=== PATIENT | female | born 1955 | race Caucasian/White ===

== ENCOUNTER 2020-06-20 12:43 | Observation (INO) | payer BC, MEDICAID, MEDICARE ==
[~2020-06-20] VITALS: Ht 162.6 cm; Wt 79.3 kg
[2020-06-20 14:36] VITALS: BP 147/70
[2020-06-20] MEDS ORDERED: ALBU1.25 NEB (15:26)
[2020-06-20] MEDS ORDERED: NYST15CR2 TP (15:41)
[2020-06-20] MEDS ORDERED: PHEN200C3 PO (15:41)
[2020-06-20] MEDS ORDERED: HYDR28.480 RC (15:41)
[2020-06-20] MEDS ORDERED: PANT40TA6 PO (15:41)
[2020-06-20] MEDS ORDERED: MULT-245 PO (15:41)
[2020-06-20] MEDS ORDERED: FURO20TA3 PO (15:41)
[2020-06-20] MEDS ORDERED: CALC500T54 PO (15:41)
[2020-06-20] MEDS ORDERED: GABA-586 PO (15:41)
[2020-06-20] MEDS ORDERED: LORA5SOL49 PO (15:41)
[2020-06-20] MEDS ORDERED: INSU100V13 SQ (15:41)
[2020-06-20] MEDS ORDERED: GLUC1KIT IJ (15:41)
[2020-06-20] MEDS ORDERED: glucocil PO (16:25)
--- NOTE | 2020-06-20 16:50 | NUR ---
Pt admitted to ICU 5 at 1450 For SBHU hold
[2020-06-20] MEDS ORDERED: ALBUTEROL SULFATE 8GM INHALER. INH PRN (17:15)
--- NOTE | 2020-06-20 18:14 | EKG ---
[address] [address] Test Date: 2020-06-20 Test Time: 17:50:49 Pat Name: JAIMIE LOPEZ Department: Room: [place] [address] Gender: F Edge Finisher: : [id number] Requested By: CARLOS SILVA Order Number: [id number] Reading MD: Measurements Intervals Peerless Rate: 75 P: 54 RI: 156 QRS: -22 QRSD: 90 T: 52 QT: 370 QTc: 416 Interpretive Statements SINUS RHYTHM LEFTWARD AXIS NO SPECIFIC ECG ABNORMALITIES RI6.01 No previous ECG available for comparison
[2020-06-20 19:17] LABS: BASO % 1 % (0-3); EOS # 0.1 x10^3/uL (0.0-0.7); EOS % 2 % (0-3); HEMOGLOBIN 11.6 g/dL (12.0-15.5); LYMPH # 1.8 x10^3/uL (1.0-4.8); LYMPH % 27 % (24-48); MEAN CORPUSCULAR HEMOGLOBIN 31 pg (25-35); MEAN CORPUSCULAR HGB CONC 33 g/dL (31-37); MEAN CORPUSCULAR VOLUME 94 fL (79-100); MONO # 0.6 x10^3/uL (0.0-1.1); MONO % 9 % (0-9); NEUT % 62 % (31-73); PLATELET COUNT 213 x10^3/uL (140-400); RED BLOOD COUNT 3.74 x10^6/uL (3.50-5.40); RED CELL DISTRIBUTION WIDTH 13.3 % (11.5-14.5); WHITE BLOOD COUNT 6.5 x10^3/uL (4.0-11.0)
[2020-06-20 19:30] VITALS: BP 161/74
[2020-06-20 19:41] LABS: ALBUMIN 3.4 g/dL (3.4-5.0); ALBUMIN/GLOBULIN RATIO 0.9 (1.0-1.7); CALCIUM 8.9 mg/dL (8.5-10.1); CREATININE 0.9 mg/dL (0.6-1.0); MAGNESIUM 1.6 mg/dL (1.8-2.4); POTASSIUM 3.8 mmol/L (3.5-5.1); TOTAL BILIRUBIN 0.1 mg/dL (0.2-1.0); TOTAL PROTEIN 7.3 g/dL (6.4-8.2)
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
[2020-06-20 20:49] LABS: BACTERIA,URINE MANY /HPF (0-FEW); BILIRUBIN,URINE NEG (NEG); CLARITY,URINE CLOUDY; COLOR,URINE YELLOW; GLUCOSE,URINE NEG (NEG); NITRITE,URINE NEG (NEG); SQUAMOUS EPITHELIAL CELL,UR FEW /LPF; UROBILINOGEN,URINE 0.2 mg/dL (0.2 mg/dL)
[2020-06-20] MEDS: PHENYTOIN 50 MG TAB.CHEW PO SCH (20:55)
[2020-06-20] MEDS: PHENYTOIN SODIUM EXTENDED 100 MG CAPSULE PO SCH (20:56)
[2020-06-20] MEDS: GABAPENTIN 300 MG CAPSULE. PO SCH (20:56)
[2020-06-20] MEDS ORDERED: PHENYTOIN SODIUM EXTENDED 100 MG CAPSULE PO ONE (21:00)
[2020-06-21 07:15] VITALS: BP 115/62
[2020-06-21] MEDS ORDERED: CETIRIZINE HCL 10 MG TABLET PO SCH (08:00)
[2020-06-21] MEDS ORDERED: CALCIUM CARBONATE 500 MG TAB.CHEW PO SCH (08:00)
[2020-06-21] MEDS ORDERED: INSULIN GLARGINE SYRINGE. SQ SCH (08:00)
[2020-06-21] MEDS: PHENYTOIN SODIUM EXTENDED 100 MG CAPSULE PO SCH ×2 (08:28→21:16)
[2020-06-21] MEDS: PHENYTOIN 50 MG TAB.CHEW PO SCH ×2 (08:28→21:16)
[2020-06-21] MEDS: GABAPENTIN 300 MG CAPSULE. PO SCH ×3 (08:28→21:16)
[2020-06-21] MEDS ORDERED: FUROSEMIDE 20 MG TABLET PO SCH (09:00)
[2020-06-21] MEDS ORDERED: PHENYTOIN SODIUM EXTENDED 100 MG CAPSULE PO ONE ×2 (09:00)
[2020-06-21] MEDS ORDERED: MULTIVITAMIN with MINERAL TABLET. PO SCH (09:00)
[2020-06-21 11:52] VITALS: BP 118/70
[2020-06-21 18:07] VITALS: BP 166/75
[2020-06-21] MEDS ORDERED: GLUCOCIL PO SCH (21:00)
--- NOTE | 2020-06-21 21:28 | NUR ---
Pt irritable this evening. Pt wishes to see the neurologist regarding her Dilantin and Neurontin dosing. Pt informed Dr. Thomas has been consulted and will be in to see her likely in the AM. Pt reports she has been in contact with [facility] and was advised to cooperative with plan to admit to [facility] once medically cleared. Pt highly labile, took medications without issue but then began shouting "I'm being overdosed! I need my stomach pumped!" Pt informed of Dilantin level and that she is below therapeutic range. Unable to reason with pt. Pt calmed and laid down immediately after interaction.
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
--- NOTE | 2020-06-22 00:25 | NUR ---
DISCHARGE: PT'S COVID PCR TEST HAS RESULTED: NOT DETECTED. ROOM ASSIGNMENT RECEIVED FROM NURSING SUP. REPORT GIVEN TO AUGIE CHILDRESS [facility]. DC PACKET AND MED REC GIVEN TO RECEIVING RN. PT LEFT UNIT VIA WC, ACCOMPANIED BY STAFF. ALL BELONGINGS, INCLUDING LAPTOP AND CELLPHONE, SENT UP TO [facility] WITH PT.
[2020-06-22] MEDS ORDERED: LORA10TA3 PO (02:16)
[2020-06-22] MEDS ORDERED: HYDR30CR61 RC (02:16)
[2020-06-22 10:40] LABS: THYROID STIM HORMONE (TSH) 1.179 uIU/mL (0.358-3.740)
--- NOTE | 2020-06-22 16:35 | PN ---
DATE: 06/21/2020 SUBJECTIVE: The patient is a 65-year-old female patient a resident at [facility] in [place] who was transferred to [facility]. The patient apparently has been refusing her medication, threatening to call the government, belligerent, shouting at staff, cursing, name calling, unable to focus things, the staff is trying to kill her, thinks also that her money is being stolen. She has failed outpatient psychiatric stabilization and therefore, she was transferred to [facility] for screening for coronavirus and if this came back negative, she would be admitted to senior behavioral unit for inpatient psychiatric stabilization. On questioning her today, she obviously has continued to have some complaint of dizziness and unsteady gait. Apparently, she was told that her phenytoin level was elevated and this had a manifestation of toxic effect of phenytoin, but otherwise denied any other complaint. Nursing staff did not voice any concerns. OBJECTIVE: GENERAL: When I examined her, she looked well and was clearly in no apparent respiratory distress. VITAL SIGNS: Stable as well as her clinical exam. LABORATORY DATA: She has had lab work done, which showed a white cell count of 6500, hemoglobin 11.6, hematocrit 35, MCV 94 and platelet count 113,000. D-dimer was only 0.37. Her chemistry showed a serum sodium 139, potassium 3.8, chloride 101, bicarbonate 27, anion gap of 11, BUN 23, creatinine 0.9. Estimated GFR was 63 mL per minute. Her glucose was 253, calcium was 8.9, magnesium was 1.6. Total bilirubin, AST, ALT, alkaline phosphatase were normal. Her total protein was 7.3, albumin was 3.4. Her urinalysis showed that urine was yellow, cloudy with a pH of 6, specific gravity of 1.020. There was a large amount of protein. The urine was negative for glucose, ketones, trace of blood, negative for nitrite, small amount of leukocyte esterase, 1-2 rbc's and 5-10 wbc's and many bacteria. Her phenytoin level was 9 mcg/mL with normal range of 10-20 and her coronavirus rapid testing was so far negative. ASSESSMENT AND PLAN: In summary, this is a 65-year-old patient, a resident at [facility] in [place] being admitted to be screened for coronavirus, and if it is negative, she will be admitted to [facility]. The rapid testing was so far negative. We are waiting for a PCR and once that becomes available, the patient can be transferred to [facility] for inpatient psychiatric stabilization. Her phenytoin probably is somewhat subtherapeutic, I will correct that for the serum albumin and decide whether we need to adjust the phenytoin further. MAXWELL/ELY DR: David TID: [id number]
--- NOTE | 2020-06-22 16:46 | HP ---
ADMIT DATE: 06/20/2020 HISTORY OF PRESENT ILLNESS: The patient is a 65-year-old female patient, resident at [facility] in [place], who apparently has had intermittently refused medication and threatens to call government, cursing them calling, unable to focus. Thinks staff is trying to kill her. Thinks her money is being stolen. She is belligerent, shouting at staff. Apparently, an attempt at outpatient psychiatric intervention has failed by her primary psychiatrist, and therefore, she was transferred to [facility] to be screened for COVID-19. Before she is ultimately admitted to [facility] for inpatient psychiatric stabilization. Apparently, the patient has not had COVID and declined COVID vaccination. PAST MEDICAL HISTORY: Significant for schizophrenia, gastrointestinal hemorrhage, rectal prolapse, iron deficiency anemia, malignant neoplasm of the colon. She is also known to have chronic constipation, urinary tract infection, type 2 diabetes mellitus, epilepsy, hyperlipidemia, chronic sinusitis, peripheral vascular disease, wheezing, acquired abscess of the left leg. PAST SURGICAL HISTORY: Significant for 4 C-sections, sinus surgery and right below-knee amputation. ALLERGIES: SHE IS ALLERGIC TO CIPROFLOXACIN. MEDICATIONS: She is currently on the following medication: She is on loratadine 5 mg at 5 mL. She actually takes 10 mg daily, albuterol sulfate 1.25 mg 3 mL by nebulizer every 6 hours, phenytoin sodium extended release 250 mg twice a day, gabapentin 300 mg 3 times a day, calcium carbonate 500 mg daily, furosemide 20 mg once a day, Protonix 40 mg daily, detemir insulin 10 units with breakfast, multivitamin one tablet once a day. FAMILY HISTORY: She has one sister still alive at the age of 61. One sister at the age of 60 because of cancer. She has 2 brothers, one is still alive and one , but does not know the age or the cause of his . Her father in his 70s, because of lung cancer. Mother in her late 60s, but she does not know the cause of her . SOCIAL HISTORY: She is . Has 2 daughters and 2 sons. She never smoked. Does not drink alcohol and recreational drugs. 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 She apparently has been at [facility] in [place] since 2015. REVIEW OF SYSTEMS: As per history of present illness. PHYSICAL EXAMINATION: GENERAL: When I examined her, she looked well and was clearly in no apparent respiratory distress. There is no pallor, jaundice, cyanosis or thyromegaly. No jugular venous distention or edema. VITAL SIGNS: Her heart rate was 82. Her blood pressure was 147/70, temperature was 97.9, respiratory rate 20, and oxygen saturation 100% on room air. HEENT: Normocephalic, atraumatic. NECK: Supple. HEART: Showed normal first and second sounds. No gallop or murmur. CHEST: Clear to auscultation, occasional rhonchi. ABDOMEN: Distended, soft, nontender. NEUROLOGIC: She was awake, alert, responding appropriately. Cranial nerves intact. She moves all her extremities without difficulty. She has right below-knee amputation. She is able to walk with her prosthesis without assistance. PLAN: The patient was admitted to [facility] and was basically swabbed for COVID-19 and we have drawn all the labs as per protocol. Her medications were continued. Also, once we have the coronavirus by PCR available, she will be transferred to [facility] for inpatient psychiatric stabilization. WILLEM/NAOMI/LORENZO DR: WILLEM/gurpreet TID: [id number]
== END 2020-06-22 00:25 ==
LOC: ICU 14:21
PROVIDERS: ADMIT Hospitalist; ATTEND Hospitalist
DX: R41.82 Altered mental status, unspecified (principal); Z20.822 Contact with and (suspected) exposure to COVID-19; R42 Dizziness and giddiness; R26.81 Unsteadiness on feet; F20.9 Schizophrenia, unspecified; D50.0 Iron deficiency anemia secondary to blood loss (chronic); E11.9 Type 2 diabetes mellitus without complications; E78.5 Hyperlipidemia, unspecified; G40.909 Epilepsy, unspecified, not intractable, without status epilepticus; I73.9 Peripheral vascular disease, unspecified; J32.9 Chronic sinusitis, unspecified; K59.00 Constipation, unspecified; N39.0 Urinary tract infection, site not specified; Z85.038 Personal history of other malignant neoplasm of large intestine; Z89.511 Acquired absence of right leg below knee; Z98.891 History of uterine scar from previous surgery; Z79.4 Long term (current) use of insulin; Z79.899 Other long term (current) drug therapy; Z98.890 Other specified postprocedural states
CPT/HCPCS: 36415; 80053; 80061; 80185; 81001; 82306; 82607; 82947; 83735; 84443; 85025; 85379; 86592; 87086; 87426; 93005; G0378; G0379; J1815; U0003; U0005; 87077; 87186

== ENCOUNTER 2020-06-22 00:45 | Inpatient (IN) | payer MEDICARE ==
[~2020-06-22] VITALS: Ht 162.6 cm; Wt 80.0 kg
[2020-06-22 00:45] VITALS: BP 149/83
[~2020-06-22 00:45] MED LIST: ALBU1.25 NEB; CALC500T54 PO; FURO20TA3 PO; GABA-586 PO; GLUC1KIT IJ; HYDR28.480 RC; INSU100V13 SQ; LORA5SOL49 PO; MULT-245 PO; NYST15CR2 TP; PANT40TA6 PO; PHEN200C3 PO; glucocil PO
[2020-06-22] MEDS ORDERED: ACETAMINOPHEN 325 MG TABLET PO PRN (02:00)
[2020-06-22] MEDS ORDERED: MAG HYDROX/AL HYDROX/SIMETH 30 ML ORAL.SUSP PO PRN (02:00)
[2020-06-22] MEDS ORDERED: METHYL SALICYLATE/MENTHOL TOPICAL OINTMENT 57GM TUBE. TP PRN (02:00)
[2020-06-22] MEDS ORDERED: MAGNESIUM HYDROXIDE 2,400 MG/30 ML ORAL.SUSP. PO PRN (02:00)
[2020-06-22] MEDS ORDERED: LORA10TA3 PO (02:16)
[2020-06-22] MEDS ORDERED: HYDR30CR61 RC (02:16)
[2020-06-22] MEDS ORDERED: HYDROCORTISONE 2.5% RECTAL CREAM 30GM TUBE. RC PRN (02:30)
[2020-06-22] MEDS ORDERED: PANTOPRAZOLE 40 MG TABLET. PO PRN (02:30)
[2020-06-22] MEDS ORDERED: ALBUTEROL SULFATE 2.5 MG/3 ML NEBU. NEB PRN (03:00)
--- NOTE | 2020-06-22 03:55 | NUR ---
Admission Note with Justification for Admission to [facility] Patient admitted to [facility] for protective oversight for emergency stabilization of acute psychiatric crisis. Pt admitted from: 1s Mode of arrival: WC Accompanied By: Stacy CHILDRESS Precipitating behaviors that initiated intake and admission: refusing meds, threatening to call government, belligerent, shouting at satff, thinks staff is trying to kill her Description of failure of out patient attempts at stabilization in previous setting list behavior and medication trials: education, out patient psychiatry Behaviors and assessment findings upon admission: Alert oriented, hyperverbal, reported being overdosed on hjer meds Plan: Admit for protective oversight for adjustment and stabilization of medications, behaviors and mood. Intense treatment regimen including groups, medication adjustments, therapy, consistent regimen for ADL's, self care, and sleep hygiene. Daily monitoring by Inpatient staff, Psychiatry, and Medical Physician.
[2020-06-22 06:00] VITALS: BP 150/82
[2020-06-22] MEDS: INSULIN GLARGINE SYRINGE. SQ SCH (08:00)
[2020-06-22] MEDS: MULTIVITAMIN with MINERAL TABLET. PO SCH (08:18)
[2020-06-22] MEDS: CALCIUM CARBONATE 500 MG TAB.CHEW PO SCH (08:18)
[2020-06-22] MEDS: GABAPENTIN 300 MG CAPSULE. PO SCH ×3 (08:18→21:40)
[2020-06-22] MEDS: CETIRIZINE HCL 10 MG TABLET PO SCH (08:18)
[2020-06-22] MEDS: FUROSEMIDE 20 MG TABLET PO SCH (08:18)
[2020-06-22] MEDS ORDERED: PHENYTOIN 50 MG TAB.CHEW PO ONE (12:30)
--- NOTE | 2020-06-22 12:52 | NUR ---
WEEKLY ACTIVITY THERAPY NOTE Date of Admission:06/22/20 Date of AT Assessment: TBD Precipitating behaviors that initiated intake and admission:refusing meds, threatening to call government, belligerent, shouting at staff, thinks staff is trying to kill her Goal aimed: TBD Initial Goal: TBD Weekly progress towards goal: NA Group participation level: NA Weekly highlights: arrived on [facility] Behaviors observed: Plan: meet/asses pt Beneficial adaptations:
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
[2020-06-22 16:21] VITALS: BP 148/85
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
--- NOTE | 2020-06-22 17:59 | TX PLAN ---
Interdisciplinary Tx Plan Admission Information Jun 22, 2020 at 00:45 Legal Status (on Admission): Voluntary DPOA/Guardian Name: Dtr/Medina Larios [phone] and Strategy Consultant Luis M Hernández [phone] Other Contact Name: MONROE Grace/ DANDRE Corcoran/ DONAL Mora Other Contact Verified Code Status: Full Code Allergies: Coded Allergies: ciprofloxacin (Verified Allergy, Unknown, 06/20/20) Diagnoses Primary Diagnosis: Schizophrenia, Anemia, DMII, HLD, Epilepsy, right leg amputation Reasons for Admission: Delusions, Relation/conflict, Agitated, Angry, Suspicious/paranoid Problem in Patient's Words: Pt has a long history of paranoia and being suspicious of family, facility staff, and doctors. She has burnt relationships with family members and friends from years ago. She tries to call or email the state to make accusations about the medical staff drugging her. She is Jehovah Witness and has refused blood transfusions that has created some medical complications. 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 Additional Admission Comments: Per intake pt intermittently refuses medication, threatens to call govt/state, belligerent, shouting at staff, cussing, name calling, unable to focus, thinks staff is trying to kill her, thinks money is being stolen. Problems Active Problems: Delusional, paranoia, suspicious of everyone, agitation, poor insight/judgement. Inactive Problems: None noted at this time. Pt Strengths/Limitations Ability for Rena Lara: Poor Cognitive Functioning/Ability: Poor Communication Skills/Ability: Fair Financial Resources: Poor Insight/Judgement: Poor Intellectual Ability: Fair Physical Health: Poor Social Skills: Poor Stability in Family: Poor Stability in School/Work: Poor Verbal Skills: Poor Discharge Criteria Discharge Criteria: Able to meet health needs, Adequate arrangements @DC, Adequate self-care, Verbal commit med comply, Improved behavior, Improved mood/thought Other Discharge Comments: None noted at this time. Preliminary Discharge Plan Preliminary DC Plan: Current Living Arrange. Special Precautions Special Precautions: Agitation/Assault Fall Risk: Moderate Initial D/C Plan Pt plan is to return to [facility] Identified Discharge Needs: None noted at this time. Currently Utilized Resources Currently Utilized Resources/P: PCP-Dr. Aguayo Psychiatrist-Dr. Champion [facility] Ic-ysinbolct-Xlc/Medina, and Strategy Consultant/Luis M Referrals Community Resources: None noted at this time. Additional Information Pt should not be allowed to use the phone unless SW or guardian's are aware and approved by. Identified Problems/Hx/Goals Objectives/Short-Term Goals Short Term Goals: Control abnormal behavior, Dec. Hallucination/Delus, Improved Social Skills, Medication Stabilization, Monitor Med Effects, Promote Coping Skill Short Term Goals in Patient's: Compliant with medications and improved paranoia/suspicions Interventions/Frequency Staff Interventions/Frequency&: Psychiatry to assess pt three times per week for medication management. Nursing to assess behaviors, monitor medications, and complete 15 minute checks daily. Social Work to see pt at least two times weekly to aid in return to placement. Activities to encourage pt to participate in group activities daily. 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 Education: Pt completed high school and secretarial schooling. Community Follow-up PCP Psychiatry Community Provider/Family Inpu: Guardians are aware that pt is at [facility]. They are available for further input if needed. Pt should not be allowed to make phone calls without consulting SW or guardians first. Treatment Plan Explained Patient/Curtain Stitcher had this treatment plan explained to him/her as indicated by the signature below and has been given the opportunity to ask questions and make suggestions: Date: Patient/Curtain Stitcher Signature: NAKIA AVERY Jun 22, 2020 17:59
[2020-06-22] MEDS ORDERED: GLUCOCIL PO SCH (21:00)
[2020-06-22] MEDS: PHENYTOIN 50 MG TAB.CHEW PO SCH (21:40)
--- NOTE | 2020-06-22 22:01 | PDOC ---
Exam Note: Ryan Note: Please also refer to the separate dictated note~for this date of service dictated separately.~Patient seen individually. Discussed the patient with Nursing staff reviewed the chart.~Reviewed interim history and current functioning. Reviewed vital signs,~Labs/ Radiology~and current medications noted below. Continue current treatment with the changes noted in the dictated addendum note Assessment: Vital Signs/I&O: Vital Signs Date Time Temp Pulse Resp B/P (MAP) Pulse Ox O2 Delivery O2 Flow Rate FiO2 06/22/20 16:21 97.1 84 18 148/85 (106) 96 Labs: Laboratory Tests Test 06/22/20 08:19 06/22/20 12:12 06/22/20 17:11 06/22/20 19:15 Glucose (Fingerstick) 110 mg/dL (70-99) H 181 mg/dL (70-99) H 99 mg/dL (70-99) 134 mg/dL (70-99) H Current Medications: Meds: Current Medications Medications (Trade) Dose Ordered Sig/Sydney Route PRN Reason Start Time Stop Time Status Last Admin Dose Admin Furosemide (Lasix) 20 mg DAILY PO 06/22/20 09:00 06/22/20 08:18 Gabapentin (Neurontin) 300 mg TID PO 06/22/20 09:00 06/22/20 21:40 Calcium Carbonate/ Glycine (Tums) 500 mg DAILY08 PO 06/22/20 08:00 06/22/20 08:18 Insulin Glargine (Lantus Syringe) 10 unit DAILYWBKFT SQ 06/22/20 08:00 06/22/20 08:00 Cetirizine HCl (ZyrTEC) 10 mg DAILY PO 06/22/20 09:00 06/22/20 08:18 Multivitamins/ Calcium (Thera-M Plus) 1 tab DAILY PO 06/22/20 09:00 06/22/20 08:18 Phenytoin Sodium (Dilantin) 250 mg BID PO 06/22/20 21:00 06/22/20 21:40 Phenytoin Sodium (Dilantin) 150 mg 1X ONCE PO 06/22/20 12:30 06/22/20 12:31 DC 06/22/20 15:31 Non-Formulary Medication (Non Formulary Item (Glucocil)) 1 ea BID PO 06/22/20 21:00 06/22/20 21:41 I have reviewed the current psychotropics carefully including drug interactions. Risk benefit ratio favors no change other than as noted in my dictated progress note. Diagnosis: Problems: (1) Schizoaffective disorder, bipolar type (2) Bipolar disorder with psychotic features ELIAS WASHINGTON MD Jun 22, 2020 22:01
--- NOTE | 2020-06-22 22:21 | HP ---
ADMIT DATE: 06/21/2020 ADMISSION HISTORY/EVALUATION This note covers elements not covered in my initial note 06/22/2020. I met with the patient evening of 06/22/2020 for this evaluation. IDENTIFYING DATA: The patient is a 65-year-old female referred to us from [facility] where she has resided for the past several years. She is being admitted by her legal guardian, her daughter, Medina on account of an acute exacerbation of her schizoaffective disorder, bipolar type, with psychotic features. The patient has been refusing medications, resistive to cares, putting herself on the floor, shouting at staff, belligerent, cursing, name calling, unable to focus. She thinks staff is trying to kill her. She thinks her money is being stolen. She has failed outpatient psychiatric care and interventions by Dr. Raymundo Champion, her psychiatrist. Therefore, referred for inpatient psychiatric stabilization. CHIEF COMPLAINT: "I came here just to have my seizure medications adjusted." HISTORY OF PRESENT ILLNESS: Reportedly, the patient has a long history of schizoaffective disorder, bipolar type. She has been living at the above facility for some time, recently getting more paranoid, psychotic, agitated, refusing cares and medications, putting herself on the floor. At times, she is hyperverbal. She has had sleep and appetite changes. No active suicidal or homicidal ideation. PAST PSYCHIATRIC HISTORY: As above. MEDICAL HISTORY: Type 2 diabetes mellitus, hyperlipidemia, seizure disorder, rectal prolapse, status post right leg amputation. ACCU-CHEKS: Before meals and at bedtime. ALLERGIES: CIPRO. CODE STATUS: Full code. DIET: Regular. Takes medications whole. culture is pending. CURRENT PSYCHOTROPICS: She is on Dilantin 250 mg b.i.d. for seizures, level is subtherapeutic at 9. We will consult Dr. Thomas, Neurology to follow her for her seizures. She is also on Neurontin 300 mg t.i.d. FAMILY HISTORY: Noncontributory. SOCIAL HISTORY: No alcohol, drug abuse, physical, sexual or elder abuse. She is not known to be a perpetrator. REACTION TO HOSPITALIZATION: The patient accepting of it. ASSETS: Supportive, guardian and living arrangements at the above facility. REVIEW OF SYSTEMS: No CV, , pulmonary, eye, ENT system symptoms on review. MENTAL STATUS EXAMINATION: The patient is reasonably oriented. Speech is coherent, has some latency. Abstraction fair, computation impaired, language function intact, attention span short. Mood and affect somewhat anxious, labile. She is distractable, paranoid, suspicious. No suicidal or homicidal ideation. LABORATORY DATA: Reviewed. IMPRESSION: Schizoaffective disorder, bipolar type, mixed with psychotic features; anxiety disorder, unspecified; impulse control disorder, unspecified. Rest diagnoses as above. PLAN: Admit to Geropsychiatry Unit at [facility]. I will see the patient daily individually from a psychiatric standpoint. Medical followup with Dr. Jorge/Dr. Wei. Continue current psychotropics. Consult Dr. Thomas for seizure management. Consider adding Depakote as a mood stabilizer. Using Risperdal or Seroquel as an atypical antipsychotic. She was staffed at a treatment team meeting with the entire team today including Zohreh Esteban and Kacie, social welfare research worker staff; Deondre, activity therapy and MONROE Beaulieu. She has been paranoid, suspicious, talking about doctors overmedicating her in the past and she has an open case with the state against different providers. She has been putting herself on the floor, hyperverbal at times, refuses to give up her rings and watches for safekeeping. Discussed diagnosis, treatment plan, prognosis, discharge plans. We will make further adjustments in psychotropics post baseline assessment. ESTIMATED LENGTH OF STAY: 10-12 days. DISPOSITION: Plans back to assisted when stable. ELIAS WASHINGTON MD DR: JEFFREY/gurpreet JOB#: [id number] / [id number]
--- NOTE | 2020-06-22 23:59 | NUR ---
Patient is located in her room on assumption of care, awake in bed. She is pleasant, cooperative. Compliant with assessments and medications whole. She has voiced no delusions so far this shift. She has asked several times about her Glucocil pills. When HS meds were administered, she informed this nurse that she takes 2 capsules at 0800 and 1700, not one BID as pharmacy label states. This nurse told her that I would get clarification in the morning and that I could only give her one at this time. She was agreeable. No agitation. Patient denies any pain or discomfort. Denies SI. She appears to be sleeping comfortably at present time. Will continue to monitor.
[2020-06-23 06:04] VITALS: BP 125/78
[2020-06-23] MEDS: INSULIN GLARGINE SYRINGE. SQ SCH (08:00)
[2020-06-23] MEDS: GLUCOCIL PO SCH ×2 (08:00→17:00)
[2020-06-23] MEDS: MULTIVITAMIN with MINERAL TABLET. PO SCH (08:19)
[2020-06-23] MEDS: PHENYTOIN 50 MG TAB.CHEW PO SCH ×2 (08:19→21:18)
[2020-06-23] MEDS: CALCIUM CARBONATE 500 MG TAB.CHEW PO SCH (08:19)
[2020-06-23] MEDS: GABAPENTIN 300 MG CAPSULE. PO SCH ×3 (08:19→21:17)
[2020-06-23] MEDS: CETIRIZINE HCL 10 MG TABLET PO SCH (08:19)
[2020-06-23] MEDS: FUROSEMIDE 20 MG TABLET PO SCH (08:20)
[2020-06-23 15:36] VITALS: BP 134/83
[2020-06-23] MEDS: CHOLECALCIFEROL (VITAMIN D3) 50,000 UNIT CAPSULE PO SCH (17:27)
[2020-06-23] MEDS: AMOXICILLIN/K CLAV 875/125MG TABLET. PO SCH (21:16)
[2020-06-23] MEDS: LACTOBACILLUS RHAMNOSUS GG 1 CAPSULE. PO SCH (21:16)
[2020-06-23] MEDS: MAGNESIUM OXIDE 400 MG TABLET PO SCH (21:17)
--- NOTE | 2020-06-23 22:11 | PDOC ---
Exam Note: Ryan Note: Please also refer to the separate dictated note~for this date of service dictated separately.~Patient seen individually. Discussed the patient with Nursing staff reviewed the chart.~Reviewed interim history and current functioning. Reviewed vital signs,~Labs/ Radiology~and current medications noted below. Continue current treatment with the changes noted in the dictated addendum note Assessment: Vital Signs/I&O: Vital Signs Date Time Temp Pulse Resp B/P (MAP) Pulse Ox O2 Delivery O2 Flow Rate FiO2 06/23/20 15:36 97.4 81 16 134/83 (100) 96 Room Air I & O 06/22/20 06/22/20 06/23/20 15:00 23:00 07:00 Intake Total 480 ml 480 ml Balance 480 ml 480 ml Labs: Laboratory Tests Test 06/23/20 07:48 06/23/20 12:19 06/23/20 17:10 06/23/20 19:20 Glucose (Fingerstick) 90 mg/dL (70-99) 143 mg/dL (70-99) H 143 mg/dL (70-99) H 160 mg/dL (70-99) H Current Medications: Meds: Current Medications Medications (Trade) Dose Ordered Sig/Sydney Route PRN Reason Start Time Stop Time Status Last Admin Dose Admin Non-Formulary Medication (Non Formulary Item (Glucocil)) 2 ea BIDWMEALS PO 06/23/20 08:00 06/23/20 17:00 Amoxicillin/ Clavulanate Potassium (Augmentin 875/ 125mg) 1 tab BID PO 06/23/20 21:00 07/03/20 22:00 06/23/20 21:16 Vitamin D (Vitamin D3) 50,000 unit WEEKLY PO 06/23/20 15:45 06/23/20 17:27 Magnesium Oxide (Magnesium Oxide) 400 mg BID PO 06/23/20 21:00 06/23/20 21:17 Lactobacillus Rhamnosus (Culturelle) 1 cap BID PO 06/23/20 21:00 06/23/20 21:16 Phenytoin Sodium (Dilantin) 200 mg BID PO 06/23/20 21:00 06/23/20 21:18 I have reviewed the current psychotropics carefully including drug interactions. Risk benefit ratio favors no change other than as noted in my dictated progress note. Diagnosis: Problems: (1) Anxiety disorder, unspecified (2) Impulse control disorder, unspecified (3) Schizoaffective disorder, bipolar type (4) Bipolar disorder with psychotic features ELIAS WASHINGTON MD Jun 23, 2020 22:11
--- NOTE | 2020-06-23 23:59 | NUR ---
Patient is located in her room on assumption of care, sitting in her chair. She remains on precautions for ESBL. She is in pleasant spirits, interactive, polite. She was very happy to have seen Dr. Thomas and was happy about her med changes. She was compliant with assessments and medications taken whole. She asked this nurse if she could have a pen and her spiral notebook because she wanted to take notes and write down questions that she thinks of. This nurse told her she would try to find her a suitable notebook and felt-tip pen. She asked "Well, why can't I just have a pen like yours and the notebook that I brought with me?" This nurse explained that regular pens and spiral notebooks are against unit rules, as they can pose a danger to a patient who is looking to harm themselves or others. This nurse was able to procure a composition notebook and felt tip pen for the patient. She was thankful for the writing supplies. Patient has voiced no delusions so far this shift. She denies any pain or discomfort. Patient appears to be sleeping comfortably at present time. Will continue to monitor.
[2020-06-24 06:49] VITALS: BP 130/79
[2020-06-24] MEDS: INSULIN GLARGINE SYRINGE. SQ SCH (08:00)
[2020-06-24] MEDS: GLUCOCIL PO SCH ×2 (08:00→17:00)
[2020-06-24] MEDS: PHENYTOIN 50 MG TAB.CHEW PO SCH ×2 (09:00→21:16)
[2020-06-24] MEDS: MAGNESIUM OXIDE 400 MG TABLET PO SCH ×2 (09:00→21:15)
[2020-06-24] MEDS: AMOXICILLIN/K CLAV 875/125MG TABLET. PO SCH ×2 (09:00→21:16)
[2020-06-24] MEDS: FUROSEMIDE 20 MG TABLET PO SCH (09:01)
[2020-06-24] MEDS: LACTOBACILLUS RHAMNOSUS GG 1 CAPSULE. PO SCH ×2 (09:01→21:16)
[2020-06-24] MEDS: GABAPENTIN 300 MG CAPSULE. PO SCH ×3 (09:01→21:15)
[2020-06-24] MEDS: CALCIUM CARBONATE 500 MG TAB.CHEW PO SCH (09:01)
[2020-06-24] MEDS: CETIRIZINE HCL 10 MG TABLET PO SCH (09:01)
[2020-06-24] MEDS: MULTIVITAMIN with MINERAL TABLET. PO SCH (09:01)
--- NOTE | 2020-06-24 10:54 | CONS ---
DATE OF CONSULTATION: 06/23/2020 CHIEF COMPLAINT: Consult for medical management for the patient. HISTORY OF PRESENT ILLNESS: The patient is a 65-year-old female patient who was a resident at [facility] in [place] where she has been a resident for the past several years. She was seen initially at [address] [place] [address] where she was screened for COVID-19 and turned out to be negative and was admitted to [facility] on account of an acute exacerbation of her schizoaffective disorder, bipolar type with psychotic features. The patient has been refusing medications and resistive to care, putting herself on the floor, shouting at staff, belligerent, cursing and calling, unable to focus. She thinks staff is trying to kill her. She thinks her money is being stolen and apparently has failed outpatient psychiatric stabilization intervention and therefore, she was admitted for inpatient psychiatric stabilization. Medically, she has multiple medical problems including type 2 diabetes, hyperlipidemia, and seizure disorder. She is known to have gastrointestinal hemorrhage, rectal prolapse, iron deficiency anemia and malignant neoplasm of the colon. She also is known to have chronic constipation, urinary tract infection. Apparently, she has also peripheral vascular disease. PAST SURGICAL HISTORY: Significant for 4 C-sections, sinus surgery and right below-knee amputation. ALLERGIES: SHE IS ALLERGIC TO CIPROFLOXACIN. FAMILY HISTORY: She has one sister still alive at the age of 61. One sister at the age of 60 because of cancer. Has 2 brothers, 1 is still alive and 1 , but does not know the age or the cause of his . Her father in his 70s because of lung cancer. Mother in her late 60s, but she does not know the cause of her . SOCIAL HISTORY: She is , has 2 daughters and 2 sons. She never smoked, does not drink alcohol or use recreational drugs. 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 She apparently has been at [facility] in [place] since 2016. REVIEW OF SYSTEMS: As per history of present illness. PHYSICAL EXAMINATION: GENERAL: On examining her, she looks well and was clearly in no apparent respiratory distress. No pallor, jaundice, or cyanosis. No thyromegaly, no jugular venous distention. No limb edema. VITAL SIGNS: Heart rate was 81, blood pressure was 134/83, temperature 97.4, respiratory rate was 16 and oxygen saturation was 96% on room air. HEAD, EYES, EARS, NOSE AND THROAT: Normocephalic, atraumatic. NECK: Supple. HEART: Showed normal first and second sounds. No gallop or murmur. CHEST: Clear to auscultation. No crepitation or rhonchi. ABDOMEN: Distended, soft, nontender. NEUROLOGIC: She is grossly intact. All her cranial nerves are intact. She moves upper extremities without difficulty. She has right below-knee amputation. She has prosthesis and according to her, she is able to walk with the prosthesis on; without it, she is able to walk with a walker. LABORATORY DATA: Her lab work on admission showed a white cell count of 6500, hemoglobin 11.6, hematocrit 35, MCV 94 and platelet count of 213,000. Her chemistry showed a serum sodium 139, potassium 3.8, chloride 101, bicarbonate 97, anion gap of 11, BUN 23, creatinine 0.9. Estimated GFR was 63 mL per minute. Her glucose was 253, calcium was 8.9, magnesium is 1.6. Total bilirubin, AST, ALT, alkaline phosphatase were normal. Total protein 7.3, albumin was 3.4. Her serum triglycerides was 138. Total cholesterol was 238, LDL cholesterol 165, VLDL was 27, HDL was 46 and the ratio of 5. Her vitamin B12 was 1412 pg/mL, 25-hydroxy vitamin D was 28. TSH was normal at 1.179. Her phenytoin was 9 mcg/mL and corrected to the albumin it was 11.6, which is within therapeutic range. Her ____ was unreactive. Coronavirus with PCR was not detected. Her urinalysis showed that she has 5-10 wbcs, small amount of leukocyte esterase and many bacteria. Her urine culture has grown more than 100,000 colony forming units per mL of gram-negative rods. She has extended spectrum beta-lactamase. The bacteria is sensitive to ertapenem, gentamicin, piperacillin/tazobactam and meropenem. ASSESSMENT: In summary, this is a 65-year-old female patient, a resident at [facility] in [place], who was [facility] to [facility] on account of exacerbation of her schizoaffective disorder, bipolar type with psychotic features. The patient has been refusing medications, resistive to care, putting herself on the floor, shouting at staff, belligerent, cursing, name calling, unable to focus. She thinks that the staff are trying to kill her and her money is being stolen; all this obviously on a background of schizoaffective disorder, bipolar type. Her lab work showed that she has normochromic normocytic anemia, hyperlipidemia, vitamin D deficiency, hypomagnesemia and her urine culture has grown multidrug-resistant bacteria in the form of Escherichia coli that is extended spectrum beta-lactamase. Her extended spectrum beta-lactamase Escherichia coli is resistant to the quinolone and most of the cephalosporins as well as ampicillin, and sensitive to Augmentin. PLAN: My plan is to start her on Augmentin based on her kidney function and decide on further management accordingly. Thank you, Dr. Steven for allowing me to participate in the care of this patient. WILLEM/ADIDS/JANICE DR: WILLEM/gurpreet TID: [id number]
[2020-06-24 15:59] VITALS: BP 120/60
--- NOTE | 2020-06-24 18:53 | NUR ---
Pt up adl to meals. Usually in room writing in journal. Has [place] compliant with meds and cares.
--- NOTE | 2020-06-24 22:05 | PDOC ---
Exam Note: Ryan Note: Please also refer to the separate dictated note~for this date of service dictated separately.~Patient seen individually. Discussed the patient with Nursing staff reviewed the chart.~Reviewed interim history and current functioning. Reviewed vital signs,~Labs/ Radiology~and current medications noted below. Continue current treatment with the changes noted in the dictated addendum note Assessment: Vital Signs/I&O: Vital Signs Date Time Temp Pulse Resp B/P (MAP) Pulse Ox O2 Delivery O2 Flow Rate FiO2 06/24/20 15:59 97.4 85 16 120/60 (80) 95 06/23/20 15:36 Room Air I & O 06/23/20 06/23/20 06/24/20 15:00 23:00 07:00 Intake Total 600 ml 240 ml 120 ml Balance 600 ml 240 ml 120 ml Labs: Laboratory Tests Test 06/24/20 08:02 06/24/20 12:11 06/24/20 17:06 Glucose (Fingerstick) 104 mg/dL (70-99) H 159 mg/dL (70-99) H 124 mg/dL (70-99) H Current Medications: Meds: Laboratory Tests Test 06/24/20 08:02 06/24/20 12:11 06/24/20 17:06 Glucose (Fingerstick) 104 mg/dL 159 mg/dL 124 mg/dL Current Medications Medications (Trade) Dose Ordered Sig/Sydney Route PRN Reason Start Time Stop Time Status Last Admin Dose Admin Acetaminophen (Tylenol) 650 mg PRN Q6HRS PRN PO MILD PAIN / TEMP > 100.3'F 06/22/20 02:00 Multi-Ingredient Ointment (Analgesic Inland) 1 syed PRN QID PRN TP MUSCLE PAIN 06/22/20 02:00 Al Hydroxide/Mg Hydroxide (Mylanta Plus Xs) 15 ml PRN AFTMEALHC PRN PO DYSPEPSIA 06/22/20 02:00 Magnesium Hydroxide (Milk Of Magnesia) 2,400 mg PRN QHS PRN PO CONSTIPATION 06/22/20 02:00 Furosemide (Lasix) 20 mg DAILY PO 06/22/20 09:00 06/24/20 09:01 Gabapentin (Neurontin) 300 mg TID PO 06/22/20 09:00 06/24/20 21:15 Hydrocortisone (Proctosol-Hc) 1 syed PRN Q12HR PRN RC Hemmorrhoids 06/22/20 02:30 Pantoprazole Sodium (Protonix) 40 mg PRN Q12HR PRN PO GERD 06/22/20 02:30 Albuterol Sulfate (Ventolin) 1.25 mg PRN Q6HRS PRN NEB COUGH 06/22/20 03:00 Calcium Carbonate/ Glycine (Tums) 500 mg DAILY08 PO 06/22/20 08:00 06/24/20 09:01 Insulin Glargine (Lantus Syringe) 10 unit DAILYWBKFT SQ 06/22/20 08:00 06/24/20 08:00 Cetirizine HCl (ZyrTEC) 10 mg DAILY PO 06/22/20 09:00 06/24/20 09:01 Multivitamins/ Calcium (Thera-M Plus) 1 tab DAILY PO 06/22/20 09:00 06/24/20 09:01 Phenytoin Sodium (Dilantin) 250 mg BID PO 06/22/20 21:00 06/23/20 19:12 DC 06/23/20 08:19 Phenytoin Sodium (Dilantin) 150 mg 1X ONCE PO 06/22/20 12:30 06/22/20 12:31 DC 06/22/20 15:31 Non-Formulary Medication (Non Formulary Item (Glucocil)) 1 ea BID PO 06/22/20 21:00 06/23/20 05:16 DC 06/22/20 21:41 Non-Formulary Medication (Non Formulary Item (Glucocil)) 2 ea BIDWMEALS PO 06/23/20 08:00 06/24/20 17:00 Amoxicillin/ Clavulanate Potassium (Augmentin 875/ 125mg) 1 tab BID PO 06/23/20 21:00 07/03/20 22:00 06/24/20 21:16 Vitamin D (Vitamin D3) 50,000 unit WEEKLY PO 06/23/20 15:45 06/23/20 17:27 Magnesium Oxide (Magnesium Oxide) 400 mg BID PO 06/23/20 21:00 06/24/20 21:15 Lactobacillus Rhamnosus (Culturelle) 1 cap BID PO 06/23/20 21:00 06/24/20 21:16 Phenytoin Sodium (Dilantin) 200 mg BID PO 06/23/20 21:00 06/24/20 21:16 I have reviewed the current psychotropics carefully including drug interactions. Risk benefit ratio favors no change other than as noted in my dictated progress note. Diagnosis: Problems: (1) Schizoaffective disorder, bipolar type (2) Bipolar disorder with psychotic features (3) Impulse control disorder, unspecified (4) Anxiety disorder, unspecified ELIAS WASHINGTON MD Jun 24, 2020 22:05
--- NOTE | 2020-06-24 23:59 | NUR ---
Patient is located in her room on assumption of care, sitting in her chair. She is in pleasant spirits. Compliant with assessments and medications whole. Cooperative with shower. No agitation or paranoia. She has voiced no delusions so far this shift. Denies SI. She denies any pain or discomfort. Patient appears to be sleeping comfortably at present time. Will continue to monitor.
--- NOTE | 2020-06-25 01:37 | PN ---
DATE: 06/24/2020 SUBJECTIVE: The patient denies any new medical or neurological complaints. She has not had any recurrent seizures. The patient stated she has been tolerating Dilantin at current dose 200 mg twice a day without any side effects. OBJECTIVE: GENERAL: Well-developed, well-nourished female, not in acute distress. VITAL SIGNS: Blood pressure 130/79, respiratory rate 16, pulse 78 and regular, temperature 97.8, oxygen saturation 96% on room air. HEENT: Normocephalic, atraumatic, otherwise unremarkable. NECK: Supple, negative for carotid bruit, lymphadenopathy or thyromegaly. LUNGS: Clear to A and P. HEART: Regular rate and rhythm, normal S1, S2. ABDOMEN: Soft. Bowel sounds positive. EXTREMITIES: Negative for cyanosis, clubbing or edema. NEUROLOGIC: Mental status: The patient is alert and oriented x3. Speech is fluent. There is no language dysfunction. Cranial nerves are intact. No focal motor deficit; however, the patient had a prosthesis after amputation of the right lower extremity. Sensory examination, diminished pinprick and light touch senses in patchy distributions in the left lower extremity. Deep tendon reflexes were symmetric and hypoactive with absent Achilles responses. Gait: The patient walks with a prosthesis. ASSESSMENT: 1. Seizure disorder, no recurrence since admission. 2. Multiple medical problems including diabetes mellitus, hypertension, hyperlipidemia, status post right leg amputation. 3. Multiple psychiatric problems including schizoaffective disorders, bipolar disorder and anxiety disorder. RECOMMENDATION: We will continue with current anticonvulsant. Continue with current medical and psychiatric care. ANGELICA DR: Alexy TID: [id number]
[2020-06-25 06:22] VITALS: BP 120/75
[2020-06-25] MEDS: INSULIN GLARGINE SYRINGE. SQ SCH (08:00)
[2020-06-25] MEDS: GLUCOCIL PO SCH ×2 (08:00→17:00)
[2020-06-25] MEDS: MAGNESIUM OXIDE 400 MG TABLET PO SCH ×2 (09:00→20:51)
[2020-06-25] MEDS: CETIRIZINE HCL 10 MG TABLET PO SCH (09:20)
[2020-06-25] MEDS: AMOXICILLIN/K CLAV 875/125MG TABLET. PO SCH ×2 (09:20→20:51)
[2020-06-25] MEDS: GABAPENTIN 300 MG CAPSULE. PO SCH ×3 (09:20→20:51)
[2020-06-25] MEDS: LACTOBACILLUS RHAMNOSUS GG 1 CAPSULE. PO SCH ×2 (09:21→20:51)
[2020-06-25] MEDS: CALCIUM CARBONATE 500 MG TAB.CHEW PO SCH (09:21)
[2020-06-25] MEDS: FUROSEMIDE 20 MG TABLET PO SCH (09:21)
[2020-06-25] MEDS: MULTIVITAMIN with MINERAL TABLET. PO SCH (09:21)
[2020-06-25] MEDS: PHENYTOIN SODIUM EXTENDED 100 MG CAPSULE PO SCH ×2 (09:28→20:52)
[2020-06-25 16:07] VITALS: BP 137/76
--- NOTE | 2020-06-25 18:42 | NUR ---
Pt up adl to meals and out in halls. Compliant with meds and cares.
--- NOTE | 2020-06-25 22:13 | PDOC ---
Exam Note: Ryan Note: Please also refer to the separate dictated note~for this date of service dictated separately.~Patient seen individually. Discussed the patient with Nursing staff reviewed the chart.~Reviewed interim history and current functioning. Reviewed vital signs,~Labs/ Radiology~and current medications noted below. Continue current treatment with the changes noted in the dictated addendum note Assessment: Vital Signs/I&O: Vital Signs Date Time Temp Pulse Resp B/P (MAP) Pulse Ox O2 Delivery O2 Flow Rate FiO2 06/25/20 16:07 97.5 78 16 137/76 (96) 96 06/23/20 15:36 Room Air I & O 06/24/20 06/24/20 06/25/20 14:59 22:59 06:59 Intake Total 600 ml 600 ml Balance 600 ml 600 ml Labs: Laboratory Tests Test 06/25/20 07:57 06/25/20 12:12 06/25/20 17:01 06/25/20 19:31 Glucose (Fingerstick) 98 mg/dL (70-99) 155 mg/dL (70-99) H 119 mg/dL (70-99) H 224 mg/dL (70-99) H Current Medications: Meds: Laboratory Tests Test 06/25/20 07:57 06/25/20 12:12 06/25/20 17:01 06/25/20 19:31 Glucose (Fingerstick) 98 mg/dL 155 mg/dL 119 mg/dL 224 mg/dL Current Medications Medications (Trade) Dose Ordered Sig/[place] Route PRN Reason Start Time Stop Time Status Last Admin Dose Admin Acetaminophen (Tylenol) 650 mg PRN Q6HRS PRN PO MILD PAIN / TEMP > 100.3'F 06/22/20 02:00 Multi-Ingredient Ointment (Analgesic [place]) 1 syed PRN QID PRN TP MUSCLE PAIN 06/22/20 02:00 Al Hydroxide/Mg Hydroxide (Mylanta Plus Xs) 15 ml PRN AFTMEALHC PRN PO DYSPEPSIA 06/22/20 02:00 Magnesium Hydroxide (Milk Of Magnesia) 2,400 mg PRN QHS PRN PO CONSTIPATION 06/22/20 02:00 Furosemide (Lasix) 20 mg DAILY PO 06/22/20 09:00 06/25/20 09:21 Gabapentin (Neurontin) 300 mg TID PO 06/22/20 09:00 06/25/20 20:51 Hydrocortisone (Proctosol-Hc) 1 syed PRN Q12HR PRN RC Hemmorrhoids 06/22/20 02:30 Pantoprazole Sodium (Protonix) 40 mg PRN Q12HR PRN PO GERD 06/22/20 02:30 Albuterol Sulfate (Ventolin) 1.25 mg PRN Q6HRS PRN NEB COUGH 06/22/20 03:00 Calcium Carbonate/ Glycine (Tums) 500 mg DAILY08 PO 06/22/20 08:00 06/25/20 09:21 Insulin Glargine (Lantus Syringe) 10 unit DAILYWBKFT SQ 06/22/20 08:00 06/25/20 08:00 Cetirizine HCl (ZyrTEC) 10 mg DAILY PO 06/22/20 09:00 06/25/20 09:20 Multivitamins/ Calcium (Thera-M Plus) 1 tab DAILY PO 06/22/20 09:00 06/25/20 09:21 Phenytoin Sodium (Dilantin) 250 mg BID PO 06/22/20 21:00 06/23/20 19:12 DC 06/23/20 08:19 Phenytoin Sodium (Dilantin) 150 mg 1X ONCE PO 06/22/20 12:30 06/22/20 12:31 DC 06/22/20 15:31 Non-Formulary Medication (Non Formulary Item (Glucocil)) 1 ea BID PO 06/22/20 21:00 06/23/20 05:16 DC 06/22/20 21:41 Non-Formulary Medication (Non Formulary Item (Glucocil)) 2 ea BIDWMEALS PO 06/23/20 08:00 06/25/20 17:00 Amoxicillin/ Clavulanate Potassium (Augmentin 875/ 125mg) 1 tab BID PO 06/23/20 21:00 07/03/20 22:00 06/25/20 20:51 Vitamin D (Vitamin D3) 50,000 unit WEEKLY PO 06/23/20 15:45 06/23/20 17:27 Magnesium Oxide (Magnesium Oxide) 400 mg BID PO 06/23/20 21:00 06/25/20 20:51 Lactobacillus Rhamnosus (Culturelle) 1 cap BID PO 06/23/20 21:00 06/25/20 20:51 Phenytoin Sodium (Dilantin) 200 mg BID PO 06/23/20 21:00 06/25/20 01:50 DC 06/24/20 21:16 Phenytoin Sodium (Dilantin) 200 mg BID PO 06/25/20 09:00 06/25/20 20:52 Current Medications Medications (Trade) Dose Ordered Sig/[place] Route PRN Reason Start Time Stop Time Status Last Admin Dose Admin Phenytoin Sodium (Dilantin) 200 mg BID PO 06/25/20 09:00 06/25/20 20:52 I have reviewed the current psychotropics carefully including drug interactions. Risk benefit ratio favors no change other than as noted in my dictated progress note. Diagnosis: Problems: (1) Schizoaffective disorder, bipolar type (2) Bipolar disorder with psychotic features (3) Impulse control disorder, unspecified (4) Anxiety disorder, unspecified ELIAS WASHINGTON MD Jun 25, 2020 22:13
[2020-06-26 06:42] VITALS: BP 157/78
--- NOTE | 2020-06-26 06:53 | PDOC ---
Exam Note: Ryan Note: This note is a late entry for 06/23/2020 covers elements not covered in my initial note. Subjective: The patient was seen individually in the evening of 06/23/2020 with Mariela CHILDRESS, discussed and reviewed the chart. The patient slept 5-1/2 hours previous night. The patient has been pleasant. No delusions noted. She has been angry and upset for being isolative due to ESBL UTI. She has been paranoid asking nursing staff if she is going to be sent to the [facility]. I reassured her this was not in the plans. Review of Systems: No CV, GI, eye system symptoms on review. She has some dysuria. Mental Status Exam: The patient is oriented to herself. I met with her in her room. She is pleasant, at times somewhat paranoid but less so than before. Speech coherent, has some latency. Abstraction fair. Computation impaired. Attention span is short. Language function intact. Mood and affect anxious, labile. No suicidal or homicidal ideation. Laboratory Data: Reviewed. Impression: Schizoaffective disorder, bipolar type, mixed with psychotic features. Anxiety disorder unspecified. Impulse control disorder unspecified. Plan: No change from initial note. Assessment: Vital Signs/I&O: Vital Signs Date Time Temp Pulse Resp B/P (MAP) Pulse Ox O2 Delivery O2 Flow Rate FiO2 06/26/20 06:42 96.9 74 20 157/78 (104) 99 06/23/20 15:36 Room Air I & O 06/25/20 06/25/20 06/26/20 15:00 23:00 07:00 Intake Total 480 ml 240 ml 240 ml Balance 480 ml 240 ml 240 ml Labs: Laboratory Tests Test 06/25/20 07:57 06/25/20 12:12 06/25/20 17:01 06/25/20 19:31 Glucose (Fingerstick) 98 mg/dL (70-99) 155 mg/dL (70-99) H 119 mg/dL (70-99) H 224 mg/dL (70-99) H Current Medications: Meds: Laboratory Tests Test 06/25/20 07:57 06/25/20 12:12 06/25/20 17:01 06/25/20 19:31 Glucose (Fingerstick) 98 mg/dL 155 mg/dL 119 mg/dL 224 mg/dL Current Medications Medications (Trade) Dose Ordered Sig/[place] Route PRN Reason Start Time Stop Time Status Last Admin Dose Admin Acetaminophen (Tylenol) 650 mg PRN Q6HRS PRN PO MILD PAIN / TEMP > 100.3'F 06/22/20 02:00 Multi-Ingredient Ointment (Analgesic [place]) 1 syed PRN QID PRN TP MUSCLE PAIN 06/22/20 02:00 Al Hydroxide/Mg Hydroxide (Mylanta Plus Xs) 15 ml PRN AFTMEALHC PRN PO DYSPEPSIA 06/22/20 02:00 Magnesium Hydroxide (Milk Of Magnesia) 2,400 mg PRN QHS PRN PO CONSTIPATION 06/22/20 02:00 Furosemide (Lasix) 20 mg DAILY PO 06/22/20 09:00 06/25/20 09:21 Gabapentin (Neurontin) 300 mg TID PO 06/22/20 09:00 06/25/20 20:51 Hydrocortisone (Proctosol-Hc) 1 syed PRN Q12HR PRN RC Hemmorrhoids 06/22/20 02:30 Pantoprazole Sodium (Protonix) 40 mg PRN Q12HR PRN PO GERD 06/22/20 02:30 Albuterol Sulfate (Ventolin) 1.25 mg PRN Q6HRS PRN NEB COUGH 06/22/20 03:00 Calcium Carbonate/ Glycine (Tums) 500 mg DAILY08 PO 06/22/20 08:00 06/25/20 09:21 Insulin Glargine (Lantus Syringe) 10 unit DAILYWBKFT SQ 06/22/20 08:00 06/25/20 08:00 Cetirizine HCl (ZyrTEC) 10 mg DAILY PO 06/22/20 09:00 06/25/20 09:20 Multivitamins/ Calcium (Thera-M Plus) 1 tab DAILY PO 06/22/20 09:00 06/25/20 09:21 Phenytoin Sodium (Dilantin) 250 mg BID PO 06/22/20 21:00 06/23/20 19:12 DC 06/23/20 08:19 Phenytoin Sodium (Dilantin) 150 mg 1X ONCE PO 06/22/20 12:30 06/22/20 12:31 DC 06/22/20 15:31 Non-Formulary Medication (Non Formulary Item (Glucocil)) 1 ea BID PO 06/22/20 21:00 06/23/20 05:16 DC 06/22/20 21:41 Non-Formulary Medication (Non Formulary Item (Glucocil)) 2 ea BIDWMEALS PO 06/23/20 08:00 06/25/20 17:00 Amoxicillin/ Clavulanate Potassium (Augmentin 875/ 125mg) 1 tab BID PO 06/23/20 21:00 07/03/20 22:00 06/25/20 20:51 Vitamin D (Vitamin D3) 50,000 unit WEEKLY PO 06/23/20 15:45 06/23/20 17:27 Magnesium Oxide (Magnesium Oxide) 400 mg BID PO 06/23/20 21:00 06/25/20 20:51 Lactobacillus Rhamnosus (Culturelle) 1 cap BID PO 06/23/20 21:00 06/25/20 20:51 Phenytoin Sodium (Dilantin) 200 mg BID PO 06/23/20 21:00 06/25/20 01:50 DC 06/24/20 21:16 Phenytoin Sodium (Dilantin) 200 mg BID PO 06/25/20 09:00 06/25/20 20:52 Current Medications Medications (Trade) Dose Ordered Sig/[place] Route PRN Reason Start Time Stop Time Status Last Admin Dose Admin Phenytoin Sodium (Dilantin) 200 mg BID PO 06/25/20 09:00 06/25/20 20:52 I have reviewed the current psychotropics carefully including drug interactions. Risk benefit ratio favors no change other than as noted in my dictated progress note. Diagnosis: Problems: (1) Schizoaffective disorder, bipolar type (2) Bipolar disorder with psychotic features (3) Impulse control disorder, unspecified (4) Anxiety disorder, unspecified ELIAS WASHINGTON MD Jun 26, 2020 06:53
--- NOTE | 2020-06-26 07:50 | PDOC ---
Exam Note: Ryan Note: This note is a late entry for 06/24/2020 covers elements not covered in my initial note. Subjective: The patient was seen individually in the evening of 06/24/2020 with Ofelia CHILDRESS, discussed and reviewed the chart. The patient slept 6-1/4 hours previous night. Per nursing report she has been making detailed notes about all activities on the unit and staff splitting. Dr. Thomas did see her for Neurology consult for her seizure disorder. In past CT head results are being obtained for presentation to Dr. Thomas. She remains on Augmentin b.i.d. for her ESBL. Review of Systems: Ambulation impaired. No CV, GI, eye system symptoms on review. Mental Status Exam: The patient is oriented to herself. I met with her near the second nursing station. She is pleasant, smiling and verbal. Speech coherent. Abstraction fair. Computation impaired. Attention span is short. Language function intact. Mood and affect anxious, labile. No suicidal or homicidal ideation. Laboratory Data: Reviewed. Impression: Schizoaffective disorder, bipolar type, mixed with psychotic features. Anxiety disorder unspecified. Impulse control disorder unspecified. Plan: No change from initial note. Assessment: Vital Signs/I&O: Vital Signs Date Time Temp Pulse Resp B/P (MAP) Pulse Ox O2 Delivery O2 Flow Rate FiO2 06/26/20 06:42 96.9 74 20 157/78 (104) 99 06/23/20 15:36 Room Air I & O 06/25/20 06/25/20 06/26/20 15:00 23:00 07:00 Intake Total 480 ml 240 ml 240 ml Balance 480 ml 240 ml 240 ml Labs: Laboratory Tests Test 06/25/20 07:57 06/25/20 12:12 06/25/20 17:01 06/25/20 19:31 Glucose (Fingerstick) 98 mg/dL (70-99) 155 mg/dL (70-99) H 119 mg/dL (70-99) H 224 mg/dL (70-99) H Test 06/26/20 07:43 Glucose (Fingerstick) 112 mg/dL (70-99) H Current Medications: Meds: Laboratory Tests Test 06/25/20 07:57 06/25/20 12:12 06/25/20 17:01 06/25/20 19:31 Glucose (Fingerstick) 98 mg/dL 155 mg/dL 119 mg/dL 224 mg/dL Test 06/26/20 07:43 Glucose (Fingerstick) 112 mg/dL Current Medications Medications (Trade) Dose Ordered Sig/[place] Route PRN Reason Start Time Stop Time Status Last Admin Dose Admin Acetaminophen (Tylenol) 650 mg PRN Q6HRS PRN PO MILD PAIN / TEMP > 100.3'F 06/22/20 02:00 Multi-Ingredient Ointment (Analgesic [place]) 1 syed PRN QID PRN TP MUSCLE PAIN 06/22/20 02:00 Al Hydroxide/Mg Hydroxide (Mylanta Plus Xs) 15 ml PRN AFTMEALHC PRN PO DYSPEPSIA 06/22/20 02:00 Magnesium Hydroxide (Milk Of Magnesia) 2,400 mg PRN QHS PRN PO CONSTIPATION 06/22/20 02:00 Furosemide (Lasix) 20 mg DAILY PO 06/22/20 09:00 06/25/20 09:21 Gabapentin (Neurontin) 300 mg TID PO 06/22/20 09:00 06/25/20 20:51 Hydrocortisone (Proctosol-Hc) 1 syed PRN Q12HR PRN RC Hemmorrhoids 06/22/20 02:30 Pantoprazole Sodium (Protonix) 40 mg PRN Q12HR PRN PO GERD 06/22/20 02:30 Albuterol Sulfate (Ventolin) 1.25 mg PRN Q6HRS PRN NEB COUGH 06/22/20 03:00 Calcium Carbonate/ Glycine (Tums) 500 mg DAILY08 PO 06/22/20 08:00 06/25/20 09:21 Insulin Glargine (Lantus Syringe) 10 unit DAILYWBKFT SQ 06/22/20 08:00 06/25/20 08:00 Cetirizine HCl (ZyrTEC) 10 mg DAILY PO 06/22/20 09:00 06/25/20 09:20 Multivitamins/ Calcium (Thera-M Plus) 1 tab DAILY PO 06/22/20 09:00 06/25/20 09:21 Phenytoin Sodium (Dilantin) 250 mg BID PO 06/22/20 21:00 06/23/20 19:12 DC 06/23/20 08:19 Phenytoin Sodium (Dilantin) 150 mg 1X ONCE PO 06/22/20 12:30 06/22/20 12:31 DC 06/22/20 15:31 Non-Formulary Medication (Non Formulary Item (Glucocil)) 1 ea BID PO 06/22/20 21:00 06/23/20 05:16 DC 06/22/20 21:41 Non-Formulary Medication (Non Formulary Item (Glucocil)) 2 ea BIDWMEALS PO 06/23/20 08:00 06/25/20 17:00 Amoxicillin/ Clavulanate Potassium (Augmentin 875/ 125mg) 1 tab BID PO 06/23/20 21:00 07/03/20 22:00 06/25/20 20:51 Vitamin D (Vitamin D3) 50,000 unit WEEKLY PO 06/23/20 15:45 06/23/20 17:27 Magnesium Oxide (Magnesium Oxide) 400 mg BID PO 06/23/20 21:00 06/25/20 20:51 Lactobacillus Rhamnosus (Culturelle) 1 cap BID PO 06/23/20 21:00 06/25/20 20:51 Phenytoin Sodium (Dilantin) 200 mg BID PO 06/23/20 21:00 06/25/20 01:50 DC 06/24/20 21:16 Phenytoin Sodium (Dilantin) 200 mg BID PO 06/25/20 09:00 06/25/20 20:52 Current Medications Medications (Trade) Dose Ordered Sig/[place] Route PRN Reason Start Time Stop Time Status Last Admin Dose Admin Phenytoin Sodium (Dilantin) 200 mg BID PO 06/25/20 09:00 06/25/20 20:52 I have reviewed the current psychotropics carefully including drug interactions. Risk benefit ratio favors no change other than as noted in my dictated progress note. Diagnosis: Problems: (1) Schizoaffective disorder, bipolar type (2) Bipolar disorder with psychotic features (3) Impulse control disorder, unspecified (4) Anxiety disorder, unspecified ELIAS WASHINGTON MD Jun 26, 2020 07:50
[2020-06-26] MEDS: INSULIN GLARGINE SYRINGE. SQ SCH (08:00)
[2020-06-26] MEDS: GLUCOCIL PO SCH ×2 (08:00→16:18)
[2020-06-26] MEDS: AMOXICILLIN/K CLAV 875/125MG TABLET. PO SCH ×2 (08:15→20:05)
[2020-06-26] MEDS: FUROSEMIDE 20 MG TABLET PO SCH (08:15)
[2020-06-26] MEDS: MULTIVITAMIN with MINERAL TABLET. PO SCH (08:15)
[2020-06-26] MEDS: GABAPENTIN 300 MG CAPSULE. PO SCH ×3 (08:15→20:05)
[2020-06-26] MEDS: CETIRIZINE HCL 10 MG TABLET PO SCH (08:16)
[2020-06-26] MEDS: PHENYTOIN SODIUM EXTENDED 100 MG CAPSULE PO SCH ×2 (08:16→20:05)
[2020-06-26] MEDS: CALCIUM CARBONATE 500 MG TAB.CHEW PO SCH (08:16)
[2020-06-26] MEDS: MAGNESIUM OXIDE 400 MG TABLET PO SCH ×2 (08:16→20:06)
[2020-06-26] MEDS: LACTOBACILLUS RHAMNOSUS GG 1 CAPSULE. PO SCH ×2 (08:16→20:06)
--- NOTE | 2020-06-26 08:21 | PDOC ---
Exam Note: Ryan Note: This note is a late entry for 06/25/2020 covers elements not covered in my initial note. Subjective: The patient was seen individually in the evening of 06/25/2020 with Ofelia CHILDRESS, discussed and reviewed the chart. The patient slept 5-1/4 hours previous night. She did well previous night. Today during the day she was better, less anxious, restless. She has been treated for ESBL UTI. She is compliant with medications. Review of Systems: Ambulation impaired. No CV, GI, eye system symptoms on review. Mental Status Exam: The patient is oriented to herself. Speech coherent. Abstraction fair. Computation impaired. Attention span is short. Language function intact. Mood and affect less anxious. Laboratory Data: Reviewed. Impression: Schizoaffective disorder, bipolar type, mixed with psychotic features. Anxiety disorder unspecified. Impulse control disorder unspecified. Plan: No change from initial note. Assessment: Vital Signs/I&O: Vital Signs Date Time Temp Pulse Resp B/P (MAP) Pulse Ox O2 Delivery O2 Flow Rate FiO2 06/26/20 06:42 96.9 74 20 157/78 (104) 99 06/23/20 15:36 Room Air I & O 06/25/20 06/25/20 06/26/20 15:00 23:00 07:00 Intake Total 480 ml 240 ml 240 ml Balance 480 ml 240 ml 240 ml Labs: Laboratory Tests Test 06/25/20 12:12 06/25/20 17:01 06/25/20 19:31 06/26/20 07:43 Glucose (Fingerstick) 155 mg/dL (70-99) H 119 mg/dL (70-99) H 224 mg/dL (70-99) H 112 mg/dL (70-99) H Current Medications: Meds: Laboratory Tests Test 06/25/20 12:12 06/25/20 17:01 06/25/20 19:31 06/26/20 07:43 Glucose (Fingerstick) 155 mg/dL 119 mg/dL 224 mg/dL 112 mg/dL Current Medications Medications (Trade) Dose Ordered Sig/[place] Route PRN Reason Start Time Stop Time Status Last Admin Dose Admin Acetaminophen (Tylenol) 650 mg PRN Q6HRS PRN PO MILD PAIN / TEMP > 100.3'F 06/22/20 02:00 Multi-Ingredient Ointment (Analgesic [place]) 1 syed PRN QID PRN TP MUSCLE PAIN 06/22/20 02:00 Al Hydroxide/Mg Hydroxide (Mylanta Plus Xs) 15 ml PRN AFTMEALHC PRN PO DYSPEPSIA 06/22/20 02:00 Magnesium Hydroxide (Milk Of Magnesia) 2,400 mg PRN QHS PRN PO CONSTIPATION 06/22/20 02:00 Furosemide (Lasix) 20 mg DAILY PO 06/22/20 09:00 06/25/20 09:21 Gabapentin (Neurontin) 300 mg TID PO 06/22/20 09:00 06/25/20 20:51 Hydrocortisone (Proctosol-Hc) 1 syed PRN Q12HR PRN RC Hemmorrhoids 06/22/20 02:30 Pantoprazole Sodium (Protonix) 40 mg PRN Q12HR PRN PO GERD 06/22/20 02:30 Albuterol Sulfate (Ventolin) 1.25 mg PRN Q6HRS PRN NEB COUGH 06/22/20 03:00 Calcium Carbonate/ Glycine (Tums) 500 mg DAILY08 PO 06/22/20 08:00 06/25/20 09:21 Insulin Glargine (Lantus Syringe) 10 unit DAILYWBKFT SQ 06/22/20 08:00 06/25/20 08:00 Cetirizine HCl (ZyrTEC) 10 mg DAILY PO 06/22/20 09:00 06/25/20 09:20 Multivitamins/ Calcium (Thera-M Plus) 1 tab DAILY PO 06/22/20 09:00 06/25/20 09:21 Phenytoin Sodium (Dilantin) 250 mg BID PO 06/22/20 21:00 06/23/20 19:12 DC 06/23/20 08:19 Phenytoin Sodium (Dilantin) 150 mg 1X ONCE PO 06/22/20 12:30 06/22/20 12:31 DC 06/22/20 15:31 Non-Formulary Medication (Non Formulary Item (Glucocil)) 1 ea BID PO 06/22/20 21:00 06/23/20 05:16 DC 06/22/20 21:41 Non-Formulary Medication (Non Formulary Item (Glucocil)) 2 ea BIDWMEALS PO 06/23/20 08:00 06/25/20 17:00 Amoxicillin/ Clavulanate Potassium (Augmentin 875/ 125mg) 1 tab BID PO 06/23/20 21:00 07/03/20 22:00 06/25/20 20:51 Vitamin D (Vitamin D3) 50,000 unit WEEKLY PO 06/23/20 15:45 06/23/20 17:27 Magnesium Oxide (Magnesium Oxide) 400 mg BID PO 06/23/20 21:00 06/25/20 20:51 Lactobacillus Rhamnosus (Culturelle) 1 cap BID PO 06/23/20 21:00 06/25/20 20:51 Phenytoin Sodium (Dilantin) 200 mg BID PO 06/23/20 21:00 06/25/20 01:50 DC 06/24/20 21:16 Phenytoin Sodium (Dilantin) 200 mg BID PO 06/25/20 09:00 06/25/20 20:52 Current Medications Medications (Trade) Dose Ordered Sig/[place] Route PRN Reason Start Time Stop Time Status Last Admin Dose Admin Phenytoin Sodium (Dilantin) 200 mg BID PO 06/25/20 09:00 06/25/20 20:52 I have reviewed the current psychotropics carefully including drug interactions. Risk benefit ratio favors no change other than as noted in my dictated progress note. Diagnosis: Problems: (1) Schizoaffective disorder, bipolar type (2) Bipolar disorder with psychotic features (3) Impulse control disorder, unspecified (4) Anxiety disorder, unspecified ELIAS WASHINGTON MD Jun 26, 2020 08:21
--- NOTE | 2020-06-26 10:16 | NUR ---
Pt has been appropriate and cooperative on the unit. Her interactions with others have been pleasant. She is cooperative with assessment and medications taken whole. She remains on contact precautions d/t ESBL. She inquires as to how she may have gotten ESBL; attempt at education regarding UTI causes was partially accepted by pt, who became fixated on the possibility that drinking water from lead pipes can cause her current infection. She has not requested phone/internet use so far this shift. She is absent of SI/HI behaviors, absent of VH/AH/delusions and she denies pain at this time. Plan of care continues, will pass on to next shift.
--- NOTE | 2020-06-26 15:10 | CONS ---
DATE OF CONSULTATION: 06/23/2020 NEUROLOGY CONSULTATION REFERRING PHYSICIAN: Dr. Steven. REASON FOR CONSULTATION: Seizure disorder. HISTORY OF PRESENT ILLNESS: This is a 65-year-old right-handed female who was admitted on 06/22/2020 and transferred from [facility], was admitted on account of worsening and exacerbation of schizoaffective disorders and symptoms of bipolar disorder with psychotic feature. The patient has been putting herself on the floor, refusing her medications, being paranoid and sometimes refusing medications. She is depressed and have intermittent suicidal ideation. Neuro consult was requested because the patient has had long history of seizure disorder and she is concerned about her current management for seizure including antiepileptic drugs. Currently, the patient denies headaches, visual disturbances, nausea, vomiting, chest pain, shortness of breath or palpitation, dysarthria, dysphagia, weakness or paresthesia. 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 She has been on Dilantin since that time, but currently she stated her high dose of Dilantin may have affected her, she became more jittery and somewhat confused. The patient described a history of generalized tonic-clonic seizure and a complex partial seizure as well. She denies any recent head injuries or fall. The patient stated that she has had three seizures in the last year. PAST MEDICAL HISTORY: Significant for diabetes mellitus type 2, hyperlipidemia, seizure disorder as described, rectal prolapse. PAST SURGICAL HISTORY: Status post right leg amputation requiring a prosthesis. PAST PSYCHIATRIC HISTORY: Significant for schizoaffective disorder, bipolar disorder, anxiety disorders with intermittent psychotic features. SOCIAL HISTORY: The patient is . She denies smoking, alcohol drinking or illicit drug use. FAMILY HISTORY: Noncontributory. CURRENT MEDICATIONS: Phenytoin 250 mg b.i.d., magnesium oxide, vitamin D, calcium with multivitamin, gabapentin, furosemide, insulin, Lantus, albuterol inhaler, pantoprazole, hydrocortisone 1 ampule q.12 hours for adrenal deficiency, Tylenol, and Augmentin. ALLERGIES: CIPROFLOXACIN. REVIEW OF SYSTEMS: A 10-point of review of systems was performed and as mentioned above in history of present illness. PHYSICAL EXAMINATION: GENERAL: Well-developed, well-nourished female in no acute distress. She weighs 79.3 kilos. VITAL SIGNS: Blood pressure 125/78, respiratory rate 16, pulse 77, temperature is 96.7 and oxygen saturation 93% on room air. HEENT: Normocephalic, atraumatic, otherwise unremarkable. NECK: Supple, negative for carotid bruit, lymphadenopathy or thyromegaly. LUNGS: Clear to auscultation and percussion. HEART: Regular rate and rhythm, normal S1, S2. There is no S3, S4, murmur. ABDOMEN: Soft. Bowel sounds positive. EXTREMITIES: Status post left knee amputation required a prosthesis. NEUROLOGIC: Mental status: The patient is alert and oriented x 3. Speech is fluent. There is no language dysfunction. Memory, judgment and abstracting thinking are normal. The patient denies hallucination or delusion. Cranial nerves: Visual dominique are full. The pupils are reactive to light and accommodation. The extraocular movements are intact. There is no nystagmus. There is no facial motor or sensory deficit. Hearing is intact bilaterally. The palate is elevated symmetrically. Sternocleidomastoid muscles are powerful bilaterally. The patient shrugs her shoulders symmetrically protrudes her tongue in the midline without fasciculation or atrophy. Motor examination: No focal muscle bulk wasting. The tone is normal. Strength is 4/5 in the upper and left lower extremity. Deep tendon reflexes were symmetrical and hypoactive with absent Achilles responses. Gait: The patient's gait is normal. LABORATORY DATA: CBC revealed blood cells of 6.5 thousand, hemoglobin 11.6, hematocrit 35, platelet count is 213,000. Chemistry reveals sodium of 139, potassium 3.8, chloride 101, CO2 27, BUN 11, creatinine 0.9, glucose is 253, calcium is 8.9. Lipid profile revealed high cholesterol at 238 with a high LDL at 165 with normal HDL. Normal vitamin B12 and low vitamin D, normal TSH. Urinalysis is small urinary leukocyte esterase, urine white blood cells of 5-10 suggestive of urinary tract infections, phenytoin level is 9. IMPRESSION: 1. Longstanding history of seizure disorder. The patient's seizure has been stable on phenytoin 200 mg once daily; however, the current dose of phenytoin at 250 mg twice daily may cause some side effects and make the patient jittery. The patient stated her dose of Dilantin at 200 mg twice daily is better without any side effects. However, the patient stated she is not happy with previous trial on Depakote as the medication give her some side effects. 2. Multiple medical problems include diabetes mellitus, possible peripheral neuropathy in the lower extremities, chronic obstructive pulmonary disease, adrenal deficiency, GERD and urinary tract infections. 3. Multiple psychiatric problems include Schizoaffective disorders with intermittent psychotic features along with bipolar disorders. RECOMMENDATIONS: 1. We will continue with Dilantin at 200 mg b.i.d. 2. Continue with current home medications. 3. Continue with current medical and psychiatric care. VINCE DR: Alexy TID: [id number]
--- NOTE | 2020-06-26 15:13 | CONS ---
DATE OF CONSULTATION: 06/25/2020 ADDENDUM PHYSICAL EXAMINATION: GENERAL: Well-developed, well-nourished female in no acute distress. VITAL SIGNS: Blood pressure 125/78, respiratory rate 16, pulse 77, temperature is 96.7 and oxygen saturation 93% on room air. HEENT: Normocephalic and atraumatic, otherwise unremarkable. NECK: Supple, negative for carotid bruit, lymphadenopathy or thyromegaly. LUNGS: Clear to A and P. HEART: Regular rate and rhythm, normal S1, S2. There is no S3, S4, murmur. ABDOMEN: Soft. Bowel sounds positive. EXTREMITIES: Negative for cyanosis, clubbing or pitting edema, but status post right lower extremity amputation. NEUROLOGIC: Mental status: The patient is alert and oriented x 3. Speech is fluent. There is no language dysfunction. Memory, judgment and abstract thinking are normal. The patient denies hallucination or delusion. Cranial nerves: Visual dominique are full. The pupils are reactive to light and accommodation. Extraocular movements are intact. There is no nystagmus. There is no facial motor or sensory deficit. Hearing is intact bilaterally. The palate is elevated symmetrically. Sternocleidomastoid muscles are powerful bilaterally. The patient shrugs her shoulders symmetrically and protrudes her tongue in the midline without fasciculation or atrophy. Motor exam: No focal muscle bulk wasting. The tone is normal. The strength is 5/5 in the bilateral upper extremity and left lower extremity. Sensory examination reveals diminished pinprick and light touch senses in patchy distributions. Deep tendon reflexes were symmetric and hypoactive with absent Achilles responses on the left lower extremity. Gait: The patient's gait is normal with prosthesis. This is just I am repeating the exam. LABORATORY DATA: I already mentioned it. IMPRESSION: 1. Longstanding history of seizure disorder. The patient's seizure has been stable on phenytoin 200 mg once daily; however, the current dose of phenytoin at 250 mg twice daily may cause some side effects and make the patient jittery. The patient stated her dose of Dilantin at 200 mg twice daily is better without any side effects. However, the patient stated she is not happy with previous trial on Depakote as the medication give her some side effects. 2. Multiple medical problems include diabetes mellitus, possible peripheral neuropathy in the lower extremities, chronic obstructive pulmonary disease, adrenal deficiency, GERD and urinary tract infections. 3. Multiple psychiatric problems include Schizoaffective disorders with intermittent psychotic features along with bipolar disorders. RECOMMENDATIONS: 1. We will continue with Dilantin at 200 mg b.i.d. 2. Continue with current home medications. 3. Continue with current medical and psychiatric care. VIOLETTE/BHARATI DR: Alexy TID: [id number]
[2020-06-26 15:54] VITALS: BP 141/70
--- NOTE | 2020-06-26 22:03 | PDOC ---
Exam Note: Ryan Note: Please also refer to the separate dictated note~for this date of service dictated separately.~Patient seen individually. Discussed the patient with Nursing staff reviewed the chart.~Reviewed interim history and current functioning. Reviewed vital signs,~Labs/ Radiology~and current medications noted below. Continue current treatment with the changes noted in the dictated addendum note Assessment: Vital Signs/I&O: Vital Signs Date Time Temp Pulse Resp B/P (MAP) Pulse Ox O2 Delivery O2 Flow Rate FiO2 06/26/20 15:54 97.3 72 16 141/70 (93) 96 Room Air I & O 06/25/20 06/25/20 06/26/20 15:00 23:00 07:00 Intake Total 480 ml 240 ml 240 ml Balance 480 ml 240 ml 240 ml Labs: Laboratory Tests Test 06/26/20 07:43 06/26/20 11:57 06/26/20 17:11 06/26/20 19:19 Glucose (Fingerstick) 112 mg/dL (70-99) H 103 mg/dL (70-99) H 154 mg/dL (70-99) H 188 mg/dL (70-99) H Current Medications: Meds: Laboratory Tests Test 06/26/20 07:43 06/26/20 11:57 06/26/20 17:11 06/26/20 19:19 Glucose (Fingerstick) 112 mg/dL 103 mg/dL 154 mg/dL 188 mg/dL Current Medications Medications (Trade) Dose Ordered Sig/[place] Route PRN Reason Start Time Stop Time Status Last Admin Dose Admin Acetaminophen (Tylenol) 650 mg PRN Q6HRS PRN PO MILD PAIN / TEMP > 100.3'F 06/22/20 02:00 Multi-Ingredient Ointment (Analgesic [place]) 1 syed PRN QID PRN TP MUSCLE PAIN 06/22/20 02:00 Al Hydroxide/Mg Hydroxide (Mylanta Plus Xs) 15 ml PRN AFTMEALHC PRN PO DYSPEPSIA 06/22/20 02:00 Magnesium Hydroxide (Milk Of Magnesia) 2,400 mg PRN QHS PRN PO CONSTIPATION 06/22/20 02:00 Furosemide (Lasix) 20 mg DAILY PO 06/22/20 09:00 06/26/20 08:15 Gabapentin (Neurontin) 300 mg TID PO 06/22/20 09:00 06/26/20 20:05 Hydrocortisone (Proctosol-Hc) 1 syed PRN Q12HR PRN RC Hemmorrhoids 06/22/20 02:30 Pantoprazole Sodium (Protonix) 40 mg PRN Q12HR PRN PO GERD 06/22/20 02:30 Albuterol Sulfate (Ventolin) 1.25 mg PRN Q6HRS PRN NEB COUGH 06/22/20 03:00 Calcium Carbonate/ Glycine (Tums) 500 mg DAILY08 PO 06/22/20 08:00 06/26/20 08:16 Insulin Glargine (Lantus Syringe) 10 unit DAILYWBKFT SQ 06/22/20 08:00 06/26/20 08:00 Cetirizine HCl (ZyrTEC) 10 mg DAILY PO 06/22/20 09:00 06/26/20 08:16 Multivitamins/ Calcium (Thera-M Plus) 1 tab DAILY PO 06/22/20 09:00 06/26/20 08:15 Phenytoin Sodium (Dilantin) 250 mg BID PO 06/22/20 21:00 06/23/20 19:12 DC 06/23/20 08:19 Phenytoin Sodium (Dilantin) 150 mg 1X ONCE PO 06/22/20 12:30 06/22/20 12:31 DC 06/22/20 15:31 Non-Formulary Medication (Non Formulary Item (Glucocil)) 1 ea BID PO 06/22/20 21:00 06/23/20 05:16 DC 06/22/20 21:41 Non-Formulary Medication (Non Formulary Item (Glucocil)) 2 ea BIDWMEALS PO 06/23/20 08:00 06/26/20 16:18 Amoxicillin/ Clavulanate Potassium (Augmentin 875/ 125mg) 1 tab BID PO 06/23/20 21:00 07/03/20 22:00 06/26/20 20:05 Vitamin D (Vitamin D3) 50,000 unit WEEKLY PO 06/23/20 15:45 06/23/20 17:27 Magnesium Oxide (Magnesium Oxide) 400 mg BID PO 06/23/20 21:00 06/26/20 20:06 Lactobacillus Rhamnosus (Culturelle) 1 cap BID PO 06/23/20 21:00 06/26/20 20:06 Phenytoin Sodium (Dilantin) 200 mg BID PO 06/23/20 21:00 06/25/20 01:50 DC 06/24/20 21:16 Phenytoin Sodium (Dilantin) 200 mg BID PO 06/25/20 09:00 06/26/20 20:05 I have reviewed the current psychotropics carefully including drug interactions. Risk benefit ratio favors no change other than as noted in my dictated progress note. Diagnosis: Problems: (1) Schizoaffective disorder, bipolar type (2) Bipolar disorder with psychotic features (3) Impulse control disorder, unspecified (4) Anxiety disorder, unspecified ELIAS WASHINGTON MD Jun 26, 2020 22:03
--- NOTE | 2020-06-27 05:13 | NUR ---
Nursing Note Pt cooperative and compliant alert and oriented. Asking for her lab results from her last admission. Takes meds willingly whole, no behaviors slept well this pm.
[2020-06-27 06:11] LABS: BASO % 1 % (0-3); EOS # 0.2 x10^3/uL (0.0-0.7); EOS % 3 % (0-3); HEMATOCRIT 35.7 % (36.0-47.0); HEMOGLOBIN 11.9 g/dL (12.0-15.5); LYMPH # 1.3 x10^3/uL (1.0-4.8); LYMPH % 22 % (24-48); MEAN CORPUSCULAR HEMOGLOBIN 32 pg (25-35); MEAN CORPUSCULAR HGB CONC 33 g/dL (31-37); MEAN CORPUSCULAR VOLUME 94 fL (79-100); MONO # 0.6 x10^3/uL (0.0-1.1); MONO % 10 % (0-9); NEUT # 3.9 x10^3uL (1.8-7.7); NEUT % 65 % (31-73); PLATELET COUNT 193 x10^3/uL (140-400); RED BLOOD COUNT 3.79 x10^6/uL (3.50-5.40); RED CELL DISTRIBUTION WIDTH 13.3 % (11.5-14.5); WHITE BLOOD COUNT 5.9 x10^3/uL (4.0-11.0)
[2020-06-27 06:28] LABS: ALBUMIN 3.5 g/dL (3.4-5.0); ALBUMIN/GLOBULIN RATIO 0.9 (1.0-1.7); ALK PHOS 90 U/L (46-116); ALT (SGPT) 41 U/L (14-59); ANION GAP 8 (6-14); AST (SGOT) 23 U/L (15-37); BLOOD UREA NITROGEN 24 mg/dL (7-20); BUN/CREATININE RATIO 30 (6-20); CARBON DIOXIDE 30 mmol/L (21-32); CHLORIDE 105 mmol/L (98-107); CREATININE 0.8 mg/dL (0.6-1.0); GFR 72.2; GLUCOSE 92 mg/dL (70-99); PHENY 14.4 mcg/mL (10.0-20.0); POTASSIUM 4.4 mmol/L (3.5-5.1); SODIUM 143 mmol/L (136-145); TOTAL BILIRUBIN 0.2 mg/dL (0.2-1.0); TOTAL PROTEIN 7.5 g/dL (6.4-8.2)
[2020-06-27 06:40] VITALS: BP 139/79
[2020-06-27] MEDS: INSULIN GLARGINE SYRINGE. SQ SCH (08:00)
[2020-06-27] MEDS: CALCIUM CARBONATE 500 MG TAB.CHEW PO SCH (08:00)
[2020-06-27] MEDS: GLUCOCIL PO SCH ×2 (08:00→17:00)
[2020-06-27] MEDS: MAGNESIUM OXIDE 400 MG TABLET PO SCH ×2 (09:00→21:15)
[2020-06-27] MEDS: LACTOBACILLUS RHAMNOSUS GG 1 CAPSULE. PO SCH ×2 (09:28→21:15)
[2020-06-27] MEDS: CETIRIZINE HCL 10 MG TABLET PO SCH (09:29)
[2020-06-27] MEDS: PHENYTOIN SODIUM EXTENDED 100 MG CAPSULE PO SCH ×2 (09:29→21:15)
[2020-06-27] MEDS: MULTIVITAMIN with MINERAL TABLET. PO SCH (09:29)
[2020-06-27] MEDS: AMOXICILLIN/K CLAV 875/125MG TABLET. PO SCH ×2 (09:29→21:15)
[2020-06-27] MEDS: FUROSEMIDE 20 MG TABLET PO SCH (09:29)
[2020-06-27] MEDS: GABAPENTIN 300 MG CAPSULE. PO SCH ×3 (09:30→21:15)
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
[2020-06-27 15:22] VITALS: BP 154/78
[2020-06-27] MEDS: QUEtiapine 25 MG TABLET. PO SCH (21:15)
--- NOTE | 2020-06-27 21:59 | PDOC ---
Exam Note: Ryan Note: Please also refer to the separate dictated note~for this date of service dictated separately.~Patient seen individually. Discussed the patient with Nursing staff reviewed the chart.~Reviewed interim history and current functioning. Reviewed vital signs,~Labs/ Radiology~and current medications noted below. Continue current treatment with the changes noted in the dictated addendum note Assessment: Vital Signs/I&O: Vital Signs Date Time Temp Pulse Resp B/P (MAP) Pulse Ox O2 Delivery O2 Flow Rate FiO2 06/27/20 15:22 98.1 74 18 154/78 (103) 96 06/27/20 06:40 Room Air I & O 06/26/20 06/26/20 06/27/20 15:00 23:00 07:00 Intake Total 580 ml 440 ml Balance 580 ml 440 ml Labs: Laboratory Tests Test 06/27/20 05:52 06/27/20 12:05 06/27/20 16:53 06/27/20 19:08 White Blood Count 5.9 x10^3/uL (4.0-11.0) Red Blood Count 3.79 x10^6/uL (3.50-5.40) Hemoglobin 11.9 g/dL (12.0-15.5) L Hematocrit 35.7 % (36.0-47.0) L Mean Corpuscular Volume 94 fL (79-100) Mean Corpuscular Hemoglobin 32 pg (25-35) Mean Corpuscular Hemoglobin Concent 33 g/dL (31-37) Red Cell Distribution Width 13.3 % (11.5-14.5) Platelet Count 193 x10^3/uL (140-400) Neutrophils (%) (Auto) 65 % (31-73) Lymphocytes (%) (Auto) 22 % (24-48) L Monocytes (%) (Auto) 10 % (0-9) H Eosinophils (%) (Auto) 3 % (0-3) Basophils (%) (Auto) 1 % (0-3) Neutrophils # (Auto) 3.9 x10^3uL (1.8-7.7) Lymphocytes # (Auto) 1.3 x10^3/uL (1.0-4.8) Monocytes # (Auto) 0.6 x10^3/uL (0.0-1.1) Eosinophils # (Auto) 0.2 x10^3/uL (0.0-0.7) Basophils # (Auto) 0.0 x10^3/uL (0.0-0.2) Sodium Level 143 mmol/L (136-145) Potassium Level 4.4 mmol/L (3.5-5.1) Chloride Level 105 mmol/L (98-107) Carbon Dioxide Level 30 mmol/L (21-32) Anion Gap 8 (6-14) Blood Urea Nitrogen 24 mg/dL (7-20) H Creatinine 0.8 mg/dL (0.6-1.0) Estimated GFR (Cockcroft-Gault) 72.2 BUN/Creatinine Ratio 30 (6-20) H Glucose Level 92 mg/dL (70-99) Calcium Level 9.0 mg/dL (8.5-10.1) Total Bilirubin 0.2 mg/dL (0.2-1.0) Aspartate Amino Transferase (AST) 23 U/L (15-37) Alanine Aminotransferase (ALT) 41 U/L (14-59) Alkaline Phosphatase 90 U/L (46-116) Total Protein 7.5 g/dL (6.4-8.2) Albumin 3.5 g/dL (3.4-5.0) Albumin/Globulin Ratio 0.9 (1.0-1.7) L Phenytoin (Dilantin) Level 14.4 mcg/mL (10.0-20.0) Phenytoin Last Dose Date 06/26/20 Phenytoin Last Dose Time 2100 Glucose (Fingerstick) 142 mg/dL (70-99) H 112 mg/dL (70-99) H 141 mg/dL (70-99) H Current Medications: Meds: Laboratory Tests Test 06/27/20 05:52 06/27/20 12:05 06/27/20 16:53 06/27/20 19:08 White Blood Count 5.9 x10^3/uL Red Blood Count 3.79 x10^6/uL Hemoglobin 11.9 g/dL Hematocrit 35.7 % Mean Corpuscular Volume 94 fL Mean Corpuscular Hemoglobin 32 pg Mean Corpuscular Hemoglobin Concent 33 g/dL Red Cell Distribution Width 13.3 % Platelet Count 193 x10^3/uL Neutrophils (%) (Auto) 65 % Lymphocytes (%) (Auto) 22 % Monocytes (%) (Auto) 10 % Eosinophils (%) (Auto) 3 % Basophils (%) (Auto) 1 % Neutrophils # (Auto) 3.9 x10^3uL Lymphocytes # (Auto) 1.3 x10^3/uL Monocytes # (Auto) 0.6 x10^3/uL Eosinophils # (Auto) 0.2 x10^3/uL Basophils # (Auto) 0.0 x10^3/uL Sodium Level 143 mmol/L Potassium Level 4.4 mmol/L Chloride Level 105 mmol/L Carbon Dioxide Level 30 mmol/L Anion Gap 8 Blood Urea Nitrogen 24 mg/dL Creatinine 0.8 mg/dL Estimated GFR (Cockcroft-Gault) 72.2 BUN/Creatinine Ratio 30 Glucose Level 92 mg/dL Calcium Level 9.0 mg/dL Total Bilirubin 0.2 mg/dL Aspartate Amino Transf (AST/SGOT) 23 U/L Alanine Aminotransferase (ALT/SGPT) 41 U/L Alkaline Phosphatase 90 U/L Total Protein 7.5 g/dL Albumin 3.5 g/dL Albumin/Globulin Ratio 0.9 Phenytoin (Dilantin) Level 14.4 mcg/mL Phenytoin Last Dose Date 06/26/20 Phenytoin Last Dose Time 2100 Glucose (Fingerstick) 142 mg/dL 112 mg/dL 141 mg/dL Current Medications Medications (Trade) Dose Ordered Sig/[place] Route PRN Reason Start Time Stop Time Status Last Admin Dose Admin Acetaminophen (Tylenol) 650 mg PRN Q6HRS PRN PO MILD PAIN / TEMP > 100.3'F 06/22/20 02:00 Multi-Ingredient Ointment (Analgesic [place]) 1 syed PRN QID PRN TP MUSCLE PAIN 06/22/20 02:00 Al Hydroxide/Mg Hydroxide (Mylanta Plus Xs) 15 ml PRN AFTMEALHC PRN PO DYSPEPSIA 06/22/20 02:00 Magnesium Hydroxide (Milk Of Magnesia) 2,400 mg PRN QHS PRN PO CONSTIPATION 06/22/20 02:00 Furosemide (Lasix) 20 mg DAILY PO 06/22/20 09:00 06/27/20 09:29 Gabapentin (Neurontin) 300 mg TID PO 06/22/20 09:00 06/27/20 21:15 Hydrocortisone (Proctosol-Hc) 1 syed PRN Q12HR PRN RC Hemmorrhoids 06/22/20 02:30 Pantoprazole Sodium (Protonix) 40 mg PRN Q12HR PRN PO GERD 06/22/20 02:30 Albuterol Sulfate (Ventolin) 1.25 mg PRN Q6HRS PRN NEB COUGH 06/22/20 03:00 Calcium Carbonate/ Glycine (Tums) 500 mg DAILY08 PO 06/22/20 08:00 06/27/20 08:00 Insulin Glargine (Lantus Syringe) 10 unit DAILYWBKFT SQ 06/22/20 08:00 06/27/20 08:00 Cetirizine HCl (ZyrTEC) 10 mg DAILY PO 06/22/20 09:00 06/27/20 09:29 Multivitamins/ Calcium (Thera-M Plus) 1 tab DAILY PO 06/22/20 09:00 06/27/20 09:29 Phenytoin Sodium (Dilantin) 250 mg BID PO 06/22/20 21:00 06/23/20 19:12 DC 06/23/20 08:19 Phenytoin Sodium (Dilantin) 150 mg 1X ONCE PO 06/22/20 12:30 06/22/20 12:31 DC 06/22/20 15:31 Non-Formulary Medication (Non Formulary Item (Glucocil)) 1 ea BID PO 06/22/20 21:00 06/23/20 05:16 DC 06/22/20 21:41 Non-Formulary Medication (Non Formulary Item (Glucocil)) 2 ea BIDWMEALS PO 06/23/20 08:00 06/27/20 17:00 Amoxicillin/ Clavulanate Potassium (Augmentin 875/ 125mg) 1 tab BID PO 06/23/20 21:00 07/03/20 22:00 06/27/20 21:15 Vitamin D (Vitamin D3) 50,000 unit WEEKLY PO 06/23/20 15:45 06/23/20 17:27 Magnesium Oxide (Magnesium Oxide) 400 mg BID PO 06/23/20 21:00 06/27/20 21:15 Lactobacillus Rhamnosus (Culturelle) 1 cap BID PO 06/23/20 21:00 06/27/20 21:15 Phenytoin Sodium (Dilantin) 200 mg BID PO 06/23/20 21:00 06/25/20 01:50 DC 06/24/20 21:16 Phenytoin Sodium (Dilantin) 200 mg BID PO 06/25/20 09:00 06/27/20 21:15 Quetiapine Fumarate (SEROquel) 25 mg QHS PO 06/27/20 21:00 06/27/20 21:15 Current Medications Medications (Trade) Dose Ordered Sig/[place] Route PRN Reason Start Time Stop Time Status Last Admin Dose Admin Quetiapine Fumarate (SEROquel) 25 mg QHS PO 06/27/20 21:00 06/27/20 21:15 I have reviewed the current psychotropics carefully including drug interactions. Risk benefit ratio favors no change other than as noted in my dictated progress note. Diagnosis: Problems: (1) Schizoaffective disorder, bipolar type (2) Bipolar disorder with psychotic features (3) Impulse control disorder, unspecified (4) Anxiety disorder, unspecified ELIAS WASHINGTON MD Jun 27, 2020 21:59
[2020-06-27 23:27] LABS: HEMOGLOBIN A1C 6.6 % (4.8-5.6)
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
[2020-06-28 05:58] VITALS: BP 129/77
--- NOTE | 2020-06-28 06:58 | PDOC ---
Exam Note: Ryan Note: This note is a late entry for 06/26/2020 covers elements not covered in my initial note. Subjective: The patient was reviewed in the morning of 06/26/2020 for a treatment team meeting with Zohreh Mcpherson, Eulalia Ruiz and Cris (social work manager), Lissette, activity therapy and Brittnee CHILDRESS, discussed and reviewed the chart. The patient slept 4-1/4 hours previous night. She does have ESBL UTI, spends much time in her room, writing copious notes about everything going on around her on the unit. Review of Systems: Ambulation impaired. No CV, GI, eye system symptoms on review. Mental Status Exam: The patient is oriented to herself. I met with her in her room. Speech coherent. Abstraction fair. Computation impaired. Attention span is short. Language function intact. Mood and affect less anxious. Laboratory Data: Reviewed. Impression: Schizoaffective disorder, bipolar type, mixed with psychotic features. Anxiety disorder unspecified. Impulse control disorder unspecified. Plan: The patient will continue with psychotic symptoms. We may consider adding low dose Seroquel. Assessment: Vital Signs/I&O: Vital Signs Date Time Temp Pulse Resp B/P (MAP) Pulse Ox O2 Delivery O2 Flow Rate FiO2 06/28/20 05:58 97.6 72 18 129/77 (94) 94 Room Air I & O 06/27/20 06/27/20 06/28/20 15:00 23:00 07:00 Intake Total 600 ml 360 ml 240 ml Balance 600 ml 360 ml 240 ml Labs: Laboratory Tests Test 06/27/20 12:05 06/27/20 16:53 06/27/20 19:08 Glucose (Fingerstick) 142 mg/dL (70-99) H 112 mg/dL (70-99) H 141 mg/dL (70-99) H Current Medications: Meds: Laboratory Tests Test 06/27/20 12:05 06/27/20 16:53 06/27/20 19:08 Glucose (Fingerstick) 142 mg/dL 112 mg/dL 141 mg/dL Current Medications Medications (Trade) Dose Ordered Sig/[place] Route PRN Reason Start Time Stop Time Status Last Admin Dose Admin Acetaminophen (Tylenol) 650 mg PRN Q6HRS PRN PO MILD PAIN / TEMP > 100.3'F 06/22/20 02:00 Multi-Ingredient Ointment (Analgesic [place]) 1 syed PRN QID PRN TP MUSCLE PAIN 06/22/20 02:00 Al Hydroxide/Mg Hydroxide (Mylanta Plus Xs) 15 ml PRN AFTMEALHC PRN PO DYSPEPSIA 06/22/20 02:00 Magnesium Hydroxide (Milk Of Magnesia) 2,400 mg PRN QHS PRN PO CONSTIPATION 06/22/20 02:00 Furosemide (Lasix) 20 mg DAILY PO 06/22/20 09:00 06/27/20 09:29 Gabapentin (Neurontin) 300 mg TID PO 06/22/20 09:00 06/27/20 21:15 Hydrocortisone (Proctosol-Hc) 1 syed PRN Q12HR PRN RC Hemmorrhoids 06/22/20 02:30 Pantoprazole Sodium (Protonix) 40 mg PRN Q12HR PRN PO GERD 06/22/20 02:30 Albuterol Sulfate (Ventolin) 1.25 mg PRN Q6HRS PRN NEB COUGH 06/22/20 03:00 Calcium Carbonate/ Glycine (Tums) 500 mg DAILY08 PO 06/22/20 08:00 06/27/20 08:00 Insulin Glargine (Lantus Syringe) 10 unit DAILYWBKFT SQ 06/22/20 08:00 06/27/20 08:00 Cetirizine HCl (ZyrTEC) 10 mg DAILY PO 06/22/20 09:00 06/27/20 09:29 Multivitamins/ Calcium (Thera-M Plus) 1 tab DAILY PO 06/22/20 09:00 06/27/20 09:29 Phenytoin Sodium (Dilantin) 250 mg BID PO 06/22/20 21:00 06/23/20 19:12 DC 06/23/20 08:19 Phenytoin Sodium (Dilantin) 150 mg 1X ONCE PO 06/22/20 12:30 06/22/20 12:31 DC 06/22/20 15:31 Non-Formulary Medication (Non Formulary Item (Glucocil)) 1 ea BID PO 06/22/20 21:00 06/23/20 05:16 DC 06/22/20 21:41 Non-Formulary Medication (Non Formulary Item (Glucocil)) 2 ea BIDWMEALS PO 06/23/20 08:00 06/27/20 17:00 Amoxicillin/ Clavulanate Potassium (Augmentin 875/ 125mg) 1 tab BID PO 06/23/20 21:00 07/03/20 22:00 06/27/20 21:15 Vitamin D (Vitamin D3) 50,000 unit WEEKLY PO 06/23/20 15:45 06/23/20 17:27 Magnesium Oxide (Magnesium Oxide) 400 mg BID PO 06/23/20 21:00 06/27/20 21:15 Lactobacillus Rhamnosus (Culturelle) 1 cap BID PO 06/23/20 21:00 06/27/20 21:15 Phenytoin Sodium (Dilantin) 200 mg BID PO 06/23/20 21:00 06/25/20 01:50 DC 06/24/20 21:16 Phenytoin Sodium (Dilantin) 200 mg BID PO 06/25/20 09:00 06/27/20 21:15 Quetiapine Fumarate (SEROquel) 25 mg QHS PO 06/27/20 21:00 06/27/20 21:15 Current Medications Medications (Trade) Dose Ordered Sig/[place] Route PRN Reason Start Time Stop Time Status Last Admin Dose Admin Quetiapine Fumarate (SEROquel) 25 mg QHS PO 06/27/20 21:00 06/27/20 21:15 I have reviewed the current psychotropics carefully including drug interactions. Risk benefit ratio favors no change other than as noted in my dictated progress note. Diagnosis: Problems: (1) Schizoaffective disorder, bipolar type (2) Bipolar disorder with psychotic features (3) Impulse control disorder, unspecified (4) Anxiety disorder, unspecified ELIAS WASHINGTON MD Jun 28, 2020 06:58
--- NOTE | 2020-06-28 07:34 | PDOC ---
Exam Note: Ryan Note: This note is a late entry for 06/27/2020 covers elements not covered in my initial note. Subjective: The patient was seen individually in the evening of 06/27/2020 with Mariela CHILDRESS, discussed and reviewed the chart. The patient slept 5-1/2 hours previous night. She did well previous night. Review of Systems: Ambulation impaired. No CV, GI, eye system symptoms on review. Mental Status Exam: The patient is oriented to herself. I met with her in her room. She remains somewhat paranoid, suspicious, irritable, obsessive, believing her guardian is stealing from her. Speech coherent. Abstraction fair. Computation impaired. Attention span is short. Language function intact. Mood and affect less anxious. No suicidal or homicidal ideation. Laboratory Data: Reviewed. Impression: Schizoaffective disorder, bipolar type, mixed with psychotic features. Anxiety disorder unspecified. Impulse control disorder unspecified. Plan: The patient will continue with psychotic symptoms. Start Seroquel 25 mg h.s. for her delusions. Seizure management per Dr. Thomas. Assessment: Vital Signs/I&O: Vital Signs Date Time Temp Pulse Resp B/P (MAP) Pulse Ox O2 Delivery O2 Flow Rate FiO2 06/28/20 05:58 97.6 72 18 129/77 (94) 94 Room Air I & O 0 06/27/20 06/27/20 06/28/20 14:59 22:59 06:59 Intake Total 600 ml 360 ml 240 ml Balance 600 ml 360 ml 240 ml Labs: Laboratory Tests Test 06/27/20 12:05 06/27/20 16:53 06/27/20 19:08 Glucose (Fingerstick) 142 mg/dL (70-99) H 112 mg/dL (70-99) H 141 mg/dL (70-99) H Current Medications: Meds: Laboratory Tests Test 06/27/20 12:05 06/27/20 16:53 06/27/20 19:08 Glucose (Fingerstick) 142 mg/dL 112 mg/dL 141 mg/dL Current Medications Medications (Trade) Dose Ordered Sig/[place] Route PRN Reason Start Time Stop Time Status Last Admin Dose Admin Acetaminophen (Tylenol) 650 mg PRN Q6HRS PRN PO MILD PAIN / TEMP > 100.3'F 06/22/20 02:00 Multi-Ingredient Ointment (Analgesic [place]) 1 syed PRN QID PRN TP MUSCLE PAIN 06/22/20 02:00 Al Hydroxide/Mg Hydroxide (Mylanta Plus Xs) 15 ml PRN AFTMEALHC PRN PO DYSPEPSIA 06/22/20 02:00 Magnesium Hydroxide (Milk Of Magnesia) 2,400 mg PRN QHS PRN PO CONSTIPATION 06/22/20 02:00 Furosemide (Lasix) 20 mg DAILY PO 06/22/20 09:00 06/27/20 09:29 Gabapentin (Neurontin) 300 mg TID PO 06/22/20 09:00 06/27/20 21:15 Hydrocortisone (Proctosol-Hc) 1 syed PRN Q12HR PRN RC Hemmorrhoids 06/22/20 02:30 Pantoprazole Sodium (Protonix) 40 mg PRN Q12HR PRN PO GERD 06/22/20 02:30 Albuterol Sulfate (Ventolin) 1.25 mg PRN Q6HRS PRN NEB COUGH 06/22/20 03:00 Calcium Carbonate/ Glycine (Tums) 500 mg DAILY08 PO 06/22/20 08:00 06/27/20 08:00 Insulin Glargine (Lantus Syringe) 10 unit DAILYWBKFT SQ 06/22/20 08:00 06/27/20 08:00 Cetirizine HCl (ZyrTEC) 10 mg DAILY PO 06/22/20 09:00 06/27/20 09:29 Multivitamins/ Calcium (Thera-M Plus) 1 tab DAILY PO 06/22/20 09:00 06/27/20 09:29 Phenytoin Sodium (Dilantin) 250 mg BID PO 06/22/20 21:00 06/23/20 19:12 DC 06/23/20 08:19 Phenytoin Sodium (Dilantin) 150 mg 1X ONCE PO 06/22/20 12:30 06/22/20 12:31 DC 06/22/20 15:31 Non-Formulary Medication (Non Formulary Item (Glucocil)) 1 ea BID PO 06/22/20 21:00 06/23/20 05:16 DC 06/22/20 21:41 Non-Formulary Medication (Non Formulary Item (Glucocil)) 2 ea BIDWMEALS PO 06/23/20 08:00 06/27/20 17:00 Amoxicillin/ Clavulanate Potassium (Augmentin 875/ 125mg) 1 tab BID PO 06/23/20 21:00 07/03/20 22:00 06/27/20 21:15 Vitamin D (Vitamin D3) 50,000 unit WEEKLY PO 06/23/20 15:45 06/23/20 17:27 Magnesium Oxide (Magnesium Oxide) 400 mg BID PO 06/23/20 21:00 06/27/20 21:15 Lactobacillus Rhamnosus (Culturelle) 1 cap BID PO 06/23/20 21:00 06/27/20 21:15 Phenytoin Sodium (Dilantin) 200 mg BID PO 06/23/20 21:00 06/25/20 01:50 DC 06/24/20 21:16 Phenytoin Sodium (Dilantin) 200 mg BID PO 06/25/20 09:00 06/27/20 21:15 Quetiapine Fumarate (SEROquel) 25 mg QHS PO 06/27/20 21:00 06/27/20 21:15 Current Medications Medications (Trade) Dose Ordered Sig/[place] Route PRN Reason Start Time Stop Time Status Last Admin Dose Admin Quetiapine Fumarate (SEROquel) 25 mg QHS PO 06/27/20 21:00 06/27/20 21:15 I have reviewed the current psychotropics carefully including drug interactions. Risk benefit ratio favors no change other than as noted in my dictated progress note. Diagnosis: Problems: (1) Schizoaffective disorder, bipolar type (2) Bipolar disorder with psychotic features (3) Impulse control disorder, unspecified (4) Anxiety disorder, unspecified ELIAS WASHINGTON MD Jun 28, 2020 07:34
[2020-06-28] MEDS: GLUCOCIL PO SCH ×2 (08:00→17:00)
[2020-06-28] MEDS: PHENYTOIN SODIUM EXTENDED 100 MG CAPSULE PO SCH ×2 (08:14→20:52)
[2020-06-28] MEDS: CALCIUM CARBONATE 500 MG TAB.CHEW PO SCH (08:15)
[2020-06-28] MEDS: FUROSEMIDE 20 MG TABLET PO SCH (08:15)
[2020-06-28] MEDS: GABAPENTIN 300 MG CAPSULE. PO SCH ×3 (08:15→20:53)
[2020-06-28] MEDS: MULTIVITAMIN with MINERAL TABLET. PO SCH (08:15)
[2020-06-28] MEDS: MAGNESIUM OXIDE 400 MG TABLET PO SCH ×2 (08:15→20:53)
[2020-06-28] MEDS: LACTOBACILLUS RHAMNOSUS GG 1 CAPSULE. PO SCH ×2 (08:15→20:52)
[2020-06-28] MEDS: CETIRIZINE HCL 10 MG TABLET PO SCH (08:15)
[2020-06-28] MEDS: AMOXICILLIN/K CLAV 875/125MG TABLET. PO SCH ×2 (08:15→20:53)
--- NOTE | 2020-06-28 09:42 | NUR ---
Nursing note: Pt in dining room at time of AM med pass and assessment. She is pleasant, med compliant and cooperative. Pt denied having any pain/concerns this AM. She is currently sitting quietly in her room. Will continue to monitor.
[2020-06-28] MEDS: INSULIN GLARGINE SYRINGE. SQ SCH (10:41)
[2020-06-28 16:06] VITALS: BP 152/76
[2020-06-28] MEDS: QUEtiapine 25 MG TABLET. PO SCH (20:52)
--- NOTE | 2020-06-28 22:07 | PDOC ---
Exam Note: Ryan Note: Please also refer to the separate dictated note~for this date of service dictated separately.~Patient seen individually. Discussed the patient with Nursing staff reviewed the chart.~Reviewed interim history and current functioning. Reviewed vital signs,~Labs/ Radiology~and current medications noted below. Continue current treatment with the changes noted in the dictated addendum note Assessment: Vital Signs/I&O: Vital Signs Date Time Temp Pulse Resp B/P (MAP) Pulse Ox O2 Delivery O2 Flow Rate FiO2 06/28/20 16:06 97.5 74 20 152/76 (101) 97 06/28/20 05:58 Room Air I & O 06/27/20 06/27/20 06/28/20 15:00 23:00 07:00 Intake Total 600 ml 360 ml 240 ml Balance 600 ml 360 ml 240 ml Labs: Laboratory Tests Test 06/28/20 07:34 06/28/20 11:37 06/28/20 17:21 06/28/20 19:33 Glucose (Fingerstick) 96 mg/dL (70-99) 129 mg/dL (70-99) H 116 mg/dL (70-99) H 181 mg/dL (70-99) H Current Medications: Meds: Laboratory Tests Test 06/28/20 07:34 06/28/20 11:37 06/28/20 17:21 06/28/20 19:33 Glucose (Fingerstick) 96 mg/dL 129 mg/dL 116 mg/dL 181 mg/dL Current Medications Medications (Trade) Dose Ordered Sig/[place] Route PRN Reason Start Time Stop Time Status Last Admin Dose Admin Acetaminophen (Tylenol) 650 mg PRN Q6HRS PRN PO MILD PAIN / TEMP > 100.3'F 06/22/20 02:00 Multi-Ingredient Ointment (Analgesic [place]) 1 syed PRN QID PRN TP MUSCLE PAIN 06/22/20 02:00 Al Hydroxide/Mg Hydroxide (Mylanta Plus Xs) 15 ml PRN AFTMEALHC PRN PO DYSPEPSIA 06/22/20 02:00 Magnesium Hydroxide (Milk Of Magnesia) 2,400 mg PRN QHS PRN PO CONSTIPATION 06/22/20 02:00 Furosemide (Lasix) 20 mg DAILY PO 06/22/20 09:00 06/28/20 08:15 Gabapentin (Neurontin) 300 mg TID PO 06/22/20 09:00 06/28/20 20:53 Hydrocortisone (Proctosol-Hc) 1 syed PRN Q12HR PRN RC Hemmorrhoids 06/22/20 02:30 Pantoprazole Sodium (Protonix) 40 mg PRN Q12HR PRN PO GERD 06/22/20 02:30 Albuterol Sulfate (Ventolin) 1.25 mg PRN Q6HRS PRN NEB COUGH 06/22/20 03:00 Calcium Carbonate/ Glycine (Tums) 500 mg DAILY08 PO 06/22/20 08:00 06/28/20 08:15 Insulin Glargine (Lantus Syringe) 10 unit DAILYWBKFT SQ 06/22/20 08:00 06/28/20 10:41 Cetirizine HCl (ZyrTEC) 10 mg DAILY PO 06/22/20 09:00 06/28/20 08:15 Multivitamins/ Calcium (Thera-M Plus) 1 tab DAILY PO 06/22/20 09:00 06/28/20 08:15 Phenytoin Sodium (Dilantin) 250 mg BID PO 06/22/20 21:00 06/23/20 19:12 DC 06/23/20 08:19 Phenytoin Sodium (Dilantin) 150 mg 1X ONCE PO 06/22/20 12:30 06/22/20 12:31 DC 06/22/20 15:31 Non-Formulary Medication (Non Formulary Item (Glucocil)) 1 ea BID PO 06/22/20 21:00 06/23/20 05:16 DC 06/22/20 21:41 Non-Formulary Medication (Non Formulary Item (Glucocil)) 2 ea BIDWMEALS PO 06/23/20 08:00 06/28/20 17:00 Amoxicillin/ Clavulanate Potassium (Augmentin 875/ 125mg) 1 tab BID PO 06/23/20 21:00 07/03/20 22:00 06/28/20 20:53 Vitamin D (Vitamin D3) 50,000 unit WEEKLY PO 06/23/20 15:45 06/23/20 17:27 Magnesium Oxide (Magnesium Oxide) 400 mg BID PO 06/23/20 21:00 06/28/20 20:53 Lactobacillus Rhamnosus (Culturelle) 1 cap BID PO 06/23/20 21:00 06/28/20 20:52 Phenytoin Sodium (Dilantin) 200 mg BID PO 06/23/20 21:00 06/25/20 01:50 DC 06/24/20 21:16 Phenytoin Sodium (Dilantin) 200 mg BID PO 06/25/20 09:00 06/28/20 20:52 Quetiapine Fumarate (SEROquel) 25 mg QHS PO 06/27/20 21:00 06/28/20 20:52 I have reviewed the current psychotropics carefully including drug interactions. Risk benefit ratio favors no change other than as noted in my dictated progress note. Diagnosis: Problems: (1) Schizoaffective disorder, bipolar type (2) Bipolar disorder with psychotic features (3) Impulse control disorder, unspecified (4) Anxiety disorder, unspecified ELIAS WASHINGTON MD Jun 28, 2020 22:07
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
[2020-06-29 06:17] VITALS: BP 128/74
[2020-06-29] MEDS: INSULIN GLARGINE SYRINGE. SQ SCH (08:00)
[2020-06-29] MEDS: GLUCOCIL PO SCH ×2 (08:00→17:00)
[2020-06-29] MEDS: CALCIUM CARBONATE 500 MG TAB.CHEW PO SCH (08:51)
[2020-06-29] MEDS: LACTOBACILLUS RHAMNOSUS GG 1 CAPSULE. PO SCH ×2 (08:52→21:57)
[2020-06-29] MEDS: FUROSEMIDE 20 MG TABLET PO SCH (08:52)
[2020-06-29] MEDS: CETIRIZINE HCL 10 MG TABLET PO SCH (08:52)
[2020-06-29] MEDS: PHENYTOIN SODIUM EXTENDED 100 MG CAPSULE PO SCH ×2 (08:52→21:58)
[2020-06-29] MEDS: GABAPENTIN 300 MG CAPSULE. PO SCH ×3 (08:52→21:58)
[2020-06-29] MEDS: AMOXICILLIN/K CLAV 875/125MG TABLET. PO SCH ×2 (08:53→21:57)
[2020-06-29] MEDS: MAGNESIUM OXIDE 400 MG TABLET PO SCH ×2 (08:53→21:00)
[2020-06-29] MEDS: MULTIVITAMIN with MINERAL TABLET. PO SCH (08:53)
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
--- NOTE | 2020-06-29 10:58 | NUR ---
WEEKLY ACTIVITY THERAPY NOTE Date of Admission:06/22/20 Date of AT Assessment: 06/22 Precipitating behaviors that initiated intake and admission:refusing meds, threatening to call government, belligerent, shouting at staff, thinks staff is trying to kill her Goal aimed: increase time management and relaxation skills Initial Goal: Pt will participate in at least three individual or group Activity Therapy sessions per week. Weekly progress towards goal: did not achieve, none Group participation level: none Weekly highlights: Behaviors observed: walking in the hallway often Plan: no change to goal Beneficial adaptations:
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
--- NOTE | 2020-06-29 16:05 | NUR ---
SW followed up with pt today to ensure pt that her facility is going to cancel her appointment for her prosthesis and reschedule it. Pt appreciative of information and proceed to let SW know that her guardians were trying to get her locked up in [place]. SW ensured pt that [facility] would not get involved in that process if that was the case. SW ensured pt that her guardians nor current facility, [facility], has reported that they were trying to lock pt up in [place]. This is obviously part of pt delusion. SW, further, ensured pt that once she was finished with treatment here at [facility], she would go back to [facility]. Pt appreciative of conversation.
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
[2020-06-29 18:17] VITALS: BP 161/75
[2020-06-29] MEDS: QUEtiapine 25 MG TABLET. PO SCH (21:57)
--- NOTE | 2020-06-29 22:08 | PDOC ---
Exam Note: Ryan Note: Please also refer to the separate dictated note~for this date of service dictated separately.~Patient seen individually. Discussed the patient with Nursing staff reviewed the chart.~Reviewed interim history and current functioning. Reviewed vital signs,~Labs/ Radiology~and current medications noted below. Continue current treatment with the changes noted in the dictated addendum note Assessment: Vital Signs/I&O: Vital Signs Date Time Temp Pulse Resp B/P (MAP) Pulse Ox O2 Delivery O2 Flow Rate FiO2 06/29/20 18:17 98.2 81 16 161/75 (103) 98 06/28/20 05:58 Room Air I & O 06/28/20 06/28/20 06/29/20 15:00 23:00 07:00 Intake Total 960 ml 220 ml 240 ml Balance 960 ml 220 ml 240 ml Labs: Laboratory Tests Test 06/29/20 07:49 06/29/20 20:28 Glucose (Fingerstick) 106 mg/dL (70-99) H 153 mg/dL (70-99) H Current Medications: Meds: Laboratory Tests Test 06/29/20 07:49 06/29/20 20:28 Glucose (Fingerstick) 106 mg/dL 153 mg/dL Current Medications Medications (Trade) Dose Ordered Sig/[place] Route PRN Reason Start Time Stop Time Status Last Admin Dose Admin Acetaminophen (Tylenol) 650 mg PRN Q6HRS PRN PO MILD PAIN / TEMP > 100.3'F 06/22/20 02:00 Multi-Ingredient Ointment (Analgesic [place]) 1 syed PRN QID PRN TP MUSCLE PAIN 06/22/20 02:00 Al Hydroxide/Mg Hydroxide (Mylanta Plus Xs) 15 ml PRN AFTMEALHC PRN PO DYSPEPSIA 06/22/20 02:00 Magnesium Hydroxide (Milk Of Magnesia) 2,400 mg PRN QHS PRN PO CONSTIPATION 06/22/20 02:00 Furosemide (Lasix) 20 mg DAILY PO 06/22/20 09:00 06/29/20 08:52 Gabapentin (Neurontin) 300 mg TID PO 06/22/20 09:00 06/29/20 21:58 Hydrocortisone (Proctosol-Hc) 1 syed PRN Q12HR PRN RC Hemmorrhoids 06/22/20 02:30 Pantoprazole Sodium (Protonix) 40 mg PRN Q12HR PRN PO GERD 06/22/20 02:30 Albuterol Sulfate (Ventolin) 1.25 mg PRN Q6HRS PRN NEB COUGH 06/22/20 03:00 Calcium Carbonate/ Glycine (Tums) 500 mg DAILY08 PO 06/22/20 08:00 06/29/20 08:51 Insulin Glargine (Lantus Syringe) 10 unit DAILYWBKFT SQ 06/22/20 08:00 06/29/20 08:00 Cetirizine HCl (ZyrTEC) 10 mg DAILY PO 06/22/20 09:00 06/29/20 08:52 Multivitamins/ Calcium (Thera-M Plus) 1 tab DAILY PO 06/22/20 09:00 06/29/20 08:53 Phenytoin Sodium (Dilantin) 250 mg BID PO 06/22/20 21:00 06/23/20 19:12 DC 06/23/20 08:19 Phenytoin Sodium (Dilantin) 150 mg 1X ONCE PO 06/22/20 12:30 06/22/20 12:31 DC 06/22/20 15:31 Non-Formulary Medication (Non Formulary Item (Glucocil)) 1 ea BID PO 06/22/20 21:00 06/23/20 05:16 DC 06/22/20 21:41 Non-Formulary Medication (Non Formulary Item (Glucocil)) 2 ea BIDWMEALS PO 06/23/20 08:00 06/29/20 17:00 Amoxicillin/ Clavulanate Potassium (Augmentin 875/ 125mg) 1 tab BID PO 06/23/20 21:00 07/03/20 22:00 06/29/20 21:57 Vitamin D (Vitamin D3) 50,000 unit WEEKLY PO 06/23/20 15:45 06/23/20 17:27 Magnesium Oxide (Magnesium Oxide) 400 mg BID PO 06/23/20 21:00 06/29/20 21:00 Lactobacillus Rhamnosus (Culturelle) 1 cap BID PO 06/23/20 21:00 06/29/20 21:57 Phenytoin Sodium (Dilantin) 200 mg BID PO 06/23/20 21:00 06/25/20 01:50 DC 06/24/20 21:16 Phenytoin Sodium (Dilantin) 200 mg BID PO 06/25/20 09:00 06/29/20 21:58 Quetiapine Fumarate (SEROquel) 25 mg QHS PO 06/27/20 21:00 06/29/20 11:28 DC 06/28/20 20:52 Quetiapine Fumarate (SEROquel) 50 mg QHS PO 06/29/20 21:00 06/29/20 21:57 Current Medications Medications (Trade) Dose Ordered Sig/[place] Route PRN Reason Start Time Stop Time Status Last Admin Dose Admin Quetiapine Fumarate (SEROquel) 50 mg QHS PO 06/29/20 21:00 06/29/20 21:57 I have reviewed the current psychotropics carefully including drug interactions. Risk benefit ratio favors no change other than as noted in my dictated progress note. Diagnosis: Problems: (1) Schizoaffective disorder, bipolar type (2) Bipolar disorder with psychotic features (3) Impulse control disorder, unspecified (4) Anxiety disorder, unspecified ELIAS WASHINGTON MD Jun 29, 2020 22:08
--- NOTE | 2020-06-30 01:34 | NUR ---
Patient compliant with medications, no delusions expressed at this time. Nothing mentioned about guardians or stealing. Patient did not want to take a shower at 2230 because it was late and she was very tired. She agreed to take one in the AM.
[2020-06-30 05:57] VITALS: BP 138/81
[2020-06-30] MEDS: INSULIN GLARGINE SYRINGE. SQ SCH (08:00)
[2020-06-30] MEDS: GLUCOCIL PO SCH ×2 (08:00→16:22)
[2020-06-30] MEDS: CALCIUM CARBONATE 500 MG TAB.CHEW PO SCH (08:49)
[2020-06-30] MEDS: FUROSEMIDE 20 MG TABLET PO SCH (08:49)
[2020-06-30] MEDS: LACTOBACILLUS RHAMNOSUS GG 1 CAPSULE. PO SCH ×2 (08:49→20:35)
[2020-06-30] MEDS: AMOXICILLIN/K CLAV 875/125MG TABLET. PO SCH ×2 (08:49→20:35)
[2020-06-30] MEDS: GABAPENTIN 300 MG CAPSULE. PO SCH ×3 (08:49→20:35)
[2020-06-30] MEDS: MULTIVITAMIN with MINERAL TABLET. PO SCH (08:49)
[2020-06-30] MEDS: MAGNESIUM OXIDE 400 MG TABLET PO SCH ×2 (08:49→20:35)
[2020-06-30] MEDS: CETIRIZINE HCL 10 MG TABLET PO SCH (08:49)
[2020-06-30] MEDS: CHOLECALCIFEROL (VITAMIN D3) 50,000 UNIT CAPSULE PO SCH (08:49)
[2020-06-30] MEDS: PHENYTOIN SODIUM EXTENDED 100 MG CAPSULE PO SCH ×2 (08:50→20:34)
[2020-06-30 16:03] VITALS: BP 148/82
--- NOTE | 2020-06-30 19:23 | NUR ---
Unremarkable day no behaviors to report at this time, pleasant, med compliant no issues to report
[2020-06-30] MEDS: QUEtiapine 25 MG TABLET. PO SCH (20:35)
--- NOTE | 2020-06-30 22:26 | PDOC ---
Exam Note: Ryan Note: Please also refer to the separate dictated note~for this date of service dictated separately.~Patient seen individually. Discussed the patient with Nursing staff reviewed the chart.~Reviewed interim history and current functioning. Reviewed vital signs,~Labs/ Radiology~and current medications noted below. Continue current treatment with the changes noted in the dictated addendum note Assessment: Vital Signs/I&O: Vital Signs Date Time Temp Pulse Resp B/P (MAP) Pulse Ox O2 Delivery O2 Flow Rate FiO2 06/30/20 16:03 97.1 77 17 148/82 (104) 96 Room Air I & O 06/29/20 06/29/20 06/30/20 15:00 23:00 07:00 Intake Total 360 ml 600 ml Balance 360 ml 600 ml Labs: Laboratory Tests Test 06/30/20 07:56 06/30/20 19:21 Glucose (Fingerstick) 97 mg/dL (70-99) 199 mg/dL (70-99) H Current Medications: Meds: Laboratory Tests Test 06/30/20 07:56 06/30/20 19:21 Glucose (Fingerstick) 97 mg/dL 199 mg/dL Current Medications Medications (Trade) Dose Ordered Sig/[place] Route PRN Reason Start Time Stop Time Status Last Admin Dose Admin Acetaminophen (Tylenol) 650 mg PRN Q6HRS PRN PO MILD PAIN / TEMP > 100.3'F 06/22/20 02:00 Multi-Ingredient Ointment (Analgesic [place]) 1 syed PRN QID PRN TP MUSCLE PAIN 06/22/20 02:00 Al Hydroxide/Mg Hydroxide (Mylanta Plus Xs) 15 ml PRN AFTMEALHC PRN PO DYSPEPSIA 06/22/20 02:00 Magnesium Hydroxide (Milk Of Magnesia) 2,400 mg PRN QHS PRN PO CONSTIPATION 06/22/20 02:00 Furosemide (Lasix) 20 mg DAILY PO 06/22/20 09:00 06/30/20 08:49 Gabapentin (Neurontin) 300 mg TID PO 06/22/20 09:00 06/30/20 20:35 Hydrocortisone (Proctosol-Hc) 1 syed PRN Q12HR PRN RC Hemmorrhoids 06/22/20 02:30 Pantoprazole Sodium (Protonix) 40 mg PRN Q12HR PRN PO GERD 06/22/20 02:30 Albuterol Sulfate (Ventolin) 1.25 mg PRN Q6HRS PRN NEB COUGH 06/22/20 03:00 Calcium Carbonate/ Glycine (Tums) 500 mg DAILY08 PO 06/22/20 08:00 06/30/20 08:49 Insulin Glargine (Lantus Syringe) 10 unit DAILYWBKFT SQ 06/22/20 08:00 06/30/20 08:00 Cetirizine HCl (ZyrTEC) 10 mg DAILY PO 06/22/20 09:00 06/30/20 08:49 Multivitamins/ Calcium (Thera-M Plus) 1 tab DAILY PO 06/22/20 09:00 06/30/20 08:49 Phenytoin Sodium (Dilantin) 250 mg BID PO 06/22/20 21:00 06/23/20 19:12 DC 06/23/20 08:19 Phenytoin Sodium (Dilantin) 150 mg 1X ONCE PO 06/22/20 12:30 06/22/20 12:31 DC 06/22/20 15:31 Non-Formulary Medication (Non Formulary Item (Glucocil)) 1 ea BID PO 06/22/20 21:00 06/23/20 05:16 DC 06/22/20 21:41 Non-Formulary Medication (Non Formulary Item (Glucocil)) 2 ea BIDWMEALS PO 06/23/20 08:00 06/30/20 16:22 Amoxicillin/ Clavulanate Potassium (Augmentin 875/ 125mg) 1 tab BID PO 06/23/20 21:00 07/03/20 22:00 06/30/20 20:35 Vitamin D (Vitamin D3) 50,000 unit WEEKLY PO 06/23/20 15:45 06/30/20 08:49 Magnesium Oxide (Magnesium Oxide) 400 mg BID PO 06/23/20 21:00 06/30/20 20:35 Lactobacillus Rhamnosus (Culturelle) 1 cap BID PO 06/23/20 21:00 06/30/20 20:35 Phenytoin Sodium (Dilantin) 200 mg BID PO 06/23/20 21:00 06/25/20 01:50 DC 06/24/20 21:16 Phenytoin Sodium (Dilantin) 200 mg BID PO 06/25/20 09:00 06/30/20 20:34 Quetiapine Fumarate (SEROquel) 25 mg QHS PO 06/27/20 21:00 06/29/20 11:28 DC 06/28/20 20:52 Quetiapine Fumarate (SEROquel) 50 mg QHS PO 06/29/20 21:00 06/30/20 20:35 I have reviewed the current psychotropics carefully including drug interactions. Risk benefit ratio favors no change other than as noted in my dictated progress note. Diagnosis: Problems: (1) Schizoaffective disorder, bipolar type (2) Bipolar disorder with psychotic features (3) Impulse control disorder, unspecified (4) Anxiety disorder, unspecified ELIAS WASHINGTON MD Jun 30, 2020 22:26
--- NOTE | 2020-06-30 23:00 | NUR ---
Patient wrote a note to this nurse asking that her medical records and CT head be requested from a hospital as she would like Dr Thomas to review them. She was upset that her daughter wants to "have her rectum removed" when she doesn't have cancer and kept stating, "the head CT showed I don't even have colon cancer". Patient wrote a second note in which she is emphatic that she will have a different guardian and DPOA, she is delusional and states that her daughter is attempting to get her money. Pt is also currently fixated on finding a "level 1 independent living half-way" because she states that her "level 2 status is expiring july 26". This nurse has not been told anything about patient needing a new, lesser level of care. She has asked many questions about the [place] area and the availability of NH/AL in this area. Pt stated that her daughter and guardian are trying to keep her in a level 2. When nurse asked patient why this would be, she could not answer. Patient is compliant with medications and assessment. She has been observed ambulating in the hallway and exercising.
[2020-07-01 06:47] VITALS: BP 145/83
--- NOTE | 2020-07-01 07:48 | PDOC ---
Exam Note: Ryan Note: This note is a late entry for 06/28/2020 covers elements not covered in my initial note. Subjective: The patient was seen individually in the evening of 06/28/2020 with Mariela CHILDRESS, discussed and reviewed the chart. The patient slept 5-3/4 hours previous night. The patient remains somewhat hyperverbal, somewhat delusional previous night. She believed nursing staff had given her contaminated water and she drank water that was from a medhat container that gave her UTI. I addressed this at length with her to help improve her insight with limited response. She is paranoid, delusional about her guardian, wants the guardian changed and has been writing extensive notes towards this end. Review of Systems: Ambulation impaired. No CV, GI, eye system symptoms on review. Mental Status Exam: The patient is oriented to herself. Speech coherent. Abstraction fair. Computation impaired. Attention span is short. Language function intact. Mood and affect less anxious. No suicidal or homicidal ideation. Laboratory Data: Reviewed. Impression: Schizoaffective disorder, bipolar type, mixed with psychotic features. Anxiety disorder unspecified. Impulse control disorder unspecified. Plan: Continue current psychotropics. We may need to increase the Seroquel from 25 mg h.s. to 50 mg h.s. We will defer management of seizures to Dr. Thomas. Assessment: Vital Signs/I&O: Vital Signs Date Time Temp Pulse Resp B/P (MAP) Pulse Ox O2 Delivery O2 Flow Rate FiO2 07/01/20 06:47 97.8 71 16 145/83 (103) 97 06/30/20 16:03 Room Air I & O 06/30/20 06/30/20 07/01/20 15:00 23:00 07:00 Intake Total 480 ml 480 ml Balance 480 ml 480 ml Labs: Laboratory Tests Test 06/30/20 07:56 06/30/20 19:21 07/01/20 07:36 Glucose (Fingerstick) 97 mg/dL (70-99) 199 mg/dL (70-99) H 103 mg/dL (70-99) H Current Medications: Meds: Laboratory Tests Test 06/30/20 07:56 06/30/20 19:21 07/01/20 07:36 Glucose (Fingerstick) 97 mg/dL 199 mg/dL 103 mg/dL Current Medications Medications (Trade) Dose Ordered Sig/[place] Route PRN Reason Start Time Stop Time Status Last Admin Dose Admin Acetaminophen (Tylenol) 650 mg PRN Q6HRS PRN PO MILD PAIN / TEMP > 100.3'F 06/22/20 02:00 Multi-Ingredient Ointment (Analgesic [place]) 1 syed PRN QID PRN TP MUSCLE PAIN 06/22/20 02:00 Al Hydroxide/Mg Hydroxide (Mylanta Plus Xs) 15 ml PRN AFTMEALHC PRN PO DYSPEPSIA 06/22/20 02:00 Magnesium Hydroxide (Milk Of Magnesia) 2,400 mg PRN QHS PRN PO CONSTIPATION 06/22/20 02:00 Furosemide (Lasix) 20 mg DAILY PO 06/22/20 09:00 06/30/20 08:49 Gabapentin (Neurontin) 300 mg TID PO 06/22/20 09:00 06/30/20 20:35 Hydrocortisone (Proctosol-Hc) 1 syed PRN Q12HR PRN RC Hemmorrhoids 06/22/20 02:30 Pantoprazole Sodium (Protonix) 40 mg PRN Q12HR PRN PO GERD 06/22/20 02:30 Albuterol Sulfate (Ventolin) 1.25 mg PRN Q6HRS PRN NEB COUGH 06/22/20 03:00 Calcium Carbonate/ Glycine (Tums) 500 mg DAILY08 PO 06/22/20 08:00 06/30/20 08:49 Insulin Glargine (Lantus Syringe) 10 unit DAILYWBKFT SQ 06/22/20 08:00 06/30/20 08:00 Cetirizine HCl (ZyrTEC) 10 mg DAILY PO 06/22/20 09:00 06/30/20 08:49 Multivitamins/ Calcium (Thera-M Plus) 1 tab DAILY PO 06/22/20 09:00 06/30/20 08:49 Phenytoin Sodium (Dilantin) 250 mg BID PO 06/22/20 21:00 06/23/20 19:12 DC 06/23/20 08:19 Phenytoin Sodium (Dilantin) 150 mg 1X ONCE PO 06/22/20 12:30 06/22/20 12:31 DC 06/22/20 15:31 Non-Formulary Medication (Non Formulary Item (Glucocil)) 1 ea BID PO 06/22/20 21:00 06/23/20 05:16 DC 06/22/20 21:41 Non-Formulary Medication (Non Formulary Item (Glucocil)) 2 ea BIDWMEALS PO 06/23/20 08:00 06/30/20 16:22 Amoxicillin/ Clavulanate Potassium (Augmentin 875/ 125mg) 1 tab BID PO 06/23/20 21:00 07/03/20 22:00 06/30/20 20:35 Vitamin D (Vitamin D3) 50,000 unit WEEKLY PO 06/23/20 15:45 06/30/20 08:49 Magnesium Oxide (Magnesium Oxide) 400 mg BID PO 06/23/20 21:00 06/30/20 20:35 Lactobacillus Rhamnosus (Culturelle) 1 cap BID PO 06/23/20 21:00 06/30/20 20:35 Phenytoin Sodium (Dilantin) 200 mg BID PO 06/23/20 21:00 06/25/20 01:50 DC 06/24/20 21:16 Phenytoin Sodium (Dilantin) 200 mg BID PO 06/25/20 09:00 06/30/20 20:34 Quetiapine Fumarate (SEROquel) 25 mg QHS PO 06/27/20 21:00 06/29/20 11:28 DC 06/28/20 20:52 Quetiapine Fumarate (SEROquel) 50 mg QHS PO 06/29/20 21:00 06/30/20 20:35 I have reviewed the current psychotropics carefully including drug interactions. Risk benefit ratio favors no change other than as noted in my dictated progress note. Diagnosis: Problems: (1) Schizoaffective disorder, bipolar type (2) Bipolar disorder with psychotic features (3) Impulse control disorder, unspecified (4) Anxiety disorder, unspecified ELIAS WASHINGTON MD July 01, 2020 07:48
[2020-07-01] MEDS: CALCIUM CARBONATE 500 MG TAB.CHEW PO SCH (08:00)
[2020-07-01] MEDS: INSULIN GLARGINE SYRINGE. SQ SCH (08:00)
[2020-07-01] MEDS: GLUCOCIL PO SCH ×2 (08:00→17:00)
--- NOTE | 2020-07-01 08:29 | PDOC ---
Exam Note: Ryan Note: This note is a late entry for 06/29/2020 covers elements not covered in my initial note. Subjective: The patient was reviewed in the morning of 06/29/2020 for a treatment team meeting with Zohrhe Mcpherson, Eulalia Ruiz and Cris (social and human services assistant), Lissette, activity therapy and Mariela CHILDRESS, discussed and reviewed the chart. The patient slept 6-1/2 hours previous night. Appetite 75%. She has extended spectrum beta-lactamase UTI but is compliant with treatment. She is somewhat delusional regarding her new guardian. She is wanting change of guardian. I addressed with her. She has given me long-hand written note to read about her concerns about the guardian and we will defer to social service staff. Also discussed with Jacinta CHILDRESS in the evening. She remains delusional, little better at times. Review of Systems: Ambulation impaired. No CV, GI, eye system symptoms on review. Mental Status Exam: The patient is oriented to herself. Speech coherent. Abstraction fair. Computation impaired. Attention span is short. Language function intact. Mood and affect less anxious. No suicidal or homicidal ideation. Laboratory Data: Reviewed. Impression: Schizoaffective disorder, bipolar type, mixed with psychotic features. Anxiety disorder unspecified. Impulse control disorder unspecified. Plan: Continue current psychotropics. We will increase Seroquel from 25 mg h.s. to 50 mg h.s. Rest unchanged for now. Assessment: Vital Signs/I&O: Vital Signs Date Time Temp Pulse Resp B/P (MAP) Pulse Ox O2 Delivery O2 Flow Rate FiO2 07/01/20 06:47 97.8 71 16 145/83 (103) 97 06/30/20 16:03 Room Air I & O 06/30/20 06/30/20 07/01/20 15:00 23:00 07:00 Intake Total 480 ml 480 ml Balance 480 ml 480 ml Labs: Laboratory Tests Test 06/30/20 19:21 07/01/20 07:36 Glucose (Fingerstick) 199 mg/dL (70-99) H 103 mg/dL (70-99) H Current Medications: Meds: Laboratory Tests Test 06/30/20 19:07/01/20 07:36 Glucose (Fingerstick) 199 mg/dL 103 mg/dL Current Medications Medications (Trade) Dose Ordered Sig/[place] Route PRN Reason Start Time Stop Time Status Last Admin Dose Admin Acetaminophen (Tylenol) 650 mg PRN Q6HRS PRN PO MILD PAIN / TEMP > 100.3'F 06/22/20 02:00 Multi-Ingredient Ointment (Analgesic [place]) 1 syed PRN QID PRN TP MUSCLE PAIN 06/22/20 02:00 Al Hydroxide/Mg Hydroxide (Mylanta Plus Xs) 15 ml PRN AFTMEALHC PRN PO DYSPEPSIA 06/22/20 02:00 Magnesium Hydroxide (Milk Of Magnesia) 2,400 mg PRN QHS PRN PO CONSTIPATION 06/22/20 02:00 Furosemide (Lasix) 20 mg DAILY PO 06/22/20 09:00 06/30/20 08:49 Gabapentin (Neurontin) 300 mg TID PO 06/22/20 09:00 06/30/20 20:35 Hydrocortisone (Proctosol-Hc) 1 syed PRN Q12HR PRN RC Hemmorrhoids 06/22/20 02:30 Pantoprazole Sodium (Protonix) 40 mg PRN Q12HR PRN PO GERD 06/22/20 02:30 Albuterol Sulfate (Ventolin) 1.25 mg PRN Q6HRS PRN NEB COUGH 06/22/20 03:00 Calcium Carbonate/ Glycine (Tums) 500 mg DAILY08 PO 06/22/20 08:00 06/30/20 08:49 Insulin Glargine (Lantus Syringe) 10 unit DAILYWBKFT SQ 06/22/20 08:00 06/30/20 08:00 Cetirizine HCl (ZyrTEC) 10 mg DAILY PO 06/22/20 09:00 06/30/20 08:49 Multivitamins/ Calcium (Thera-M Plus) 1 tab DAILY PO 06/22/20 09:00 06/30/20 08:49 Phenytoin Sodium (Dilantin) 250 mg BID PO 06/22/20 21:00 06/23/20 19:12 DC 06/23/20 08:19 Phenytoin Sodium (Dilantin) 150 mg 1X ONCE PO 06/22/20 12:30 06/22/20 12:31 DC 06/22/20 15:31 Non-Formulary Medication (Non Formulary Item (Glucocil)) 1 ea BID PO 06/22/20 21:00 06/23/20 05:16 DC 06/22/20 21:41 Non-Formulary Medication (Non Formulary Item (Glucocil)) 2 ea BIDWMEALS PO 06/23/20 08:00 06/30/20 16:22 Amoxicillin/ Clavulanate Potassium (Augmentin 875/ 125mg) 1 tab BID PO 06/23/20 21:00 07/03/20 22:00 06/30/20 20:35 Vitamin D (Vitamin D3) 50,000 unit WEEKLY PO 06/23/20 15:45 06/30/20 08:49 Magnesium Oxide (Magnesium Oxide) 400 mg BID PO 06/23/20 21:00 06/30/20 20:35 Lactobacillus Rhamnosus (Culturelle) 1 cap BID PO 06/23/20 21:00 06/30/20 20:35 Phenytoin Sodium (Dilantin) 200 mg BID PO 06/23/20 21:00 06/25/20 01:50 DC 06/24/20 21:16 Phenytoin Sodium (Dilantin) 200 mg BID PO 06/25/20 09:00 06/30/20 20:34 Quetiapine Fumarate (SEROquel) 25 mg QHS PO 06/27/20 21:00 06/29/20 11:28 DC 06/28/20 20:52 Quetiapine Fumarate (SEROquel) 50 mg QHS PO 06/29/20 21:00 06/30/20 20:35 I have reviewed the current psychotropics carefully including drug interactions. Risk benefit ratio favors no change other than as noted in my dictated progress note. Diagnosis: Problems: (1) Schizoaffective disorder, bipolar type (2) Bipolar disorder with psychotic features (3) Impulse control disorder, unspecified (4) Anxiety disorder, unspecified ELIAS WASHINGTON MD July 01, 2020 08:29
[2020-07-01] MEDS: MAGNESIUM OXIDE 400 MG TABLET PO SCH ×2 (09:00→20:49)
[2020-07-01] MEDS: MULTIVITAMIN with MINERAL TABLET. PO SCH (09:14)
[2020-07-01] MEDS: PHENYTOIN SODIUM EXTENDED 100 MG CAPSULE PO SCH ×2 (09:15→20:49)
[2020-07-01] MEDS: GABAPENTIN 300 MG CAPSULE. PO SCH ×3 (09:15→20:49)
[2020-07-01] MEDS: LACTOBACILLUS RHAMNOSUS GG 1 CAPSULE. PO SCH ×2 (09:15→20:49)
[2020-07-01] MEDS: FUROSEMIDE 20 MG TABLET PO SCH (09:15)
[2020-07-01] MEDS: CETIRIZINE HCL 10 MG TABLET PO SCH (09:15)
[2020-07-01] MEDS: AMOXICILLIN/K CLAV 875/125MG TABLET. PO SCH ×2 (09:15→20:49)
[2020-07-01 15:55] VITALS: BP 154/84
--- NOTE | 2020-07-01 18:32 | NUR ---
No behaviors to report today patient interactive with staff up to the dining room for all meals interactive with others med compliant as well as compliant with cares. Patient walking the halls more today than yesterday she stated she is trying to stay active. Vitals wnl of baseline will continue to monitor patient.
[2020-07-01] MEDS: QUEtiapine 25 MG TABLET. PO SCH (20:49)
--- NOTE | 2020-07-01 22:00 | PDOC ---
Exam Note: Ryna Note: Please also refer to the separate dictated note~for this date of service dictated separately.~Patient seen individually. Discussed the patient with Nursing staff reviewed the chart.~Reviewed interim history and current functioning. Reviewed vital signs,~Labs/ Radiology~and current medications noted below. Continue current treatment with the changes noted in the dictated addendum note Assessment: Vital Signs/I&O: Vital Signs Date Time Temp Pulse Resp B/P (MAP) Pulse Ox O2 Delivery O2 Flow Rate FiO2 07/01/20 15:55 96.9 81 18 154/84 (107) 98 Room Air I & O 06/30/20 06/30/20 07/01/20 15:00 23:00 07:00 Intake Total 480 ml 480 ml Balance 480 ml 480 ml Labs: Laboratory Tests Test 07/01/20 07:36 07/01/20 19:22 Glucose (Fingerstick) 103 mg/dL (70-99) H 108 mg/dL (70-99) H Current Medications: Meds: Laboratory Tests Test 07/01/20 07:36 07/01/20 19:22 Glucose (Fingerstick) 103 mg/dL 108 mg/dL Current Medications Medications (Trade) Dose Ordered Sig/[place] Route PRN Reason Start Time Stop Time Status Last Admin Dose Admin Acetaminophen (Tylenol) 650 mg PRN Q6HRS PRN PO MILD PAIN / TEMP > 100.3'F 06/22/20 02:00 Multi-Ingredient Ointment (Analgesic [place]) 1 syed PRN QID PRN TP MUSCLE PAIN 06/22/20 02:00 Al Hydroxide/Mg Hydroxide (Mylanta Plus Xs) 15 ml PRN AFTMEALHC PRN PO DYSPEPSIA 06/22/20 02:00 Magnesium Hydroxide (Milk Of Magnesia) 2,400 mg PRN QHS PRN PO CONSTIPATION 06/22/20 02:00 Furosemide (Lasix) 20 mg DAILY PO 06/22/20 09:00 07/01/20 09:15 Gabapentin (Neurontin) 300 mg TID PO 06/22/20 09:00 07/01/20 20:49 Hydrocortisone (Proctosol-Hc) 1 syed PRN Q12HR PRN RC Hemmorrhoids 06/22/20 02:30 Pantoprazole Sodium (Protonix) 40 mg PRN Q12HR PRN PO GERD 06/22/20 02:30 Albuterol Sulfate (Ventolin) 1.25 mg PRN Q6HRS PRN NEB COUGH 06/22/20 03:00 Calcium Carbonate/ Glycine (Tums) 500 mg DAILY08 PO 06/22/20 08:00 07/01/20 08:00 Insulin Glargine (Lantus Syringe) 10 unit DAILYWBKFT SQ 06/22/20 08:00 07/01/20 08:00 Cetirizine HCl (ZyrTEC) 10 mg DAILY PO 06/22/20 09:00 07/01/20 09:15 Multivitamins/ Calcium (Thera-M Plus) 1 tab DAILY PO 06/22/20 09:00 07/01/20 09:14 Phenytoin Sodium (Dilantin) 250 mg BID PO 06/22/20 21:00 06/23/20 19:12 DC 06/23/20 08:19 Phenytoin Sodium (Dilantin) 150 mg 1X ONCE PO 06/22/20 12:30 06/22/20 12:31 DC 06/22/20 15:31 Non-Formulary Medication (Non Formulary Item (Glucocil)) 1 ea BID PO 06/22/20 21:00 06/23/20 05:16 DC 06/22/20 21:41 Non-Formulary Medication (Non Formulary Item (Glucocil)) 2 ea BIDWMEALS PO 06/23/20 08:00 07/01/20 17:00 Amoxicillin/ Clavulanate Potassium (Augmentin 875/ 125mg) 1 tab BID PO 06/23/20 21:00 07/03/20 22:00 07/01/20 20:49 Vitamin D (Vitamin D3) 50,000 unit WEEKLY PO 06/23/20 15:45 06/30/20 08:49 Magnesium Oxide (Magnesium Oxide) 400 mg BID PO 06/23/20 21:00 07/01/20 20:49 Lactobacillus Rhamnosus (Culturelle) 1 cap BID PO 06/23/20 21:00 07/01/20 20:49 Phenytoin Sodium (Dilantin) 200 mg BID PO 06/23/20 21:00 06/25/20 01:50 DC 06/24/20 21:16 Phenytoin Sodium (Dilantin) 200 mg BID PO 06/25/20 09:00 07/01/20 20:49 Quetiapine Fumarate (SEROquel) 25 mg QHS PO 06/27/20 21:00 06/29/20 11:28 DC 06/28/20 20:52 Quetiapine Fumarate (SEROquel) 50 mg QHS PO 06/29/20 21:00 07/01/20 20:49 I have reviewed the current psychotropics carefully including drug interactions. Risk benefit ratio favors no change other than as noted in my dictated progress note. Diagnosis: Problems: (1) Schizoaffective disorder, bipolar type (2) Bipolar disorder with psychotic features (3) Impulse control disorder, unspecified (4) Anxiety disorder, unspecified ELIAS WASHINGTON MD July 01, 2020 22:00
--- NOTE | 2020-07-02 00:13 | NUR ---
Patient has been talking about finding a "level 1 NH/AL" most of the evening. She continues to insist that she is no longer qualified to live in a "level 2" and that her facility stated she would have to go to [facility]. She states she is here at [facility] to be evaluated for placement at a Level 1 AL. Patient stated that this nurse gave her something that "knocked her out" last night and that she has been tired and groggy all day because of it. Patient spoke to Dr Steven about this during rounds. This nurse verified medication list, patient has not had any new meds or dosage increases since June 29 and patient did not receive any PRN medications last night. Sleep log shows that patient slept 5 hours last night, when nurse suggested that this could be a possible reason that she was tired in the daytime, patient denied this and said that she only sleeps 5 hours per night and that is normal for her. Patient is delusional and paranoid. Patient asked what Dr Thomas thought of the head CT records (she had asked this nurse to obtain them from in [place] last night, nurse did not obtain any records as patient has DPOA and this is part of her delusion/paranoia). She stated she wants his opinion on whether she has rectal cancer or not, she stated her dad had rectal cancer and her daughter/DPOA is convinced that patient has it also. Pt states she knows she does not have it, as evidenced by the CT. Nurse advised patient that Dr Thomas is a neurologist, Dr Jorge is the medical doctor environmental auditor and that she is talking about a medical problem (possible rectal cancer) not a neurological problem. P. Patient continues to insist that HEAD CT will indicate if she has RECTAL cancer. Nurse performed education and said that usually a colonoscopy is performed to screen for rectal cancer, patient continued to insist that the head CT would show it. Patient was also told that this is a psychiatric stay, and we do not offer screening for rectal cancer. She expressed understanding and stated she will address this with her director of social services on Friday. Patient compliant with her medications.
[2020-07-02 06:34] VITALS: BP 119/83
[2020-07-02] MEDS: GLUCOCIL PO SCH ×2 (08:00→17:00)
[2020-07-02] MEDS: CETIRIZINE HCL 10 MG TABLET PO SCH (08:56)
[2020-07-02] MEDS: FUROSEMIDE 20 MG TABLET PO SCH (08:56)
[2020-07-02] MEDS: CALCIUM CARBONATE 500 MG TAB.CHEW PO SCH (08:56)
[2020-07-02] MEDS: AMOXICILLIN/K CLAV 875/125MG TABLET. PO SCH ×2 (08:56→21:25)
[2020-07-02] MEDS: LACTOBACILLUS RHAMNOSUS GG 1 CAPSULE. PO SCH ×2 (08:57→21:25)
[2020-07-02] MEDS: MAGNESIUM OXIDE 400 MG TABLET PO SCH ×2 (08:57→21:00)
[2020-07-02] MEDS: PHENYTOIN SODIUM EXTENDED 100 MG CAPSULE PO SCH ×2 (08:57→21:25)
[2020-07-02] MEDS: MULTIVITAMIN with MINERAL TABLET. PO SCH (08:57)
[2020-07-02] MEDS: GABAPENTIN 300 MG CAPSULE. PO SCH ×3 (08:57→21:25)
[2020-07-02] MEDS: INSULIN GLARGINE SYRINGE. SQ SCH (09:00)
--- NOTE | 2020-07-02 09:57 | NUR ---
Nursing note: Pt in her room at AM med pass and assessment. She is pleasant, med compliant and cooperative. Pt denied having any pain/concerns this AM. Pt asked about her antibiotics and if today was her last day of them. She has not mentioned anything about going to a different facility today and has had no other delusions so far this shift. She is currently sitting quietly in her room. Will continue to monitor.
[2020-07-02 16:22] VITALS: BP 117/74
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
[2020-07-02] MEDS: QUEtiapine 25 MG TABLET. PO SCH (21:25)
--- NOTE | 2020-07-02 22:10 | PDOC ---
Exam Note: Ryan Note: Please also refer to the separate dictated note~for this date of service dictated separately.~Patient seen individually. Discussed the patient with Nursing staff reviewed the chart.~Reviewed interim history and current functioning. Reviewed vital signs,~Labs/ Radiology~and current medications noted below. Continue current treatment with the changes noted in the dictated addendum note Assessment: Vital Signs/I&O: Vital Signs Date Time Temp Pulse Resp B/P (MAP) Pulse Ox O2 Delivery O2 Flow Rate FiO2 07/02/20 16:22 98.6 75 18 117/74 (88) 96 07/02/20 06:34 Room Air I & O 07/01/20 07/01/20 07/02/20 15:00 23:00 07:00 Intake Total 720 ml 240 ml 240 ml Balance 720 ml 240 ml 240 ml Labs: Laboratory Tests Test 07/02/20 07:40 07/02/20 19:18 Glucose (Fingerstick) 87 mg/dL (70-99) 168 mg/dL (70-99) H Current Medications: Meds: Laboratory Tests Test 07/02/20 07:40 07/02/20 19:18 Glucose (Fingerstick) 87 mg/dL 168 mg/dL Current Medications Medications (Trade) Dose Ordered Sig/[place] Route PRN Reason Start Time Stop Time Status Last Admin Dose Admin Acetaminophen (Tylenol) 650 mg PRN Q6HRS PRN PO MILD PAIN / TEMP > 100.3'F 06/22/20 02:00 Multi-Ingredient Ointment (Analgesic [place]) 1 syed PRN QID PRN TP MUSCLE PAIN 06/22/20 02:00 Al Hydroxide/Mg Hydroxide (Mylanta Plus Xs) 15 ml PRN AFTMEALHC PRN PO DYSPEPSIA 06/22/20 02:00 Magnesium Hydroxide (Milk Of Magnesia) 2,400 mg PRN QHS PRN PO CONSTIPATION 06/22/20 02:00 Furosemide (Lasix) 20 mg DAILY PO 06/22/20 09:00 07/02/20 08:56 Gabapentin (Neurontin) 300 mg TID PO 06/22/20 09:00 07/02/20 21:25 Hydrocortisone (Proctosol-Hc) 1 syed PRN Q12HR PRN RC Hemmorrhoids 06/22/20 02:30 Pantoprazole Sodium (Protonix) 40 mg PRN Q12HR PRN PO GERD 06/22/20 02:30 Albuterol Sulfate (Ventolin) 1.25 mg PRN Q6HRS PRN NEB COUGH 06/22/20 03:00 Calcium Carbonate/ Glycine (Tums) 500 mg DAILY08 PO 06/22/20 08:00 07/02/20 08:56 Insulin Glargine (Lantus Syringe) 10 unit DAILYWBKFT SQ 06/22/20 08:00 07/02/20 09:00 Cetirizine HCl (ZyrTEC) 10 mg DAILY PO 06/22/20 09:00 07/02/20 08:56 Multivitamins/ Calcium (Thera-M Plus) 1 tab DAILY PO 06/22/20 09:00 07/02/20 08:57 Phenytoin Sodium (Dilantin) 250 mg BID PO 06/22/20 21:00 06/23/20 19:12 DC 06/23/20 08:19 Phenytoin Sodium (Dilantin) 150 mg 1X ONCE PO 06/22/20 12:30 06/22/20 12:31 DC 06/22/20 15:31 Non-Formulary Medication (Non Formulary Item (Glucocil)) 1 ea BID PO 06/22/20 21:00 06/23/20 05:16 DC 06/22/20 21:41 Non-Formulary Medication (Non Formulary Item (Glucocil)) 2 ea BIDWMEALS PO 06/23/20 08:00 07/02/20 17:00 Amoxicillin/ Clavulanate Potassium (Augmentin 875/ 125mg) 1 tab BID PO 06/23/20 21:00 07/03/20 22:00 07/02/20 21:25 Vitamin D (Vitamin D3) 50,000 unit WEEKLY PO 06/23/20 15:45 06/30/20 08:49 Magnesium Oxide (Magnesium Oxide) 400 mg BID PO 06/23/20 21:00 07/02/20 21:00 Lactobacillus Rhamnosus (Culturelle) 1 cap BID PO 06/23/20 21:00 07/02/20 21:25 Phenytoin Sodium (Dilantin) 200 mg BID PO 06/23/20 21:00 06/25/20 01:50 DC 4/24/21 21:16 Phenytoin Sodium (Dilantin) 200 mg BID PO 06/25/20 09:00 07/02/20 21:25 Quetiapine Fumarate (SEROquel) 25 mg QHS PO 06/27/20 21:00 06/29/20 11:28 DC 06/28/20 20:52 Quetiapine Fumarate (SEROquel) 50 mg QHS PO 06/29/20 21:00 07/02/20 21:25 I have reviewed the current psychotropics carefully including drug interactions. Risk benefit ratio favors no change other than as noted in my dictated progress note. Diagnosis: Problems: (1) Schizoaffective disorder, bipolar type (2) Bipolar disorder with psychotic features (3) Impulse control disorder, unspecified (4) Anxiety disorder, unspecified ELIAS WASHINGTON MD July 02, 2020 22:10
[2020-07-03 06:16] VITALS: BP 126/74
--- NOTE | 2020-07-03 07:12 | PDOC ---
Exam Note: Ryan Note: This note is a late entry for 06/30/2020 covers elements not covered in my initial note. Subjective: The patient was seen individually in the evening of 06/30/2020 with Caroline CHILDRESS, discussed and reviewed the chart. The patient slept 4-3/4 hours previous night. She has been pleasant, cooperative, complains of some sedation in the morning. We have increased her Seroquel but she hopefully will tolerate this gradually. She is still somewhat obsessive about changing the guardian and I addressed this with her. Review of Systems: Ambulation impaired. No CV, GI, eye system symptoms on review. Mental Status Exam: The patient is oriented to herself. Speech coherent. Abstraction fair. Computation impaired. Attention span is short. Language function intact. Mood and affect less anxious. No suicidal or homicidal ideation. Laboratory Data: Reviewed. Impression: Schizoaffective disorder, bipolar type, mixed with psychotic features. Anxiety disorder unspecified. Impulse control disorder unspecified. Plan: Continue current psychotropics. Assessment: Vital Signs/I&O: Vital Signs Date Time Temp Pulse Resp B/P (MAP) Pulse Ox O2 Delivery O2 Flow Rate FiO2 07/03/20 06:16 97.7 77 15 126/74 (91) 97 07/02/20 06:34 Room Air I & O 07/02/20 07/02/20 07/03/20 15:00 23:00 07:00 Intake Total 720 ml 600 ml Balance 720 ml 600 ml Labs: Laboratory Tests Test 07/02/20 07:40 07/02/20 19:18 Glucose (Fingerstick) 87 mg/dL (70-99) 168 mg/dL (70-99) H Current Medications: Meds: Laboratory Tests Test 07/02/20 07:40 07/02/20 19:18 Glucose (Fingerstick) 87 mg/dL 168 mg/dL Current Medications Medications (Trade) Dose Ordered Sig/[place] Route PRN Reason Start Time Stop Time Status Last Admin Dose Admin Acetaminophen (Tylenol) 650 mg PRN Q6HRS PRN PO MILD PAIN / TEMP > 100.3'F 06/22/20 02:00 Multi-Ingredient Ointment (Analgesic [place]) 1 syed PRN QID PRN TP MUSCLE PAIN 06/22/20 02:00 Al Hydroxide/Mg Hydroxide (Mylanta Plus Xs) 15 ml PRN AFTMEALHC PRN PO DYSPEPSIA 06/22/20 02:00 Magnesium Hydroxide (Milk Of Magnesia) 2,400 mg PRN QHS PRN PO CONSTIPATION 06/22/20 02:00 Furosemide (Lasix) 20 mg DAILY PO 06/22/20 09:00 07/02/20 08:56 Gabapentin (Neurontin) 300 mg TID PO 06/22/20 09:00 07/02/20 21:25 Hydrocortisone (Proctosol-Hc) 1 syed PRN Q12HR PRN RC Hemmorrhoids 06/22/20 02:30 Pantoprazole Sodium (Protonix) 40 mg PRN Q12HR PRN PO GERD 06/22/20 02:30 Albuterol Sulfate (Ventolin) 1.25 mg PRN Q6HRS PRN NEB COUGH 06/22/20 03:00 Calcium Carbonate/ Glycine (Tums) 500 mg DAILY08 PO 06/22/20 08:00 07/02/20 08:56 Insulin Glargine (Lantus Syringe) 10 unit DAILYWBKFT SQ 06/22/20 08:00 07/02/20 09:00 Cetirizine HCl (ZyrTEC) 10 mg DAILY PO 06/22/20 09:00 07/02/20 08:56 Multivitamins/ Calcium (Thera-M Plus) 1 tab DAILY PO 06/22/20 09:00 07/02/20 08:57 Phenytoin Sodium (Dilantin) 250 mg BID PO 06/22/20 21:00 06/23/20 19:12 DC 06/23/20 08:19 Phenytoin Sodium (Dilantin) 150 mg 1X ONCE PO 06/22/20 12:30 06/22/20 12:31 DC 06/22/20 15:31 Non-Formulary Medication (Non Formulary Item (Glucocil)) 1 ea BID PO 06/22/20 21:00 06/23/20 05:16 DC 06/22/20 21:41 Non-Formulary Medication (Non Formulary Item (Glucocil)) 2 ea BIDWMEALS PO 06/23/20 08:00 07/02/20 17:00 Amoxicillin/ Clavulanate Potassium (Augmentin 875/ 125mg) 1 tab BID PO 06/23/20 21:00 07/03/20 22:00 07/02/20 21:25 Vitamin D (Vitamin D3) 50,000 unit WEEKLY PO 06/23/20 15:45 06/30/20 08:49 Magnesium Oxide (Magnesium Oxide) 400 mg BID PO 06/23/20 21:00 07/02/20 21:00 Lactobacillus Rhamnosus (Culturelle) 1 cap BID PO 06/23/20 21:00 07/02/20 21:25 Phenytoin Sodium (Dilantin) 200 mg BID PO 06/23/20 21:00 06/25/20 01:50 DC 06/24/20 21:16 Phenytoin Sodium (Dilantin) 200 mg BID PO 06/25/20 09:00 07/02/20 21:25 Quetiapine Fumarate (SEROquel) 25 mg QHS PO 06/27/20 21:00 06/29/20 11:28 DC 06/28/20 20:52 Quetiapine Fumarate (SEROquel) 50 mg QHS PO 06/29/20 21:00 07/02/20 21:25 I have reviewed the current psychotropics carefully including drug interactions. Risk benefit ratio favors no change other than as noted in my dictated progress note. Diagnosis: Problems: (1) Schizoaffective disorder, bipolar type (2) Bipolar disorder with psychotic features (3) Impulse control disorder, unspecified (4) Anxiety disorder, unspecified ELIAS WASHINGTON MD July 03, 2020 07:12
--- NOTE | 2020-07-03 07:40 | PDOC ---
Exam Note: Ryan Note: This note is a late entry for 07/01/2020 covers elements not covered in my initial note. Subjective: The patient was seen individually in the evening of 07/01/2020 with Caroline CHILDRESS, discussed and reviewed the chart. The patient slept 5 hours previous night. She has been pleasant, cooperative, remains a little hyperverbal but better than before. Review of Systems: Ambulation is appropriate. No CV, , eye system symptoms on review. Mental Status Exam: The patient is oriented to herself. Speech coherent. Abstraction fair. Computation impaired. Attention span is short. Language function intact. Mood and affect less anxious. No suicidal or homicidal ideation. Laboratory Data: Reviewed. Impression: Schizoaffective disorder, bipolar type, mixed with psychotic features. Anxiety disorder unspecified. Impulse control disorder unspecified. Plan: Continue current psychotropics. Assessment: Vital Signs/I&O: Vital Signs Date Time Temp Pulse Resp B/P (MAP) Pulse Ox O2 Delivery O2 Flow Rate FiO2 07/03/20 06:16 97.7 77 15 126/74 (91) 97 07/02/20 06:34 Room Air I & O 07/02/20 07/02/20 07/03/20 15:00 23:00 07:00 Intake Total 720 ml 600 ml Balance 720 ml 600 ml Labs: Laboratory Tests Test 07/02/20 07:40 07/02/20 19:18 Glucose (Fingerstick) 87 mg/dL (70-99) 168 mg/dL (70-99) H Current Medications: Meds: Laboratory Tests Test 07/02/20 19:18 Glucose (Fingerstick) 168 mg/dL Current Medications Medications (Trade) Dose Ordered Sig/[place] Route PRN Reason Start Time Stop Time Status Last Admin Dose Admin Acetaminophen (Tylenol) 650 mg PRN Q6HRS PRN PO MILD PAIN / TEMP > 100.3'F 06/22/20 02:00 Multi-Ingredient Ointment (Analgesic [place]) 1 syed PRN QID PRN TP MUSCLE PAIN 06/22/20 02:00 Al Hydroxide/Mg Hydroxide (Mylanta Plus Xs) 15 ml PRN AFTMEALHC PRN PO DYSPEPSIA 06/22/20 02:00 Magnesium Hydroxide (Milk Of Magnesia) 2,400 mg PRN QHS PRN PO CONSTIPATION 06/22/20 02:00 Furosemide (Lasix) 20 mg DAILY PO 06/22/20 09:00 07/02/20 08:56 Gabapentin (Neurontin) 300 mg TID PO 06/22/20 09:00 07/02/20 21:25 Hydrocortisone (Proctosol-Hc) 1 syed PRN Q12HR PRN RC Hemmorrhoids 06/22/20 02:30 Pantoprazole Sodium (Protonix) 40 mg PRN Q12HR PRN PO GERD 06/22/20 02:30 Albuterol Sulfate (Ventolin) 1.25 mg PRN Q6HRS PRN NEB COUGH 06/22/20 03:00 Calcium Carbonate/ Glycine (Tums) 500 mg DAILY08 PO 06/22/20 08:00 07/02/20 08:56 Insulin Glargine (Lantus Syringe) 10 unit DAILYWBKFT SQ 06/22/20 08:00 07/02/20 09:00 Cetirizine HCl (ZyrTEC) 10 mg DAILY PO 06/22/20 09:00 07/02/20 08:56 Multivitamins/ Calcium (Thera-M Plus) 1 tab DAILY PO 06/22/20 09:00 07/02/20 08:57 Phenytoin Sodium (Dilantin) 250 mg BID PO 06/22/20 21:00 06/23/20 19:12 DC 06/23/20 08:19 Phenytoin Sodium (Dilantin) 150 mg 1X ONCE PO 06/22/20 12:30 06/22/20 12:31 DC 06/22/20 15:31 Non-Formulary Medication (Non Formulary Item (Glucocil)) 1 ea BID PO 06/22/20 21:00 06/23/20 05:16 DC 06/22/20 21:41 Non-Formulary Medication (Non Formulary Item (Glucocil)) 2 ea BIDWMEALS PO 06/23/20 08:00 07/02/20 17:00 Amoxicillin/ Clavulanate Potassium (Augmentin 875/ 125mg) 1 tab BID PO 06/23/20 21:00 07/03/20 22:00 07/02/20 21:25 Vitamin D (Vitamin D3) 50,000 unit WEEKLY PO 06/23/20 15:45 06/30/20 08:49 Magnesium Oxide (Magnesium Oxide) 400 mg BID PO 06/23/20 21:00 07/02/20 21:00 Lactobacillus Rhamnosus (Culturelle) 1 cap BID PO 06/23/20 21:00 07/02/20 21:25 Phenytoin Sodium (Dilantin) 200 mg BID PO 06/23/20 21:00 06/25/20 01:50 DC 06/24/20 21:16 Phenytoin Sodium (Dilantin) 200 mg BID PO 06/25/20 09:00 07/02/20 21:25 Quetiapine Fumarate (SEROquel) 25 mg QHS PO 06/27/20 21:00 06/29/20 11:28 DC 06/28/20 20:52 Quetiapine Fumarate (SEROquel) 50 mg QHS PO 06/29/20 21:00 07/02/20 21:25 I have reviewed the current psychotropics carefully including drug interactions. Risk benefit ratio favors no change other than as noted in my dictated progress note. Diagnosis: Problems: (1) Schizoaffective disorder, bipolar type (2) Bipolar disorder with psychotic features (3) Impulse control disorder, unspecified (4) Anxiety disorder, unspecified ELIAS WASHINGTON MD July 03, 2020 07:40
[2020-07-03] MEDS: GLUCOCIL PO SCH ×2 (08:00→17:00)
--- NOTE | 2020-07-03 08:02 | PDOC ---
Exam Note: Ryan Note: This note is a late entry for 07/02/2020 covers elements not covered in my initial note. Subjective: The patient was seen individually in the evening of 07/02/2020 with Mariela CHILDRESS, discussed and reviewed the chart. The patient slept 6 hours previous night. Overall the patient states she has not had any more a.m. sedation like she had a couple of days back. She seems to be tolerating Seroquel 50 mg h.s. She is obsessed talking to nursing staff, wanting her head CT because of anal cancer. Staff is unable to convince her otherwise. Review of Systems: Ambulation is impaired. No CV, , pulmonary, eye system symptoms on review. Mental Status Exam: The patient is reasonably oriented. Speech coherent. Abstraction fair. Computation impaired. Language function intact. Mood and affect improved. No suicidal or homicidal ideation. Laboratory Data: Reviewed. Impression: Schizoaffective disorder, bipolar type, mixed with psychotic f eatures. Anxiety disorder unspecified. Impulse control disorder unspecified. Plan: Continue current psychotropics. Assessment: Vital Signs/I&O: Vital Signs Date Time Temp Pulse Resp B/P (MAP) Pulse Ox O2 Delivery O2 Flow Rate FiO2 07/03/20 06:16 97.7 77 15 126/74 (91) 97 07/02/20 06:34 Room Air I & O 07/02/20 07/02/20 07/03/20 14:59 22:59 06:59 Intake Total 720 ml 600 ml Balance 720 ml 600 ml Labs: Laboratory Tests Test 07/02/20 19:18 07/03/20 07:55 Glucose (Fingerstick) 168 mg/dL (70-99) H 99 mg/dL (70-99) Current Medications: Meds: Laboratory Tests Test 07/02/20 19:18 07/03/20 07:55 Glucose (Fingerstick) 168 mg/dL 99 mg/dL Current Medications Medications (Trade) Dose Ordered Sig/[place] Route PRN Reason Start Time Stop Time Status Last Admin Dose Admin Acetaminophen (Tylenol) 650 mg PRN Q6HRS PRN PO MILD PAIN / TEMP > 100.3'F 06/22/20 02:00 Multi-Ingredient Ointment (Analgesic [place]) 1 syed PRN QID PRN TP MUSCLE PAIN 06/22/20 02:00 Al Hydroxide/Mg Hydroxide (Mylanta Plus Xs) 15 ml PRN AFTMEALHC PRN PO DYSPEPSIA 06/22/20 02:00 Magnesium Hydroxide (Milk Of Magnesia) 2,400 mg PRN QHS PRN PO CONSTIPATION 06/22/20 02:00 Furosemide (Lasix) 20 mg DAILY PO 06/22/20 09:00 07/02/20 08:56 Gabapentin (Neurontin) 300 mg TID PO 06/22/20 09:00 07/02/20 21:25 Hydrocortisone (Proctosol-Hc) 1 syed PRN Q12HR PRN RC Hemmorrhoids 06/22/20 02:30 Pantoprazole Sodium (Protonix) 40 mg PRN Q12HR PRN PO GERD 06/22/20 02:30 Albuterol Sulfate (Ventolin) 1.25 mg PRN Q6HRS PRN NEB COUGH 06/22/20 03:00 Calcium Carbonate/ Glycine (Tums) 500 mg DAILY08 PO 06/22/20 08:00 07/02/20 08:56 Insulin Glargine (Lantus Syringe) 10 unit DAILYWBKFT SQ 06/22/20 08:00 07/02/20 09:00 Cetirizine HCl (ZyrTEC) 10 mg DAILY PO 06/22/20 09:00 07/02/20 08:56 Multivitamins/ Calcium (Thera-M Plus) 1 tab DAILY PO 06/22/20 09:00 07/02/20 08:57 Phenytoin Sodium (Dilantin) 250 mg BID PO 06/22/20 21:00 06/23/20 19:12 DC 06/23/20 08:19 Phenytoin Sodium (Dilantin) 150 mg 1X ONCE PO 06/22/20 12:30 06/22/20 12:31 DC 06/22/20 15:31 Non-Formulary Medication (Non Formulary Item (Glucocil)) 1 ea BID PO 06/22/20 21:00 06/23/20 05:16 DC 06/22/20 21:41 Non-Formulary Medication (Non Formulary Item (Glucocil)) 2 ea BIDWMEALS PO 06/23/20 08:00 07/02/20 17:00 Amoxicillin/ Clavulanate Potassium (Augmentin 875/ 125mg) 1 tab BID PO 06/23/20 21:00 07/03/20 22:00 07/02/20 21:25 Vitamin D (Vitamin D3) 50,000 unit WEEKLY PO 06/23/20 15:45 06/30/20 08:49 Magnesium Oxide (Magnesium Oxide) 400 mg BID PO 06/23/20 21:00 07/02/20 21:00 Lactobacillus Rhamnosus (Culturelle) 1 cap BID PO 06/23/20 21:00 07/02/20 21:25 Phenytoin Sodium (Dilantin) 200 mg BID PO 06/23/20 21:00 06/25/20 01:50 DC 06/24/20 21:16 Phenytoin Sodium (Dilantin) 200 mg BID PO 06/25/20 09:00 07/02/20 21:25 Quetiapine Fumarate (SEROquel) 25 mg QHS PO 06/27/20 21:00 06/29/20 11:28 DC 06/28/20 20:52 Quetiapine Fumarate (SEROquel) 50 mg QHS PO 06/29/20 21:00 07/02/20 21:25 I have reviewed the current psychotropics carefully including drug interactions. Risk benefit ratio favors no change other than as noted in my dictated progress note. Diagnosis: Problems: (1) Schizoaffective disorder, bipolar type (2) Bipolar disorder with psychotic features (3) Impulse control disorder, unspecified (4) Anxiety disorder, unspecified ELIAS WASHINGTON MD July 03, 2020 08:02
[2020-07-03] MEDS: AMOXICILLIN/K CLAV 875/125MG TABLET. PO SCH ×2 (09:08→20:48)
[2020-07-03] MEDS: CALCIUM CARBONATE 500 MG TAB.CHEW PO SCH (09:08)
[2020-07-03] MEDS: PHENYTOIN SODIUM EXTENDED 100 MG CAPSULE PO SCH ×2 (09:08→20:48)
[2020-07-03] MEDS: MULTIVITAMIN with MINERAL TABLET. PO SCH (09:08)
[2020-07-03] MEDS: GABAPENTIN 300 MG CAPSULE. PO SCH ×3 (09:08→20:49)
[2020-07-03] MEDS: MAGNESIUM OXIDE 400 MG TABLET PO SCH ×2 (09:08→20:48)
[2020-07-03] MEDS: FUROSEMIDE 20 MG TABLET PO SCH (09:09)
[2020-07-03] MEDS: LACTOBACILLUS RHAMNOSUS GG 1 CAPSULE. PO SCH ×2 (09:09→20:48)
[2020-07-03] MEDS: CETIRIZINE HCL 10 MG TABLET PO SCH (09:09)
[2020-07-03] MEDS: INSULIN GLARGINE SYRINGE. SQ SCH (11:10)
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
[2020-07-03 15:55] VITALS: BP 146/83
[2020-07-03] MEDS: QUEtiapine 25 MG TABLET. PO SCH (20:49)
--- NOTE | 2020-07-03 22:02 | PDOC ---
Exam Note: Ryan Note: Please also refer to the separate dictated note~for this date of service dictated separately.~Patient seen individually. Discussed the patient with Nursing staff reviewed the chart.~Reviewed interim history and current functioning. Reviewed vital signs,~Labs/ Radiology~and current medications noted below. Continue current treatment with the changes noted in the dictated addendum note Assessment: Vital Signs/I&O: Vital Signs Date Time Temp Pulse Resp B/P (MAP) Pulse Ox O2 Delivery O2 Flow Rate FiO2 07/03/20 15:55 97.6 78 19 146/83 (104) 99 07/02/20 06:34 Room Air I & O 07/02/20 07/02/20 07/03/20 15:00 23:00 07:00 Intake Total 720 ml 600 ml Balance 720 ml 600 ml Labs: Laboratory Tests Test 07/03/20 07:55 07/03/20 19:15 Glucose (Fingerstick) 99 mg/dL (70-99) 194 mg/dL (70-99) H Current Medications: Meds: Laboratory Tests Test 07/03/20 07:55 07/03/20 19:15 Glucose (Fingerstick) 99 mg/dL 194 mg/dL Current Medications Medications (Trade) Dose Ordered Sig/[place] Route PRN Reason Start Time Stop Time Status Last Admin Dose Admin Acetaminophen (Tylenol) 650 mg PRN Q6HRS PRN PO MILD PAIN / TEMP > 100.3'F 06/22/20 02:00 Multi-Ingredient Ointment (Analgesic [place]) 1 syed PRN QID PRN TP MUSCLE PAIN 06/22/20 02:00 Al Hydroxide/Mg Hydroxide (Mylanta Plus Xs) 15 ml PRN AFTMEALHC PRN PO DYSPEPSIA 06/22/20 02:00 Magnesium Hydroxide (Milk Of Magnesia) 2,400 mg PRN QHS PRN PO CONSTIPATION 06/22/20 02:00 Furosemide (Lasix) 20 mg DAILY PO 06/22/20 09:00 07/03/20 09:09 Gabapentin (Neurontin) 300 mg TID PO 06/22/20 09:00 07/03/20 20:49 Hydrocortisone (Proctosol-Hc) 1 syed PRN Q12HR PRN RC Hemmorrhoids 06/22/20 02:30 Pantoprazole Sodium (Protonix) 40 mg PRN Q12HR PRN PO GERD 06/22/20 02:30 07/03/20 09:08 Albuterol Sulfate (Ventolin) 1.25 mg PRN Q6HRS PRN NEB COUGH 06/22/20 03:00 Calcium Carbonate/ Glycine (Tums) 500 mg DAILY08 PO 06/22/20 08:00 07/03/20 09:08 Insulin Glargine (Lantus Syringe) 10 unit DAILYWBKFT SQ 06/22/20 08:00 07/03/20 11:10 Cetirizine HCl (ZyrTEC) 10 mg DAILY PO 06/22/20 09:00 07/03/20 09:09 Multivitamins/ Calcium (Thera-M Plus) 1 tab DAILY PO 06/22/20 09:00 07/03/20 09:08 Phenytoin Sodium (Dilantin) 250 mg BID PO 06/22/20 21:00 06/23/20 19:12 DC 06/23/20 08:19 Phenytoin Sodium (Dilantin) 150 mg 1X ONCE PO 06/22/20 12:30 06/22/20 12:31 DC 06/22/20 15:31 Non-Formulary Medication (Non Formulary Item (Glucocil)) 1 ea BID PO 06/22/20 21:00 06/23/20 05:16 DC 06/22/20 21:41 Non-Formulary Medication (Non Formulary Item (Glucocil)) 2 ea BIDWMEALS PO 06/23/20 08:00 07/03/20 17:00 Amoxicillin/ Clavulanate Potassium (Augmentin 875/ 125mg) 1 tab BID PO 06/23/20 21:00 07/03/20 22:00 DC 07/03/20 20:48 Vitamin D (Vitamin D3) 50,000 unit WEEKLY PO 06/23/20 15:45 06/30/20 08:49 Magnesium Oxide (Magnesium Oxide) 400 mg BID PO 06/23/20 21:00 07/03/20 20:48 Lactobacillus Rhamnosus (Culturelle) 1 cap BID PO 06/23/20 21:00 07/03/20 20:48 Phenytoin Sodium (Dilantin) 200 mg BID PO 06/23/20 21:00 06/25/20 01:50 DC 06/24/20 21:16 Phenytoin Sodium (Dilantin) 200 mg BID PO 06/25/20 09:00 07/03/20 20:48 Quetiapine Fumarate (SEROquel) 25 mg QHS PO 06/27/20 21:00 06/29/20 11:28 DC 06/28/20 20:52 Quetiapine Fumarate (SEROquel) 50 mg QHS PO 06/29/20 21:00 07/03/20 20:49 I have reviewed the current psychotropics carefully including drug interactions. Risk benefit ratio favors no change other than as noted in my dictated progress note. Diagnosis: Problems: (1) Schizoaffective disorder, bipolar type (2) Bipolar disorder with psychotic features (3) Impulse control disorder, unspecified (4) Anxiety disorder, unspecified ELIAS WASHINGTON MD July 03, 2020 22:02
--- NOTE | 2020-07-04 04:16 | NUR ---
Rosangela pt continued to talk about getting a new guardian and trying to find a level 2 facility in this area so she will not have to go back to [place]. She has been pleasant and cooperative rosangela and denies SI, HI and has had no aggressive behaviors.
[2020-07-04 05:56] VITALS: BP 147/75
[2020-07-04] MEDS: GLUCOCIL PO SCH ×2 (08:00→17:00)
[2020-07-04] MEDS: INSULIN GLARGINE SYRINGE. SQ SCH (08:00)
[2020-07-04] MEDS: GABAPENTIN 300 MG CAPSULE. PO SCH ×3 (08:10→22:34)
[2020-07-04] MEDS: MAGNESIUM OXIDE 400 MG TABLET PO SCH ×2 (08:10→22:35)
[2020-07-04] MEDS: MULTIVITAMIN with MINERAL TABLET. PO SCH (08:10)
[2020-07-04] MEDS: PHENYTOIN SODIUM EXTENDED 100 MG CAPSULE PO SCH ×2 (08:11→22:35)
[2020-07-04] MEDS: CALCIUM CARBONATE 500 MG TAB.CHEW PO SCH (08:11)
[2020-07-04] MEDS: FUROSEMIDE 20 MG TABLET PO SCH (08:11)
[2020-07-04] MEDS: CETIRIZINE HCL 10 MG TABLET PO SCH (08:11)
[2020-07-04] MEDS: LACTOBACILLUS RHAMNOSUS GG 1 CAPSULE. PO SCH ×2 (08:11→22:34)
[2020-07-04 15:36] VITALS: BP 136/81
--- NOTE | 2020-07-04 18:29 | NUR ---
Uneventful shift, patient up to dining room for all meals good appetite patient reports she feels she is being over medicated spoke with Dr Ochoa who confirmed she is on the appropriate amount of medications. Patient walks the unit independently a&o x4 vitals wnl of baseline no complaints of pain or discomfort to report will continue to monitor patient.
[2020-07-04] MEDS: QUEtiapine 25 MG TABLET. PO SCH (22:34)
--- NOTE | 2020-07-04 22:51 | PDOC ---
Exam Note: Ryan Note: Please also refer to the separate dictated note~for this date of service dictated separately.~Patient seen individually. Discussed the patient with Nursing staff reviewed the chart.~Reviewed interim history and current functioning. Reviewed vital signs,~Labs/ Radiology~and current medications noted below. Continue current treatment with the changes noted in the dictated addendum note Assessment: Vital Signs/I&O: Vital Signs Date Time Temp Pulse Resp B/P (MAP) Pulse Ox O2 Delivery O2 Flow Rate FiO2 07/04/20 15:36 97.1 78 18 136/81 (99) 98 07/02/20 06:34 Room Air I & O 07/03/20 07/03/20 07/04/20 15:00 23:00 07:00 Intake Total 600 ml 360 ml 120 ml Balance 600 ml 360 ml 120 ml Labs: Laboratory Tests Test 07/04/20 07:54 Glucose (Fingerstick) 95 mg/dL (70-99) Current Medications: Meds: Laboratory Tests Test 07/04/20 07:54 Glucose (Fingerstick) 95 mg/dL Current Medications Medications (Trade) Dose Ordered Sig/[place] Route PRN Reason Start Time Stop Time Status Last Admin Dose Admin Acetaminophen (Tylenol) 650 mg PRN Q6HRS PRN PO MILD PAIN / TEMP > 100.3'F 06/22/20 02:00 Multi-Ingredient Ointment (Analgesic [place]) 1 syed PRN QID PRN TP MUSCLE PAIN 06/22/20 02:00 Al Hydroxide/Mg Hydroxide (Mylanta Plus Xs) 15 ml PRN AFTMEALHC PRN PO DYSPEPSIA 06/22/20 02:00 Magnesium Hydroxide (Milk Of Magnesia) 2,400 mg PRN QHS PRN PO CONSTIPATION 06/22/20 02:00 Furosemide (Lasix) 20 mg DAILY PO 06/22/20 09:00 07/04/20 08:11 Gabapentin (Neurontin) 300 mg TID PO 06/22/20 09:00 07/04/20 22:34 Hydrocortisone (Proctosol-Hc) 1 syed PRN Q12HR PRN RC Hemmorrhoids 06/22/20 02:30 Pantoprazole Sodium (Protonix) 40 mg PRN Q12HR PRN PO GERD 06/22/20 02:30 07/03/20 09:08 Albuterol Sulfate (Ventolin) 1.25 mg PRN Q6HRS PRN NEB COUGH 06/22/20 03:00 Calcium Carbonate/ Glycine (Tums) 500 mg DAILY08 PO 06/22/20 08:00 07/04/20 08:11 Insulin Glargine (Lantus Syringe) 10 unit DAILYWBKFT SQ 06/22/20 08:00 07/04/20 08:00 Cetirizine HCl (ZyrTEC) 10 mg DAILY PO 06/22/20 09:00 07/04/20 08:11 Multivitamins/ Calcium (Thera-M Plus) 1 tab DAILY PO 06/22/20 09:00 07/04/20 08:10 Phenytoin Sodium (Dilantin) 250 mg BID PO 06/22/20 21:00 06/23/20 19:12 DC 06/23/20 08:19 Phenytoin Sodium (Dilantin) 150 mg 1X ONCE PO 06/22/20 12:30 06/22/20 12:31 DC 06/22/20 15:31 Non-Formulary Medication (Non Formulary Item (Glucocil)) 1 ea BID PO 06/22/20 21:00 06/23/20 05:16 DC 06/22/20 21:41 Non-Formulary Medication (Non Formulary Item (Glucocil)) 2 ea BIDWMEALS PO 06/23/20 08:00 07/04/20 17:00 Amoxicillin/ Clavulanate Potassium (Augmentin 875/ 125mg) 1 tab BID PO 06/23/20 21:00 07/03/20 22:00 DC 07/03/20 20:48 Vitamin D (Vitamin D3) 50,000 unit WEEKLY PO 06/23/20 15:45 06/30/20 08:49 Magnesium Oxide (Magnesium Oxide) 400 mg BID PO 06/23/20 21:00 07/04/20 22:35 Lactobacillus Rhamnosus (Culturelle) 1 cap BID PO 06/23/20 21:00 07/04/20 22:34 Phenytoin Sodium (Dilantin) 200 mg BID PO 06/23/20 21:00 06/25/20 01:50 DC 06/24/20 21:16 Phenytoin Sodium (Dilantin) 200 mg BID PO 06/25/20 09:00 07/04/20 22:35 Quetiapine Fumarate (SEROquel) 25 mg QHS PO 06/27/20 21:00 06/29/20 11:28 DC 06/28/20 20:52 Quetiapine Fumarate (SEROquel) 50 mg QHS PO 06/29/20 21:00 07/04/20 22:34 I have reviewed the current psychotropics carefully including drug interactions. Risk benefit ratio favors no change other than as noted in my dictated progress note. Diagnosis: Problems: (1) Schizoaffective disorder, bipolar type (2) Bipolar disorder with psychotic features (3) Impulse control disorder, unspecified (4) Anxiety disorder, unspecified ELIAS WASHINGTON MD July 04, 2020 22:51
--- NOTE | 2020-07-05 00:36 | NUR ---
Patient in her room most of the shift, writing notes on paper. She stated they were "journal" entries. Patient compliant with medications and assessment. 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 Patient did not make any comments about her guardian or needing a new facility placement this night.
[2020-07-05 06:33] VITALS: BP 133/78
[2020-07-05 06:35] VITALS: BP 133/78
[2020-07-05 06:40] LABS: BASO % 1 % (0-3); EOS # 0.1 x10^3/uL (0.0-0.7); EOS % 2 % (0-3); HEMATOCRIT 33.7 % (36.0-47.0); HEMOGLOBIN 11.1 g/dL (12.0-15.5); LYMPH # 1.7 x10^3/uL (1.0-4.8); LYMPH % 29 % (24-48); MEAN CORPUSCULAR HEMOGLOBIN 31 pg (25-35); MEAN CORPUSCULAR HGB CONC 33 g/dL (31-37); MEAN CORPUSCULAR VOLUME 94 fL (79-100); MONO # 0.7 x10^3/uL (0.0-1.1); MONO % 12 % (0-9); NEUT # 3.3 x10^3uL (1.8-7.7); NEUT % 56 % (31-73); PLATELET COUNT 185 x10^3/uL (140-400); RED BLOOD COUNT 3.59 x10^6/uL (3.50-5.40); RED CELL DISTRIBUTION WIDTH 13.3 % (11.5-14.5); WHITE BLOOD COUNT 5.8 x10^3/uL (4.0-11.0)
[2020-07-05 06:57] LABS: ALBUMIN 3.3 g/dL (3.4-5.0); ALBUMIN/GLOBULIN RATIO 0.8 (1.0-1.7); ALK PHOS 90 U/L (46-116); ALT (SGPT) 30 U/L (14-59); ANION GAP 9 (6-14); AST (SGOT) 22 U/L (15-37); BLOOD UREA NITROGEN 26 mg/dL (7-20); BUN/CREATININE RATIO 29 (6-20); CALCIUM 8.9 mg/dL (8.5-10.1); CARBON DIOXIDE 29 mmol/L (21-32); CHLORIDE 104 mmol/L (98-107); CREATININE 0.9 mg/dL (0.6-1.0); GLUCOSE 97 mg/dL (70-99); PHENY 7.9 mcg/mL (10.0-20.0); POTASSIUM 4.2 mmol/L (3.5-5.1); SODIUM 142 mmol/L (136-145); TOTAL BILIRUBIN 0.2 mg/dL (0.2-1.0); TOTAL PROTEIN 7.2 g/dL (6.4-8.2)
[2020-07-05] MEDS: GLUCOCIL PO SCH ×2 (08:00→17:00)
[2020-07-05] MEDS: INSULIN GLARGINE SYRINGE. SQ SCH (08:00)
--- NOTE | 2020-07-05 08:04 | PDOC ---
Exam Note: Ryan Note: This note is a late entry for 07/03/2020 covers elements not covered in my initial note. Subjective: The patient was seen individually in the evening of 07/03/2020 with Mariela CHILDRESS, discussed and reviewed the chart. The patient slept 5-1/2 hours previous night. The patient has been somewhat delusional today. He was tired in the morning, suspicious about her guardian. Review of Systems: Ambulation is impaired. She complains of some morning tiredness. No CV, , pulmonary, eye system symptoms on review. Mental Status Exam: The patient is reasonably oriented. Speech coherent. Abstraction fair. Computation impaired. Language function intact. Mood and affect improved. No suicidal or homicidal ideation. She is quite obsessive, repetitive, talking about changing her guardian and placement concerns. She e xpressed concerns about morning sedation and we will monitor this. Laboratory Data: Reviewed. Impression: Schizoaffective disorder, bipolar type, mixed with psychotic features. Anxiety disorder unspecified. Impulse control disorder unspecified. Plan: Continue current psychotropics. Assessment: Vital Signs/I&O: Vital Signs Date Time Temp Pulse Resp B/P (MAP) Pulse Ox O2 Delivery O2 Flow Rate FiO2 07/05/20 06:35 97.8 77 18 133/78 (96) 97 07/02/20 06:34 Room Air I & O 07/04/20 07/04/20 07/05/20 15:00 23:00 07:00 Intake Total 720 ml 480 ml 120 ml Balance 720 ml 480 ml 120 ml Labs: Laboratory Tests Test 07/05/20 06:18 White Blood Count 5.8 x10^3/uL (4.0-11.0) Red Blood Count 3.59 x10^6/uL (3.50-5.40) Hemoglobin 11.1 g/dL (12.0-15.5) L Hematocrit 33.7 % (36.0-47.0) L Mean Corpuscular Volume 94 fL (79-100) Mean Corpuscular Hemoglobin 31 pg (25-35) Mean Corpuscular Hemoglobin Concent 33 g/dL (31-37) Red Cell Distribution Width 13.3 % (11.5-14.5) Platelet Count 185 x10^3/uL (140-400) Neutrophils (%) (Auto) 56 % (31-73) Lymphocytes (%) (Auto) 29 % (24-48) Monocytes (%) (Auto) 12 % (0-9) H Eosinophils (%) (Auto) 2 % (0-3) Basophils (%) (Auto) 1 % (0-3) Neutrophils # (Auto) 3.3 x10^3uL (1.8-7.7) Lymphocytes # (Auto) 1.7 x10^3/uL (1.0-4.8) Monocytes # (Auto) 0.7 x10^3/uL (0.0-1.1) Eosinophils # (Auto) 0.1 x10^3/uL (0.0-0.7) Basophils # (Auto) 0.0 x10^3/uL (0.0-0.2) Sodium Level 142 mmol/L (136-145) Potassium Level 4.2 mmol/L (3.5-5.1) Chloride Level 104 mmol/L (98-107) Carbon Dioxide Level 29 mmol/L (21-32) Anion Gap 9 (6-14) Blood Urea Nitrogen 26 mg/dL (7-20) H Creatinine 0.9 mg/dL (0.6-1.0) Estimated GFR (Cockcroft-Gault) 63.0 BUN/Creatinine Ratio 29 (6-20) H Glucose Level 97 mg/dL (70-99) Calcium Level 8.9 mg/dL (8.5-10.1) Total Bilirubin 0.2 mg/dL (0.2-1.0) Aspartate Amino Transferase (AST) 22 U/L (15-37) Alanine Aminotransferase (ALT) 30 U/L (14-59) Alkaline Phosphatase 90 U/L (46-116) Total Protein 7.2 g/dL (6.4-8.2) Albumin 3.3 g/dL (3.4-5.0) L Albumin/Globulin Ratio 0.8 (1.0-1.7) L Phenytoin (Dilantin) Level 7.9 mcg/mL (10.0-20.0) L Phenytoin Last Dose Date 07/05/20 Phenytoin Last Dose Time 0500 Current Medications: Meds: Laboratory Tests Test 07/05/20 06:18 White Blood Count 5.8 x10^3/uL Red Blood Count 3.59 x10^6/uL Hemoglobin 11.1 g/dL Hematocrit 33.7 % Mean Corpuscular Volume 94 fL Mean Corpuscular Hemoglobin 31 pg Mean Corpuscular Hemoglobin Concent 33 g/dL Red Cell Distribution Width 13.3 % Platelet Count 185 x10^3/uL Neutrophils (%) (Auto) 56 % Lymphocytes (%) (Auto) 29 % Monocytes (%) (Auto) 12 % Eosinophils (%) (Auto) 2 % Basophils (%) (Auto) 1 % Neutrophils # (Auto) 3.3 x10^3uL Lymphocytes # (Auto) 1.7 x10^3/uL Monocytes # (Auto) 0.7 x10^3/uL Eosinophils # (Auto) 0.1 x10^3/uL Basophils # (Auto) 0.0 x10^3/uL Sodium Level 142 mmol/L Potassium Level 4.2 mmol/L Chloride Level 104 mmol/L Carbon Dioxide Level 29 mmol/L Anion Gap 9 Blood Urea Nitrogen 26 mg/dL Creatinine 0.9 mg/dL Estimated GFR (Cockcroft-Gault) 63.0 BUN/Creatinine Ratio 29 Glucose Level 97 mg/dL Calcium Level 8.9 mg/dL Total Bilirubin 0.2 mg/dL Aspartate Amino Transf (AST/SGOT) 22 U/L Alanine Aminotransferase (ALT/SGPT) 30 U/L Alkaline Phosphatase 90 U/L Total Protein 7.2 g/dL Albumin 3.3 g/dL Albumin/Globulin Ratio 0.8 Phenytoin (Dilantin) Level 7.9 mcg/mL Phenytoin Last Dose Date 07/05/20 Phenytoin Last Dose Time 0500 Current Medications Medications (Trade) Dose Ordered Sig/[place] Route PRN Reason Start Time Stop Time Status Last Admin Dose Admin Acetaminophen (Tylenol) 650 mg PRN Q6HRS PRN PO MILD PAIN / TEMP > 100.3'F 06/22/20 02:00 Multi-Ingredient Ointment (Analgesic [place]) 1 syed PRN QID PRN TP MUSCLE PAIN 06/22/20 02:00 Al Hydroxide/Mg Hydroxide (Mylanta Plus Xs) 15 ml PRN AFTMEALHC PRN PO DYSPEPSIA 06/22/20 02:00 Magnesium Hydroxide (Milk Of Magnesia) 2,400 mg PRN QHS PRN PO CONSTIPATION 06/22/20 02:00 Furosemide (Lasix) 20 mg DAILY PO 06/22/20 09:00 07/04/20 08:11 Gabapentin (Neurontin) 300 mg TID PO 06/22/20 09:00 07/04/20 22:34 Hydrocortisone (Proctosol-Hc) 1 syed PRN Q12HR PRN RC Hemmorrhoids 06/22/20 02:30 Pantoprazole Sodium (Protonix) 40 mg PRN Q12HR PRN PO GERD 06/22/20 02:30 07/03/20 09:08 Albuterol Sulfate (Ventolin) 1.25 mg PRN Q6HRS PRN NEB COUGH 06/22/20 03:00 Calcium Carbonate/ Glycine (Tums) 500 mg DAILY08 PO 06/22/20 08:00 07/04/20 08:11 Insulin Glargine (Lantus Syringe) 10 unit DAILYWBKFT SQ 06/22/20 08:00 07/04/20 08:00 Cetirizine HCl (ZyrTEC) 10 mg DAILY PO 06/22/20 09:00 07/04/20 08:11 Multivitamins/ Calcium (Thera-M Plus) 1 tab DAILY PO 06/22/20 09:00 07/04/20 08:10 Phenytoin Sodium (Dilantin) 250 mg BID PO 06/22/20 21:00 06/23/20 19:12 DC 06/23/20 08:19 Phenytoin Sodium (Dilantin) 150 mg 1X ONCE PO 06/22/20 12:30 06/22/20 12:31 DC 06/22/20 15:31 Non-Formulary Medication (Non Formulary Item (Glucocil)) 1 ea BID PO 06/22/20 21:00 06/23/20 05:16 DC 06/22/20 21:41 Non-Formulary Medication (Non Formulary Item (Glucocil)) 2 ea BIDWMEALS PO 06/23/20 08:00 07/04/20 17:00 Amoxicillin/ Clavulanate Potassium (Augmentin 875/ 125mg) 1 tab BID PO 06/23/20 21:00 07/03/20 22:00 DC 07/03/20 20:48 Vitamin D (Vitamin D3) 50,000 unit WEEKLY PO 06/23/20 15:45 06/30/20 08:49 Magnesium Oxide (Magnesium Oxide) 400 mg BID PO 06/23/20 21:00 07/04/20 22:35 Lactobacillus Rhamnosus (Culturelle) 1 cap BID PO 06/23/20 21:00 07/04/20 22:34 Phenytoin Sodium (Dilantin) 200 mg BID PO 06/23/20 21:00 06/25/20 01:50 DC 06/24/20 21:16 Phenytoin Sodium (Dilantin) 200 mg BID PO 06/25/20 09:00 07/04/20 22:35 Quetiapine Fumarate (SEROquel) 25 mg QHS PO 06/27/20 21:00 06/29/20 11:28 DC 06/28/20 20:52 Quetiapine Fumarate (SEROquel) 50 mg QHS PO 06/29/20 21:00 07/04/20 22:34 I have reviewed the current psychotropics carefully including drug interactions. Risk benefit ratio favors no change other than as noted in my dictated progress note. Diagnosis: Problems: (1) Schizoaffective disorder, bipolar type (2) Bipolar disorder with psychotic features (3) Impulse control disorder, unspecified (4) Anxiety disorder, unspecified ELIAS WASHINGTON MD July 05, 2020 08:04
[2020-07-05] MEDS: CETIRIZINE HCL 10 MG TABLET PO SCH (08:40)
[2020-07-05] MEDS: CALCIUM CARBONATE 500 MG TAB.CHEW PO SCH (08:40)
[2020-07-05] MEDS: MULTIVITAMIN with MINERAL TABLET. PO SCH (08:40)
[2020-07-05] MEDS: MAGNESIUM OXIDE 400 MG TABLET PO SCH ×2 (08:40→22:09)
[2020-07-05] MEDS: FUROSEMIDE 20 MG TABLET PO SCH (08:40)
[2020-07-05] MEDS: GABAPENTIN 300 MG CAPSULE. PO SCH ×3 (08:40→22:12)
[2020-07-05] MEDS: LACTOBACILLUS RHAMNOSUS GG 1 CAPSULE. PO SCH ×2 (08:40→22:08)
[2020-07-05] MEDS: PHENYTOIN SODIUM EXTENDED 100 MG CAPSULE PO SCH ×2 (08:40→22:09)
[2020-07-05 16:16] VITALS: BP 145/80
--- NOTE | 2020-07-05 18:53 | NUR ---
Pt continues to be fixated on creating new problems for the staff to follow up on, today patient is still concerned with being over medicated and now we have not followed up on her urine infection now that she is done with her anti-biotics Addendum: 07/05/20 at 1855 by CELENA LOMBARDI RN Dr Wei put orders for repeat UA and culture which was collected this evening, patient med compliant patient daughter came to bring 2 bottles of her glucocil medications which was put in her med drawer. Good appetite will continue to monitor patient.
[2020-07-05 20:00] LABS: BACTERIA,URINE FEW /HPF (0-FEW); BILIRUBIN,URINE NEG (NEG); CLARITY,URINE CLEAR; COLOR,URINE STRAW; GLUCOSE,URINE NEG (NEG); NITRITE,URINE NEG (NEG); RBC,URINE RARE /HPF (0-2); UROBILINOGEN,URINE 0.2 mg/dL (0.2 mg/dL); WBC,URINE 0 /HPF (0-4)
--- NOTE | 2020-07-05 22:04 | PDOC ---
Exam Note: Ryan Note: Please also refer to the separate dictated note~for this date of service dictated separately.~Patient seen individually. Discussed the patient with Nursing staff reviewed the chart.~Reviewed interim history and current functioning. Reviewed vital signs,~Labs/ Radiology~and current medications noted below. Continue current treatment with the changes noted in the dictated addendum note Assessment: Vital Signs/I&O: Vital Signs Date Time Temp Pulse Resp B/P (MAP) Pulse Ox O2 Delivery O2 Flow Rate FiO2 07/05/20 16:16 98.5 81 16 145/80 (101) 97 Room Air I & O 07/04/20 07/04/20 07/05/20 15:00 23:00 07:00 Intake Total 720 ml 480 ml 120 ml Balance 720 ml 480 ml 120 ml Labs: Laboratory Tests Test 07/05/20 06:18 07/05/20 08:46 07/05/20 19:25 07/05/20 20:06 White Blood Count 5.8 x10^3/uL (4.0-11.0) Red Blood Count 3.59 x10^6/uL (3.50-5.40) Hemoglobin 11.1 g/dL (12.0-15.5) L Hematocrit 33.7 % (36.0-47.0) L Mean Corpuscular Volume 94 fL (79-100) Mean Corpuscular Hemoglobin 31 pg (25-35) Mean Corpuscular Hemoglobin Concent 33 g/dL (31-37) Red Cell Distribution Width 13.3 % (11.5-14.5) Platelet Count 185 x10^3/uL (140-400) Neutrophils (%) (Auto) 56 % (31-73) Lymphocytes (%) (Auto) 29 % (24-48) Monocytes (%) (Auto) 12 % (0-9) H Eosinophils (%) (Auto) 2 % (0-3) Basophils (%) (Auto) 1 % (0-3) Neutrophils # (Auto) 3.3 x10^3uL (1.8-7.7) Lymphocytes # (Auto) 1.7 x10^3/uL (1.0-4.8) Monocytes # (Auto) 0.7 x10^3/uL (0.0-1.1) Eosinophils # (Auto) 0.1 x10^3/uL (0.0-0.7) Basophils # (Auto) 0.0 x10^3/uL (0.0-0.2) Sodium Level 142 mmol/L (136-145) Potassium Level 4.2 mmol/L (3.5-5.1) Chloride Level 104 mmol/L (98-107) Carbon Dioxide Level 29 mmol/L (21-32) Anion Gap 9 (6-14) Blood Urea Nitrogen 26 mg/dL (7-20) H Creatinine 0.9 mg/dL (0.6-1.0) Estimated GFR (Cockcroft-Gault) 63.0 BUN/Creatinine Ratio 29 (6-20) H Glucose Level 97 mg/dL (70-99) Calcium Level 8.9 mg/dL (8.5-10.1) Total Bilirubin 0.2 mg/dL (0.2-1.0) Aspartate Amino Transferase (AST) 22 U/L (15-37) Alanine Aminotransferase (ALT) 30 U/L (14-59) Alkaline Phosphatase 90 U/L (46-116) Total Protein 7.2 g/dL (6.4-8.2) Albumin 3.3 g/dL (3.4-5.0) L Albumin/Globulin Ratio 0.8 (1.0-1.7) L Phenytoin (Dilantin) Level 7.9 mcg/mL (10.0-20.0) L Phenytoin Last Dose Date 07/05/20 Phenytoin Last Dose Time 0500 Glucose (Fingerstick) 158 mg/dL (70-99) H 136 mg/dL (70-99) H Urine Collection Type Unknown Urine Color Straw Urine Clarity Clear Urine pH 6.5 Urine Specific [place] 1.015 Urine Protein 30 mg/dl (NEG-TRACE) Urine Glucose (UA) Neg mg/dL (NEG) Urine Ketones (Stick) Neg mg/dL (NEG) Urine Blood Trace (NEG) Urine Nitrite Neg (NEG) Urine Bilirubin Neg (NEG) Urine Urobilinogen Dipstick 0.2 mg/dL (0.2 mg/dL) Urine Leukocyte Esterase Neg (NEG) Urine RBC Rare /HPF (0-2) Urine WBC 0 /HPF (0-4) Urine Bacteria Few /HPF (0-FEW) Current Medications: Meds: Laboratory Tests Test 07/05/20 06:18 07/05/20 08:46 07/05/20 19:25 07/05/20 20:06 White Blood Count 5.8 x10^3/uL Red Blood Count 3.59 x10^6/uL Hemoglobin 11.1 g/dL Hematocrit 33.7 % Mean Corpuscular Volume 94 fL Mean Corpuscular Hemoglobin 31 pg Mean Corpuscular Hemoglobin Concent 33 g/dL Red Cell Distribution Width 13.3 % Platelet Count 185 x10^3/uL Neutrophils (%) (Auto) 56 % Lymphocytes (%) (Auto) 29 % Monocytes (%) (Auto) 12 % Eosinophils (%) (Auto) 2 % Basophils (%) (Auto) 1 % Neutrophils # (Auto) 3.3 x10^3uL Lymphocytes # (Auto) 1.7 x10^3/uL Monocytes # (Auto) 0.7 x10^3/uL Eosinophils # (Auto) 0.1 x10^3/uL Basophils # (Auto) 0.0 x10^3/uL Sodium Level 142 mmol/L Potassium Level 4.2 mmol/L Chloride Level 104 mmol/L Carbon Dioxide Level 29 mmol/L Anion Gap 9 Blood Urea Nitrogen 26 mg/dL Creatinine 0.9 mg/dL Estimated GFR (Cockcroft-Gault) 63.0 BUN/Creatinine Ratio 29 Glucose Level 97 mg/dL Calcium Level 8.9 mg/dL Total Bilirubin 0.2 mg/dL Aspartate Amino Transf (AST/SGOT) 22 U/L Alanine Aminotransferase (ALT/SGPT) 30 U/L Alkaline Phosphatase 90 U/L Total Protein 7.2 g/dL Albumin 3.3 g/dL Albumin/Globulin Ratio 0.8 Phenytoin (Dilantin) Level 7.9 mcg/mL Phenytoin Last Dose Date 07/05/20 Phenytoin Last Dose Time 0500 Glucose (Fingerstick) 158 mg/dL 136 mg/dL Urine Collection Type Unknown Urine Color Straw Urine Clarity Clear Urine pH 6.5 Urine Specific [place] 1.015 Urine Protein 30 mg/dl Urine Glucose (UA) Neg mg/dL Urine Ketones (Stick) Neg mg/dL Urine Blood Trace Urine Nitrite Neg Urine Bilirubin Neg Urine Urobilinogen Dipstick 0.2 mg/dL Urine Leukocyte Esterase Neg Urine RBC Rare /HPF Urine WBC 0 /HPF Urine Bacteria Few /HPF Current Medications Medications (Trade) Dose Ordered Sig/[place] Route PRN Reason Start Time Stop Time Status Last Admin Dose Admin Acetaminophen (Tylenol) 650 mg PRN Q6HRS PRN PO MILD PAIN / TEMP > 100.3'F 06/22/20 02:00 Multi-Ingredient Ointment (Analgesic [place]) 1 syed PRN QID PRN TP MUSCLE PAIN 06/22/20 02:00 Al Hydroxide/Mg Hydroxide (Mylanta Plus Xs) 15 ml PRN AFTMEALHC PRN PO DYSPEPSIA 06/22/20 02:00 Magnesium Hydroxide (Milk Of Magnesia) 2,400 mg PRN QHS PRN PO CONSTIPATION 06/22/20 02:00 Furosemide (Lasix) 20 mg DAILY PO 06/22/20 09:00 07/05/20 08:40 Gabapentin (Neurontin) 300 mg TID PO 06/22/20 09:00 07/05/20 13:23 Hydrocortisone (Proctosol-Hc) 1 syed PRN Q12HR PRN RC Hemmorrhoids 06/22/20 02:30 Pantoprazole Sodium (Protonix) 40 mg PRN Q12HR PRN PO GERD 06/22/20 02:30 07/03/20 09:08 Albuterol Sulfate (Ventolin) 1.25 mg PRN Q6HRS PRN NEB COUGH 06/22/20 03:00 Calcium Carbonate/ Glycine (Tums) 500 mg DAILY08 PO 06/22/20 08:00 07/05/20 08:40 Insulin Glargine (Lantus Syringe) 10 unit DAILYWBKFT SQ 06/22/20 08:00 07/05/20 08:00 Cetirizine HCl (ZyrTEC) 10 mg DAILY PO 06/22/20 09:00 07/05/20 08:40 Multivitamins/ Calcium (Thera-M Plus) 1 tab DAILY PO 06/22/20 09:00 07/05/20 08:40 Phenytoin Sodium (Dilantin) 250 mg BID PO 06/22/20 21:00 06/23/20 19:12 DC 06/23/20 08:19 Phenytoin Sodium (Dilantin) 150 mg 1X ONCE PO 06/22/20 12:30 06/22/20 12:31 DC 06/22/20 15:31 Non-Formulary Medication (Non Formulary Item (Glucocil)) 1 ea BID PO 06/22/20 21:00 06/23/20 05:16 DC 06/22/20 21:41 Non-Formulary Medication (Non Formulary Item (Glucocil)) 2 ea BIDWMEALS PO 06/23/20 08:00 07/05/20 17:00 Amoxicillin/ Clavulanate Potassium (Augmentin 875/ 125mg) 1 tab BID PO 06/23/20 21:00 07/03/20 22:00 DC 07/03/20 20:48 Vitamin D (Vitamin D3) 50,000 unit WEEKLY PO 06/23/20 15:45 06/30/20 08:49 Magnesium Oxide (Magnesium Oxide) 400 mg BID PO 06/23/20 21:00 07/05/20 08:40 Lactobacillus Rhamnosus (Culturelle) 1 cap BID PO 06/23/20 21:00 07/05/20 08:40 Phenytoin Sodium (Dilantin) 200 mg BID PO 06/23/20 21:00 06/25/20 01:50 DC 06/24/20 21:16 Phenytoin Sodium (Dilantin) 200 mg BID PO 06/25/20 09:00 07/05/20 08:40 Quetiapine Fumarate (SEROquel) 25 mg QHS PO 06/27/20 21:00 06/29/20 11:28 DC 06/28/20 20:52 Quetiapine Fumarate (SEROquel) 50 mg QHS PO 06/29/20 21:00 07/04/20 22:34 I have reviewed the current psychotropics carefully including drug interactions. Risk benefit ratio favors no change other than as noted in my dictated progress note. Diagnosis: Problems: (1) Schizoaffective disorder, bipolar type (2) Bipolar disorder with psychotic features (3) Impulse control disorder, unspecified (4) Anxiety disorder, unspecified ELIAS WASHINGTON MD July 05, 2020 22:04
[2020-07-05] MEDS: QUEtiapine 25 MG TABLET. PO SCH (22:09)
--- NOTE | 2020-07-06 00:28 | NUR ---
PT urine specimen obtained, sent to lab. Patient does not have UTI and no culture was indicated. Nurse advised patient that she does not have UTI.
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
[2020-07-06 07:09] VITALS: BP 153/86
--- NOTE | 2020-07-06 07:26 | PDOC ---
Exam Note: Ryan Note: This note is a late entry for 07/04/2020 covers elements not covered in my initial note. Subjective: The patient was seen individually in the evening of 07/04/2020 with Caroline CHILDRESS, discussed and reviewed the chart. The patient slept 7 hours previous night. The patient continues to be obsessive, taking very detailed notes. She complains of morning tiredness. Review of Systems: Ambulation is impaired. No CV, , pulmonary, eye system symptoms on review. Mental Status Exam: The patient is reasonably oriented. Speech coherent. Abstraction fair. Computation impaired. Language function intact. Mood and affect improved. No suicidal or homicidal ideation. Laboratory Data: Reviewed. Impression: Schizoaffective disorder, bipolar type, mixed with psychotic features. Anxiety disorder unspecified. Impulse control disorder unspecified. Plan: Continue current psychotropics. Assessment: Vital Signs/I&O: Vital Signs Date Time Temp Pulse Resp B/P (MAP) Pulse Ox O2 Delivery O2 Flow Rate FiO2 07/06/20 07:09 97.5 76 16 153/86 (108) 96 Room Air I & O 07/05/20 07/05/20 07/06/20 14:59 22:59 06:59 Intake Total 600 ml 240 ml 240 ml Balance 600 ml 240 ml 240 ml Labs: Laboratory Tests Test 07/05/20 08:46 07/05/20 19:25 07/05/20 20:06 Glucose (Fingerstick) 158 mg/dL (70-99) H 136 mg/dL (70-99) H Urine Collection Type Unknown Urine Color Straw Urine Clarity Clear Urine pH 6.5 Urine Specific [place] 1.015 Urine Protein 30 mg/dl (NEG-TRACE) Urine Glucose (UA) Neg mg/dL (NEG) Urine Ketones (Stick) Neg mg/dL (NEG) Urine Blood Trace (NEG) Urine Nitrite Neg (NEG) Urine Bilirubin Neg (NEG) Urine Urobilinogen Dipstick 0.2 mg/dL (0.2 mg/dL) Urine Leukocyte Esterase Neg (NEG) Urine RBC Rare /HPF (0-2) Urine WBC 0 /HPF (0-4) Urine Bacteria Few /HPF (0-FEW) Current Medications: Meds: Laboratory Tests Test 07/05/20 08:46 07/05/20 19:25 07/05/20 20:06 Glucose (Fingerstick) 158 mg/dL 136 mg/dL Urine Collection Type Unknown Urine Color Straw Urine Clarity Clear Urine pH 6.5 Urine Specific [place] 1.015 Urine Protein 30 mg/dl Urine Glucose (UA) Neg mg/dL Urine Ketones (Stick) Neg mg/dL Urine Blood Trace Urine Nitrite Neg Urine Bilirubin Neg Urine Urobilinogen Dipstick 0.2 mg/dL Urine Leukocyte Esterase Neg Urine RBC Rare /HPF Urine WBC 0 /HPF Urine Bacteria Few /HPF Current Medications Medications (Trade) Dose Ordered Sig/[place] Route PRN Reason Start Time Stop Time Status Last Admin Dose Admin Acetaminophen (Tylenol) 650 mg PRN Q6HRS PRN PO MILD PAIN / TEMP > 100.3'F 06/22/20 02:00 Multi-Ingredient Ointment (Analgesic [place]) 1 syed PRN QID PRN TP MUSCLE PAIN 06/22/20 02:00 Al Hydroxide/Mg Hydroxide (Mylanta Plus Xs) 15 ml PRN AFTMEALHC PRN PO DYSPEPSIA 06/22/20 02:00 Magnesium Hydroxide (Milk Of Magnesia) 2,400 mg PRN QHS PRN PO CONSTIPATION 06/22/20 02:00 Furosemide (Lasix) 20 mg DAILY PO 06/22/20 09:00 07/05/20 08:40 Gabapentin (Neurontin) 300 mg TID PO 06/22/20 09:00 07/05/20 22:12 Hydrocortisone (Proctosol-Hc) 1 syed PRN Q12HR PRN RC Hemmorrhoids 06/22/20 02:30 Pantoprazole Sodium (Protonix) 40 mg PRN Q12HR PRN PO GERD 06/22/20 02:30 07/03/20 09:08 Albuterol Sulfate (Ventolin) 1.25 mg PRN Q6HRS PRN NEB COUGH 06/22/20 03:00 Calcium Carbonate/ Glycine (Tums) 500 mg DAILY08 PO 06/22/20 08:00 07/05/20 08:40 Insulin Glargine (Lantus Syringe) 10 unit DAILYWBKFT SQ 06/22/20 08:00 07/05/20 08:00 Cetirizine HCl (ZyrTEC) 10 mg DAILY PO 06/22/20 09:00 07/05/20 08:40 Multivitamins/ Calcium (Thera-M Plus) 1 tab DAILY PO 06/22/20 09:00 07/05/20 08:40 Phenytoin Sodium (Dilantin) 250 mg BID PO 06/22/20 21:00 06/23/20 19:12 DC 06/23/20 08:19 Phenytoin Sodium (Dilantin) 150 mg 1X ONCE PO 06/22/20 12:30 06/22/20 12:31 DC 06/22/20 15:31 Non-Formulary Medication (Non Formulary Item (Glucocil)) 1 ea BID PO 06/22/20 21:00 06/23/20 05:16 DC 06/22/20 21:41 Non-Formulary Medication (Non Formulary Item (Glucocil)) 2 ea BIDWMEALS PO 06/23/20 08:00 07/05/20 17:00 Amoxicillin/ Clavulanate Potassium (Augmentin 875/ 125mg) 1 tab BID PO 06/23/20 21:00 07/03/20 22:00 DC 07/03/20 20:48 Vitamin D (Vitamin D3) 50,000 unit WEEKLY PO 06/23/20 15:45 06/30/20 08:49 Magnesium Oxide (Magnesium Oxide) 400 mg BID PO 06/23/20 21:00 07/05/20 22:09 Lactobacillus Rhamnosus (Culturelle) 1 cap BID PO 06/23/20 21:00 07/05/20 22:08 Phenytoin Sodium (Dilantin) 200 mg BID PO 06/23/20 21:00 06/25/20 01:50 DC 06/24/20 21:16 Phenytoin Sodium (Dilantin) 200 mg BID PO 06/25/20 09:00 07/05/20 22:09 Quetiapine Fumarate (SEROquel) 25 mg QHS PO 06/27/20 21:00 06/29/20 11:28 DC 06/28/20 20:52 Quetiapine Fumarate (SEROquel) 50 mg QHS PO 06/29/20 21:00 07/05/20 22:09 I have reviewed the current psychotropics carefully including drug interactions. Risk benefit ratio favors no change other than as noted in my dictated progress note. Diagnosis: Problems: (1) Schizoaffective disorder, bipolar type (2) Bipolar disorder with psychotic features (3) Impulse control disorder, unspecified (4) Anxiety disorder, unspecified ELIAS WASHINGTON MD July 06, 2020 07:26
[2020-07-06] MEDS: GLUCOCIL PO SCH ×2 (08:00→17:00)
[2020-07-06] MEDS: INSULIN GLARGINE SYRINGE. SQ SCH (08:00)
--- NOTE | 2020-07-06 08:10 | PDOC ---
Exam Note: Ryan Note: This note is a late entry for 07/05/2020 covers elements not covered in my initial note. Subjective: The patient was seen individually in the evening of 07/05/2020 with Caroline CHILDRESS, discussed and reviewed the chart. The patient slept 4-1/2 hours previous night. The patient feels she is over-medicated. She gets tired in the morning. She believes one of her morning medication is sedating her. She does get Dilantin and gabapentin in the morning and I will defer her to Dr. Thomas. Review of Systems: Ambulation is impaired. No CV, , pulmonary, eye system s ymptoms on review. Mental Status Exam: The patient is reasonably oriented. I discussed her psychotropic medications and the seizure meds and discussed pros and cons of continuing this. After lengthy discussion she was agreeable to this. Speech coherent. Abstraction fair. Computation impaired. Language function intact. Mood and affect improved. No suicidal or homicidal ideation. Laboratory Data: Reviewed. Impression: Schizoaffective disorder, bipolar type, mixed with psychotic features. Anxiety disorder unspecified. Impulse control disorder unspecified. Plan: Continue current psychotropics. Assessment: Vital Signs/I&O: Vital Signs Date Time Temp Pulse Resp B/P (MAP) Pulse Ox O2 Delivery O2 Flow Rate FiO2 07/06/20 07:09 97.5 76 16 153/86 (108) 96 Room Air I & O 07/05/20 07/05/20 07/06/20 14:59 22:59 06:59 Intake Total 600 ml 240 ml 240 ml Balance 600 ml 240 ml 240 ml Labs: Laboratory Tests Test 07/05/20 08:46 07/05/20 19:25 07/05/20 20:06 07/06/20 07:47 Glucose (Fingerstick) 158 mg/dL (70-99) H 136 mg/dL (70-99) H 91 mg/dL (70-99) Urine Collection Type Unknown Urine Color Straw Urine Clarity Clear Urine pH 6.5 Urine Specific [place] 1.015 Urine Protein 30 mg/dl (NEG-TRACE) Urine Glucose (UA) Neg mg/dL (NEG) Urine Ketones (Stick) Neg mg/dL (NEG) Urine Blood Trace (NEG) Urine Nitrite Neg (NEG) Urine Bilirubin Neg (NEG) Urine Urobilinogen Dipstick 0.2 mg/dL (0.2 mg/dL) Urine Leukocyte Esterase Neg (NEG) Urine RBC Rare /HPF (0-2) Urine WBC 0 /HPF (0-4) Urine Bacteria Few /HPF (0-FEW) Current Medications: Meds: Laboratory Tests Test 07/05/20 08:46 07/05/20 19:25 07/05/20 20:06 07/06/20 07:47 Glucose (Fingerstick) 158 mg/dL 136 mg/dL 91 mg/dL Urine Collection Type Unknown Urine Color Straw Urine Clarity Clear Urine pH 6.5 Urine Specific [place] 1.015 Urine Protein 30 mg/dl Urine Glucose (UA) Neg mg/dL Urine Ketones (Stick) Neg mg/dL Urine Blood Trace Urine Nitrite Neg Urine Bilirubin Neg Urine Urobilinogen Dipstick 0.2 mg/dL Urine Leukocyte Esterase Neg Urine RBC Rare /HPF Urine WBC 0 /HPF Urine Bacteria Few /HPF Current Medications Medications (Trade) Dose Ordered Sig/[place] Route PRN Reason Start Time Stop Time Status Last Admin Dose Admin Acetaminophen (Tylenol) 650 mg PRN Q6HRS PRN PO MILD PAIN / TEMP > 100.3'F 06/22/20 02:00 Multi-Ingredient Ointment (Analgesic [place]) 1 syed PRN QID PRN TP MUSCLE PAIN 06/22/20 02:00 Al Hydroxide/Mg Hydroxide (Mylanta Plus Xs) 15 ml PRN AFTMEALHC PRN PO DYSPEPSIA 06/22/20 02:00 Magnesium Hydroxide (Milk Of Magnesia) 2,400 mg PRN QHS PRN PO CONSTIPATION 06/22/20 02:00 Furosemide (Lasix) 20 mg DAILY PO 06/22/20 09:00 07/05/20 08:40 Gabapentin (Neurontin) 300 mg TID PO 06/22/20 09:00 07/05/20 22:12 Hydrocortisone (Proctosol-Hc) 1 syed PRN Q12HR PRN RC Hemmorrhoids 06/22/20 02:30 Pantoprazole Sodium (Protonix) 40 mg PRN Q12HR PRN PO GERD 06/22/20 02:30 07/03/20 09:08 Albuterol Sulfate (Ventolin) 1.25 mg PRN Q6HRS PRN NEB COUGH 06/22/20 03:00 Calcium Carbonate/ Glycine (Tums) 500 mg DAILY08 PO 06/22/20 08:00 07/05/20 08:40 Insulin Glargine (Lantus Syringe) 10 unit DAILYWBKFT SQ 06/22/20 08:00 07/05/20 08:00 Cetirizine HCl (ZyrTEC) 10 mg DAILY PO 06/22/20 09:00 07/05/20 08:40 Multivitamins/ Calcium (Thera-M Plus) 1 tab DAILY PO 06/22/20 09:00 07/05/20 08:40 Phenytoin Sodium (Dilantin) 250 mg BID PO 06/22/20 21:00 06/23/20 19:12 DC 06/23/20 08:19 Phenytoin Sodium (Dilantin) 150 mg 1X ONCE PO 06/22/20 12:30 06/22/20 12:31 DC 06/22/20 15:31 Non-Formulary Medication (Non Formulary Item (Glucocil)) 1 ea BID PO 06/22/20 21:00 06/23/20 05:16 DC 06/22/20 21:41 Non-Formulary Medication (Non Formulary Item (Glucocil)) 2 ea BIDWMEALS PO 06/23/20 08:00 07/05/20 17:00 Amoxicillin/ Clavulanate Potassium (Augmentin 875/ 125mg) 1 tab BID PO 06/23/20 21:00 07/03/20 22:00 DC 07/03/20 20:48 Vitamin D (Vitamin D3) 50,000 unit WEEKLY PO 06/23/20 15:45 06/30/20 08:49 Magnesium Oxide (Magnesium Oxide) 400 mg BID PO 06/23/20 21:00 07/05/20 22:09 Lactobacillus Rhamnosus (Culturelle) 1 cap BID PO 06/23/20 21:00 07/05/20 22:08 Phenytoin Sodium (Dilantin) 200 mg BID PO 06/23/20 21:00 06/25/20 01:50 DC 06/24/20 21:16 Phenytoin Sodium (Dilantin) 200 mg BID PO 06/25/20 09:00 07/05/20 22:09 Quetiapine Fumarate (SEROquel) 25 mg QHS PO 06/27/20 21:00 06/29/20 11:28 DC 06/28/20 20:52 Quetiapine Fumarate (SEROquel) 50 mg QHS PO 06/29/20 21:00 07/05/20 22:09 I have reviewed the current psychotropics carefully including drug interactions. Risk benefit ratio favors no change other than as noted in my dictated progress note. Diagnosis: Problems: (1) Schizoaffective disorder, bipolar type (2) Bipolar disorder with psychotic features (3) Impulse control disorder, unspecified (4) Anxiety disorder, unspecified ELIAS WASHINGTON MD July 06, 2020 08:10
[2020-07-06] MEDS: GABAPENTIN 300 MG CAPSULE. PO SCH ×3 (08:43→21:17)
[2020-07-06] MEDS: CALCIUM CARBONATE 500 MG TAB.CHEW PO SCH (08:44)
[2020-07-06] MEDS: CETIRIZINE HCL 10 MG TABLET PO SCH (08:44)
[2020-07-06] MEDS: FUROSEMIDE 20 MG TABLET PO SCH (08:44)
[2020-07-06] MEDS: LACTOBACILLUS RHAMNOSUS GG 1 CAPSULE. PO SCH ×2 (08:44→21:18)
[2020-07-06] MEDS: MULTIVITAMIN with MINERAL TABLET. PO SCH (08:44)
[2020-07-06] MEDS: MAGNESIUM OXIDE 400 MG TABLET PO SCH ×2 (08:44→21:00)
[2020-07-06] MEDS: PHENYTOIN SODIUM EXTENDED 100 MG CAPSULE PO SCH ×2 (08:45→21:20)
--- NOTE | 2020-07-06 12:02 | NUR ---
WEEKLY ACTIVITY THERAPY NOTE Date of Admission:06/22/20 Date of AT Assessment: 06/22 Precipitating behaviors that initiated intake and admission:refusing meds, threatening to call government, belligerent, shouting at staff, thinks staff is trying to kill her Goal aimed: increase time management and relaxation skills Initial Goal: Pt will participate in at least three individual or group Activity Therapy sessions per week. Weekly progress towards goal: achieved, 3/3 Group participation level: 2 mod, 1 full (1:1) Weekly highlights: sermon and gospel music Friday, requested a written script of the sermon Friday. independently wrote characteristics of a mother on her paper chain activity for mother's day Friday Behaviors observed: pleasant and calm Plan: no change to goal Beneficial adaptations:
--- NOTE | 2020-07-06 15:31 | TX PLAN ---
Interdisciplinary Tx Plan Admission Information Jun 22, 2020 at 00:45 Legal Status (on Admission): Voluntary DPOA/Guardian Name: Dtr/Medina Larios [phone] and Assistant To The Director Luis M Hernández [phone] Other Contact Name: MONROE Grace/ DANDRE Corcoran/ DONAL Mora Other Contact Verified Code Status: Full Code Allergies: Coded Allergies: I S O L A T I O N *CONTACT* (Verified Allergy, Unknown, 06/27/20) ESBL in urine 06/20/2020. ciprofloxacin (Verified Allergy, Unknown, 06/20/20) clonazepam (Unverified Adverse Reaction, Unknown, beakthru seizues per patient report, 07/05/20) divalproex sodium (Unverified Adverse Reaction, Unknown, 07/05/20) Diagnoses Primary Diagnosis: Schizophrenia, Anemia, DMII, HLD, Epilepsy, right leg amputation Reasons for Admission: Delusions, Relation/conflict, Agitated, Angry, Suspicious/paranoid Problem in Patient's Words: Pt has a long history of paranoia and being suspicious of family, facility staff, and doctors. She has burnt relationships with family members and friends from years ago. She tries to call or email the state to make accusations about the medical staff drugging her. She is Jehovah Witness and has refused blood transfusions that has created some medical complications. 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 Additional Admission Comments: Per intake pt intermittently refuses medication, threatens to call govt/state, belligerent, shouting at staff, cussing, name calling, unable to focus, thinks staff is trying to kill her, thinks money is being stolen. Problems Active Problems: Delusional, paranoia, suspicious of everyone, agitation, poor insight/judgement. Inactive Problems: None noted at this time. Pt Strengths/Limitations Ability for [place]: Poor Cognitive Functioning/Ability: Poor Communication Skills/Ability: Fair Financial Resources: Poor Insight/Judgement: Poor Intellectual Ability: Fair Physical Health: Poor Social Skills: Poor Stability in Family: Poor Stability in School/Work: Poor Verbal Skills: Poor Discharge Criteria Discharge Criteria: Able to meet health needs, Adequate arrangements @DC, Adequate self-care, Verbal commit med comply, Improved behavior, Improved mood/thought Other Discharge Comments: None noted at this time. Preliminary Discharge Plan Preliminary DC Plan: Current Living Arrange. Special Precautions Special Precautions: Agitation/Assault Fall Risk: Moderate Initial D/C Plan Pt plan is to return to [facility] Identified Discharge Needs: None noted at this time. Currently Utilized Resources Currently Utilized Resources/P: PCP-Dr. Aguayo Psychiatrist-Dr. Champion [facility] Qi-zzaefnean-Ahi/Medina, and Assistant To The Director/Luis M Referrals Community Resources: None noted at this time. Identified Problems/Hx/Goals Objectives/Short-Term Goals Short Term Goals: Control abnormal behavior, Dec. Hallucination/Delus, Improved Social Skills, Medication Stabilization, Monitor Med Effects, Promote Coping Skill Short Term Goals in Patient's: Compliant with medications and improved paranoia/suspicions Interventions/Frequency Staff Interventions/Frequency&: Psychiatry to assess pt three times per week for medication management. Nursing to assess behaviors, monitor medications, and complete 15 minute checks daily. Social Work to see pt at least two times weekly to aid in return to placement. Activities to encourage pt to participate in group activities daily. 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 Education: Pt completed high school and secretarial schooling. Community Follow-up PCP Psychiatry Community Provider/Family Inpu: Guardians are aware that pt is at [facility]. They are available for further input if needed. Pt should not be allowed to make phone calls without consulting SW or guardians first. Treatment Plan Explained Patient/Editorial Intern had this treatment plan explained to him/her as indicated by the signature below and has been given the opportunity to ask questions and make suggestions: Date: Patient/Editorial Intern Signature: Status Update Update Pt continuing to eat an average of 75% of meals and getting 6 hours of sleep per night. Pt UTI is resolved but she was retested recently and results were negative. Pt in disagreement with the results. She continues to demonstrate delusional/paranoia type thinking. She is expressing symptoms of tremors as nursing has not observed any of those and it is believed that this could be somatic. Pt appears to have a different issue every day. She is not combative and has been compliant with medications. Pt feels that she is sedated in the ams. will continue to monitor Seroquel dosage. Pt keeps a journal of medications that she is getting and how they are making her feel. Nursing staff believe that she could be writing other notes down as well such as other patient information or notes about nursing staff. Pt plan is to return to [facility] once stable. NAKIA AVERY July 06, 2020 15:31
--- NOTE | 2020-07-06 15:32 | NUR ---
WEEKLY NOTE: Pt continuing to eat an average of 75% of meals and getting 6 hours of sleep per night. Pt UTI is resolved but she was retested recently and results were negative. Pt in disagreement with the results. She continues to demonstrate delusional/paranoia type thinking. She is expressing symptoms of tremors as nursing has not observed any of those and it is believed that this could be somatic. Pt appears to have a different issue every day. She is not combative and has been compliant with medications. Pt feels that she is sedated in the ams. will continue to monitor Seroquel dosage. Pt keeps a journal of medications that she is getting and how they are making her feel. Nursing staff believe that she could be writing other notes down as well such as other patient information or notes about nursing staff. Pt plan is to return to [facility] once stable. DONAL updated both of pt's guardians. Luis M Hernández asked for notes to be sent to him as well as facility as he may look into alternative placement for pt at a later date.
[2020-07-06 16:02] VITALS: BP 132/73
--- NOTE | 2020-07-06 18:36 | NUR ---
Patient continues to have somatic complaints each day it is a different complaint, today she is overly tired and slumped (i did not observe this nor did anyone else) patient also waling around talking to other residents attempting to prison classification counselor patients of what they should do and helping them find their rooms. Patient has good appetite in dining room for all meals no complaints of pain or discomfort to report. No new orders will continue to monitor patient.
[2020-07-06] MEDS: QUEtiapine 25 MG TABLET. PO SCH (21:17)
--- NOTE | 2020-07-06 23:59 | NUR ---
Patient is located in her room on assumption of care, sitting in her chair. She is in pleasant spirits. Compliant with assessments and medications whole. No agitation. She has voiced no delusions so far this shift. Denies SI. She denies any pain or discomfort. Patient appears to be sleeping comfortably at present time. Will continue to monitor.
[2020-07-07 06:12] VITALS: BP 132/76
[2020-07-07] MEDS: INSULIN GLARGINE SYRINGE. SQ SCH (08:00)
[2020-07-07] MEDS: CALCIUM CARBONATE 500 MG TAB.CHEW PO SCH (08:00)
[2020-07-07] MEDS: GLUCOCIL PO SCH ×2 (08:00→17:00)
--- NOTE | 2020-07-07 08:19 | PDOC ---
Exam Note: Ryan Note: This note is a late entry for 07/06/2020 covers elements not covered in my initial note. Subjective: The patient was reviewed in the morning of 07/06/2020 for a treatment team meeting with Zohreh Mcpherson, Eulalia Ruiz and Cris (director of social media marketing), Lissette, activity therapy and Caroline CHILDRESS, discussed and reviewed the chart. The patient slept 5 hours previous night. The patient has been obsessively walking all round the unit. She states she is getting exercise. She has been making copious notes about everything that is happening on the unit. UA is negative but when she was informed of it she was adamant that there was an error in her test. She has been paranoid believed her sewing machine was stolen at the nursing facility. Apparently her history reveals that she was getting some online medical care from a unlicensed practitioner which is what finally led to her lower extremity needing amputation secondary to diabetes. Review of Systems: Ambulation is impaired. No CV, , pulmonary, eye system symptoms on review. Mental Status Exam: The patient is reasonably oriented. Speech coherent. Abstraction fair. Computation impaired. Language function intact. Mood and affect improved. No suicidal or homicidal ideation. Laboratory Data: Reviewed. Impression: Schizoaffective disorder, bipolar type, mixed with psychotic features. Anxiety disorder unspecified. Impulse control disorder unspecified. Plan: Continue current psychotropics. Assessment: Vital Signs/I&O: Vital Signs Date Time Temp Pulse Resp B/P (MAP) Pulse Ox O2 Delivery O2 Flow Rate FiO2 07/07/20 06:12 96.7 70 16 132/76 (94) 98 07/06/20 16:02 Room Air I & O 07/06/20 07/06/20 07/07/20 15:00 23:00 07:00 Intake Total 580 ml 360 ml Balance 580 ml 360 ml Labs: Laboratory Tests Test 07/06/20 19:21 07/07/20 07:49 Glucose (Fingerstick) 171 mg/dL (70-99) H 108 mg/dL (70-99) H Current Medications: Meds: Laboratory Tests Test 07/06/20 19:07/07/20 07:49 Glucose (Fingerstick) 171 mg/dL 108 mg/dL Current Medications Medications (Trade) Dose Ordered Sig/[place] Route PRN Reason Start Time Stop Time Status Last Admin Dose Admin Acetaminophen (Tylenol) 650 mg PRN Q6HRS PRN PO MILD PAIN / TEMP > 100.3'F 06/22/20 02:00 Multi-Ingredient Ointment (Analgesic [place]) 1 syed PRN QID PRN TP MUSCLE PAIN 06/22/20 02:00 Al Hydroxide/Mg Hydroxide (Mylanta Plus Xs) 15 ml PRN AFTMEALHC PRN PO DYSPEPSIA 06/22/20 02:00 Magnesium Hydroxide (Milk Of Magnesia) 2,400 mg PRN QHS PRN PO CONSTIPATION 06/22/20 02:00 Furosemide (Lasix) 20 mg DAILY PO 06/22/20 09:00 07/06/20 08:44 Gabapentin (Neurontin) 300 mg TID PO 06/22/20 09:00 07/06/20 21:17 Hydrocortisone (Proctosol-Hc) 1 syed PRN Q12HR PRN RC Hemmorrhoids 06/22/20 02:30 Pantoprazole Sodium (Protonix) 40 mg PRN Q12HR PRN PO GERD 06/22/20 02:30 07/03/20 09:08 Albuterol Sulfate (Ventolin) 1.25 mg PRN Q6HRS PRN NEB COUGH 06/22/20 03:00 Calcium Carbonate/ Glycine (Tums) 500 mg DAILY08 PO 06/22/20 08:00 07/06/20 08:44 Insulin Glargine (Lantus Syringe) 10 unit DAILYWBKFT SQ 06/22/20 08:00 07/06/20 08:00 Cetirizine HCl (ZyrTEC) 10 mg DAILY PO 06/22/20 09:00 07/06/20 08:44 Multivitamins/ Calcium (Thera-M Plus) 1 tab DAILY PO 06/22/20 09:00 07/06/20 08:44 Phenytoin Sodium (Dilantin) 250 mg BID PO 06/22/20 21:00 06/23/20 19:12 DC 06/23/20 08:19 Phenytoin Sodium (Dilantin) 150 mg 1X ONCE PO 06/22/20 12:30 06/22/20 12:31 DC 06/22/20 15:31 Non-Formulary Medication (Non Formulary Item (Glucocil)) 1 ea BID PO 06/22/20 21:00 06/23/20 05:16 DC 06/22/20 21:41 Non-Formulary Medication (Non Formulary Item (Glucocil)) 2 ea BIDWMEALS PO 06/23/20 08:00 07/06/20 17:00 Amoxicillin/ Clavulanate Potassium (Augmentin 875/ 125mg) 1 tab BID PO 06/23/20 21:00 07/03/20 22:00 DC 07/03/20 20:48 Vitamin D (Vitamin D3) 50,000 unit WEEKLY PO 06/23/20 15:45 06/30/20 08:49 Magnesium Oxide (Magnesium Oxide) 400 mg BID PO 06/23/20 21:00 07/06/20 21:00 Lactobacillus Rhamnosus (Culturelle) 1 cap BID PO 06/23/20 21:00 07/06/20 21:18 Phenytoin Sodium (Dilantin) 200 mg BID PO 06/23/20 21:00 06/25/20 01:50 DC 06/24/20 21:16 Phenytoin Sodium (Dilantin) 200 mg BID PO 06/25/20 09:00 07/06/20 21:20 Quetiapine Fumarate (SEROquel) 25 mg QHS PO 06/27/20 21:00 06/29/20 11:28 DC 06/28/20 20:52 Quetiapine Fumarate (SEROquel) 50 mg QHS PO 06/29/20 21:00 07/06/20 21:17 I have reviewed the current psychotropics carefully including drug interactions. Risk benefit ratio favors no change other than as noted in my dictated progress note. Diagnosis: Problems: (1) Schizoaffective disorder, bipolar type (2) Bipolar disorder with psychotic features (3) Impulse control disorder, unspecified (4) Anxiety disorder, unspecified ELIAS WASHINGTON MD July 07, 2020 08:19
[2020-07-07] MEDS: GABAPENTIN 300 MG CAPSULE. PO SCH ×3 (08:22→20:40)
[2020-07-07] MEDS: MAGNESIUM OXIDE 400 MG TABLET PO SCH ×2 (08:22→20:40)
[2020-07-07] MEDS: LACTOBACILLUS RHAMNOSUS GG 1 CAPSULE. PO SCH ×2 (08:22→20:41)
[2020-07-07] MEDS: CETIRIZINE HCL 10 MG TABLET PO SCH (08:22)
[2020-07-07] MEDS: MULTIVITAMIN with MINERAL TABLET. PO SCH (08:23)
[2020-07-07] MEDS: PHENYTOIN SODIUM EXTENDED 100 MG CAPSULE PO SCH ×2 (08:25→20:41)
[2020-07-07] MEDS: FUROSEMIDE 20 MG TABLET PO SCH (08:25)
[2020-07-07] MEDS: CHOLECALCIFEROL (VITAMIN D3) 50,000 UNIT CAPSULE PO SCH (08:34)
[2020-07-07 16:04] VITALS: BP 158/81
--- NOTE | 2020-07-07 19:08 | NUR ---
Pt continues to verbalize she is being overly medicated and she wants another guardian. Patient wrote notes asked me to give them to her social work therapist Cris which I did. Patient med compliant very somatic good appetite up to dining room for all meals.
[2020-07-07] MEDS: QUEtiapine 25 MG TABLET. PO SCH (20:41)
--- NOTE | 2020-07-07 22:02 | PDOC ---
Exam Note: Ryan Note: Please also refer to the separate dictated note~for this date of service dictated separately.~Patient seen individually. Discussed the patient with Nursing staff reviewed the chart.~Reviewed interim history and current functioning. Reviewed vital signs,~Labs/ Radiology~and current medications noted below. Continue current treatment with the changes noted in the dictated addendum note Assessment: Vital Signs/I&O: Vital Signs Date Time Temp Pulse Resp B/P (MAP) Pulse Ox O2 Delivery O2 Flow Rate FiO2 07/07/20 16:04 98.1 81 16 158/81 (106) 98 07/06/20 16:02 Room Air I & O 07/06/20 07/06/20 07/07/20 15:00 23:00 07:00 Intake Total 580 ml 360 ml Balance 580 ml 360 ml Labs: Laboratory Tests Test 07/07/20 06:00 07/07/20 07:49 07/07/20 19:28 SARS-CoV-2 (PCR) Negative (NEGATIVE) Glucose (Fingerstick) 108 mg/dL (70-99) H 147 mg/dL (70-99) H Current Medications: Meds: Laboratory Tests Test 07/07/20 06:00 07/07/20 07:49 07/07/20 19:28 Coronavirus (COVID-19)(PCR) Negative Glucose (Fingerstick) 108 mg/dL 147 mg/dL Current Medications Medications (Trade) Dose Ordered Sig/Syd[place] Route PRN Reason Start Time Stop Time Status Last Admin Dose Admin Acetaminophen (Tylenol) 650 mg PRN Q6HRS PRN PO MILD PAIN / TEMP > 100.3'F 06/22/20 02:00 Multi-Ingredient Ointment (Analgesic [place]) 1 syed PRN QID PRN TP MUSCLE PAIN 06/22/20 02:00 Al Hydroxide/Mg Hydroxide (Mylanta Plus Xs) 15 ml PRN AFTMEALHC PRN PO DYSPEPSIA 06/22/20 02:00 Magnesium Hydroxide (Milk Of Magnesia) 2,400 mg PRN QHS PRN PO CONSTIPATION 06/22/20 02:00 Furosemide (Lasix) 20 mg DAILY PO 06/22/20 09:00 07/07/20 08:25 Gabapentin (Neurontin) 300 mg TID PO 06/22/20 09:00 07/07/20 20:40 Hydrocortisone (Proctosol-Hc) 1 syed PRN Q12HR PRN RC Hemmorrhoids 06/22/20 02:30 Pantoprazole Sodium (Protonix) 40 mg PRN Q12HR PRN PO GERD 06/22/20 02:30 07/03/20 09:08 Albuterol Sulfate (Ventolin) 1.25 mg PRN Q6HRS PRN NEB COUGH 06/22/20 03:00 Calcium Carbonate/ Glycine (Tums) 500 mg DAILY08 PO 06/22/20 08:00 07/07/20 08:00 Insulin Glargine (Lantus Syringe) 10 unit DAILYWBKFT SQ 06/22/20 08:00 07/07/20 08:00 Cetirizine HCl (ZyrTEC) 10 mg DAILY PO 06/22/20 09:00 07/07/20 08:22 Multivitamins/ Calcium (Thera-M Plus) 1 tab DAILY PO 06/22/20 09:00 07/07/20 08:23 Phenytoin Sodium (Dilantin) 250 mg BID PO 06/22/20 21:00 06/23/20 19:12 DC 06/23/20 08:19 Phenytoin Sodium (Dilantin) 150 mg 1X ONCE PO 06/22/20 12:30 06/22/20 12:31 DC 06/22/20 15:31 Non-Formulary Medication (Non Formulary Item (Glucocil)) 1 ea BID PO 06/22/20 21:00 06/23/20 05:16 DC 06/22/20 21:41 Non-Formulary Medication (Non Formulary Item (Glucocil)) 2 ea BIDWMEALS PO 06/23/20 08:00 07/07/20 17:00 Amoxicillin/ Clavulanate Potassium (Augmentin 875/ 125mg) 1 tab BID PO 06/23/20 21:00 07/03/20 22:00 DC 07/03/20 20:48 Vitamin D (Vitamin D3) 50,000 unit WEEKLY PO 06/23/20 15:45 07/07/20 08:34 Magnesium Oxide (Magnesium Oxide) 400 mg BID PO 06/23/20 21:00 07/07/20 20:40 Lactobacillus Rhamnosus (Culturelle) 1 cap BID PO 06/23/20 21:00 07/07/20 20:41 Phenytoin Sodium (Dilantin) 200 mg BID PO 06/23/20 21:00 06/25/20 01:50 DC 06/24/20 21:16 Phenytoin Sodium (Dilantin) 200 mg BID PO 06/25/20 09:00 07/07/20 20:41 Quetiapine Fumarate (SEROquel) 25 mg QHS PO 06/27/20 21:00 06/29/20 11:28 DC 06/28/20 20:52 Quetiapine Fumarate (SEROquel) 50 mg QHS PO 06/29/20 21:00 07/07/20 20:41 I have reviewed the current psychotropics carefully including drug interactions. Risk benefit ratio favors no change other than as noted in my dictated progress note. Diagnosis: Problems: (1) Schizoaffective disorder, bipolar type (2) Bipolar disorder with psychotic features (3) Impulse control disorder, unspecified (4) Anxiety disorder, unspecified ELIAS WASHINGTON MD July 07, 2020 22:02
[2020-07-08 06:18] VITALS: BP 148/81
[2020-07-08] MEDS: GLUCOCIL PO SCH ×2 (08:00→17:00)
[2020-07-08] MEDS: INSULIN GLARGINE SYRINGE. SQ SCH (08:00)
[2020-07-08] MEDS: LACTOBACILLUS RHAMNOSUS GG 1 CAPSULE. PO SCH ×2 (08:06→20:27)
[2020-07-08] MEDS: FUROSEMIDE 20 MG TABLET PO SCH (08:07)
[2020-07-08] MEDS: CETIRIZINE HCL 10 MG TABLET PO SCH (08:07)
[2020-07-08] MEDS: CALCIUM CARBONATE 500 MG TAB.CHEW PO SCH (08:07)
[2020-07-08] MEDS: PHENYTOIN SODIUM EXTENDED 100 MG CAPSULE PO SCH ×2 (08:07→20:28)
[2020-07-08] MEDS: MAGNESIUM OXIDE 400 MG TABLET PO SCH ×2 (08:08→20:27)
[2020-07-08] MEDS: MULTIVITAMIN with MINERAL TABLET. PO SCH (08:08)
[2020-07-08] MEDS: GABAPENTIN 300 MG CAPSULE. PO SCH ×3 (08:11→20:27)
[2020-07-08 16:12] VITALS: BP 129/71
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
[2020-07-08] MEDS: QUEtiapine 25 MG TABLET. PO SCH (20:27)
--- NOTE | 2020-07-09 01:10 | PN ---
DATE: 07/08/2020 SUBJECTIVE: The patient was seen today, met with the staff, chart reviewed and also covering for Dr. Steven. The patient apparently presenting with increased agitation, obsessive compulsive behaviors, having multiple complaints, continues to be anxious, tense, worried. OBSERVATION: VITAL SIGNS: Temperature 96.7, blood pressure 148/81, pulse 84, respirations 18, O2 sat 97%. Slept about 5 hours last night. The patient's appetite is fair. The patient is able to interact with the staff, but tends to focus on all the negatives, also tendency to exaggerate her symptoms at times, mostly somatic complaints. MEDICATIONS: Reviewed. She is currently on Seroquel 25 mg at night, Dilantin 200 mg twice a day for seizure disorder, gabapentin 300 mg t.i.d. Seroquel was decreased to 25 mg daily from 50 mg daily because she was complaining of increased sedation from Seroquel. ASSESSMENT: 1. Schizoaffective disorder, bipolar type, mixed with psychotic features. 2. Generalized anxiety disorder. 3. Impulse control disorder, unspecified. PLAN: To continue with the treatment. LENGTH OF STAY: 7-10 days. SANTIAGO WATSON: CAROLINA/gurpreet TID: [id number] [facility]
[2020-07-09 06:27] VITALS: BP 163/73
[2020-07-09] MEDS: INSULIN GLARGINE SYRINGE. SQ SCH (08:00)
[2020-07-09] MEDS: GLUCOCIL PO SCH ×2 (08:00→17:00)
[2020-07-09] MEDS: GABAPENTIN 300 MG CAPSULE. PO SCH ×3 (08:21→20:29)
[2020-07-09] MEDS: LACTOBACILLUS RHAMNOSUS GG 1 CAPSULE. PO SCH ×2 (08:22→20:29)
[2020-07-09] MEDS: CETIRIZINE HCL 10 MG TABLET PO SCH (08:22)
[2020-07-09] MEDS: CALCIUM CARBONATE 500 MG TAB.CHEW PO SCH (08:22)
[2020-07-09] MEDS: MULTIVITAMIN with MINERAL TABLET. PO SCH (08:22)
[2020-07-09] MEDS: FUROSEMIDE 20 MG TABLET PO SCH (08:23)
[2020-07-09] MEDS: MAGNESIUM OXIDE 400 MG TABLET PO SCH ×2 (08:23→20:28)
[2020-07-09] MEDS: PHENYTOIN SODIUM EXTENDED 100 MG CAPSULE PO SCH ×2 (08:23→20:29)
[2020-07-09 16:22] VITALS: BP 132/77
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
[2020-07-09] MEDS: QUEtiapine 25 MG TABLET. PO SCH (20:28)
--- NOTE | 2020-07-10 00:40 | NUR ---
Pt sitting quietly in her room when approached. Pt A/O, calm, and appropriate this evening. Pt cooperative with assessment and compliant with medications administered whole. No paranoia or delusions noted thus far this shift.
--- NOTE | 2020-07-10 03:04 | PN ---
DATE: 07/09/2020 SUBJECTIVE: The patient was seen today, met with the staff. Chart was reviewed and also covering for Dr. Steven. The patient continues to present with increased agitation, obsessive compulsive behaviors also frequent complaints, demanding, also experiencing high level of anxiety. OBSERVATION: VITAL SIGNS: Temperature 97.4, blood pressure 163/73, pulse 74, O2 sat 99%. Slept about 6 hours last night. CURRENT MEDICATIONS: Include Seroquel 25 mg at night, Dilantin 200 mg twice a day for seizure disorder, gabapentin 300 mg t.i.d. The patient is not having any side effects today. ASSESSMENT: 1. Schizoaffective disorder, bipolar type, mixed with psychotic features. 2. Generalized anxiety disorder. PLANS: To continue treatment. LENGTH OF STAY: Seven to 10 days. The patient is planning to return to [facility] rehab when she is stable. LINNEA/BHARATI DR: Damian TID: [id number] [facility]
[2020-07-10 06:43] VITALS: BP 155/84
[2020-07-10] MEDS: GLUCOCIL PO SCH ×2 (08:00→16:52)
[2020-07-10] MEDS: PHENYTOIN SODIUM EXTENDED 100 MG CAPSULE PO SCH ×2 (08:51→20:26)
[2020-07-10] MEDS: FUROSEMIDE 20 MG TABLET PO SCH (08:51)
[2020-07-10] MEDS: GABAPENTIN 300 MG CAPSULE. PO SCH ×3 (08:51→20:25)
[2020-07-10] MEDS: CALCIUM CARBONATE 500 MG TAB.CHEW PO SCH (08:51)
[2020-07-10] MEDS: MULTIVITAMIN with MINERAL TABLET. PO SCH (08:51)
[2020-07-10] MEDS: CETIRIZINE HCL 10 MG TABLET PO SCH (08:52)
[2020-07-10] MEDS: MAGNESIUM OXIDE 400 MG TABLET PO SCH ×2 (08:52→20:26)
[2020-07-10] MEDS: LACTOBACILLUS RHAMNOSUS GG 1 CAPSULE. PO SCH ×2 (08:52→20:26)
[2020-07-10] MEDS: INSULIN GLARGINE SYRINGE. SQ SCH (08:53)
--- NOTE | 2020-07-10 15:45 | NUR ---
Shift Summary Patient is suspicious of staff, stating she is "being overdrugged, having seizures like symptoms at 7am every morning". Patient very cautious of medication. Patient asked to open her mouth after medication n order to visualize medications have been taken.
[2020-07-10 16:18] VITALS: BP 158/80
[2020-07-10] MEDS: QUEtiapine 25 MG TABLET. PO SCH (20:26)
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
--- NOTE | 2020-07-11 00:17 | PN ---
DATE: 07/10/2020 SUBJECTIVE: The patient was seen today, met with the staff, chart reviewed, and also covering for Dr. Steven. The patient continues to be resistant to care, refusing her medications, threatening staff, continues to focus on her physical complaints and also her medications. OBSERVATION: VITAL SIGNS: Temperature 98.8, blood pressure 155/84, pulse 77, respirations 18, O2 sat 93%. GENERAL: Slept about 6 hours last night. The patient's appetite is normal. MEDICATIONS: The patient's current medications include Seroquel 25 mg at night, Dilantin 200 mg twice a day for seizure disorder, gabapentin 300 mg t.i.d. The patient denies of any other side effects. ASSESSMENT: 1. Schizoaffective disorder, bipolar type, mixed with psychotic features. 2. Generalized anxiety disorder. PLAN: To continue with the treatment. Length of stay is [address]: Damian TID: [id number] [facility]
[2020-07-11 06:22] VITALS: BP 155/90
[2020-07-11] MEDS: CALCIUM CARBONATE 500 MG TAB.CHEW PO SCH (08:00)
[2020-07-11] MEDS: GLUCOCIL PO SCH ×2 (08:00→17:00)
[2020-07-11] MEDS: INSULIN GLARGINE SYRINGE. SQ SCH (08:00)
[2020-07-11] MEDS: LACTOBACILLUS RHAMNOSUS GG 1 CAPSULE. PO SCH ×2 (08:26→20:25)
[2020-07-11] MEDS: CETIRIZINE HCL 10 MG TABLET PO SCH (08:26)
[2020-07-11] MEDS: GABAPENTIN 300 MG CAPSULE. PO SCH ×3 (08:27→20:25)
[2020-07-11] MEDS: FUROSEMIDE 20 MG TABLET PO SCH (08:27)
[2020-07-11] MEDS: MULTIVITAMIN with MINERAL TABLET. PO SCH (08:27)
[2020-07-11] MEDS: PHENYTOIN SODIUM EXTENDED 100 MG CAPSULE PO SCH ×2 (08:27→20:24)
[2020-07-11] MEDS: MAGNESIUM OXIDE 400 MG TABLET PO SCH ×2 (08:30→20:25)
[2020-07-11 16:31] VITALS: BP 152/71
--- NOTE | 2020-07-11 19:03 | NUR ---
Pt med compliant and cooperative with cares. Patient still has accusatory thoughts of her guardians attempting to place her inappropriately in level 2 facilities when she is qualified for a level 1. 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 Patient continues to write all of her thoughts on several pages of paper and hands them to staff to read and hand them to social media manager. Patient wants to speak with her son Darwin in hopes of allowing him to take over as the guardian which I advised social media manager will discuss this with her. Patient pleasant alert and oriented x3 helpful with other patients and social with staff and others. Patient concerned of placement as she has been here 21 days and per [facility] she can only stay here 21 days. Will continue to monitor patient.
[2020-07-11] MEDS: QUEtiapine 25 MG TABLET. PO SCH (20:24)
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
--- NOTE | 2020-07-12 04:05 | PN ---
DATE: 07/11/2020 SUBJECTIVE: The patient was seen today, met with the staff. Chart reviewed and also covering for Dr. Steven. The patient continues to be resistive to care, refusing her medications, and also not wanting to take her medications. The patient also has some obsessive compulsive behaviors. She constantly writing about her past and also her plans. PHYSICAL EXAMINATION: OBSERVATION VITAL SIGNS: Temperature 96.9, blood pressure 152/71, pulse 84, respirations 16, O2 sat 98%. GENERAL: The patient sleeps about 5-6 hours at night. The patient's appetite is normal. CURRENT MEDICATIONS: Include Seroquel 25 mg at night, Dilantin 200 mg twice a day for seizure disorder, gabapentin 300 mg t.i.d. She denies of any side effects to medications. ASSESSMENT: Schizoaffective disorder, bipolar type, mixed with psychotic features, generalized anxiety disorder. PLAN: To continue with treatment. LENGTH OF STAY: Seven days. ROSALINO DR: Damian TID: [id number] [facility]
[2020-07-12 06:10] VITALS: BP 143/79
[2020-07-12 06:33] LABS: BASO # 0.1 x10^3/uL (0.0-0.2); BASO % 1 % (0-3); EOS # 0.1 x10^3/uL (0.0-0.7); EOS % 2 % (0-3); HEMATOCRIT 33.6 % (36.0-47.0); HEMOGLOBIN 11.3 g/dL (12.0-15.5); LYMPH # 2.1 x10^3/uL (1.0-4.8); LYMPH % 36 % (24-48); MEAN CORPUSCULAR HEMOGLOBIN 32 pg (25-35); MEAN CORPUSCULAR HGB CONC 34 g/dL (31-37); MEAN CORPUSCULAR VOLUME 94 fL (79-100); MONO # 0.6 x10^3/uL (0.0-1.1); MONO % 10 % (0-9); NEUT # 2.9 x10^3uL (1.8-7.7); NEUT % 51 % (31-73); PLATELET COUNT 213 x10^3/uL (140-400); RED BLOOD COUNT 3.57 x10^6/uL (3.50-5.40); RED CELL DISTRIBUTION WIDTH 13.2 % (11.5-14.5); WHITE BLOOD COUNT 5.7 x10^3/uL (4.0-11.0)
[2020-07-12 06:51] LABS: PHENY 4.9 mcg/mL (10.0-20.0)
[2020-07-12 06:56] LABS: ALBUMIN 3.2 g/dL (3.4-5.0); ALBUMIN/GLOBULIN RATIO 0.8 (1.0-1.7); CALCIUM 8.6 mg/dL (8.5-10.1); CREATININE 0.8 mg/dL (0.6-1.0); GFR 72.2; POTASSIUM 4.4 mmol/L (3.5-5.1); TOTAL BILIRUBIN 0.1 mg/dL (0.2-1.0); TOTAL PROTEIN 7.1 g/dL (6.4-8.2)
[2020-07-12] MEDS: INSULIN GLARGINE SYRINGE. SQ SCH (08:00)
[2020-07-12] MEDS: GLUCOCIL PO SCH ×2 (08:00→17:00)
[2020-07-12] MEDS: GABAPENTIN 300 MG CAPSULE. PO SCH ×3 (08:18→21:48)
[2020-07-12] MEDS: CALCIUM CARBONATE 500 MG TAB.CHEW PO SCH (08:18)
[2020-07-12] MEDS: LACTOBACILLUS RHAMNOSUS GG 1 CAPSULE. PO SCH ×2 (08:19→21:48)
[2020-07-12] MEDS: MULTIVITAMIN with MINERAL TABLET. PO SCH (08:19)
[2020-07-12] MEDS: FUROSEMIDE 20 MG TABLET PO SCH (08:19)
[2020-07-12] MEDS: CETIRIZINE HCL 10 MG TABLET PO SCH (08:19)
[2020-07-12] MEDS: PHENYTOIN SODIUM EXTENDED 100 MG CAPSULE PO SCH ×2 (08:19→21:48)
[2020-07-12] MEDS: MAGNESIUM OXIDE 400 MG TABLET PO SCH ×2 (08:21→21:00)
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
[2020-07-12 16:34] VITALS: BP 159/88
--- NOTE | 2020-07-12 17:06 | NUR ---
Shift Summary Patient has been suspicious of medications she has been taking and how long she will be continuing to stay here. Patient feels as if she is being "over sedated", and attempted to have her legs buckle under her while holding conversation with this flex o writer operator. Patient asked this author "What is the problem/behavior that is being corrected", I asked patient to discuss the length of stay and medication adjustments with doctor during rounds. When this nurse approached patient with patient denied any questions over medications/behavior/length of stay.
[2020-07-12] MEDS: QUEtiapine 25 MG TABLET. PO SCH (21:48)
--- NOTE | 2020-07-13 02:11 | PN ---
DATE: 07/12/2020 SUBJECTIVE: The patient was seen today, met with the staff, chart reviewed. Staff reports the patient is still suspicious of staff, complaining that she has been overmedicated, has been paranoid, obsessive and fluctuating mood. PHYSICAL EXAMINATION: VITAL SIGNS: Temperature 97.0, blood pressure 143/79, pulse 68, respirations 16, O2 sat 95%. Slept about 6 hours last night. The patient's appetite fair. The patient relates well on 1:1, but tend to make demands and also lacking insight. The patient has issues taking medications. CURRENT MEDICATIONS: Include Seroquel 25 mg at night, fluvoxamine 100 mg daily and 50 mg daily, Dilantin 200 mg twice a day for seizure disorder, gabapentin 300 mg t.i.d. The patient also agreed to take Seroquel 25 mg at night as needed when she cannot sleep. ASSESSMENT: 1. Schizoaffective disorder, bipolar type, mixed with psychotic features. 2. Generalized anxiety disorder. PLAN: To continue with the treatment. LENGTH OF STAY: [address]: Damian TID: [id number]
[2020-07-13 05:37] VITALS: BP 137/75
[2020-07-13] MEDS: INSULIN GLARGINE SYRINGE. SQ SCH (08:00)
[2020-07-13] MEDS: GLUCOCIL PO SCH ×2 (08:00→17:00)
[2020-07-13] MEDS: CALCIUM CARBONATE 500 MG TAB.CHEW PO SCH (08:00)
[2020-07-13] MEDS: MAGNESIUM OXIDE 400 MG TABLET PO SCH ×2 (09:00→21:00)
[2020-07-13] MEDS: CETIRIZINE HCL 10 MG TABLET PO SCH (09:14)
[2020-07-13] MEDS: MULTIVITAMIN with MINERAL TABLET. PO SCH (09:14)
[2020-07-13] MEDS: PHENYTOIN SODIUM EXTENDED 100 MG CAPSULE PO SCH ×2 (09:14→21:01)
[2020-07-13] MEDS: GABAPENTIN 300 MG CAPSULE. PO SCH ×3 (09:15→21:00)
[2020-07-13] MEDS: LACTOBACILLUS RHAMNOSUS GG 1 CAPSULE. PO SCH ×2 (09:15→21:00)
[2020-07-13] MEDS: FUROSEMIDE 20 MG TABLET PO SCH (09:15)
[2020-07-13] MEDS ORDERED: QUEtiapine 25 MG TABLET. PO PRN (11:45)
--- NOTE | 2020-07-13 12:23 | NUR ---
Nursing note: Pt in her room at time of AM med pass and assessment. She is pleasant, med compliant and cooperative. Pt denies pain at time of assessment. She questioned what her meds were for. When explained to her pt responded "Well that just isn't true. I don't do those things." Pt continues to have delusional thinking regarding her DPOA and her facility. She then went on to say we needed to get her Head CT from another hospital she was at to get Dr. Thomas's opinion on her "brain tumor" and if it needs to be cut out or not. She quickly moved on to the topic of "rectal cancer" and her sister thinks pt needs her "rectum cut out". I provided multiple attempts at redirection, but pt was not cooperative with redirection. She is currently in the dining room for lunch. Will continue to monitor.
--- NOTE | 2020-07-13 12:41 | NUR ---
WEEKLY ACTIVITY THERAPY NOTE Date of Admission:06/22/20 Date of AT Assessment: 06/22 Precipitating behaviors that initiated intake and admission:refusing meds, threatening to call government, belligerent, shouting at staff, thinks staff is trying to kill her Goal aimed: increase time management and relaxation skills Initial Goal: Pt will participate in at least three individual or group Activity Therapy sessions per week. Weekly progress towards goal: achieved, 3/3 Group participation level: 1 min, 1 mod, 1 full Weekly highlights: made a firework paper craft Friday, listened to sikh service Friday Behaviors observed: limited interest in groups, pleasant and calm, still delusional about guardians Plan: no change to goal Beneficial adaptations:
--- NOTE | 2020-07-13 14:54 | NUR ---
NURSING NOTE THIS NURSE TOOK OVER PT CARE, REPORT FROM JAN. MONROE NICHOLAS.
[2020-07-13 16:26] VITALS: BP 156/81
[2020-07-13] MEDS: QUEtiapine 25 MG TABLET. PO SCH (21:00)
--- NOTE | 2020-07-14 04:28 | PN ---
DATE: 07/13/2020 SUBJECTIVE: The patient was seen today, met with the staff. Chart reviewed and also participated in the treatment review meeting. Staff reports some improvement with her behavior. She tends to isolate herself, but she is physically active. Communicate with the staff and also she has obsessive compulsive behaviors, mostly writing the same thing giving to staff. The patient also indecisive at times, tends to get paranoid, especially with medications and a lot of somatic complaints. OBSERVATION: VITAL SIGNS: Temperature 97.2, blood pressure 137/75, pulse 76, respirations 18, O2 sat 96%. Slept about 7 hours last night. CURRENT MEDICATIONS: Include Seroquel 25 mg at night and also 25 mg at night p.r.n. for sleep, fluvoxamine 100 mg daily and 50 mg daily, Dilantin 200 mg twice a day for seizure disorder, gabapentin 300 mg t.i.d. ASSESSMENT: 1. Schizoaffective disorder, bipolar type, mixed with psychotic features. 2. Generalized anxiety disorder. PLAN: To continue with treatment. LENGTH OF STAY: The patient is planned for discharge next week. LESIA DR: Damian TID: [id number]
[2020-07-14 05:50] VITALS: BP 116/56
[2020-07-14] MEDS: INSULIN GLARGINE SYRINGE. SQ SCH (08:00)
[2020-07-14] MEDS: GLUCOCIL PO SCH ×2 (08:00→16:57)
[2020-07-14] MEDS: CALCIUM CARBONATE 500 MG TAB.CHEW PO SCH (08:00)
[2020-07-14] MEDS: LACTOBACILLUS RHAMNOSUS GG 1 CAPSULE. PO SCH ×2 (08:13→20:30)
[2020-07-14] MEDS: CETIRIZINE HCL 10 MG TABLET PO SCH (08:13)
[2020-07-14] MEDS: PHENYTOIN SODIUM EXTENDED 100 MG CAPSULE PO SCH ×2 (08:13→20:31)
[2020-07-14] MEDS: FUROSEMIDE 20 MG TABLET PO SCH (08:14)
[2020-07-14] MEDS: MULTIVITAMIN with MINERAL TABLET. PO SCH (08:14)
[2020-07-14] MEDS: MAGNESIUM OXIDE 400 MG TABLET PO SCH ×2 (08:15→20:30)
[2020-07-14] MEDS: GABAPENTIN 300 MG CAPSULE. PO SCH ×3 (08:18→20:30)
[2020-07-14] MEDS: CHOLECALCIFEROL (VITAMIN D3) 50,000 UNIT CAPSULE PO SCH (08:40)
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
[2020-07-14 16:07] VITALS: BP 139/80
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
[2020-07-14] MEDS: QUEtiapine 25 MG TABLET. PO SCH (20:31)
--- NOTE | 2020-07-15 02:00 | PN ---
DATE: 07/14/2020 SUBJECTIVE: The patient was seen today, met with the staff, chart reviewed and also covering for Dr. Steven. The patient continues to show improvement. Continues to have obsessive compulsive behaviors, occasional behavior problems. The patient continues to have problems taking her medications and also having multiple somatic complaints. OBSERVATION: Vital signs: Temperature 97.4, blood pressure 116/56, pulse 69, respirations 16, O2 sat 99%. Slept about 5 hours last night. The patient's appetite normal. The patient's current medications includes the same. She is not having any side effects. ASSESSMENT: 1. Schizoaffective disorder, bipolar type, mixed, with psychotic features. 2. Generalized anxiety disorder. PLAN: To continue with the treatment. LENGTH OF STAY: 3-5 days and she is planned for discharge next week. OPAL DR: Damian TID: [id number]
[2020-07-15 05:46] VITALS: BP 129/73
[2020-07-15] MEDS: INSULIN GLARGINE SYRINGE. SQ SCH (08:00)
[2020-07-15] MEDS: GLUCOCIL PO SCH ×2 (08:00→16:54)
[2020-07-15] MEDS: CETIRIZINE HCL 10 MG TABLET PO SCH (08:13)
[2020-07-15] MEDS: GABAPENTIN 300 MG CAPSULE. PO SCH ×3 (08:13→20:35)
[2020-07-15] MEDS: PHENYTOIN SODIUM EXTENDED 100 MG CAPSULE PO SCH ×2 (08:13→20:35)
[2020-07-15] MEDS: LACTOBACILLUS RHAMNOSUS GG 1 CAPSULE. PO SCH ×2 (08:14→20:34)
[2020-07-15] MEDS: CALCIUM CARBONATE 500 MG TAB.CHEW PO SCH (08:14)
[2020-07-15] MEDS: MULTIVITAMIN with MINERAL TABLET. PO SCH (08:14)
[2020-07-15] MEDS: FUROSEMIDE 20 MG TABLET PO SCH (08:14)
[2020-07-15] MEDS: MAGNESIUM OXIDE 400 MG TABLET PO SCH ×2 (08:15→20:34)
[2020-07-15 15:54] VITALS: BP 128/75
--- NOTE | 2020-07-15 18:18 | NUR ---
Patient med compliant and cooperative with cares, patient has good appetite in the dining room for all meals 100% eaten. Patient during the day stops staff and advises she is wanting to know how much longer she will be here and to advise she was approved to go to a level one assisted living facility. I advised that director of social services will update her on that information. Patient wrote a letter for me to give to Dr Monaco regarding sending updated notes and files so that she can be analyzed for a level one. Patient vitals wnl of baseline a&o x4 will continue to monitor patient.
[2020-07-15] MEDS: QUEtiapine 25 MG TABLET. PO SCH (20:35)
--- NOTE | 2020-07-15 23:59 | NUR ---
Patient is located in her room on assumption of care, sitting in her chair. She is in pleasant spirits. Compliant with assessments and medications whole. Cooperative with shower. No agitation. She has voiced no delusions so far this shift. Denies SI. She denies any pain or discomfort. Patient appears to be sleeping comfortably at present time. Will continue to monitor.
--- NOTE | 2020-07-16 02:10 | PN ---
DATE: 07/15/2020 SUBJECTIVE: The patient was seen today, met with the staff, chart reviewed, and also covering for Dr. Steven. Staff reports no major behavior problems. She has been pleasant and cooperative. No evidence of any delusion or somatic complaints. The patient tends to isolate herself, stays in her room most of the time. She is able to interact rationally on 1:1 basis. The patient is no longer complaining about her medications. OBSERVATION: VITAL SIGNS: Temperature 97.2, blood pressure 129/73, pulse 68, respirations 16, O2 sat 95%. Slept about 6-1/2 hours last night. The patient's appetite is good. The patient's medications reviewed. Labs reviewed. ASSESSMENT: 1. Schizoaffective disorder, bipolar type, mixed with psychotic features. 2. Generalized anxiety disorder. PLAN: To continue with the treatment. LENGTH OF STAY: Three to five days. The patient is planned for discharge next week. PORTILLO/ALICIA DR: Damian TID: [id number]
[2020-07-16 06:19] VITALS: BP 126/77
[2020-07-16] MEDS: GLUCOCIL PO SCH ×2 (08:00→17:00)
[2020-07-16] MEDS: CALCIUM CARBONATE 500 MG TAB.CHEW PO SCH (08:00)
[2020-07-16] MEDS: LACTOBACILLUS RHAMNOSUS GG 1 CAPSULE. PO SCH ×2 (08:24→20:21)
[2020-07-16] MEDS: MULTIVITAMIN with MINERAL TABLET. PO SCH (08:24)
[2020-07-16] MEDS: FUROSEMIDE 20 MG TABLET PO SCH (08:24)
[2020-07-16] MEDS: CETIRIZINE HCL 10 MG TABLET PO SCH (08:24)
[2020-07-16] MEDS: PHENYTOIN SODIUM EXTENDED 100 MG CAPSULE PO SCH ×2 (08:24→20:22)
[2020-07-16] MEDS: INSULIN GLARGINE SYRINGE. SQ SCH (08:25)
[2020-07-16] MEDS: MAGNESIUM OXIDE 400 MG TABLET PO SCH ×2 (08:28→20:22)
[2020-07-16] MEDS: GABAPENTIN 300 MG CAPSULE. PO SCH ×3 (08:30→20:21)
[2020-07-16 16:05] VITALS: BP 135/71
--- NOTE | 2020-07-16 16:49 | NUR ---
Patient med compliant and cooperative with cares, no issues or behaviors from patient today. Patient less obsessive about guardianships and level one facilities. One of her concerns today when she spoke with Dr Mosher was after the of the month her funding for level 2 facilities stop so she is wanting to know where will she be placed. Dr Mosher stated we will have to address this with social worker palliative care she stated she was once approved for level one and would like to go back to level one if she can. Patient vitals wnl of baseline alert and oriented x4 good appetite in dining room for all meals will continue to monitor patient.
[2020-07-16] MEDS: QUEtiapine 25 MG TABLET. PO SCH (20:21)
--- NOTE | 2020-07-16 23:47 | PN ---
DATE: 07/16/2020 DATE OF SERVICE: 07/16/2020. SUBJECTIVE: The patient was seen today, met with the staff, chart reviewed, and also covering for Dr. Steven. Staff reports occasional confusion, but beginning to show improvement. She tends to isolate herself. The patient is pleasant during the assessment, not presenting with any complaint. She is compliant with the medications. The patient mainly focused on her discharge plans. OBSERVATION: VITAL SIGNS: Temperature 97.5, blood pressure 126/77, pulse 72, respirations 18, O2 sat 93%. Slept about 7 hours last night. The patient's appetite, normal. MEDICATIONS AND LABORATORY DATA: Reviewed. ASSESSMENT: 1. Schizoaffective disorder, bipolar type, mixed with psychotic features. 2. Generalized anxiety disorder. PLAN: To continue with the treatment. LENGTH OF STAY: 2-3 days. The patient is planned for discharge this week. HANS DR: Damian TID: [id number]
--- NOTE | 2020-07-17 00:19 | NUR ---
Patient cooperative and compliant. No delusions or obsessive thinking noted. Patient compliant with medications. No adverse behaviors noted at this time.
[2020-07-17 06:04] VITALS: BP 136/77
[2020-07-17] MEDS: GLUCOCIL PO SCH ×2 (08:00→16:59)
[2020-07-17] MEDS: INSULIN GLARGINE SYRINGE. SQ SCH (08:00)
[2020-07-17] MEDS: CALCIUM CARBONATE 500 MG TAB.CHEW PO SCH (08:00)
[2020-07-17] MEDS: MAGNESIUM OXIDE 400 MG TABLET PO SCH ×2 (09:00→21:10)
[2020-07-17] MEDS: GABAPENTIN 300 MG CAPSULE. PO SCH ×3 (09:20→21:09)
[2020-07-17] MEDS: LACTOBACILLUS RHAMNOSUS GG 1 CAPSULE. PO SCH ×2 (09:20→21:09)
[2020-07-17] MEDS: CETIRIZINE HCL 10 MG TABLET PO SCH (09:20)
[2020-07-17] MEDS: FUROSEMIDE 20 MG TABLET PO SCH (09:21)
[2020-07-17] MEDS: PHENYTOIN SODIUM EXTENDED 100 MG CAPSULE PO SCH ×2 (09:21→21:09)
[2020-07-17] MEDS: MULTIVITAMIN with MINERAL TABLET. PO SCH (09:21)
[2020-07-17 15:59] VITALS: BP 153/82
--- NOTE | 2020-07-17 18:01 | NUR ---
Patient med compliant and cooperative with cares, social with staff and other patients. Good appetite she walked to the dining room for all meals, vitals stable and wnl of baseline patient has no complaints of pain or discomfort she was less talkative today about guardianship and level 1 facilities she asked once today if I gotten a chance to talk with social work I advised her as soon as social work is available I will talk to them and have her SW to come see her. Patient was ok with that answer and did not ask about the topic again. Patient alert and oriented x4 will continue to monitor patient.
[2020-07-17] MEDS: QUEtiapine 25 MG TABLET. PO SCH (21:09)
--- NOTE | 2020-07-18 01:02 | NUR ---
PATIENT IN BED WHEN NURSE ENTERED ROOM TO GIVE HS MEDS. SHE IS PLEASANT, INTERACTIVE AND CALM. PATIENT MED COMPLIANT AND COOPERATIVE WITH STAFF. NO ADVERSE BEHAVIORS NOTED THIS SHIFT.
--- NOTE | 2020-07-18 03:18 | PN ---
DATE: 07/17/2020 SUBJECTIVE: The patient was seen today. Met with the staff, chart reviewed. Also, covering for Dr. Steven. Staff reports no major behavioral problem. She is pleasant, cooperative, not exhibiting any delusional or somatic complaints. The patient is also medication compliant. OBSERVATION: VITAL SIGNS: Temperature 97.3, blood pressure 136/77, pulse 73, respirations 20, O2 sat 96%. Slept about 7 hours last night. The patient is active, walks quite a bit within the unit, but the patient tends to keep to herself and no major behavior problems. PLAN: To continue with the treatment. LENGTH OF STAY: Two to [address]: CAROLINA/gurpreet TID: [id number]
[2020-07-18 06:16] VITALS: BP 134/84
[2020-07-18] MEDS: CALCIUM CARBONATE 500 MG TAB.CHEW PO SCH (08:00)
[2020-07-18] MEDS: INSULIN GLARGINE SYRINGE. SQ SCH (08:00)
[2020-07-18] MEDS: GLUCOCIL PO SCH ×2 (08:00→17:00)
[2020-07-18] MEDS: MAGNESIUM OXIDE 400 MG TABLET PO SCH ×2 (09:00→21:37)
[2020-07-18] MEDS: PHENYTOIN SODIUM EXTENDED 100 MG CAPSULE PO SCH ×2 (09:04→21:37)
[2020-07-18] MEDS: CETIRIZINE HCL 10 MG TABLET PO SCH (09:04)
[2020-07-18] MEDS: FUROSEMIDE 20 MG TABLET PO SCH (09:04)
[2020-07-18] MEDS: GABAPENTIN 300 MG CAPSULE. PO SCH ×3 (09:06→21:37)
[2020-07-18] MEDS: LACTOBACILLUS RHAMNOSUS GG 1 CAPSULE. PO SCH ×2 (09:06→21:36)
[2020-07-18] MEDS: MULTIVITAMIN with MINERAL TABLET. PO SCH (09:06)
--- NOTE | 2020-07-18 14:48 | NUR ---
PATIENT LOCATED IN A BED AWAKE THIS AM UPON ASSESSMENT, CALM AND PLEASANT, COMPLIANT WITH MEDICATIONS. PATIENT DENIED ANY PAIN CURRENTLY, STATED SHE JUST FEELING TIRED AND NEED TO REST A LITTLE. PATIENT WAS OBSERVED LATER IN A DAY ROOM SITTING QUIETLY DURING GROUP SESSION, NO ADVERSE BEHAVIOR NOTED AT THIS TIME.
--- NOTE | 2020-07-18 15:17 | NUR ---
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 SW contacted pt guardian, Luis M Hernández, for permission to call her back. Luis M granted SW permission as he indicated that at some point in the future they may look into pt being transferred to a different facility and that Prakash Gagnon was the advocate that he used to help in that process. DONAL then contacted Prakash Gagnon who confirmed her role in pt care. Prakash Gagnon stated that she would be leaving for vacation this week on 07/20/20 and would return to the office on 08/07/20. Prakash Gagnon requested that SW let pt know about her vacation and that they would talk once she was back. SW indicated that a discharge was anticipated in the next few days. Prakash Gagnon stated that she had spoken with pt's current facility, [facility], who will be taking her back following her discharge, but that at some point later down the road she would look into a transfer to [place]. Prakash Gagnon stated that pt Medicaid has /no longer qualifying, and that pt would discharge back to [facility] as a private pay as the assets from selling her home would be used for her care. Prakash Gagnon questions pt's ability to live in an AL facility vs Level I or II. SW indicated that while here at [facility], pt has been able to complete all her own ADLs. The only concern that SW shared with Prakash Gagnon was pt's fixation on her past and all of the journal writing that she does about it. SW shared that she has been compliant here at [facility] with taking her meds, but there have been a couple of times that she did not agree with test results even though the results were negative. Prakash Gagnon expressed appreciation for the information and states that she plans to follow up with pt once she is discharged back to facility. Prakash Gagnon just requested that SW send her updates upon d/c so that she may be able to use them for future placement. SW notified pt of conversation with Prakash Gagnon. Pt appreciative of information.
[2020-07-18 18:45] VITALS: BP 149/70
[2020-07-18] MEDS: QUEtiapine 25 MG TABLET. PO SCH (21:36)
--- NOTE | 2020-07-18 22:45 | NUR ---
PT in room at time of assessment/medication administration. PT calm, cooperative and compliant. PT expressed her happiness about possibly leaving or Friday but also stated she was dissatisfied about her guardians.
[2020-07-19 06:01] VITALS: BP 134/72
[2020-07-19] MEDS: CALCIUM CARBONATE 500 MG TAB.CHEW PO SCH (07:47)
[2020-07-19] MEDS: GABAPENTIN 300 MG CAPSULE. PO SCH ×3 (07:47→21:24)
[2020-07-19] MEDS: GLUCOCIL PO SCH ×2 (07:47→17:00)
[2020-07-19] MEDS: LACTOBACILLUS RHAMNOSUS GG 1 CAPSULE. PO SCH ×2 (07:48→21:25)
[2020-07-19] MEDS: PHENYTOIN SODIUM EXTENDED 100 MG CAPSULE PO SCH ×2 (07:48→21:25)
[2020-07-19] MEDS: MAGNESIUM OXIDE 400 MG TABLET PO SCH ×2 (07:48→21:00)
[2020-07-19] MEDS: MULTIVITAMIN with MINERAL TABLET. PO SCH (07:48)
[2020-07-19] MEDS: FUROSEMIDE 20 MG TABLET PO SCH (07:48)
[2020-07-19] MEDS: CETIRIZINE HCL 10 MG TABLET PO SCH (07:48)
[2020-07-19] MEDS: INSULIN GLARGINE SYRINGE. SQ SCH (09:19)
[2020-07-19 16:19] VITALS: BP 146/73
--- NOTE | 2020-07-19 16:27 | NUR ---
Shift Summary Patient has been med compliant, pleasant with staff, and walking around the unit to pass the time.
--- NOTE | 2020-07-19 16:44 | NUR ---
Patient Condition Change Patient was found on floor per patient report, TONY Emanuel was first to assess patient and stated patient was unresponsive. Patient immediately assessed per this nurse, and TONY Emanuel vitals signs BP 179/88 SD 92 o2 92% on RA, BMBS 135. Patient began to respond to name after apx. 20seconds patient began to rub nose and verbally responsive, patient stated "I just feel tired". Patient was diaphoretic assisted up to feet and walked to a chair. Per security statement of video recording said patient walking the gordon grabbing the rail, stood still, went down to her knees, and then laid out on the ground. Addendum: 07/19/20 at 1815 by SYLVESTER ARRIETA RN ALIEC Haney Notified per this nurs. ALICE stated "Oh okay, thank you bye."
[2020-07-19 16:50] VITALS: BP 179/88
[2020-07-19] MEDS: QUEtiapine 25 MG TABLET. PO SCH (21:25)
--- NOTE | 2020-07-19 23:52 | NUR ---
Pt located in her room this evening. Pt calm and pleasant. Compliant with whole medications. Pt stated she is excited to discharge later this week.
--- NOTE | 2020-07-20 00:37 | PN ---
DATE: 07/18/2020 SUBJECTIVE: The patient was seen by Telehealth, discussed with the staff and chart reviewed. The patient continues to show improvement. She has not presented with any major peer behavioral problems. She is also not exhibiting any severe obsessive compulsive symptoms. The patient is awaiting for discharge in the next few days. OBSERVATION: VITAL SIGNS: Stable. GENERAL: The patient is sleeping better. Appetite improved. MEDICATIONS: The patient's medications reviewed and not having any side effects. LABORATORY DATA: The patient's lab reviewed. ASSESSMENT: 1. Schizoaffective disorder, bipolar type, mixed with psychotic features. 2. Generalized anxiety disorder. PLAN: To continue with the treatment. LENGTH OF STAY: Three to five days. MONTSE DR: Damian TID: [id number]
--- NOTE | 2020-07-20 00:41 | PN ---
DATE: 07/19/2020 SUBJECTIVE: The patient was seen today, met with the staff, chart reviewed. Staff reports no major behavior problems. She is pleasant, cooperative and med compliant. OBSERVATION: VITAL SIGNS: Temperature 97.9, blood pressure 134/72, pulse 61, respirations 18, O2 sat 96%. Slept about 6 hours last night. MEDICATIONS: The patient's medications reviewed, not having any side effects. LABORATORY DATA: The patient's lab reviewed. ASSESSMENT: 1. Schizoaffective disorder, bipolar type, mixed with psychotic features. 2. Generalized anxiety disorder. PLAN: To continue with the treatment. The patient is awaiting for discharge in the next few days. LESIA DR: Damian TID: [id number]
[2020-07-20 05:54] VITALS: BP 148/79
[2020-07-20] MEDS: INSULIN GLARGINE SYRINGE. SQ SCH (08:00)
[2020-07-20] MEDS: GLUCOCIL PO SCH ×2 (08:00→17:00)
[2020-07-20 08:18] LABS: BASO % 1 % (0-3); EOS # 0.1 x10^3/uL (0.0-0.7); EOS % 2 % (0-3); HEMATOCRIT 34.6 % (36.0-47.0); HEMOGLOBIN 11.4 g/dL (12.0-15.5); LYMPH # 1.7 x10^3/uL (1.0-4.8); LYMPH % 27 % (24-48); MEAN CORPUSCULAR HEMOGLOBIN 31 pg (25-35); MEAN CORPUSCULAR HGB CONC 33 g/dL (31-37); MEAN CORPUSCULAR VOLUME 95 fL (79-100); MONO # 0.6 x10^3/uL (0.0-1.1); MONO % 9 % (0-9); NEUT % 62 % (31-73); PLATELET COUNT 215 x10^3/uL (140-400); RED BLOOD COUNT 3.66 x10^6/uL (3.50-5.40); WHITE BLOOD COUNT 6.4 x10^3/uL (4.0-11.0)
[2020-07-20] MEDS: LACTOBACILLUS RHAMNOSUS GG 1 CAPSULE. PO SCH ×2 (08:18→20:32)
[2020-07-20] MEDS: MULTIVITAMIN with MINERAL TABLET. PO SCH (08:18)
[2020-07-20] MEDS: GABAPENTIN 300 MG CAPSULE. PO SCH ×3 (08:18→20:31)
[2020-07-20] MEDS: PHENYTOIN SODIUM EXTENDED 100 MG CAPSULE PO SCH ×2 (08:18→20:32)
[2020-07-20] MEDS: CETIRIZINE HCL 10 MG TABLET PO SCH (08:19)
[2020-07-20] MEDS: CALCIUM CARBONATE 500 MG TAB.CHEW PO SCH (08:19)
[2020-07-20] MEDS: FUROSEMIDE 20 MG TABLET PO SCH (08:19)
[2020-07-20] MEDS: MAGNESIUM OXIDE 400 MG TABLET PO SCH ×2 (08:22→20:32)
[2020-07-20 08:46] LABS: PHENY 7.5 mcg/mL (10.0-20.0)
[2020-07-20 08:49] LABS: ALBUMIN 3.6 g/dL (3.4-5.0); ALBUMIN/GLOBULIN RATIO 0.9 (1.0-1.7); CALCIUM 8.8 mg/dL (8.5-10.1); CREATININE 0.9 mg/dL (0.6-1.0); POTASSIUM 4.5 mmol/L (3.5-5.1); TOTAL BILIRUBIN 0.3 mg/dL (0.2-1.0); TOTAL PROTEIN 7.6 g/dL (6.4-8.2)
--- NOTE | 2020-07-20 13:18 | NUR ---
WEEKLY ACTIVITY THERAPY NOTE Date of Admission:06/22/20 Date of AT Assessment: 06/22 Precipitating behaviors that initiated intake and admission:refusing meds, threatening to call government, belligerent, shouting at staff, thinks staff is trying to kill her Goal aimed: increase time management and relaxation skills Initial Goal: Pt will participate in at least three individual or group Activity Therapy sessions per week. Weekly progress towards goal: achieved, 5/3 Group participation level: 1 min, 4 full Weekly highlights: listened to restorationism service Friday, Reading Trails/7-bites Friday afternoon Behaviors observed:independent and pleasant Plan: change goal to:Pt will participate in all Activity Therapy sessions offered. Beneficial adaptations:
--- NOTE | 2020-07-20 14:56 | TX PLAN ---
Interdisciplinary Tx Plan Admission Information Jun 22, 2020 at 00:45 Legal Status (on Admission): Voluntary DPOA/Guardian Name: Dtr/Medina Larios [phone] and Electrical Maintenance Man Luis M Hernández [phone] Other Contact Name: MONROE Grace/ DANDRE Corcoran/ DONAL Mora Other Contact Verified Code Status: Full Code Allergies: Coded Allergies: I S O L A T I O N *CONTACT* (Verified Allergy, Unknown, 06/27/20) ESBL in urine 06/20/2020. ciprofloxacin (Verified Allergy, Unknown, 06/20/20) clonazepam (Unverified Adverse Reaction, Unknown, beakthru seizues per patient report, 07/05/20) divalproex sodium (Unverified Adverse Reaction, Unknown, 07/05/20) Diagnoses Primary Diagnosis: Schizophrenia, Anemia, DMII, HLD, Epilepsy, right leg amputation Reasons for Admission: Delusions, Relation/conflict, Agitated, Angry, Suspicious/paranoid Problem in Patient's Words: Pt has a long history of paranoia and being suspicious of family, facility staff, and doctors. She has burnt relationships with family members and friends from years ago. She tries to call or email the state to make accusations about the medical staff drugging her. She is Jehovah Witness and has refused blood transfusions that has created some medical complications. 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 Additional Admission Comments: Per intake pt intermittently refuses medication, threatens to call govt/state, belligerent, shouting at staff, cussing, name calling, unable to focus, thinks staff is trying to kill her, thinks money is being stolen. Problems Active Problems: Delusional, paranoia, suspicious of everyone, agitation, poor insight/judgement. Inactive Problems: None noted at this time. Pt Strengths/Limitations Ability for [place]: Poor Cognitive Functioning/Ability: Poor Communication Skills/Ability: Fair Financial Resources: Poor Insight/Judgement: Poor Intellectual Ability: Fair Physical Health: Poor Social Skills: Poor Stability in Family: Poor Stability in School/Work: Poor Verbal Skills: Poor Discharge Criteria Discharge Criteria: Able to meet health needs, Adequate arrangements @DC, Adequate self-care, Verbal commit med comply, Improved behavior, Improved mood/thought Other Discharge Comments: None noted at this time. Preliminary Discharge Plan Preliminary DC Plan: Current Living Arrange. Special Precautions Special Precautions: Agitation/Assault Fall Risk: Moderate Initial D/C Plan Pt plan is to return to [facility] Identified Discharge Needs: None noted at this time. Currently Utilized Resources Currently Utilized Resources/P: PCP-Dr. Aguayo Psychiatrist-Dr. Champion [facility] Hg-mjhcjfudu-Asi/Medina, and Electrical Maintenance Man/Luis M Referrals Community Resources: None noted at this time. Identified Problems/Hx/Goals Objectives/Short-Term Goals Short Term Goals: Control abnormal behavior, Dec. Hallucination/Delus, Improved Social Skills, Medication Stabilization, Monitor Med Effects, Promote Coping Skill Short Term Goals in Patient's: Compliant with medications and improved paranoia/suspicions Interventions/Frequency Staff Interventions/Frequency&: Psychiatry to assess pt three times per week for medication management. Nursing to assess behaviors, monitor medications, and complete 15 minute checks daily. Social Work to see pt at least two times weekly to aid in return to placement. Activities to encourage pt to participate in group activities daily. 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 Education: Pt completed high school and secretarial schooling. Community Follow-up PCP Psychiatry Community Provider/Family Inpu: Guardians are aware that pt is at [facility]. They are available for further input if needed. Pt should not be allowed to make phone calls without consulting SW or guardians first. Treatment Plan Explained Patient/City Director had this treatment plan explained to him/her as indicated by the signature below and has been given the opportunity to ask questions and make suggestions: Date: Patient/City Director Signature: Status Update Update Pt has been eating 80% of her meals and averaging 6 hours of sleep per night. Pt has not shown as much obsessiveness in her delusions regarding guardians. She has been medication compliant as far as staff can tell. Pt Dilantin level was low, but is trending back up. This will continue to be monitored. Staff plan to have pt take pills individually followed by water and a bite of food and show them inside her mouth after each pill is swallowed. Pt has been pleasant and engaged in some of the activities and social work groups. Pt likes to walk the unit. Pt will return to [facility] at time of discharge. NAKIA AVERY July 20, 2020 14:56
[2020-07-20 16:19] VITALS: BP 169/77
[2020-07-20] MEDS: QUEtiapine 25 MG TABLET. PO SCH (20:31)
--- NOTE | 2020-07-20 22:26 | PN ---
DATE: 07/20/2020 SUBJECTIVE: The patient was seen today, met with the staff, chart reviewed, also participated in the treatment review meeting. Staff reports that Dilantin level has been low, the last one was 7.5. The patient was also seen by the neurologist, Dr. Thomas. OBSERVATION: VITAL SIGNS: Temperature 98.0, blood pressure 169/77, pulse 82, respirations 16, O2 sat 98%. The patient's appetite and sleep have improved. CURRENT MEDICATIONS: The patient's medications reviewed. No new side effects. LABORATORY DATA: The patient's lab reviewed. The patient's hemoglobin 11.4. The patient's blood sugar fluctuates. The patient's Dilantin level has also been fluctuating. The level on 07/12/2020 was 4.9. ASSESSMENT: 1. Schizoaffective disorder, bipolar type, mixed with psychotic features. 2. Generalized anxiety disorder. PLAN: To continue with the treatment. The patient is planned for discharge beginning of next week. HANS DR: Damian TID: [id number]
--- NOTE | 2020-07-21 00:56 | NUR ---
Pt in her room when approached. Pt calm, pleasant, and interactive during encounter. Pt cooperative with assessment and compliant with medications administered whole. No delusions or paranoia noted thus far this shift.
[2020-07-21 06:18] VITALS: BP 124/74
[2020-07-21] MEDS: MULTIVITAMIN with MINERAL TABLET. PO SCH (08:05)
[2020-07-21] MEDS: CETIRIZINE HCL 10 MG TABLET PO SCH (08:05)
[2020-07-21] MEDS: CALCIUM CARBONATE 500 MG TAB.CHEW PO SCH (08:05)
[2020-07-21] MEDS: GABAPENTIN 300 MG CAPSULE. PO SCH ×3 (08:05→21:07)
[2020-07-21] MEDS: LACTOBACILLUS RHAMNOSUS GG 1 CAPSULE. PO SCH ×2 (08:06→21:07)
[2020-07-21] MEDS: FUROSEMIDE 20 MG TABLET PO SCH (08:06)
[2020-07-21] MEDS: PHENYTOIN SODIUM EXTENDED 100 MG CAPSULE PO SCH ×2 (08:06→21:08)
[2020-07-21] MEDS: CHOLECALCIFEROL (VITAMIN D3) 50,000 UNIT CAPSULE PO SCH (08:06)
[2020-07-21] MEDS: GLUCOCIL PO SCH ×2 (08:07→17:00)
[2020-07-21] MEDS: MAGNESIUM OXIDE 400 MG TABLET PO SCH ×2 (08:07→21:00)
[2020-07-21] MEDS: INSULIN GLARGINE SYRINGE. SQ SCH (12:23)
[2020-07-21 15:48] VITALS: BP 121/81
[2020-07-21] MEDS: QUEtiapine 25 MG TABLET. PO SCH (21:07)
--- NOTE | 2020-07-21 23:58 | PN ---
DATE: 07/21/2020 SUBJECTIVE: The patient was seen today, met with the staff, chart reviewed. Staff reports overall some improvement, still tendency to decompensate at times. The patient tends to isolate herself, but she is active. OBSERVATION: VITAL SIGNS: Temperature 97.2, blood pressure 124/74, pulse 66, respirations 16, O2 sat 95%. GENERAL: Slept about 5 hours last night. CURRENT MEDICATIONS: The patient's medications reviewed. No side effects. LABORATORY DATA: The patient's lab reviewed. ASSESSMENT: 1. Schizoaffective disorder, bipolar type, mixed with psychotic features. 2. Generalized anxiety disorder. PLAN: To continue with the treatment. The patient is planned for discharge next week. OPAL DR: Damian TID: [id number]
[2020-07-22 06:14] VITALS: BP 136/77
[2020-07-22] MEDS: GLUCOCIL PO SCH ×2 (08:00→17:00)
[2020-07-22] MEDS: INSULIN GLARGINE SYRINGE. SQ SCH (08:00)
[2020-07-22] MEDS: LACTOBACILLUS RHAMNOSUS GG 1 CAPSULE. PO SCH ×2 (08:25→20:28)
[2020-07-22] MEDS: CALCIUM CARBONATE 500 MG TAB.CHEW PO SCH (08:26)
[2020-07-22] MEDS: CETIRIZINE HCL 10 MG TABLET PO SCH (08:26)
[2020-07-22] MEDS: MULTIVITAMIN with MINERAL TABLET. PO SCH (08:26)
[2020-07-22] MEDS: PHENYTOIN SODIUM EXTENDED 100 MG CAPSULE PO SCH ×2 (08:26→20:28)
[2020-07-22] MEDS: MAGNESIUM OXIDE 400 MG TABLET PO SCH ×2 (08:27→20:29)
[2020-07-22] MEDS: FUROSEMIDE 20 MG TABLET PO SCH (08:31)
[2020-07-22] MEDS: GABAPENTIN 300 MG CAPSULE. PO SCH ×3 (08:35→20:29)
[2020-07-22 16:44] VITALS: BP 163/73
--- NOTE | 2020-07-22 19:47 | NUR ---
Pt up adl in halls and out to meals. Has been pleasant. Compliant with meds and cares. Has stated numerous times she would like to go to a "level one" facility. Does not care for current facility.
[2020-07-22] MEDS: QUEtiapine 25 MG TABLET. PO SCH (20:29)
--- NOTE | 2020-07-22 22:52 | NUR ---
Pt in her room when approached. Pt calm, pleasant, and interactive during encounter. Pt cooperative with assessment and compliant with medications administered whole. No paranoia or delusions voiced thus far this shift.
--- NOTE | 2020-07-23 02:18 | PN ---
DATE: 07/22/2020 SUBJECTIVE: The patient was seen today, met with the staff, chart reviewed. The patient continues to show improvement. The patient has not presented with any major behavior problems. OBSERVATION: VITAL SIGNS: Temperature 98.4, blood pressure 105/63, pulse 70, respirations 14, and O2 sat 98%. Slept about 6 hours last night. The patient's appetite is normal. CURRENT MEDICATIONS: Include fluvoxamine 100 mg daily, Seroquel 25 mg at night, Dilantin 200 mg twice a day, gabapentin 300 mg t.i.d. and Seroquel 25 mg at bedtime p.o. p.r.n. for insomnia. The patient currently is not having any side effects. LABORATORY DATA: The patient's lab reviewed. ASSESSMENT: 1. Schizoaffective disorder, bipolar type, mixed with psychotic features. 2. Generalized anxiety disorder. PLAN: To continue with the treatment. The patient's plan for discharge next week. HANS/RAÚL DR: Damian TID: [id number]
[2020-07-23 06:07] VITALS: BP 119/77
[2020-07-23] MEDS: INSULIN GLARGINE SYRINGE. SQ SCH (08:00)
[2020-07-23] MEDS: GLUCOCIL PO SCH ×2 (08:00→16:59)
[2020-07-23] MEDS: FUROSEMIDE 20 MG TABLET PO SCH (08:12)
[2020-07-23] MEDS: LACTOBACILLUS RHAMNOSUS GG 1 CAPSULE. PO SCH ×2 (08:12→21:01)
[2020-07-23] MEDS: PHENYTOIN SODIUM EXTENDED 100 MG CAPSULE PO SCH ×2 (08:13→21:01)
[2020-07-23] MEDS: GABAPENTIN 300 MG CAPSULE. PO SCH ×3 (08:13→21:00)
[2020-07-23] MEDS: CETIRIZINE HCL 10 MG TABLET PO SCH (08:13)
[2020-07-23] MEDS: CALCIUM CARBONATE 500 MG TAB.CHEW PO SCH (08:13)
[2020-07-23] MEDS: MULTIVITAMIN with MINERAL TABLET. PO SCH (08:16)
[2020-07-23] MEDS: MAGNESIUM OXIDE 400 MG TABLET PO SCH ×2 (08:16→21:00)
[2020-07-23 15:32] VITALS: BP 165/71
--- NOTE | 2020-07-23 18:19 | NUR ---
Patient med compliant and compliant with cares helpful to other patients on the unit with locating their room and assisting with information of where the day room is. Patient alert and oriented vitals wnl of baseline no complaints of pain or discomfort to report patient in the dining room for all meals and has a good appetite. Patient is looking forward to her discharge and is hoping to go to a level one or assisted living. Patient had no behaviors to report, Dr Wei and Dr rodriguez rounded on patient no new orders. Will continue to monitor patient.
[2020-07-23] MEDS: QUEtiapine 25 MG TABLET. PO SCH (21:00)
--- NOTE | 2020-07-24 01:06 | NUR ---
Nursing Note The patient was located in her room for her assessment. The patient was alert to name, location and date. The patient was compliant with her medication and was able to take them whole. The patient discussed with this nurse possible placement after discharge from this hospital. The patient is currently sleeping in her room.
--- NOTE | 2020-07-24 01:14 | PN ---
DATE: 07/23/2020 SUBJECTIVE: The patient was seen today, met with the staff, chart reviewed. The patient continues to show improvement. She is medication compliant and not presented with any major problems. OBSERVATION: VITAL SIGNS: Temperature 97.6, blood pressure 119/77, pulse 68, respirations 18, O2 sat 98%. GENERAL: Slept about 8 hours last night. The patient is not presenting with any other medical issues. MEDICATIONS: Reviewed, not having any side effects. LABORATORY DATA: The patient's lab reviewed. ASSESSMENT: 1. Schizoaffective disorder, bipolar type, mixed with psychotic features. 2. Generalized anxiety disorder. PLAN: To continue with treatment. The patient's plan for discharge early next week. MIO DR: Damian TID: [id number]
[2020-07-24 05:43] VITALS: BP 136/71
[2020-07-24] MEDS: CALCIUM CARBONATE 500 MG TAB.CHEW PO SCH (08:00)
[2020-07-24] MEDS: GLUCOCIL PO SCH ×2 (08:00→17:00)
[2020-07-24] MEDS: PHENYTOIN SODIUM EXTENDED 100 MG CAPSULE PO SCH ×2 (08:16→21:10)
[2020-07-24] MEDS: GABAPENTIN 300 MG CAPSULE. PO SCH ×3 (08:16→21:09)
[2020-07-24] MEDS: LACTOBACILLUS RHAMNOSUS GG 1 CAPSULE. PO SCH ×2 (08:16→21:10)
[2020-07-24] MEDS: CETIRIZINE HCL 10 MG TABLET PO SCH (08:17)
[2020-07-24] MEDS: MAGNESIUM OXIDE 400 MG TABLET PO SCH ×2 (08:17→21:00)
[2020-07-24] MEDS: FUROSEMIDE 20 MG TABLET PO SCH (08:17)
[2020-07-24] MEDS: MULTIVITAMIN with MINERAL TABLET. PO SCH (08:17)
[2020-07-24] MEDS: INSULIN GLARGINE SYRINGE. SQ SCH (09:26)
--- NOTE | 2020-07-24 14:03 | NUR ---
PATIENT LOCATED IN A DINING ROOM UPON ASSESSMENT, COMPLIANT WITH MEDICATIONS, CALM AND PLEASANT. PATIENT OBSEWRVED LATER AFTER LUNCH IN A DAY ROOM SITTING QUIETLY, NO ADVERSE BEHAVIOR NOTED.
[2020-07-24 15:47] VITALS: BP 143/73
[2020-07-24] MEDS: QUEtiapine 25 MG TABLET. PO SCH (21:09)
--- NOTE | 2020-07-24 22:08 | PDOC ---
Exam Note: Ryan Note: Please also refer to the separate dictated note~for this date of service dictated separately.~Patient seen individually. Discussed the patient with Nursing staff reviewed the chart.~Reviewed interim history and current functioning. Reviewed vital signs,~Labs/ Radiology~and current medications noted below. Continue current treatment with the changes noted in the dictated addendum note Assessment: Vital Signs/I&O: Vital Signs Date Time Temp Pulse Resp B/P (MAP) Pulse Ox O2 Delivery O2 Flow Rate FiO2 07/24/20 15:47 98.8 79 16 143/73 (96) 97 07/23/20 06:07 Room Air I & O 07/23/20 07/23/20 07/24/20 15:00 23:00 07:00 Intake Total 740 ml 480 ml Balance 740 ml 480 ml Labs: Laboratory Tests Test 07/24/20 07:44 07/24/20 19:23 Glucose (Fingerstick) 94 mg/dL (70-99) 92 mg/dL (70-99) Current Medications: Meds: Laboratory Tests Test 07/24/20 07:44 07/24/20 19:23 Glucose (Fingerstick) 94 mg/dL 92 mg/dL Current Medications Medications (Trade) Dose Ordered Sig/[place] Route PRN Reason Start Time Stop Time Status Last Admin Dose Admin Acetaminophen (Tylenol) 650 mg PRN Q6HRS PRN PO MILD PAIN / TEMP > 100.3'F 06/22/20 02:00 Multi-Ingredient Ointment (Analgesic [place]) 1 syed PRN QID PRN TP MUSCLE PAIN 06/22/20 02:00 Al Hydroxide/Mg Hydroxide (Mylanta Plus Xs) 15 ml PRN AFTMEALHC PRN PO DYSPEPSIA 06/22/20 02:00 Magnesium Hydroxide (Milk Of Magnesia) 2,400 mg PRN QHS PRN PO CONSTIPATION 06/22/20 02:00 Furosemide (Lasix) 20 mg DAILY PO 06/22/20 09:00 07/24/20 08:17 Gabapentin (Neurontin) 300 mg TID PO 06/22/20 09:00 07/24/20 21:09 Hydrocortisone (Proctosol-Hc) 1 syed PRN Q12HR PRN RC Hemmorrhoids 06/22/20 02:30 Pantoprazole Sodium (Protonix) 40 mg PRN Q12HR PRN PO GERD 06/22/20 02:30 07/03/20 09:08 Albuterol Sulfate (Ventolin) 1.25 mg PRN Q6HRS PRN NEB COUGH 06/22/20 03:00 Calcium Carbonate/ Glycine (Tums) 500 mg DAILY08 PO 06/22/20 08:00 07/24/20 08:00 Insulin Glargine (Lantus Syringe) 10 unit DAILYWBKFT SQ 06/22/20 08:00 07/24/20 09:26 Cetirizine HCl (ZyrTEC) 10 mg DAILY PO 06/22/20 09:00 07/24/20 08:17 Multivitamins/ Calcium (Thera-M Plus) 1 tab DAILY PO 06/22/20 09:00 07/24/20 08:17 Phenytoin Sodium (Dilantin) 250 mg BID PO 06/22/20 21:00 06/23/20 19:12 DC 06/23/20 08:19 Phenytoin Sodium (Dilantin) 150 mg 1X ONCE PO 06/22/20 12:30 06/22/20 12:31 DC 06/22/20 15:31 Non-Formulary Medication (Non Formulary Item (Glucocil)) 1 ea BID PO 06/22/20 21:00 06/23/20 05:16 DC 06/22/20 21:41 Non-Formulary Medication (Non Formulary Item (Glucocil)) 2 ea BIDWMEALS PO 06/23/20 08:00 07/24/20 17:00 Amoxicillin/ Clavulanate Potassium (Augmentin 875/ 125mg) 1 tab BID PO 06/23/20 21:00 07/03/20 22:00 DC 07/03/20 20:48 Vitamin D (Vitamin D3) 50,000 unit WEEKLY PO 06/23/20 15:45 07/21/20 08:06 Magnesium Oxide (Magnesium Oxide) 400 mg BID PO 06/23/20 21:00 07/24/20 21:00 Lactobacillus Rhamnosus (Culturelle) 1 cap BID PO 06/23/20 21:00 07/24/20 21:10 Phenytoin Sodium (Dilantin) 200 mg BID PO 06/23/20 21:00 06/25/20 01:50 DC 06/24/20 21:16 Phenytoin Sodium (Dilantin) 200 mg BID PO 06/25/20 09:00 07/24/20 21:10 Quetiapine Fumarate (SEROquel) 25 mg QHS PO 06/27/20 21:00 06/29/20 11:28 DC 06/28/20 20:52 Quetiapine Fumarate (SEROquel) 50 mg QHS PO 06/29/20 21:00 07/08/20 16:08 DC 07/07/20 20:41 Quetiapine Fumarate (SEROquel) 25 mg QHS PO 07/08/20 21:00 07/24/20 21:09 Fluvoxamine Maleate (Luvox) 50 mg DAILY PO 07/11/20 09:00 07/13/20 21:00 DC 07/13/20 09:15 Fluvoxamine Maleate (Luvox) 100 mg DAILY PO 07/14/20 09:00 07/24/20 08:16 Quetiapine Fumarate (SEROquel) 25 mg PRN QHS PRN PO INSOMNIA 07/13/20 11:45 I have reviewed the current psychotropics carefully including drug interactions. Risk benefit ratio favors no change other than as noted in my dictated progress note. Diagnosis: Problems: (1) Schizoaffective disorder, bipolar type (2) Bipolar disorder with psychotic features (3) Impulse control disorder, unspecified (4) Anxiety disorder, unspecified ELIAS WASHINGTON MD July 24, 2020 22:08
--- NOTE | 2020-07-25 01:29 | NUR ---
Nursing Note The patient was located in her room for her assessment and medication pass. The patient took her medication whole. The patient was pleasant during interactions with this nurse. The patient discussed concerns she has about discharge plans and that she may go to a new facility. This nurse reassured her that she would have placement prior to discharge. The patient is currently sleeping in her room.
[2020-07-25 05:49] VITALS: BP 119/72
[2020-07-25] MEDS: GLUCOCIL PO SCH ×2 (08:00→17:00)
[2020-07-25] MEDS: INSULIN GLARGINE SYRINGE. SQ SCH (08:00)
[2020-07-25] MEDS: CALCIUM CARBONATE 500 MG TAB.CHEW PO SCH (08:00)
[2020-07-25] MEDS: PHENYTOIN SODIUM EXTENDED 100 MG CAPSULE PO SCH ×2 (08:15→20:51)
[2020-07-25] MEDS: CETIRIZINE HCL 10 MG TABLET PO SCH (08:16)
[2020-07-25] MEDS: GABAPENTIN 300 MG CAPSULE. PO SCH ×3 (08:16→20:52)
[2020-07-25] MEDS: LACTOBACILLUS RHAMNOSUS GG 1 CAPSULE. PO SCH ×2 (08:16→20:52)
[2020-07-25] MEDS: MULTIVITAMIN with MINERAL TABLET. PO SCH (08:16)
[2020-07-25] MEDS: FUROSEMIDE 20 MG TABLET PO SCH (08:16)
[2020-07-25] MEDS: MAGNESIUM OXIDE 400 MG TABLET PO SCH ×2 (08:16→20:52)
[2020-07-25 15:47] VITALS: BP 181/75
--- NOTE | 2020-07-25 17:45 | NUR ---
Pt compliant with medication administration and cooperative with cares. Patient has a good appetite in the dining room for all meals ambulating in the hallways very social with other staff as well as helpful to patients. Patient does want to make sure schizophrenia is not on her diagnosis list, social security benefits interviewer went over with her. Patient thinks it is the schizophrenia diagnosis that is keeping her from a level one or assisted living facility I advised when the decision is made as to what level of care is needed there are a number of factors not just one. Patient vitals stable and wnl of baseline, no complaints of pain or discomfort to report. Will continue to monitor patient, mask offered.
[2020-07-25] MEDS: QUEtiapine 25 MG TABLET. PO SCH (20:51)
--- NOTE | 2020-07-25 21:50 | PDOC ---
Exam Note: Ryan Note: Please also refer to the separate dictated note~for this date of service dictated separately.~Patient seen individually. Discussed the patient with Nursing staff reviewed the chart.~Reviewed interim history and current functioning. Reviewed vital signs,~Labs/ Radiology~and current medications noted below. Continue current treatment with the changes noted in the dictated addendum note Assessment: Vital Signs/I&O: Vital Signs Date Time Temp Pulse Resp B/P (MAP) Pulse Ox O2 Delivery O2 Flow Rate FiO2 07/25/20 15:47 97.0 76 16 181/75 (110) 98 07/23/20 06:07 Room Air I & O 07/24/20 07/24/20 07/25/20 15:00 23:00 07:00 Intake Total 720 ml 480 ml Balance 720 ml 480 ml Labs: Laboratory Tests Test 07/25/20 07:30 07/25/20 19:12 Glucose (Fingerstick) 84 mg/dL (70-99) 112 mg/dL (70-99) H Current Medications: Meds: Laboratory Tests Test 07/25/20 07:30 07/25/20 19:12 Glucose (Fingerstick) 84 mg/dL 112 mg/dL Current Medications Medications (Trade) Dose Ordered Sig/[place] Route PRN Reason Start Time Stop Time Status Last Admin Dose Admin Acetaminophen (Tylenol) 650 mg PRN Q6HRS PRN PO MILD PAIN / TEMP > 100.3'F 06/22/20 02:00 Multi-Ingredient Ointment (Analgesic [place]) 1 syed PRN QID PRN TP MUSCLE PAIN 06/22/20 02:00 Al Hydroxide/Mg Hydroxide (Mylanta Plus Xs) 15 ml PRN AFTMEALHC PRN PO DYSPEPSIA 06/22/20 02:00 Magnesium Hydroxide (Milk Of Magnesia) 2,400 mg PRN QHS PRN PO CONSTIPATION 06/22/20 02:00 Furosemide (Lasix) 20 mg DAILY PO 06/22/20 09:00 07/25/20 08:16 Gabapentin (Neurontin) 300 mg TID PO 06/22/20 09:00 07/25/20 20:52 Hydrocortisone (Proctosol-Hc) 1 syed PRN Q12HR PRN RC Hemmorrhoids 06/22/20 02:30 Pantoprazole Sodium (Protonix) 40 mg PRN Q12HR PRN PO GERD 06/22/20 02:30 07/03/20 09:08 Albuterol Sulfate (Ventolin) 1.25 mg PRN Q6HRS PRN NEB COUGH 06/22/20 03:00 Calcium Carbonate/ Glycine (Tums) 500 mg DAILY08 PO 06/22/20 08:00 07/25/20 08:00 Insulin Glargine (Lantus Syringe) 10 unit DAILYWBKFT SQ 06/22/20 08:00 07/25/20 08:00 Cetirizine HCl (ZyrTEC) 10 mg DAILY PO 06/22/20 09:00 07/25/20 08:16 Multivitamins/ Calcium (Thera-M Plus) 1 tab DAILY PO 06/22/20 09:00 07/25/20 08:16 Phenytoin Sodium (Dilantin) 250 mg BID PO 06/22/20 21:00 06/23/20 19:12 DC 06/23/20 08:19 Phenytoin Sodium (Dilantin) 150 mg 1X ONCE PO 06/22/20 12:30 06/22/20 12:31 DC 06/22/20 15:31 Non-Formulary Medication (Non Formulary Item (Glucocil)) 1 ea BID PO 06/22/20 21:00 06/23/20 05:16 DC 06/22/20 21:41 Non-Formulary Medication (Non Formulary Item (Glucocil)) 2 ea BIDWMEALS PO 06/23/20 08:00 07/25/20 17:00 Amoxicillin/ Clavulanate Potassium (Augmentin 875/ 125mg) 1 tab BID PO 06/23/20 21:00 07/03/20 22:00 DC 07/03/20 20:48 Vitamin D (Vitamin D3) 50,000 unit WEEKLY PO 06/23/20 15:45 07/21/20 08:06 Magnesium Oxide (Magnesium Oxide) 400 mg BID PO 06/23/20 21:00 07/25/20 20:52 Lactobacillus Rhamnosus (Culturelle) 1 cap BID PO 06/23/20 21:00 07/25/20 20:52 Phenytoin Sodium (Dilantin) 200 mg BID PO 06/23/20 21:00 06/25/20 01:50 DC 06/24/20 21:16 Phenytoin Sodium (Dilantin) 200 mg BID PO 06/25/20 09:00 07/25/20 20:51 Quetiapine Fumarate (SEROquel) 25 mg QHS PO 06/27/20 21:00 06/29/20 11:28 DC 06/28/20 20:52 Quetiapine Fumarate (SEROquel) 50 mg QHS PO 06/29/20 21:00 07/08/20 16:08 DC 07/07/20 20:41 Quetiapine Fumarate (SEROquel) 25 mg QHS PO 07/08/20 21:00 07/25/20 20:51 Fluvoxamine Maleate (Luvox) 50 mg DAILY PO 07/11/20 09:00 07/13/20 21:00 DC 07/13/20 09:15 Fluvoxamine Maleate (Luvox) 100 mg DAILY PO 07/14/20 09:00 07/25/20 08:16 Quetiapine Fumarate (SEROquel) 25 mg PRN QHS PRN PO INSOMNIA 07/13/20 11:45 I have reviewed the current psychotropics carefully including drug interactions. Risk benefit ratio favors no change other than as noted in my dictated progress note. Diagnosis: Problems: (1) Schizoaffective disorder, bipolar type (2) Bipolar disorder with psychotic features (3) Impulse control disorder, unspecified (4) Anxiety disorder, unspecified ELIAS WASHINGTON MD July 25, 2020 21:50
--- NOTE | 2020-07-26 04:58 | NUR ---
Nursing Note The patient was located in the hallway for her assessment . The patient was in good spirits and reported that she had a good discussion with her social research assistant and was able to have many of her questions about discharge answered. The patient was alert to name, date and location. The patient was compliant with her medications.
[2020-07-26 05:37] VITALS: BP 153/81
[2020-07-26] MEDS: INSULIN GLARGINE SYRINGE. SQ SCH (08:00)
[2020-07-26] MEDS: GLUCOCIL PO SCH ×2 (08:00→16:26)
--- NOTE | 2020-07-26 08:02 | PDOC ---
Exam Note: Ryan Note: This note is a late entry for 07/07/2020 covers elements not covered in my initial note. Subjective: This note was initially completed on 07/07/2020 but cannot be retrieved in the electronic medical system and is being re-dictated today 07/25/2020. The patient was seen individually in the evening of 07/07/2020 with Landy CHILDRESS, discussed and reviewed the chart. The patient has been obsessed about feeling sedated on her psychotropics. I had a lengthy discussion with her on this. The patient has been walking up and down the hallway stating she is getting extra exercise to keep herself fit. We discussed discharge plans. Review of Systems: Ambulation is impaired. No CV, , pulmonary, eye system symptoms on review. Mental Status Exam: The patient is reasonably oriented. Speech coherent. Abstraction fair. Computation impaired. Language function intact. Mood and affect improved. No suicidal or homicidal ideation. Laboratory Data: Reviewed. Impression: Schizoaffective disorder, bipolar type, mixed with psychotic features. Anxiety disorder unspecified. Impulse control disorder unspecified. Plan: Continue current psychotropics. Dr. Lara will cover for me starting from 07/08/2020 at 8 a.m. till 07/23/2020 at 8 p.m. Assessment: Vital Signs/I&O: Vital Signs Date Time Temp Pulse Resp B/P (MAP) Pulse Ox O2 Delivery O2 Flow Rate FiO2 07/26/20 05:37 98.2 72 18 153/81 (105) 97 Room Air I & O 07/25/20 07/25/20 07/26/20 15:00 23:00 07:00 Intake Total 840 ml 600 ml Balance 840 ml 600 ml Labs: Laboratory Tests Test 07/25/20 19:12 Glucose (Fingerstick) 112 mg/dL (70-99) H Current Medications: Meds: Laboratory Tests Test 07/25/20 19:12 Glucose (Fingerstick) 112 mg/dL Current Medications Medications (Trade) Dose Ordered Sig/[place] Route PRN Reason Start Time Stop Time Status Last Admin Dose Admin Acetaminophen (Tylenol) 650 mg PRN Q6HRS PRN PO MILD PAIN / TEMP > 100.3'F 06/22/20 02:00 Multi-Ingredient Ointment (Analgesic [place]) 1 syed PRN QID PRN TP MUSCLE PAIN 4/22/21 02:00 Al Hydroxide/Mg Hydroxide (Mylanta Plus Xs) 15 ml PRN AFTMEALHC PRN PO DYSPEPSIA 06/22/20 02:00 Magnesium Hydroxide (Milk Of Magnesia) 2,400 mg PRN QHS PRN PO CONSTIPATION 06/22/20 02:00 Furosemide (Lasix) 20 mg DAILY PO 06/22/20 09:00 07/25/20 08:16 Gabapentin (Neurontin) 300 mg TID PO 06/22/20 09:00 07/25/20 20:52 Hydrocortisone (Proctosol-Hc) 1 syed PRN Q12HR PRN RC Hemmorrhoids 06/22/20 02:30 Pantoprazole Sodium (Protonix) 40 mg PRN Q12HR PRN PO GERD 06/22/20 02:30 07/03/20 09:08 Albuterol Sulfate (Ventolin) 1.25 mg PRN Q6HRS PRN NEB COUGH 06/22/20 03:00 Calcium Carbonate/ Glycine (Tums) 500 mg DAILY08 PO 06/22/20 08:00 07/25/20 08:00 Insulin Glargine (Lantus Syringe) 10 unit DAILYWBKFT SQ 06/22/20 08:00 07/25/20 08:00 Cetirizine HCl (ZyrTEC) 10 mg DAILY PO 06/22/20 09:00 07/25/20 08:16 Multivitamins/ Calcium (Thera-M Plus) 1 tab DAILY PO 06/22/20 09:00 07/25/20 08:16 Phenytoin Sodium (Dilantin) 250 mg BID PO 06/22/20 21:00 06/23/20 19:12 DC 06/23/20 08:19 Phenytoin Sodium (Dilantin) 150 mg 1X ONCE PO 06/22/20 12:30 06/22/20 12:31 DC 06/22/20 15:31 Non-Formulary Medication (Non Formulary Item (Glucocil)) 1 ea BID PO 06/22/20 21:00 06/23/20 05:16 DC 06/22/20 21:41 Non-Formulary Medication (Non Formulary Item (Glucocil)) 2 ea BIDWMEALS PO 06/23/20 08:00 07/25/20 17:00 Amoxicillin/ Clavulanate Potassium (Augmentin 875/ 125mg) 1 tab BID PO 06/23/20 21:00 07/03/20 22:00 DC 07/03/20 20:48 Vitamin D (Vitamin D3) 50,000 unit WEEKLY PO 06/23/20 15:45 07/21/20 08:06 Magnesium Oxide (Magnesium Oxide) 400 mg BID PO 06/23/20 21:00 07/25/20 20:52 Lactobacillus Rhamnosus (Culturelle) 1 cap BID PO 06/23/20 21:00 07/25/20 20:52 Phenytoin Sodium (Dilantin) 200 mg BID PO 06/23/20 21:00 06/25/20 01:50 DC 06/24/20 21:16 Phenytoin Sodium (Dilantin) 200 mg BID PO 06/25/20 09:00 07/25/20 20:51 Quetiapine Fumarate (SEROquel) 25 mg QHS PO 06/27/20 21:00 06/29/20 11:28 DC 06/28/20 20:52 Quetiapine Fumarate (SEROquel) 50 mg QHS PO 06/29/20 21:00 07/08/20 16:08 DC 07/07/20 20:41 Quetiapine Fumarate (SEROquel) 25 mg QHS PO 07/08/20 21:00 07/25/20 20:51 Fluvoxamine Maleate (Luvox) 50 mg DAILY PO 07/11/20 09:00 07/13/20 21:00 DC 07/13/20 09:15 Fluvoxamine Maleate (Luvox) 100 mg DAILY PO 07/14/20 09:00 07/25/20 08:16 Quetiapine Fumarate (SEROquel) 25 mg PRN QHS PRN PO INSOMNIA 07/13/20 11:45 I have reviewed the current psychotropics carefully including drug interactions. Risk benefit ratio favors no change other than as noted in my dictated progress note. Diagnosis: Problems: (1) Schizoaffective disorder, bipolar type (2) Bipolar disorder with psychotic features (3) Impulse control disorder, unspecified (4) Anxiety disorder, unspecified ELIAS WASHINGTON MD July 26, 2020 08:02
[2020-07-26] MEDS: PHENYTOIN SODIUM EXTENDED 100 MG CAPSULE PO SCH ×2 (08:21→20:33)
[2020-07-26] MEDS: MULTIVITAMIN with MINERAL TABLET. PO SCH (08:22)
[2020-07-26] MEDS: MAGNESIUM OXIDE 400 MG TABLET PO SCH ×2 (08:22→20:33)
[2020-07-26] MEDS: CALCIUM CARBONATE 500 MG TAB.CHEW PO SCH (08:22)
[2020-07-26] MEDS: LACTOBACILLUS RHAMNOSUS GG 1 CAPSULE. PO SCH ×2 (08:22→20:33)
[2020-07-26] MEDS: CETIRIZINE HCL 10 MG TABLET PO SCH (08:22)
[2020-07-26] MEDS: GABAPENTIN 300 MG CAPSULE. PO SCH ×3 (08:22→20:33)
[2020-07-26] MEDS: FUROSEMIDE 20 MG TABLET PO SCH (08:22)
--- NOTE | 2020-07-26 08:39 | PDOC ---
Exam Note: Ryan Note: This note is a late entry for 07/24/2020 covers elements not covered in my initial note. Subjective: The patient was seen individually in the evening of 07/24/2020 with Lakisha CHILDRESS, discussed and reviewed the chart. The patient slept 6-3/4 hours previous night. She has been calm, compliant, constantly ambulating up and down the hallway, states she is getting exercise to keep herself healthy. She is compliant with medications. Review of Systems: Ambulation is impaired due to leg amputation. No CV, , pulmonary, eye system symptoms on review. Mental Status Exam: The patient is reasonably oriented. Speech coherent. Abstraction fair. Computation impaired. Language function intact. Mood and affect improved. Laboratory Data: Reviewed. Impression: Schizoaffective disorder, bipolar type, mixed with psychotic features. Anxiety disorder unspecified. Impulse control disorder unspecified. Plan: I have carefully reviewed the patients current psychotropics and reviewed information with Dr. Lara who had covered for me for the past 2 weeks. Continue current psychotropics. Assessment: Vital Signs/I&O: Vital Signs Date Time Temp Pulse Resp B/P (MAP) Pulse Ox O2 Delivery O2 Flow Rate FiO2 07/26/20 05:37 98.2 72 18 153/81 (105) 97 Room Air I & O 07/25/20 07/25/20 07/26/20 15:00 23:00 07:00 Intake Total 840 ml 600 ml Balance 840 ml 600 ml Labs: Laboratory Tests Test 07/25/20 19:12 07/26/20 08:12 Glucose (Fingerstick) 112 mg/dL (70-99) H 104 mg/dL (70-99) H Current Medications: Meds: Laboratory Tests Test 07/25/20 19:12 07/26/20 08:12 Glucose (Fingerstick) 112 mg/dL 104 mg/dL Current Medications Medications (Trade) Dose Ordered Sig/[place] Route PRN Reason Start Time Stop Time Status Last Admin Dose Admin Acetaminophen (Tylenol) 650 mg PRN Q6HRS PRN PO MILD PAIN / TEMP > 100.3'F 06/22/20 02:00 Multi-Ingredient Ointment (Analgesic [place]) 1 syed PRN QID PRN TP MUSCLE PAIN 06/22/20 02:00 Al Hydroxide/Mg Hydroxide (Mylanta Plus Xs) 15 ml PRN AFTMEALHC PRN PO DYSPEPSIA 06/22/20 02:00 Magnesium Hydroxide (Milk Of Magnesia) 2,400 mg PRN QHS PRN PO CONSTIPATION 06/22/20 02:00 Furosemide (Lasix) 20 mg DAILY PO 06/22/20 09:00 07/26/20 08:22 Gabapentin (Neurontin) 300 mg TID PO 06/22/20 09:00 07/26/20 08:22 Hydrocortisone (Proctosol-Hc) 1 syed PRN Q12HR PRN RC Hemmorrhoids 06/22/20 02:30 Pantoprazole Sodium (Protonix) 40 mg PRN Q12HR PRN PO GERD 06/22/20 02:30 07/03/20 09:08 Albuterol Sulfate (Ventolin) 1.25 mg PRN Q6HRS PRN NEB COUGH 06/22/20 03:00 Calcium Carbonate/ Glycine (Tums) 500 mg DAILY08 PO 06/22/20 08:00 07/26/20 08:22 Insulin Glargine (Lantus Syringe) 10 unit DAILYWBKFT SQ 06/22/20 08:00 07/25/20 08:00 Cetirizine HCl (ZyrTEC) 10 mg DAILY PO 06/22/20 09:00 07/26/20 08:22 Multivitamins/ Calcium (Thera-M Plus) 1 tab DAILY PO 06/22/20 09:00 07/26/20 08:22 Phenytoin Sodium (Dilantin) 250 mg BID PO 06/22/20 21:00 06/23/20 19:12 DC 06/23/20 08:19 Phenytoin Sodium (Dilantin) 150 mg 1X ONCE PO 06/22/20 12:30 06/22/20 12:31 DC 06/22/20 15:31 Non-Formulary Medication (Non Formulary Item (Glucocil)) 1 ea BID PO 06/22/20 21:00 06/23/20 05:16 DC 06/22/20 21:41 Non-Formulary Medication (Non Formulary Item (Glucocil)) 2 ea BIDWMEALS PO 06/23/20 08:00 07/26/20 08:00 Amoxicillin/ Clavulanate Potassium (Augmentin 875/ 125mg) 1 tab BID PO 06/23/20 21:00 07/03/20 22:00 DC 07/03/20 20:48 Vitamin D (Vitamin D3) 50,000 unit WEEKLY PO 06/23/20 15:45 07/21/20 08:06 Magnesium Oxide (Magnesium Oxide) 400 mg BID PO 06/23/20 21:00 07/26/20 08:22 Lactobacillus Rhamnosus (Culturelle) 1 cap BID PO 06/23/20 21:00 07/26/20 08:22 Phenytoin Sodium (Dilantin) 200 mg BID PO 06/23/20 21:00 06/25/20 01:50 DC 06/24/20 21:16 Phenytoin Sodium (Dilantin) 200 mg BID PO 06/25/20 09:00 07/26/20 08:21 Quetiapine Fumarate (SEROquel) 25 mg QHS PO 06/27/20 21:00 06/29/20 11:28 DC 06/28/20 20:52 Quetiapine Fumarate (SEROquel) 50 mg QHS PO 06/29/20 21:00 07/08/20 16:08 DC 07/07/20 20:41 Quetiapine Fumarate (SEROquel) 25 mg QHS PO 07/08/20 21:00 07/25/20 20:51 Fluvoxamine Maleate (Luvox) 50 mg DAILY PO 07/11/20 09:00 07/13/20 21:00 DC 07/13/20 09:15 Fluvoxamine Maleate (Luvox) 100 mg DAILY PO 07/14/20 09:00 07/26/20 08:22 Quetiapine Fumarate (SEROquel) 25 mg PRN QHS PRN PO INSOMNIA 07/13/20 11:45 I have reviewed the current psychotropics carefully including drug interactions. Risk benefit ratio favors no change other than as noted in my dictated progress note. Diagnosis: Problems: (1) Schizoaffective disorder, bipolar type (2) Bipolar disorder with psychotic features (3) Impulse control disorder, unspecified (4) Anxiety disorder, unspecified ELIAS WASHINGTON MD July 26, 2020 08:39
--- NOTE | 2020-07-26 09:02 | PDOC ---
Exam Note: Ryan Note: This note is a late entry for 07/25/2020 covers elements not covered in my initial note. Subjective: The patient was seen individually in the evening of 07/25/2020 with Caroline CHILDRESS, discussed and reviewed the chart. The patient slept 6-3/4 hours previous night. I met with the patient in the hallway. She has continued to walk around the unit. She states she is strengthening herself and very proud of this but much less anxious, less somatically preoccupied. Review of Systems: Ambulation is impaired. No CV, , pulmonary, eye system symptoms on review. Mental Status Exam: The patient is reasonably oriented. Speech coherent. Abstraction fair. Computation impaired. Language function intact. Mood and affect improved. No suicidal or homicidal ideation. Laboratory Data: Reviewed. Impression: Schizoaffective disorder, bipolar type, mixed with psychotic features. Anxiety disorder unspecified. Impulse control disorder unspecified. Plan: Continue current psychotropics. Assessment: Vital Signs/I&O: Vital Signs Date Time Temp Pulse Resp B/P (MAP) Pulse Ox O2 Delivery O2 Flow Rate FiO2 07/26/20 05:37 98.2 72 18 153/81 (105) 97 Room Air I & O 07/25/20 07/25/20 07/26/20 15:00 23:00 07:00 Intake Total 840 ml 600 ml Balance 840 ml 600 ml Labs: Laboratory Tests Test 07/25/20 19:12 07/26/20 08:12 Glucose (Fingerstick) 112 mg/dL (70-99) H 104 mg/dL (70-99) H Current Medications: Meds: Laboratory Tests Test 07/25/20 19:12 07/26/20 08:12 Glucose (Fingerstick) 112 mg/dL 104 mg/dL Current Medications Medications (Trade) Dose Ordered Sig/[place] Route PRN Reason Start Time Stop Time Status Last Admin Dose Admin Acetaminophen (Tylenol) 650 mg PRN Q6HRS PRN PO MILD PAIN / TEMP > 100.3'F 06/22/20 02:00 Multi-Ingredient Ointment (Analgesic [place]) 1 syed PRN QID PRN TP MUSCLE PAIN 06/22/20 02:00 Al Hydroxide/Mg Hydroxide (Mylanta Plus Xs) 15 ml PRN AFTMEALHC PRN PO DYSPEPSIA 06/22/20 02:00 Magnesium Hydroxide (Milk Of Magnesia) 2,400 mg PRN QHS PRN PO CONSTIPATION 06/22/20 02:00 Furosemide (Lasix) 20 mg DAILY PO 06/22/20 09:00 07/26/20 08:22 Gabapentin (Neurontin) 300 mg TID PO 06/22/20 09:00 07/26/20 08:22 Hydrocortisone (Proctosol-Hc) 1 syed PRN Q12HR PRN RC Hemmorrhoids 06/22/20 02:30 Pantoprazole Sodium (Protonix) 40 mg PRN Q12HR PRN PO GERD 06/22/20 02:30 07/03/20 09:08 Albuterol Sulfate (Ventolin) 1.25 mg PRN Q6HRS PRN NEB COUGH 06/22/20 03:00 Calcium Carbonate/ Glycine (Tums) 500 mg DAILY08 PO 06/22/20 08:00 07/26/20 08:22 Insulin Glargine (Lantus Syringe) 10 unit DAILYWBKFT SQ 06/22/20 08:00 07/25/20 08:00 Cetirizine HCl (ZyrTEC) 10 mg DAILY PO 06/22/20 09:00 07/26/20 08:22 Multivitamins/ Calcium (Thera-M Plus) 1 tab DAILY PO 06/22/20 09:00 07/26/20 08:22 Phenytoin Sodium (Dilantin) 250 mg BID PO 06/22/20 21:00 06/23/20 19:12 DC 06/23/20 08:19 Phenytoin Sodium (Dilantin) 150 mg 1X ONCE PO 06/22/20 12:30 06/22/20 12:31 DC 06/22/20 15:31 Non-Formulary Medication (Non Formulary Item (Glucocil)) 1 ea BID PO 06/22/20 21:00 06/23/20 05:16 DC 06/22/20 21:41 Non-Formulary Medication (Non Formulary Item (Glucocil)) 2 ea BIDWMEALS PO 06/23/20 08:00 07/26/20 08:00 Amoxicillin/ Clavulanate Potassium (Augmentin 875/ 125mg) 1 tab BID PO 06/23/20 21:00 07/03/20 22:00 DC 07/03/20 20:48 Vitamin D (Vitamin D3) 50,000 unit WEEKLY PO 06/23/20 15:45 07/21/20 08:06 Magnesium Oxide (Magnesium Oxide) 400 mg BID PO 06/23/20 21:00 07/26/20 08:22 Lactobacillus Rhamnosus (Culturelle) 1 cap BID PO 06/23/20 21:00 07/26/20 08:22 Phenytoin Sodium (Dilantin) 200 mg BID PO 06/23/20 21:00 06/25/20 01:50 DC 06/24/20 21:16 Phenytoin Sodium (Dilantin) 200 mg BID PO 06/25/20 09:00 07/26/20 08:21 Quetiapine Fumarate (SEROquel) 25 mg QHS PO 06/27/20 21:00 06/29/20 11:28 DC 06/28/20 20:52 Quetiapine Fumarate (SEROquel) 50 mg QHS PO 06/29/20 21:00 07/08/20 16:08 DC 07/07/20 20:41 Quetiapine Fumarate (SEROquel) 25 mg QHS PO 07/08/20 21:00 07/25/20 20:51 Fluvoxamine Maleate (Luvox) 50 mg DAILY PO 07/11/20 09:00 07/13/20 21:00 DC 07/13/20 09:15 Fluvoxamine Maleate (Luvox) 100 mg DAILY PO 07/14/20 09:00 07/26/20 08:22 Quetiapine Fumarate (SEROquel) 25 mg PRN QHS PRN PO INSOMNIA 07/13/20 11:45 I have reviewed the current psychotropics carefully including drug interactions. Risk benefit ratio favors no change other than as noted in my dictated progress note. Diagnosis: Problems: (1) Schizoaffective disorder, bipolar type (2) Bipolar disorder with psychotic features (3) Impulse control disorder, unspecified (4) Anxiety disorder, unspecified ELIAS WASHINGTON MD July 26, 2020 09:02
[2020-07-26 09:21] LABS: BASO % 1 % (0-3); EOS # 0.1 x10^3/uL (0.0-0.7); EOS % 1 % (0-3); HEMATOCRIT 33.5 % (36.0-47.0); HEMOGLOBIN 11.3 g/dL (12.0-15.5); LYMPH # 1.2 x10^3/uL (1.0-4.8); LYMPH % 19 % (24-48); MEAN CORPUSCULAR HEMOGLOBIN 32 pg (25-35); MEAN CORPUSCULAR HGB CONC 34 g/dL (31-37); MEAN CORPUSCULAR VOLUME 95 fL (79-100); MONO # 0.5 x10^3/uL (0.0-1.1); MONO % 8 % (0-9); NEUT # 4.5 x10^3uL (1.8-7.7); NEUT % 72 % (31-73); PLATELET COUNT 199 x10^3/uL (140-400); RED BLOOD COUNT 3.54 x10^6/uL (3.50-5.40); RED CELL DISTRIBUTION WIDTH 13.3 % (11.5-14.5); WHITE BLOOD COUNT 6.3 x10^3/uL (4.0-11.0)
[2020-07-26 09:43] LABS: ALBUMIN 3.5 g/dL (3.4-5.0); ALBUMIN/GLOBULIN RATIO 0.9 (1.0-1.7); CREATININE 0.9 mg/dL (0.6-1.0); POTASSIUM 4.6 mmol/L (3.5-5.1); TOTAL BILIRUBIN 0.2 mg/dL (0.2-1.0); TOTAL PROTEIN 7.3 g/dL (6.4-8.2)
--- NOTE | 2020-07-26 14:35 | NUR ---
[facility] Social Work Discharge Planning Form Patient Name JAIMIE LOPEZ Admit Date: 06/22/20 DISCHARGE PLAN Discharge Destination: [facility] Care Assessment: No Level II Assessment: No Transportation: [facility] will p/u at 0900 Special Instructions/Notes: Please fax signed medication list and visit summary to facility. DISCHARGE TO FACILITY Facility: [facility] Address: [address] [place] [address] [place] [address] Contact Name: MONROE Grace; DANDRE Corcoran; Reese or Adm Abby PCP: Dr. Niranjan Aguayo Psychiatrist: Jaycee/WENDY Peres
--- NOTE | 2020-07-26 15:44 | NUR ---
Shift Summary Patient had uneventful shift, med compliant, and has been active in activity today. Patient paces throughout hallway and denies any complaints.
[2020-07-26 16:05] VITALS: BP 159/68
[2020-07-26] MEDS: QUEtiapine 25 MG TABLET. PO SCH (20:33)
--- NOTE | 2020-07-26 22:15 | PDOC ---
Exam Note: Ryan Note: Please also refer to the separate dictated note~for this date of service dictated separately.~Patient seen individually. Discussed the patient with Nursing staff reviewed the chart.~Reviewed interim history and current functioning. Reviewed vital signs,~Labs/ Radiology~and current medications noted below. Continue current treatment with the changes noted in the dictated addendum note Assessment: Vital Signs/I&O: Vital Signs Date Time Temp Pulse Resp B/P (MAP) Pulse Ox O2 Delivery O2 Flow Rate FiO2 07/26/20 16:05 97.5 81 20 159/68 (98) 95 07/26/20 05:37 Room Air I & O 07/25/20 07/25/20 07/26/20 15:00 23:00 07:00 Intake Total 840 ml 600 ml Balance 840 ml 600 ml Labs: Laboratory Tests Test 07/26/20 08:12 07/26/20 08:58 07/26/20 19:02 Glucose (Fingerstick) 104 mg/dL (70-99) H 102 mg/dL (70-99) H White Blood Count 6.3 x10^3/uL (4.0-11.0) Red Blood Count 3.54 x10^6/uL (3.50-5.40) Hemoglobin 11.3 g/dL (12.0-15.5) L Hematocrit 33.5 % (36.0-47.0) L Mean Corpuscular Volume 95 fL (79-100) Mean Corpuscular Hemoglobin 32 pg (25-35) Mean Corpuscular Hemoglobin Concent 34 g/dL (31-37) Red Cell Distribution Width 13.3 % (11.5-14.5) Platelet Count 199 x10^3/uL (140-400) Neutrophils (%) (Auto) 72 % (31-73) Lymphocytes (%) (Auto) 19 % (24-48) L Monocytes (%) (Auto) 8 % (0-9) Eosinophils (%) (Auto) 1 % (0-3) Basophils (%) (Auto) 1 % (0-3) Neutrophils # (Auto) 4.5 x10^3uL (1.8-7.7) Lymphocytes # (Auto) 1.2 x10^3/uL (1.0-4.8) Monocytes # (Auto) 0.5 x10^3/uL (0.0-1.1) Eosinophils # (Auto) 0.1 x10^3/uL (0.0-0.7) Basophils # (Auto) 0.0 x10^3/uL (0.0-0.2) Sodium Level 141 mmol/L (136-145) Potassium Level 4.6 mmol/L (3.5-5.1) Chloride Level 103 mmol/L (98-107) Carbon Dioxide Level 28 mmol/L (21-32) Anion Gap 10 (6-14) Blood Urea Nitrogen 22 mg/dL (7-20) H Creatinine 0.9 mg/dL (0.6-1.0) Estimated GFR (Cockcroft-Gault) 63.0 BUN/Creatinine Ratio 24 (6-20) H Glucose Level 177 mg/dL (70-99) H Calcium Level 9.0 mg/dL (8.5-10.1) Total Bilirubin 0.2 mg/dL (0.2-1.0) Aspartate Amino Transferase (AST) 21 U/L (15-37) Alanine Aminotransferase (ALT) 23 U/L (14-59) Alkaline Phosphatase 96 U/L (46-116) Total Protein 7.3 g/dL (6.4-8.2) Albumin 3.5 g/dL (3.4-5.0) Albumin/Globulin Ratio 0.9 (1.0-1.7) L Current Medications: Meds: Laboratory Tests Test 07/26/20 08:12 07/26/20 08:58 07/26/20 19:02 Glucose (Fingerstick) 104 mg/dL 102 mg/dL White Blood Count 6.3 x10^3/uL Red Blood Count 3.54 x10^6/uL Hemoglobin 11.3 g/dL Hematocrit 33.5 % Mean Corpuscular Volume 95 fL Mean Corpuscular Hemoglobin 32 pg Mean Corpuscular Hemoglobin Concent 34 g/dL Red Cell Distribution Width 13.3 % Platelet Count 199 x10^3/uL Neutrophils (%) (Auto) 72 % Lymphocytes (%) (Auto) 19 % Monocytes (%) (Auto) 8 % Eosinophils (%) (Auto) 1 % Basophils (%) (Auto) 1 % Neutrophils # (Auto) 4.5 x10^3uL Lymphocytes # (Auto) 1.2 x10^3/uL Monocytes # (Auto) 0.5 x10^3/uL Eosinophils # (Auto) 0.1 x10^3/uL Basophils # (Auto) 0.0 x10^3/uL Sodium Level 141 mmol/L Potassium Level 4.6 mmol/L Chloride Level 103 mmol/L Carbon Dioxide Level 28 mmol/L Anion Gap 10 Blood Urea Nitrogen 22 mg/dL Creatinine 0.9 mg/dL Estimated GFR (Cockcroft-Gault) 63.0 BUN/Creatinine Ratio 24 Glucose Level 177 mg/dL Calcium Level 9.0 mg/dL Total Bilirubin 0.2 mg/dL Aspartate Amino Transf (AST/SGOT) 21 U/L Alanine Aminotransferase (ALT/SGPT) 23 U/L Alkaline Phosphatase 96 U/L Total Protein 7.3 g/dL Albumin 3.5 g/dL Albumin/Globulin Ratio 0.9 Current Medications Medications (Trade) Dose Ordered Sig/[place] Route PRN Reason Start Time Stop Time Status Last Admin Dose Admin Acetaminophen (Tylenol) 650 mg PRN Q6HRS PRN PO MILD PAIN / TEMP > 100.3'F 06/22/20 02:00 Multi-Ingredient Ointment (Analgesic [place]) 1 syed PRN QID PRN TP MUSCLE PAIN 06/22/20 02:00 Al Hydroxide/Mg Hydroxide (Mylanta Plus Xs) 15 ml PRN AFTMEALHC PRN PO DYSPEPSIA 06/22/20 02:00 Magnesium Hydroxide (Milk Of Magnesia) 2,400 mg PRN QHS PRN PO CONSTIPATION 06/22/20 02:00 07/26/20 14:06 Furosemide (Lasix) 20 mg DAILY PO 06/22/20 09:00 07/26/20 08:22 Gabapentin (Neurontin) 300 mg TID PO 06/22/20 09:00 07/26/20 20:33 Hydrocortisone (Proctosol-Hc) 1 syed PRN Q12HR PRN RC Hemmorrhoids 06/22/20 02:30 Pantoprazole Sodium (Protonix) 40 mg PRN Q12HR PRN PO GERD 06/22/20 02:30 07/03/20 09:08 Albuterol Sulfate (Ventolin) 1.25 mg PRN Q6HRS PRN NEB COUGH 06/22/20 03:00 Calcium Carbonate/ Glycine (Tums) 500 mg DAILY08 PO 06/22/20 08:00 07/26/20 08:22 Insulin Glargine (Lantus Syringe) 10 unit DAILYWBKFT SQ 06/22/20 08:00 07/26/20 08:00 Cetirizine HCl (ZyrTEC) 10 mg DAILY PO 06/22/20 09:00 07/26/20 08:22 Multivitamins/ Calcium (Thera-M Plus) 1 tab DAILY PO 06/22/20 09:00 07/26/20 08:22 Phenytoin Sodium (Dilantin) 250 mg BID PO 06/22/20 21:00 06/23/20 19:12 DC 06/23/20 08:19 Phenytoin Sodium (Dilantin) 150 mg 1X ONCE PO 06/22/20 12:30 06/22/20 12:31 DC 06/22/20 15:31 Non-Formulary Medication (Non Formulary Item (Glucocil)) 1 ea BID PO 06/22/20 21:00 06/23/20 05:16 DC 06/22/20 21:41 Non-Formulary Medication (Non Formulary Item (Glucocil)) 2 ea BIDWMEALS PO 06/23/20 08:00 07/26/20 16:26 Amoxicillin/ Clavulanate Potassium (Augmentin 875/ 125mg) 1 tab BID PO 06/23/20 21:00 07/03/20 22:00 DC 07/03/20 20:48 Vitamin D (Vitamin D3) 50,000 unit WEEKLY PO 06/23/20 15:45 07/21/20 08:06 Magnesium Oxide (Magnesium Oxide) 400 mg BID PO 06/23/20 21:00 07/26/20 20:33 Lactobacillus Rhamnosus (Culturelle) 1 cap BID PO 06/23/20 21:00 07/26/20 20:33 Phenytoin Sodium (Dilantin) 200 mg BID PO 06/23/20 21:00 06/25/20 01:50 DC 06/24/20 21:16 Phenytoin Sodium (Dilantin) 200 mg BID PO 06/25/20 09:00 07/26/20 20:33 Quetiapine Fumarate (SEROquel) 25 mg QHS PO 06/27/20 21:00 06/29/20 11:28 DC 06/28/20 20:52 Quetiapine Fumarate (SEROquel) 50 mg QHS PO 06/29/20 21:00 07/08/20 16:08 DC 07/07/20 20:41 Quetiapine Fumarate (SEROquel) 25 mg QHS PO 07/08/20 21:00 07/26/20 20:33 Fluvoxamine Maleate (Luvox) 50 mg DAILY PO 07/11/20 09:00 07/13/20 21:00 DC 07/13/20 09:15 Fluvoxamine Maleate (Luvox) 100 mg DAILY PO 07/14/20 09:00 07/26/20 08:22 Quetiapine Fumarate (SEROquel) 25 mg PRN QHS PRN PO INSOMNIA 07/13/20 11:45 I have reviewed the current psychotropics carefully including drug interactions. Risk benefit ratio favors no change other than as noted in my dictated progress note. Diagnosis: Problems: (1) Schizoaffective disorder, bipolar type (2) Bipolar disorder with psychotic features (3) Impulse control disorder, unspecified (4) Anxiety disorder, unspecified ELIAS WASHINGTON MD July 26, 2020 22:15
--- NOTE | 2020-07-26 23:59 | NUR ---
Patient is ambulating around the unit on assumption of care. She is in pleasant spirits, looking forward to discharging on Friday. She is compliant with assessments and medications whole. Cooperative with shower and HS cares. No agitation. No delusions voiced this shift. Patient denies any pain or discomfort. She appears to be sleeping comfortably at present time. Will continue to monitor.
[2020-07-27 06:30] VITALS: BP 123/70
[2020-07-27 06:51] LABS: BASO % 1 % (0-3); EOS # 0.1 x10^3/uL (0.0-0.7); EOS % 2 % (0-3); HEMATOCRIT 34.6 % (36.0-47.0); HEMOGLOBIN 11.4 g/dL (12.0-15.5); LYMPH # 1.9 x10^3/uL (1.0-4.8); LYMPH % 33 % (24-48); MEAN CORPUSCULAR HEMOGLOBIN 32 pg (25-35); MEAN CORPUSCULAR HGB CONC 33 g/dL (31-37); MEAN CORPUSCULAR VOLUME 95 fL (79-100); MONO # 0.6 x10^3/uL (0.0-1.1); MONO % 10 % (0-9); NEUT # 3.2 x10^3uL (1.8-7.7); NEUT % 55 % (31-73); PLATELET COUNT 206 x10^3/uL (140-400); RED BLOOD COUNT 3.63 x10^6/uL (3.50-5.40); RED CELL DISTRIBUTION WIDTH 13.4 % (11.5-14.5); WHITE BLOOD COUNT 5.8 x10^3/uL (4.0-11.0)
--- NOTE | 2020-07-27 07:00 | PDOC ---
Exam Note: Ryan Note: This note is a late entry for 07/26/2020 covers elements not covered in my initial note. Subjective: The patient was seen individually in the evening of 07/26/2020 with Kenan CHILDRESS, discussed and reviewed the chart. The patient slept 6-1/4 hours previous night. Overall the patient has been cooperative on the unit, constantly walks around the unit, states she had had about 7 rounds so far, does not complain of tiredness, more accepting of her medications. Review of Systems: Ambulation is impaired. No CV, , pulmonary, eye system symptoms on review. Mental Status Exam: The patient is reasonably oriented. She is quite animated, verbal, smiling. Speech coherent. Abstraction fair. Computation impaired. Language function intact. No suicidal or homicidal ideation. Laboratory Data: Reviewed. Impression: Schizoaffective disorder, bipolar type, mixed with psychotic features. Anxiety disorder unspecified. Impulse control disorder unspecified. Plan: No change from initial note. Assessment: Vital Signs/I&O: Vital Signs Date Time Temp Pulse Resp B/P (MAP) Pulse Ox O2 Delivery O2 Flow Rate FiO2 07/27/20 06:30 97.4 71 20 123/70 (87) 96 Room Air I & O 07/26/20 07/26/20 07/27/20 15:00 23:00 07:00 Intake Total 360 ml 720 ml 240 ml Balance 360 ml 720 ml 240 ml Labs: Laboratory Tests Test 07/26/20 08:12 07/26/20 08:58 07/26/20 19:02 07/27/20 06:15 Glucose (Fingerstick) 104 mg/dL (70-99) H 102 mg/dL (70-99) H White Blood Count 6.3 x10^3/uL (4.0-11.0) 5.8 x10^3/uL (4.0-11.0) Red Blood Count 3.54 x10^6/uL (3.50-5.40) 3.63 x10^6/uL (3.50-5.40) Hemoglobin 11.3 g/dL (12.0-15.5) L 11.4 g/dL (12.0-15.5) L Hematocrit 33.5 % (36.0-47.0) L 34.6 % (36.0-47.0) L Mean Corpuscular Volume 95 fL (79-100) 95 fL (79-100) Mean Corpuscular Hemoglobin 32 pg (25-35) 32 pg (25-35) Mean Corpuscular Hemoglobin Concent 34 g/dL (31-37) 33 g/dL (31-37) Red Cell Distribution Width 13.3 % (11.5-14.5) 13.4 % (11.5-14.5) Platelet Count 199 x10^3/uL (140-400) 206 x10^3/uL (140-400) Neutrophils (%) (Auto) 72 % (31-73) 55 % (31-73) Lymphocytes (%) (Auto) 19 % (24-48) L 33 % (24-48) Monocytes (%) (Auto) 8 % (0-9) 10 % (0-9) H Eosinophils (%) (Auto) 1 % (0-3) 2 % (0-3) Basophils (%) (Auto) 1 % (0-3) 1 % (0-3) Neutrophils # (Auto) 4.5 x10^3uL (1.8-7.7) 3.2 x10^3uL (1.8-7.7) Lymphocytes # (Auto) 1.2 x10^3/uL (1.0-4.8) 1.9 x10^3/uL (1.0-4.8) Monocytes # (Auto) 0.5 x10^3/uL (0.0-1.1) 0.6 x10^3/uL (0.0-1.1) Eosinophils # (Auto) 0.1 x10^3/uL (0.0-0.7) 0.1 x10^3/uL (0.0-0.7) Basophils # (Auto) 0.0 x10^3/uL (0.0-0.2) 0.0 x10^3/uL (0.0-0.2) Sodium Level 141 mmol/L (136-145) Potassium Level 4.6 mmol/L (3.5-5.1) Chloride Level 103 mmol/L (98-107) Carbon Dioxide Level 28 mmol/L (21-32) Anion Gap 10 (6-14) Blood Urea Nitrogen 22 mg/dL (7-20) H Creatinine 0.9 mg/dL (0.6-1.0) Estimated GFR (Cockcroft-Gault) 63.0 BUN/Creatinine Ratio 24 (6-20) H Glucose Level 177 mg/dL (70-99) H Calcium Level 9.0 mg/dL (8.5-10.1) Total Bilirubin 0.2 mg/dL (0.2-1.0) Aspartate Amino Transferase (AST) 21 U/L (15-37) Alanine Aminotransferase (ALT) 23 U/L (14-59) Alkaline Phosphatase 96 U/L (46-116) Total Protein 7.3 g/dL (6.4-8.2) Albumin 3.5 g/dL (3.4-5.0) Albumin/Globulin Ratio 0.9 (1.0-1.7) L Current Medications: Meds: Laboratory Tests Test 07/26/20 08:12 07/26/20 08:58 07/26/20 19:02 07/27/20 06:15 Glucose (Fingerstick) 104 mg/dL 102 mg/dL White Blood Count 6.3 x10^3/uL 5.8 x10^3/uL Red Blood Count 3.54 x10^6/uL 3.63 x10^6/uL Hemoglobin 11.3 g/dL 11.4 g/dL Hematocrit 33.5 % 34.6 % Mean Corpuscular Volume 95 fL 95 fL Mean Corpuscular Hemoglobin 32 pg 32 pg Mean Corpuscular Hemoglobin Concent 34 g/dL 33 g/dL Red Cell Distribution Width 13.3 % 13.4 % Platelet Count 199 x10^3/uL 206 x10^3/uL Neutrophils (%) (Auto) 72 % 55 % Lymphocytes (%) (Auto) 19 % 33 % Monocytes (%) (Auto) 8 % 10 % Eosinophils (%) (Auto) 1 % 2 % Basophils (%) (Auto) 1 % 1 % Neutrophils # (Auto) 4.5 x10^3uL 3.2 x10^3uL Lymphocytes # (Auto) 1.2 x10^3/uL 1.9 x10^3/uL Monocytes # (Auto) 0.5 x10^3/uL 0.6 x10^3/uL Eosinophils # (Auto) 0.1 x10^3/uL 0.1 x10^3/uL Basophils # (Auto) 0.0 x10^3/uL 0.0 x10^3/uL Sodium Level 141 mmol/L Potassium Level 4.6 mmol/L Chloride Level 103 mmol/L Carbon Dioxide Level 28 mmol/L Anion Gap 10 Blood Urea Nitrogen 22 mg/dL Creatinine 0.9 mg/dL Estimated GFR (Cockcroft-Gault) 63.0 BUN/Creatinine Ratio 24 Glucose Level 177 mg/dL Calcium Level 9.0 mg/dL Total Bilirubin 0.2 mg/dL Aspartate Amino Transf (AST/SGOT) 21 U/L Alanine Aminotransferase (ALT/SGPT) 23 U/L Alkaline Phosphatase 96 U/L Total Protein 7.3 g/dL Albumin 3.5 g/dL Albumin/Globulin Ratio 0.9 Current Medications Medications (Trade) Dose Ordered Sig/[place] Route PRN Reason Start Time Stop Time Status Last Admin Dose Admin Acetaminophen (Tylenol) 650 mg PRN Q6HRS PRN PO MILD PAIN / TEMP > 100.3'F 06/22/20 02:00 Multi-Ingredient Ointment (Analgesic [place]) 1 syed PRN QID PRN TP MUSCLE PAIN 06/22/20 02:00 Al Hydroxide/Mg Hydroxide (Mylanta Plus Xs) 15 ml PRN AFTMEALHC PRN PO DYSPEPSIA 06/22/20 02:00 Magnesium Hydroxide (Milk Of Magnesia) 2,400 mg PRN QHS PRN PO CONSTIPATION 06/22/20 02:00 07/26/20 14:06 Furosemide (Lasix) 20 mg DAILY PO 06/22/20 09:00 07/26/20 08:22 Gabapentin (Neurontin) 300 mg TID PO 06/22/20 09:00 07/26/20 20:33 Hydrocortisone (Proctosol-Hc) 1 syed PRN Q12HR PRN RC Hemmorrhoids 06/22/20 02:30 Pantoprazole Sodium (Protonix) 40 mg PRN Q12HR PRN PO GERD 06/22/20 02:30 07/03/20 09:08 Albuterol Sulfate (Ventolin) 1.25 mg PRN Q6HRS PRN NEB COUGH 06/22/20 03:00 Calcium Carbonate/ Glycine (Tums) 500 mg DAILY08 PO 06/22/20 08:00 07/26/20 08:22 Insulin Glargine (Lantus Syringe) 10 unit DAILYWBKFT SQ 06/22/20 08:00 07/26/20 08:00 Cetirizine HCl (ZyrTEC) 10 mg DAILY PO 06/22/20 09:00 07/26/20 08:22 Multivitamins/ Calcium (Thera-M Plus) 1 tab DAILY PO 06/22/20 09:00 07/26/20 08:22 Phenytoin Sodium (Dilantin) 250 mg BID PO 06/22/20 21:00 06/23/20 19:12 DC 06/23/20 08:19 Phenytoin Sodium (Dilantin) 150 mg 1X ONCE PO 06/22/20 12:30 06/22/20 12:31 DC 06/22/20 15:31 Non-Formulary Medication (Non Formulary Item (Glucocil)) 1 ea BID PO 06/22/20 21:00 06/23/20 05:16 DC 06/22/20 21:41 Non-Formulary Medication (Non Formulary Item (Glucocil)) 2 ea BIDWMEALS PO 06/23/20 08:00 07/26/20 16:26 Amoxicillin/ Clavulanate Potassium (Augmentin 875/ 125mg) 1 tab BID PO 06/23/20 21:00 07/03/20 22:00 DC 07/03/20 20:48 Vitamin D (Vitamin D3) 50,000 unit WEEKLY PO 06/23/20 15:45 07/21/20 08:06 Magnesium Oxide (Magnesium Oxide) 400 mg BID PO 06/23/20 21:00 07/26/20 20:33 Lactobacillus Rhamnosus (Culturelle) 1 cap BID PO 06/23/20 21:00 07/26/20 20:33 Phenytoin Sodium (Dilantin) 200 mg BID PO 06/23/20 21:00 06/25/20 01:50 DC 06/24/20 21:16 Phenytoin Sodium (Dilantin) 200 mg BID PO 06/25/20 09:00 07/26/20 20:33 Quetiapine Fumarate (SEROquel) 25 mg QHS PO 06/27/20 21:00 06/29/20 11:28 DC 06/28/20 20:52 Quetiapine Fumarate (SEROquel) 50 mg QHS PO 06/29/20 21:00 07/08/20 16:08 DC 07/07/20 20:41 Quetiapine Fumarate (SEROquel) 25 mg QHS PO 07/08/20 21:00 07/26/20 20:33 Fluvoxamine Maleate (Luvox) 50 mg DAILY PO 07/11/20 09:00 07/13/20 21:00 DC 07/13/20 09:15 Fluvoxamine Maleate (Luvox) 100 mg DAILY PO 07/14/20 09:00 07/26/20 08:22 Quetiapine Fumarate (SEROquel) 25 mg PRN QHS PRN PO INSOMNIA 07/13/20 11:45 I have reviewed the current psychotropics carefully including drug interactions. Risk benefit ratio favors no change other than as noted in my dictated progress note. Diagnosis: Problems: (1) Schizoaffective disorder, bipolar type (2) Bipolar disorder with psychotic features (3) Impulse control disorder, unspecified (4) Anxiety disorder, unspecified ELIAS WASHINGTON MD July 27, 2020 07:00
[2020-07-27 07:09] LABS: ALBUMIN 3.5 g/dL (3.4-5.0); ALBUMIN/GLOBULIN RATIO 0.9 (1.0-1.7); CREATININE 0.9 mg/dL (0.6-1.0); POTASSIUM 4.7 mmol/L (3.5-5.1); TOTAL BILIRUBIN 0.2 mg/dL (0.2-1.0); TOTAL PROTEIN 7.3 g/dL (6.4-8.2)
[2020-07-27] MEDS: INSULIN GLARGINE SYRINGE. SQ SCH (08:00)
[2020-07-27] MEDS: GLUCOCIL PO SCH ×2 (08:00→17:00)
[2020-07-27] MEDS: FUROSEMIDE 20 MG TABLET PO SCH (08:19)
[2020-07-27] MEDS: GABAPENTIN 300 MG CAPSULE. PO SCH ×3 (08:19→20:49)
[2020-07-27] MEDS: CALCIUM CARBONATE 500 MG TAB.CHEW PO SCH (08:19)
[2020-07-27] MEDS: MAGNESIUM OXIDE 400 MG TABLET PO SCH ×2 (08:19→20:49)
[2020-07-27] MEDS: MULTIVITAMIN with MINERAL TABLET. PO SCH (08:19)
[2020-07-27] MEDS: LACTOBACILLUS RHAMNOSUS GG 1 CAPSULE. PO SCH ×2 (08:19→20:48)
[2020-07-27] MEDS: CETIRIZINE HCL 10 MG TABLET PO SCH (08:19)
[2020-07-27] MEDS: PHENYTOIN SODIUM EXTENDED 100 MG CAPSULE PO SCH ×2 (08:20→20:50)
--- NOTE | 2020-07-27 11:55 | NUR ---
WEEKLY ACTIVITY THERAPY NOTE Date of Admission:06/22/20 Date of AT Assessment: 06/22 Precipitating behaviors that initiated intake and admission:refusing meds, threatening to call government, belligerent, shouting at staff, thinks staff is trying to kill her Goal aimed: increase time management and relaxation skills Initial Goal: Pt will participate in at least three individual or group Activity Therapy sessions per week. Goal changed 07/20:Pt will participate in all Activity Therapy sessions offered. Weekly progress towards goal: did not achieve, 05/08 Group participation level: 4 full Weekly highlights: listed bucket list items and participated in Never [facility] activity Friday, attended congregation service Friday, made a birdhouse on Friday Behaviors observed: pleasant and calm, independent and does not require prompting, participated in garden group Friday Plan: no change to goal Beneficial adaptations:
--- NOTE | 2020-07-27 12:48 | TX PLAN ---
Interdisciplinary Tx Plan Admission Information Jun 22, 2020 at 00:45 Legal Status (on Admission): Voluntary DPOA/Guardian Name: Dtr/Medina Larios [phone] and Marketing Communications Coordinator Luis M Hernández [phone] Other Contact Name: MONROE Grace/ DANDRE Corcoran/ DONAL Mora Other Contact Verified Code Status: Full Code Allergies: Coded Allergies: I S O L A T I O N *CONTACT* (Verified Allergy, Unknown, 06/27/20) ESBL in urine 06/20/2020. ciprofloxacin (Verified Allergy, Unknown, 06/20/20) eslicarbazepine (Verified Allergy, Unknown, leg spasms and leg weakness, 07/22/20) pt reports muscle spasms of the arms, legs, and spine clonazepam (Unverified Adverse Reaction, Unknown, beakthru seizues per patient report, 07/05/20) divalproex sodium (Unverified Adverse Reaction, Unknown, 07/05/20) Diagnoses Primary Diagnosis: Schizophrenia, Anemia, DMII, HLD, Epilepsy, right leg amputation Reasons for Admission: Delusions, Relation/conflict, Agitated, Angry, Suspicious/paranoid Problem in Patient's Words: Pt has a long history of paranoia and being suspicious of family, facility staff, and doctors. She has burnt relationships with family members and friends from years ago. She tries to call or email the state to make accusations about the medical staff drugging her. She is Jehovah Witness and has refused blood transfusions that has created some medical complications. 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 Additional Admission Comments: Per intake pt intermittently refuses medication, threatens to call govt/state, belligerent, shouting at staff, cussing, name calling, unable to focus, thinks staff is trying to kill her, thinks money is being stolen. Problems Active Problems: Delusional, paranoia, suspicious of everyone, agitation, poor insight/judgement. Inactive Problems: None noted at this time. Pt Strengths/Limitations Ability for [place]: Poor Cognitive Functioning/Ability: Poor Communication Skills/Ability: Fair Financial Resources: Poor Insight/Judgement: Poor Intellectual Ability: Fair Physical Health: Poor Social Skills: Poor Stability in Family: Poor Stability in School/Work: Poor Verbal Skills: Poor Discharge Criteria Discharge Criteria: Able to meet health needs, Adequate arrangements @DC, Adequate self-care, Verbal commit med comply, Improved behavior, Improved mood/thought Other Discharge Comments: None noted at this time. Preliminary Discharge Plan Preliminary DC Plan: Current Living Arrange. Special Precautions Special Precautions: Agitation/Assault Fall Risk: Moderate Initial D/C Plan Pt plan is to return to [facility] Identified Discharge Needs: None noted at this time. Currently Utilized Resources Currently Utilized Resources/P: PCP-Dr. Aguayo Psychiatrist-Dr. Champion [facility] Tb-wmwewopth-Goh/Medina, and Marketing Communications Coordinator/Luis M Referrals Community Resources: None noted at this time. Identified Problems/Hx/Goals Objectives/Short-Term Goals Short Term Goals: Control abnormal behavior, Dec. Hallucination/Delus, Improved Social Skills, Medication Stabilization, Monitor Med Effects, Promote Coping Skill Short Term Goals in Patient's: Compliant with medications and improved paranoia/suspicions Interventions/Frequency Staff Interventions/Frequency&: Psychiatry to assess pt three times per week for medication management. Nursing to assess behaviors, monitor medications, and complete 15 minute checks daily. Social Work to see pt at least two times weekly to aid in return to placement. Activities to encourage pt to participate in group activities daily. 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 Education: Pt completed high school and secretarial schooling. Community Follow-up PCP Psychiatry Community Provider/Family Inpu: Guardians are aware that pt is at [facility]. They are available for further input if needed. Pt should not be allowed to make phone calls without consulting SW or guardians first. Treatment Plan Explained Patient/Corporate Travel Expert had this treatment plan explained to him/her as indicated by the signature below and has been given the opportunity to ask questions and make suggestions: Date: Patient/Corporate Travel Expert Signature: Status Update Update Pt eating 100% of her meals and averaging 6.5 hours of sleep. Pt has been compliant with medications. She ambulates the halls for exercise. Pt has participated in several groups and planted some seeds in the garden. Pt hasn't shown less delusions. She does still fixate on her frustrations toward her guardians and her belief that assets have been stolen from her. She is also focused on wanting to live in a level 1 facility. SW has tried to help her understand that her assets are supposed to be used for her facility living expenses. Pt states that she understands that, but continues to believe that money has been and is being taken in a way that it should not. SW has also commu nicated to her that she will be able to talk with her immigration case manager following hospital discharge about all of her concerns, so that she can process through those with him/her. Pt will be discharged tomorrow 07/28/20; returning back to [facility]. NAKIA AVERY July 27, 2020 12:48
[2020-07-27 15:58] VITALS: BP 168/73
--- NOTE | 2020-07-27 18:21 | NUR ---
Patient ambulates throughout the unit independently very social with others and staff has a good appetite in the dining room for all meals vitals wnl of baseline and stable. Patient looking forward to discharging tomorrow and wants to leave as early as possible in hopes to avoid being charged for an additional day. Patient continues to fear her money is being wasted on facilities she does not to reside in and that her guardians will misappropriate funds from the proceeds of her home sale. Patient advised to focus on continuing to take her meds and goals to maintain a positive outlook. Patient med compliant and cooperative with cares. Patients vitals wnl of baseline alert and oriented, will continue to monitor patient. Med list and discharge order faxed to [facility].
[2020-07-27] MEDS: QUEtiapine 25 MG TABLET. PO SCH (20:49)
--- NOTE | 2020-07-27 22:09 | PDOC ---
Exam Note: Ryan Note: Please also refer to the separate dictated note~for this date of service dictated separately.~Patient seen individually. Discussed the patient with Nursing staff reviewed the chart.~Reviewed interim history and current functioning. Reviewed vital signs,~Labs/ Radiology~and current medications noted below. Continue current treatment with the changes noted in the dictated addendum note Assessment: Vital Signs/I&O: Vital Signs Date Time Temp Pulse Resp B/P (MAP) Pulse Ox O2 Delivery O2 Flow Rate FiO2 07/27/20 15:58 97.0 80 20 168/73 (104) 97 07/27/20 06:30 Room Air I & O 07/26/20 07/26/20 07/27/20 15:00 23:00 07:00 Intake Total 360 ml 720 ml 240 ml Balance 360 ml 720 ml 240 ml Labs: Laboratory Tests Test 07/27/20 06:15 07/27/20 07:15 07/27/20 19:23 White Blood Count 5.8 x10^3/uL (4.0-11.0) Red Blood Count 3.63 x10^6/uL (3.50-5.40) Hemoglobin 11.4 g/dL (12.0-15.5) L Hematocrit 34.6 % (36.0-47.0) L Mean Corpuscular Volume 95 fL (79-100) Mean Corpuscular Hemoglobin 32 pg (25-35) Mean Corpuscular Hemoglobin Concent 33 g/dL (31-37) Red Cell Distribution Width 13.4 % (11.5-14.5) Platelet Count 206 x10^3/uL (140-400) Neutrophils (%) (Auto) 55 % (31-73) Lymphocytes (%) (Auto) 33 % (24-48) Monocytes (%) (Auto) 10 % (0-9) H Eosinophils (%) (Auto) 2 % (0-3) Basophils (%) (Auto) 1 % (0-3) Neutrophils # (Auto) 3.2 x10^3uL (1.8-7.7) Lymphocytes # (Auto) 1.9 x10^3/uL (1.0-4.8) Monocytes # (Auto) 0.6 x10^3/uL (0.0-1.1) Eosinophils # (Auto) 0.1 x10^3/uL (0.0-0.7) Basophils # (Auto) 0.0 x10^3/uL (0.0-0.2) Sodium Level 142 mmol/L (136-145) Potassium Level 4.7 mmol/L (3.5-5.1) Chloride Level 106 mmol/L (98-107) Carbon Dioxide Level 30 mmol/L (21-32) Anion Gap 6 (6-14) Blood Urea Nitrogen 25 mg/dL (7-20) H Creatinine 0.9 mg/dL (0.6-1.0) Estimated GFR (Cockcroft-Gault) 63.0 BUN/Creatinine Ratio 28 (6-20) H Glucose Level 93 mg/dL (70-99) Calcium Level 9.0 mg/dL (8.5-10.1) Total Bilirubin 0.2 mg/dL (0.2-1.0) Aspartate Amino Transferase (AST) 22 U/L (15-37) Alanine Aminotransferase (ALT) 24 U/L (14-59) Alkaline Phosphatase 97 U/L (46-116) Total Protein 7.3 g/dL (6.4-8.2) Albumin 3.5 g/dL (3.4-5.0) Albumin/Globulin Ratio 0.9 (1.0-1.7) L Glucose (Fingerstick) 94 mg/dL (70-99) 78 mg/dL (70-99) Current Medications: Meds: Laboratory Tests Test 07/27/20 06:15 07/27/20 07:15 07/27/20 19:23 White Blood Count 5.8 x10^3/uL Red Blood Count 3.63 x10^6/uL Hemoglobin 11.4 g/dL Hematocrit 34.6 % Mean Corpuscular Volume 95 fL Mean Corpuscular Hemoglobin 32 pg Mean Corpuscular Hemoglobin Concent 33 g/dL Red Cell Distribution Width 13.4 % Platelet Count 206 x10^3/uL Neutrophils (%) (Auto) 55 % Lymphocytes (%) (Auto) 33 % Monocytes (%) (Auto) 10 % Eosinophils (%) (Auto) 2 % Basophils (%) (Auto) 1 % Neutrophils # (Auto) 3.2 x10^3uL Lymphocytes # (Auto) 1.9 x10^3/uL Monocytes # (Auto) 0.6 x10^3/uL Eosinophils # (Auto) 0.1 x10^3/uL Basophils # (Auto) 0.0 x10^3/uL Sodium Level 142 mmol/L Potassium Level 4.7 mmol/L Chloride Level 106 mmol/L Carbon Dioxide Level 30 mmol/L Anion Gap 6 Blood Urea Nitrogen 25 mg/dL Creatinine 0.9 mg/dL Estimated GFR (Cockcroft-Gault) 63.0 BUN/Creatinine Ratio 28 Glucose Level 93 mg/dL Calcium Level 9.0 mg/dL Total Bilirubin 0.2 mg/dL Aspartate Amino Transf (AST/SGOT) 22 U/L Alanine Aminotransferase (ALT/SGPT) 24 U/L Alkaline Phosphatase 97 U/L Total Protein 7.3 g/dL Albumin 3.5 g/dL Albumin/Globulin Ratio 0.9 Glucose (Fingerstick) 94 mg/dL 78 mg/dL Current Medications Medications (Trade) Dose Ordered Sig/[place] Route PRN Reason Start Time Stop Time Status Last Admin Dose Admin Acetaminophen (Tylenol) 650 mg PRN Q6HRS PRN PO MILD PAIN / TEMP > 100.3'F 06/22/20 02:00 Multi-Ingredient Ointment (Analgesic [place]) 1 syed PRN QID PRN TP MUSCLE PAIN 06/22/20 02:00 Al Hydroxide/Mg Hydroxide (Mylanta Plus Xs) 15 ml PRN AFTMEALHC PRN PO DYSPEPSIA 06/22/20 02:00 Magnesium Hydroxide (Milk Of Magnesia) 2,400 mg PRN QHS PRN PO CONSTIPATION 06/22/20 02:00 07/26/20 14:06 Furosemide (Lasix) 20 mg DAILY PO 06/22/20 09:00 07/27/20 08:19 Gabapentin (Neurontin) 300 mg TID PO 06/22/20 09:00 07/27/20 20:49 Hydrocortisone (Proctosol-Hc) 1 syed PRN Q12HR PRN RC Hemmorrhoids 06/22/20 02:30 Pantoprazole Sodium (Protonix) 40 mg PRN Q12HR PRN PO GERD 06/22/20 02:30 07/03/20 09:08 Albuterol Sulfate (Ventolin) 1.25 mg PRN Q6HRS PRN NEB COUGH 06/22/20 03:00 Calcium Carbonate/ Glycine (Tums) 500 mg DAILY08 PO 06/22/20 08:00 07/27/20 08:19 Insulin Glargine (Lantus Syringe) 10 unit DAILYWBKFT SQ 06/22/20 08:00 07/27/20 08:00 Cetirizine HCl (ZyrTEC) 10 mg DAILY PO 06/22/20 09:00 07/27/20 08:19 Multivitamins/ Calcium (Thera-M Plus) 1 tab DAILY PO 06/22/20 09:00 07/27/20 08:19 Phenytoin Sodium (Dilantin) 250 mg BID PO 06/22/20 21:00 06/23/20 19:12 DC 06/23/20 08:19 Phenytoin Sodium (Dilantin) 150 mg 1X ONCE PO 06/22/20 12:30 06/22/20 12:31 DC 06/22/20 15:31 Non-Formulary Medication (Non Formulary Item (Glucocil)) 1 ea BID PO 06/22/20 21:00 06/23/20 05:16 DC 06/22/20 21:41 Non-Formulary Medication (Non Formulary Item (Glucocil)) 2 ea BIDWMEALS PO 06/23/20 08:00 07/27/20 17:00 Amoxicillin/ Clavulanate Potassium (Augmentin 875/ 125mg) 1 tab BID PO 06/23/20 21:00 07/03/20 22:00 DC 07/03/20 20:48 Vitamin D (Vitamin D3) 50,000 unit WEEKLY PO 06/23/20 15:45 07/21/20 08:06 Magnesium Oxide (Magnesium Oxide) 400 mg BID PO 06/23/20 21:00 07/27/20 20:49 Lactobacillus Rhamnosus (Culturelle) 1 cap BID PO 06/23/20 21:00 07/27/20 20:48 Phenytoin Sodium (Dilantin) 200 mg BID PO 06/23/20 21:00 06/25/20 01:50 DC 06/24/20 21:16 Phenytoin Sodium (Dilantin) 200 mg BID PO 06/25/20 09:00 07/27/20 20:50 Quetiapine Fumarate (SEROquel) 25 mg QHS PO 06/27/20 21:00 06/29/20 11:28 DC 06/28/20 20:52 Quetiapine Fumarate (SEROquel) 50 mg QHS PO 06/29/20 21:00 07/08/20 16:08 DC 07/07/20 20:41 Quetiapine Fumarate (SEROquel) 25 mg QHS PO 07/08/20 21:00 07/27/20 20:49 Fluvoxamine Maleate (Luvox) 50 mg DAILY PO 07/11/20 09:00 07/13/20 21:00 DC 07/13/20 09:15 Fluvoxamine Maleate (Luvox) 100 mg DAILY PO 07/14/20 09:00 07/27/20 08:19 Quetiapine Fumarate (SEROquel) 25 mg PRN QHS PRN PO INSOMNIA 07/13/20 11:45 I have reviewed the current psychotropics carefully including drug interactions. Risk benefit ratio favors no change other than as noted in my dictated progress note. Diagnosis: Problems: (1) Schizoaffective disorder, bipolar type (2) Bipolar disorder with psychotic features (3) Impulse control disorder, unspecified (4) Anxiety disorder, unspecified ELIAS WASHINGTON MD July 27, 2020 22:09
[2020-07-27] MEDS ORDERED: ACET325T21 PO (23:51)
[2020-07-27] MEDS ORDERED: CHOL500021 PO (23:54)
[2020-07-27] MEDS ORDERED: LACT1CAP19 PO (23:58)
--- NOTE | 2020-07-27 23:59 | NUR ---
Patient is ambulating around the unit on assumption of care. She is in pleasant spirits, looking forward to discharging tomorrow. She is compliant with assessments and medications whole. Cooperative with shower and HS cares. No agitation. No delusions voiced this shift. Patient denies any pain or discomfort. She appears to be sleeping comfortably at present time. Will continue to monitor.
[2020-07-28] MEDS ORDERED: MAG-115 PO
[2020-07-28] MEDS ORDERED: MAGN24003 PO (00:01)
[2020-07-28] MEDS ORDERED: MAGN400T5 PO (00:02)
[2020-07-28] MEDS ORDERED: QUET25TA5 PO ×2 (00:04→00:05)
[2020-07-28] MEDS ORDERED: FLUV100T2 PO (00:08)
[2020-07-28 06:19] VITALS: BP 118/72
[2020-07-28] MEDS: GLUCOCIL PO SCH (08:00)
[2020-07-28] MEDS: FUROSEMIDE 20 MG TABLET PO SCH (08:21)
[2020-07-28] MEDS: CALCIUM CARBONATE 500 MG TAB.CHEW PO SCH (08:21)
[2020-07-28] MEDS: CETIRIZINE HCL 10 MG TABLET PO SCH (08:22)
[2020-07-28] MEDS: MAGNESIUM OXIDE 400 MG TABLET PO SCH (08:22)
[2020-07-28] MEDS: MULTIVITAMIN with MINERAL TABLET. PO SCH (08:22)
[2020-07-28] MEDS: GABAPENTIN 300 MG CAPSULE. PO SCH (08:22)
[2020-07-28] MEDS: LACTOBACILLUS RHAMNOSUS GG 1 CAPSULE. PO SCH (08:22)
[2020-07-28] MEDS: PHENYTOIN SODIUM EXTENDED 100 MG CAPSULE PO SCH (08:22)
[2020-07-28] MEDS: CHOLECALCIFEROL (VITAMIN D3) 50,000 UNIT CAPSULE PO SCH (08:23)
[2020-07-28] MEDS: INSULIN GLARGINE SYRINGE. SQ SCH (08:26)
--- NOTE | 2020-07-28 10:20 | NUR ---
Transition Record was faxed to follow-up provider with the following elements: Reason for admission, procedures, tests, principal diagnosis, pending studies, patient instructions, 23/09 contact information for unit, phone number to obtain pending test results, plan for follow-up care, physician follow-up, advanced directive information, and medication list with dose, duration and instructions. This information was included in the following documents: History and physical, lab results, study results, progress notes, social work planning form, DC instruction form, patient visit summary, and medication reconciliation form. Date & time record faxed: 07/28/20 AT [id number] Record faxed to: [facility] at [phone] Record discussed with/ report given to Jewell CHILDRESS at 1000 Pt discharged for return to [facility] at 0940 via amb accomp by transport personnel
--- NOTE | 2020-07-28 10:33 | PDOC ---
Exam Note: Ryan Note: This note is a late entry for 07/27/2020 covers elements not covered in my initial note. Subjective: The patient was reviewed in the morning of 07/27/2020 for a treatment team meeting with Zohreh Mcpherson, Eulalia Ruiz and Cris (social media strategist), Lissette, activity therapy and Caroline CHILDRESS, discussed and reviewed the chart. The patient slept 7-3/4 hours previous night. We discussed the patients diagnoses, progress, potential discharge for 07/28. Review of Systems: Ambulation is impaired. No CV, , pulmonary, eye system symptoms on review. Mental Status Exam: The patient is reasonably oriented. Speech coherent. Abstraction fair. Computation impaired. Language function intact. No suicidal or homicidal ideation. Laboratory Data: Reviewed. Impression: Schizoaffective disorder, bipolar type, mixed with psychotic features. Anxiety disorder unspecified. Impulse control disorder unspecified. Plan: No change from initial note. Assessment: Vital Signs/I&O: Vital Signs Date Time Temp Pulse Resp B/P (MAP) Pulse Ox O2 Delivery O2 Flow Rate FiO2 07/28/20 06:19 97.6 72 16 118/72 (87) 98 07/27/20 06:30 Room Air I & O 07/27/20 07/27/20 07/28/20 15:00 23:00 07:00 Intake Total 600 ml 240 ml 240 ml Balance 600 ml 240 ml 240 ml Labs: Laboratory Tests Test 07/27/20 19:23 07/28/20 07:44 Glucose (Fingerstick) 78 mg/dL (70-99) 100 mg/dL (70-99) H Current Medications: Meds: Laboratory Tests Test 07/27/20 19:23 07/28/20 07:44 Glucose (Fingerstick) 78 mg/dL 100 mg/dL Current Medications Medications (Trade) Dose Ordered Sig/[place] Route PRN Reason Start Time Stop Time Status Last Admin Dose Admin Acetaminophen (Tylenol) 650 mg PRN Q6HRS PRN PO MILD PAIN / TEMP > 100.3'F 06/22/20 02:00 Multi-Ingredient Ointment (Analgesic [place]) 1 syed PRN QID PRN TP MUSCLE PAIN 06/22/20 02:00 Al Hydroxide/Mg Hydroxide (Mylanta Plus Xs) 15 ml PRN AFTMEALHC PRN PO DYSPEPSIA 06/22/20 02:00 Magnesium Hydroxide (Milk Of Magnesia) 2,400 mg PRN QHS PRN PO CONSTIPATION 06/22/20 02:00 07/26/20 14:06 Furosemide (Lasix) 20 mg DAILY PO 06/22/20 09:00 07/28/20 08:21 Gabapentin (Neurontin) 300 mg TID PO 06/22/20 09:00 07/28/20 08:22 Hydrocortisone (Proctosol-Hc) 1 syed PRN Q12HR PRN RC Hemmorrhoids 06/22/20 02:30 Pantoprazole Sodium (Protonix) 40 mg PRN Q12HR PRN PO GERD 06/22/20 02:30 07/03/20 09:08 Albuterol Sulfate (Ventolin) 1.25 mg PRN Q6HRS PRN NEB COUGH 06/22/20 03:00 Calcium Carbonate/ Glycine (Tums) 500 mg DAILY08 PO 06/22/20 08:00 07/28/20 08:21 Insulin Glargine (Lantus Syringe) 10 unit DAILYWBKFT SQ 06/22/20 08:00 07/28/20 08:26 Cetirizine HCl (ZyrTEC) 10 mg DAILY PO 06/22/20 09:00 07/28/20 08:22 Multivitamins/ Calcium (Thera-M Plus) 1 tab DAILY PO 06/22/20 09:00 07/28/20 08:22 Phenytoin Sodium (Dilantin) 250 mg BID PO 06/22/20 21:00 06/23/20 19:12 DC 06/23/20 08:19 Phenytoin Sodium (Dilantin) 150 mg 1X ONCE PO 06/22/20 12:30 06/22/20 12:31 DC 06/22/20 15:31 Non-Formulary Medication (Non Formulary Item (Glucocil)) 1 ea BID PO 06/22/20 21:00 06/23/20 05:16 DC 06/22/20 21:41 Non-Formulary Medication (Non Formulary Item (Glucocil)) 2 ea BIDWMEALS PO 06/23/20 08:00 07/28/20 08:00 Amoxicillin/ Clavulanate Potassium (Augmentin 875/ 125mg) 1 tab BID PO 06/23/20 21:00 07/03/20 22:00 DC 07/03/20 20:48 Vitamin D (Vitamin D3) 50,000 unit WEEKLY PO 06/23/20 15:45 07/28/20 08:23 Magnesium Oxide (Magnesium Oxide) 400 mg BID PO 06/23/20 21:00 07/28/20 08:22 Lactobacillus Rhamnosus (Culturelle) 1 cap BID PO 06/23/20 21:00 07/28/20 08:22 Phenytoin Sodium (Dilantin) 200 mg BID PO 06/23/20 21:00 06/25/20 01:50 DC 06/24/20 21:16 Phenytoin Sodium (Dilantin) 200 mg BID PO 06/25/20 09:00 07/28/20 08:22 Quetiapine Fumarate (SEROquel) 25 mg QHS PO 06/27/20 21:00 06/29/20 11:28 DC 06/28/20 20:52 Quetiapine Fumarate (SEROquel) 50 mg QHS PO 06/29/20 21:00 07/08/20 16:08 DC 07/07/20 20:41 Quetiapine Fumarate (SEROquel) 25 mg QHS PO 07/08/20 21:00 07/27/20 20:49 Fluvoxamine Maleate (Luvox) 50 mg DAILY PO 07/11/20 09:00 07/13/20 21:00 DC 07/13/20 09:15 Fluvoxamine Maleate (Luvox) 100 mg DAILY PO 07/14/20 09:00 07/28/20 08:22 Quetiapine Fumarate (SEROquel) 25 mg PRN QHS PRN PO INSOMNIA 07/13/20 11:45 I have reviewed the current psychotropics carefully including drug interactions. Risk benefit ratio favors no change other than as noted in my dictated progress note. Diagnosis: Problems: (1) Schizoaffective disorder, bipolar type (2) Bipolar disorder with psychotic features (3) Impulse control disorder, unspecified (4) Anxiety disorder, unspecified ELIAS WASHINGTON MD July 28, 2020 10:33
--- NOTE | 2020-07-28 21:57 | PDOC ---
Exam Note: Ryan Note: Please also refer to the separate dictated note~for this date of service dictated separately.~Patient seen individually. Discussed the patient with Nursing staff reviewed the chart.~Reviewed interim history and current functioning. Reviewed vital signs,~Labs/ Radiology~and current medications noted below. Continue current treatment with the changes noted in the dictated addendum note Assessment: Vital Signs/I&O: Vital Signs Date Time Temp Pulse Resp B/P (MAP) Pulse Ox O2 Delivery O2 Flow Rate FiO2 07/28/20 06:19 97.6 72 16 118/72 (87) 98 07/27/20 06:30 Room Air I & O 07/27/20 07/27/20 07/28/20 15:00 23:00 07:00 Intake Total 600 ml 240 ml 240 ml Balance 600 ml 240 ml 240 ml Labs: Laboratory Tests Test 07/28/20 07:44 Glucose (Fingerstick) 100 mg/dL (70-99) H Current Medications: Meds: Laboratory Tests Test 07/28/20 07:44 Glucose (Fingerstick) 100 mg/dL Current Medications Medications (Trade) Dose Ordered Sig/[place] Route PRN Reason Start Time Stop Time Status Last Admin Dose Admin Acetaminophen (Tylenol) 650 mg PRN Q6HRS PRN PO MILD PAIN / TEMP > 100.3'F 06/22/20 02:00 07/28/20 10:59 DC Multi-Ingredient Ointment (Analgesic [place]) 1 syed PRN QID PRN TP MUSCLE PAIN 06/22/20 02:00 07/28/20 10:59 DC Al Hydroxide/Mg Hydroxide (Mylanta Plus Xs) 15 ml PRN AFTMEALHC PRN PO DYSPEPSIA 06/22/20 02:00 07/28/20 10:59 DC Magnesium Hydroxide (Milk Of Magnesia) 2,400 mg PRN QHS PRN PO CONSTIPATION 06/22/20 02:00 07/28/20 10:59 DC 07/26/20 14:06 Furosemide (Lasix) 20 mg DAILY PO 06/22/20 09:00 07/28/20 10:59 DC 07/28/20 08:21 Gabapentin (Neurontin) 300 mg TID PO 06/22/20 09:00 07/28/20 10:59 DC 07/28/20 08:22 Hydrocortisone (Proctosol-Hc) 1 syed PRN Q12HR PRN RC Hemmorrhoids 06/22/20 02:30 07/28/20 10:59 DC Pantoprazole Sodium (Protonix) 40 mg PRN Q12HR PRN PO GERD 06/22/20 02:30 07/28/20 10:59 DC 07/03/20 09:08 Albuterol Sulfate (Ventolin) 1.25 mg PRN Q6HRS PRN NEB COUGH 06/22/20 03:00 07/28/20 10:59 DC Calcium Carbonate/ Glycine (Tums) 500 mg DAILY08 PO 06/22/20 08:00 07/28/20 10:59 DC 07/28/20 08:21 Insulin Glargine (Lantus Syringe) 10 unit DAILYWBKFT SQ 06/22/20 08:00 07/28/20 10:59 DC 07/28/20 08:26 Cetirizine HCl (ZyrTEC) 10 mg DAILY PO 06/22/20 09:00 07/28/20 10:59 DC 07/28/20 08:22 Multivitamins/ Calcium (Thera-M Plus) 1 tab DAILY PO 06/22/20 09:00 07/28/20 10:59 DC 07/28/20 08:22 Phenytoin Sodium (Dilantin) 250 mg BID PO 06/22/20 21:00 06/23/20 19:12 DC 06/23/20 08:19 Phenytoin Sodium (Dilantin) 150 mg 1X ONCE PO 06/22/20 12:30 06/22/20 12:31 DC 06/22/20 15:31 Non-Formulary Medication (Non Formulary Item (Glucocil)) 1 ea BID PO 06/22/20 21:00 06/23/20 05:16 DC 06/22/20 21:41 Non-Formulary Medication (Non Formulary Item (Glucocil)) 2 ea BIDWMEALS PO 06/23/20 08:00 07/28/20 10:59 DC 07/28/20 08:00 Amoxicillin/ Clavulanate Potassium (Augmentin 875/ 125mg) 1 tab BID PO 06/23/20 21:00 07/03/20 22:00 DC 07/03/20 20:48 Vitamin D (Vitamin D3) 50,000 unit WEEKLY PO 06/23/20 15:45 07/28/20 10:59 DC 07/28/20 08:23 Magnesium Oxide (Magnesium Oxide) 400 mg BID PO 06/23/20 21:00 07/28/20 10:59 DC 07/28/20 08:22 Lactobacillus Rhamnosus (Culturelle) 1 cap BID PO 06/23/20 21:00 07/28/20 10:59 DC 07/28/20 08:22 Phenytoin Sodium (Dilantin) 200 mg BID PO 06/23/20 21:00 06/25/20 01:50 DC 06/24/20 21:16 Phenytoin Sodium (Dilantin) 200 mg BID PO 06/25/20 09:00 07/28/20 10:59 DC 07/28/20 08:22 Quetiapine Fumarate (SEROquel) 25 mg QHS PO 06/27/20 21:00 06/29/20 11:28 DC 06/28/20 20:52 Quetiapine Fumarate (SEROquel) 50 mg QHS PO 06/29/20 21:00 07/08/20 16:08 DC 07/07/20 20:41 Quetiapine Fumarate (SEROquel) 25 mg QHS PO 07/08/20 21:00 07/28/20 10:59 DC 07/27/20 20:49 Fluvoxamine Maleate (Luvox) 50 mg DAILY PO 07/11/20 09:00 07/13/20 21:00 DC 07/13/20 09:15 Fluvoxamine Maleate (Luvox) 100 mg DAILY PO 07/14/20 09:00 07/28/20 10:59 DC 07/28/20 08:22 Quetiapine Fumarate (SEROquel) 25 mg PRN QHS PRN PO INSOMNIA 07/13/20 11:45 07/28/20 10:59 DC I have reviewed the current psychotropics carefully including drug interactions. Risk benefit ratio favors no change other than as noted in my dictated progress note. Diagnosis: Problems: (1) Schizoaffective disorder, bipolar type (2) Bipolar disorder with psychotic features (3) Impulse control disorder, unspecified (4) Anxiety disorder, unspecified ELIAS WASHINGTON MD July 28, 2020 21:57
--- NOTE | 2020-07-30 22:30 | DS ---
DATE OF DISCHARGE: 07/28/2020 DISCHARGE SUMMARY/PSYCHIATRIC PROGRESS NOTE This is a late entry, date of service 07/28/2020, covers elements not covered in my initial note of 07/28/2020. REASON FOR ADMISSION: Please refer to the admission history for details. Briefly, the patient is a 65-year-old female with a diagnosis of schizoaffective disorder, bipolar type, mixed with psychotic features with acute exacerbation, admitted by her court-appointed guardian, referred from [facility] by her primary care physician/psychiatrist on account of increasing agitation, paranoia, being belligerent, threatening to call the government. She was shouting at staff, cursing, name calling, unable to focus, thinks staff is trying to kill her. She thought her money was being stolen. She had failed outpatient psychiatric interventions. Behavior is deemed dangerous, unmanageable at the facility resulting in this referral. SIGNIFICANT FINDINGS AND CLINICAL COURSE: Following admission, the patient was seen daily individually by myself from a psychiatric standpoint. Medical followup with Dr. Wei/Dr. Jorge. The patient was extremely paranoid, agitated with marked mood lability. Adjustments were made in her psychotropic. She seemed to respond to a combination of Dilantin 200 mg b.i.d. for her seizures, followed by Dr. Thomas neurology. She is also on Neurontin 300 mg t.i.d., Seroquel 25 mg at bedtime, Luvox 100 mg daily and Seroquel 25 mg at bedtime p.r.n. psychosis, agitation. Gradually mood improved. She is less paranoid, agitated, less suspicious. REVIEW OF SYSTEMS: Prior to discharge 07/28/2020, no CV, , pulmonary, eyes, ENT system symptoms on review. She continued to actively walk around the unit with her prosthetic leg. MENTAL STATUS EXAM: Oriented to herself, situation. Speech coherent. Abstraction fair, computation impaired, language function intact. Attention span short. Mood and affect improved. LABORATORY DATA: Reviewed. FINAL DIAGNOSES: Schizoaffective disorder, bipolar type, mixed with psychotic features, in remission; anxiety disorder, unspecified; impulse control disorder, unspecified. DISCHARGE MEDICATIONS: Please refer to the [facility]. DISCHARGE INSTRUCTIONS: Outpatient psychiatric and medical followup at the halfway. Time for discharge day management greater than [address]: Yenny TID: [id number]
== END 2020-07-28 09:40 | DRG 885 ==
LOC: GEROPSY 00:45
PROVIDERS: ADMIT Psychiatry & Neurology Psychiatry; ATTEND Psychiatry & Neurology Psychiatry
DX: F25.0 Schizoaffective disorder, bipolar type (principal); C18.9 Malignant neoplasm of colon, unspecified; N39.0 Urinary tract infection, site not specified; R45.851 Suicidal ideations; Z16.12 Extended spectrum beta lactamase (ESBL) resistance; Z16.24 Resistance to multiple antibiotics; D50.9 Iron deficiency anemia, unspecified; E78.5 Hyperlipidemia, unspecified; E83.42 Hypomagnesemia; F41.1 Generalized anxiety disorder; F63.9 Impulse disorder, unspecified; I10 Essential (primary) hypertension; K59.09 Other constipation; Z80.1 Family history of malignant neoplasm of trachea, bronchus and lung; Z89.511 Acquired absence of right leg below knee; Z20.822 Contact with and (suspected) exposure to COVID-19; Z88.8 Allergy status to other drugs, medicaments and biological substances; Z79.899 Other long term (current) drug therapy; G40.909 Epilepsy, unspecified, not intractable, without status epilepticus; E11.9 Type 2 diabetes mellitus without complications; B96.20 Unspecified Escherichia coli [E. coli] as the cause of diseases classified elsewhere; K21.9 Gastro-esophageal reflux disease without esophagitis
CPT/HCPCS: 36415; 80053; 80185; 81001; 82947; 83036; 85025; J1815; U0003; U0005; 97116; 97530